=== PATIENT | female | born 1960 | race Caucasian/White ===

== ENCOUNTER 2018-10-05 20:29 | Emergency (ER) | payer MEDICAID, SELFPAY ==
[2018-10-05 20:29] VITALS: BP 151/99; PULSE 112; RESP 16; TEMP 36.2; O2SAT 96; BMI 17.2
--- NOTE | 2018-10-05 21:05 | CT_ITS ---
STUDY: CT ABDOMEN AND PELVIS WITH CONTRAST REASON FOR EXAM: Female, 58 years old. Rectal bleeding with bowel movements. History of alcoholic pancreatitis. RADIATION DOSAGE (If Supplied By Facility): CTDIvol = ( 12.46 ) mGy, DLP = ( 249.73 ) mGycm TECHNIQUE: Transaxial images were obtained from the dome of the diaphragm to the symphysis pubis without oral contrast. 80ML IV Isovue 300 was administered. Sagittal and coronal images were reconstructed. Individualized dose optimization techniques were used for this CT. COMPARISON: None. FINDINGS: The visualized lung bases are unremarkable. The visualized portions of the heart are within normal limits. Fatty liver. Large volume gallbladder with one moderate size gallstone. Negative for wall thickening or pericholecystic fluid. Nondistended common bile duct. Normal spleen. Normal pancreas. Normal bilateral adrenal glands. Normal right kidney. Normal left kidney. Normal visualized stomach. Normal small intestine. There are some prominent vascular structures in the low wall of the distal sigmoid or rectosigmoid colon which appear to drain into the inferior mesenteric vein consistent with hemorrhoids. This appears to be approximately 10 cm above the anus. Otherwise normal colon. The appendix is visualized and appears normal. Minimal calcified plaque of the aorta. Normal inferior vena cava. Normal retroperitoneum. Normal urinary bladder. Negative for pelvic mass or free fluid of the pelvis. Normal abdominal wall. Normal osseous structures. CT/Abdomen/Pelvis W IV Cont ONLY IMPRESSION: Prominent venous structures/varices/hemorrhoids of the distal sigmoid/rectosigmoid junction approximately 10 cm above the anus. Otherwise normal colon. Negative for inflammatory bowel changes. Negative for mass density. Negative for diverticulosis. Fatty liver. Cholelithiasis. 1 moderate gallstone and a large volume gallbladder without wall thickening or pericholecystic fluid. Normal kidneys bilaterally. Negative for pelvic mass. Electronically Signed: Kristie Bonds MD at 22:37 EDT , Service support ,
[2018-10-05 21:27] LABS: Absolute Lymphocyte Count 1.32 X10^3/ul (0.83-4.51); Absolute Neutrophil Count 1.9 X10^3/uL (2.0-7.7); Basophil# 0.09 X10^3/uL; Basophil% 2.4 % (0-1); Eosinophil# 0.03 X10^3/uL; Eosinophils% 0.8 % (0-5); Hematocrit 37.2 % (37-47); Hemoglobin 12.7 g/dl (12.0-15.0); Lymphocyte # 1.32 X10^3/ul (4.0); Lymphocyte % 35.8 % (19-41); Mean Corp Hgb Conc 34.1 g/gl (32-36); Mean Corpuscular Hgb 36.4 pg (27.0-32.0); Mean Corpuscular Volume 106.6 fL (81-99); Mean Platelet Vol. 9.8 fl (6.2-12.0); Monocyte# 0.37 X10^3/uL; Neutrophil # 1.87 X10^3/uL (2.7-7.7); Neutrophil % 50.7 % (47-70); POSITIVE COUNT NO; POSITIVE DIFFERENTIAL NO; POSITIVE MORPHOLOGY NO; Platelet Count 84 K/mm3 (150-450); RBC Distribution Width CV 14.6 % (11.6-14.6); RBC Distribution Width SD 55.9 fl (35.1-43.9); Red Blood Count 3.49 M/mm3 (4.2-5.4); White Blood Count 3.7 K/mm3 (4.4-11.0)
[2018-10-05 21:33] LABS: International Normalized Ratio 1.1; Prothrombin Time (Protime)PT. 14.3 SECONDS (11.7-14.9)
[2018-10-05 21:34] LABS: Partial Thromboplast Time 21.7 Seconds (24.1-36.2)
[2018-10-05] MEDS: 0.9% Normal Saline 1,000 ML 1000 ML IV (21:43)
[2018-10-05] MEDS: LORazepam 2 MG/ML Syringe 1 MG IV (21:43)
--- NOTE | 2018-10-05 21:55 | CM.ED ---
SOCIAL WORK NOTE REFERRAL BY NURSING TO DISCUSS OPTIONS FOR DETOX PER PATIENT AND FAMILY REQUEST. MET WITH PATIENT AT BEDSIDE. INTRODUCED ROLE AND REASON FOR REFERRAL. FAMILY NOT PRESENT. PATIENT DENIES CONCERNS WITH ALCOHOL ABUSE AND CURRENT NEED FOR DETOX. PATIENT STATES DRINKS 2-3 ALCOHOLIC BEVERAGES/DAY AND THEN AFTER A FEW MINUTES REPORTED I ONLY DRINK OCCASIONALLY. PATIENT STATED IS HAVING FAMILY ISSUES- MY BROTHER IS UPSET WITH ME BECAUSE HE THINKS I AM DRINKING. DISCUSSED FAMILY'S CONCERNS FOR PATIENT. PATIENT OPEN TO RECEIVING INFORMATION ON OPTIONS FOR TREATMENT. PATIENT PROVIDED LIST OF RESOURCES. 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 PATIENT STATES INCOME IS LIMITED AND MAY QUALIFY FOR MEDICAID. PATIENT GIVEN INFORMATION ON MEDICAID. PATIENT STATES WILL FOLLOW UP WITH MEDICAID TOMORROW. PATIENT DENIES ANY OTHER NEEDS FROM THIS WORKER. WORKER TO REMAIN AVAILABLE. UPDATED NURSING ON THE ABOVE. VAUGHN ALBARRAN, TRIMMING CUTTER, MEDICAL INSURANCE BILLER.
[2018-10-05 22:03] LABS: ALB/GLOB Ratio 0.8 RATIO (0.9-2.4); AST(SGOT) 123 U/L (15-37); Alanine Aminotransfer ALT/SGPT 48 U/L (13-56); Albumin, Serum 3.7 g/dL (3.2-5.0); Alkaline Phosphatase 121 U/L (45-117); Anion Gap 12 (5-15); BUN 5 mg/dL (7-18); Calcium,Total 8.2 mg/dL (8.5-10.1); Chloride 101 mmol/L (98-107); Creatinine, Serum 0.56 mg/dL (0.55-1.02); EST Glomerular Filtration Rate 120 mL/min (>60); Est Glom Filt Rate - Afr Amer 145 mL/min (>60); Estimated Creatinine Clearance 80.32 ml/min; Globulin 4.5 g/dL (2.2-4.2); Glucose 80 mg/dL (74-106); Lipase 135 U/L (73-393); Potassium 5.1 mmol/L (3.5-5.1); Protein, Total 8.2 g/dL (6.4-8.2); Sodium Level 137 mmol/L (136-145)
--- NOTE | 2018-10-05 23:05 | ED.DCSUM_ITS ---
- ER Visit Summary Date of Service: 10/05/18 Chief Complaint: GI bleeding History of Present Illness: The patient is a 58 F with a history of GI bleeding. The patient has a history of constipation as well as alcoholism. She has had intermittent rectal bleeding over the past month including today. She passed bright red blood with her bowel movements. No black or tarry stools. Patient denies any history of GI bleeding in the past. She does have a history of hemorrhoids. She does not take blood thinners. Patient reports drinking up to 1 bottle of wine per day. Last use was about 3 PM today. Physical Examination: Afebrile and vital signs unremarkable except for heart rate of 112. The patient is nontoxic and in no acute distress. Heart regular. Lungs clear. Abdomen soft and nontender. Rectal exam was chaperoned by Ashley MARTINEZ. Patient has external hemorrhoids which were not bleeding. They are tender to palpation. Otherwise no blood in the rectal vault. Skin appears normal in color without diaphoresis or jaundice. Test Results: White count stable at 3.7. Platelets stable at 84. CMP shows an AST of 123 consistent with alcohol abuse. Lipase normal. INR 1.1 and PTT 21.7. Fecal occult test was positive. CT abdomen and pelvis showed rectosigmoid varices/hemorrhoids. She also has fatty liver and cholelithiasis with a moderate gallstone. No signs of cholecystitis. Emergency Department Course and Treatment: Patient was treated with fluids and Protonix while awaiting results. She requested something for alcohol withdrawal and was treated with a dose of Ativan. CBC stable. No indication for platelet or other transfusion. Coags unremarkable. Patient likely has alcoholic liver disease and possibly some degree of cirrhosis. She has hemorrhoids and I suspect this is the source of her bright red bleeding. I spoke with her again. She has bleeding with hard stools. Her hemorrhoids are painful and they bleed more easily when they are swollen. Patient has an incidental gallstone, but I do not believe this is contributing to any of her symptoms or issues today. Patient is requesting Librium or other medication to help with alcohol withdrawal at home. Her family was interested in detox, but she was not. I will give her an outpatient referral. I will also refer her to surgery for follow-up for her GI bleeding. Patient was placed on stool softeners and PPI. Patient was advised to return right away for inpatient care if she is having worsening bleeding, lightheadedness, or any other associated symptoms. All questions answered and patient will be discharged. Treatment Plan: As above Disposition: Discharge Impression: 1. Rectal bleeding 2. History of alcoholism This note was generated with [employer] software. It may contain incorrect words, spelling, and punctuation that were not noted in review of the chart prior to signing ED Disposition - Plan for ED Patient: Referrals: Care Physician,No Primary [Primary Care Provider] -
--- NOTE | 2018-10-05 23:05 | ED.DEP ---
ED Disposition - Plan for ED Patient: Instructions: ED Hemorrhoids Prescriptions: Docusate Sodium [Colace] 100 mg PO DAILY #20 cap Omeprazole [Prilosec] 20 mg PO DAILY #30 cap Referrals: Solo Elizondo MD [STAFF PHYSICIAN] - As soon as possible Additional Instructions: Follow up with [facility] for detox call [phone]
[2018-10-05 23:24] VITALS: PULSE 81; RESP 16; O2SAT 97
== END 2018-10-05 23:24 | disposition home or self-care (01) ==
LOC: ED 21:16
PROVIDERS: Emergency Provider Emergency Medicine
DX: K62.5 Hemorrhage of anus and rectum (principal); F10.21 Alcohol dependence, in remission; K76.0 Fatty (change of) liver, not elsewhere classified; K80.10 Calculus of gallbladder with chronic cholecystitis without obstruction
CPT/HCPCS: 74177; 80053; 82274; 83690; 85025; 85610; 85730; 86850; 86900; 96361; 96365; 96375; 99284; J7030; Q9967; A4216; J3490

== ENCOUNTER 2019-01-09 07:40 | Day surgery (SDC) | payer MEDICAID, SELFPAY ==
--- NOTE | 2018-12-22 03:08 | HP_ITS ---
Intake Vital Signs 12/22/18 Body Mass Index (BMI) 17.2 12/22/18 Height 5 ft 4 in 12/22/18 Weight: 100 lb 12/22/18 Body Mass Index (BMI) 17.2 12/22/18 Blood Pressure 122/77 H 12/22/18 Blood Pressure Location Rt brachial 12/22/18 Respiratory Rate 18 12/22/18 Pulse Rate 77 12/22/18 Pulse Source Monitor 12/22/18 Temperature 98.1 F 12/22/18 Temperature Source Oral 12/22/18 Pulse Ox 99 12/22/18 Oxygen Delivery Method room air Intake Visit Reasons: BRBPR Chief Complaint: ABDOMINAL PAIN/N/V Banquet Steward Required: No Is patient in pain?: No Allergies Penicillins Allergy (Verified 12/22/18 14:27) Rash Medications ibuprofen 100 mg tablet 200 mg PO Q6H 12/19/18 [History Confirmed 12/22/18] PFSH Medical History (Updated 12/22/18 @ 14:24 by Tierra Sanchez) Rectal bleeding (Acute) Anemia (Acute) Diarrhea (Acute) Fatigue (Acute) Hemorrhoids (Acute) sudden weight loss (Acute) Surgical History (Updated 12/22/18 @ 14:24 by Tierra Sanchez) No history of previous surgery (Acute) Family History (Updated 12/22/18 @ 14:25 by Tierra Sanchez) Brother Diabetes Father Diabetes Hypertension High cholesterol Thyroid disorder Social History (Updated 12/22/18 @ 15:08 by Solo Elizondo MD) Smoking Status: Never smoker alcohol intake: never substance use type: does not use HPI HPI HPI: CHARLIE DEVLIN, is a 58 F who presents to the office today for HPI HPI Surgical H&P: Yes HPI: CHARLIE DEVLIN, is a 58 F who presents to the office today for bright red blood per rectum as well as anemia and epigastric pain. Patient notes that she has a history of alcoholism and has been recovering since October. She says that occasionally she has epigastric pain. She also reports that on a few occasions she has had bright red blood filling the toilet bowl. She is not having any pain during defecation. She has no lower abdominal pain. She has never had a colonoscopy. She also frequently took ibuprofen. ROS General General: Yes fatigue; no weight change, appetite, colon cancer, breast cancer or weakness HEENT HEENT: No difficulty swallowing, eye injury, eye surgery, swollen glands or hoarseness Endo Endocrine: No thyroid disease, diabetes mellitus, thyroid cancer, Hair loss, heat intolerance or cold intolerance Skin Skin: Yes rash; no changing moles Breast Breast: No left breast lump, right breast lump, nipple discharge, breast pain, abnormal mammogram, abnormal US or breast enlargement Musc Musculoskeletal: No back problems, arthritis, rheumatoid arthritis, gout or joint pain Cardio Cardiovascular: No murmur, pacemaker, heart disease, atrial fibrillation, high blood pressure, heart attack, heart stent, palpitations, shortness of breat with exertion or chest pain Psych Psychiatric: No depression, anxiety or hearing voices Resp Respiratory: No shortness of breath, No sleep apnea, No cough, No COPD, No asthma, No emphysema, No wheezing Gastro Gastrointestinal: Yes abdominal pain, No nausea or vomiting, No diarrhea, No constipation, Yes blood in stool, No acid reflux, Yes hemorrhoids, No ulcers, No gallbladder problem, No black,tarry stools Chele Hematologic: No blood thinners, No blood disorders, Yes bleeding, Yes anemia, No blood clots Neuro Neurologic: No system reviewed and no additional complaints, except as docu, No as per HPI, No abnormal walking, No abnormal hearing, No abnormal movements, No abnormal speech, No behavioral changes, No burning sensations, No confusion, No seizure-like activity, No unsteadiness, No dizziness, No localized weakness, No frequent falls, No headache(s), No lack of coordination, No loss of vision, No memory loss, No numbness, No other visual disturbances, No radiating pain, No restless legs, No sensory deficit, No fainting, No tingling, No tremor(s), No weakness, No other Exam Const General: cooperative Orientation: alert, oriented x3 Chest Breast Palpation: No nipple discharge Resp Effort & Inspection: normal respiratory effort Auscultation: clear to auscultation bilaterally Cardio Rate: regular rate Rhythm: regular rhythm Heart Sounds: no murmurs GI Inspection: non-distended Palpation: soft, nontender Assessment & Plan Problems 1. History of anemia Z86.2 2. Bright red blood per rectum K62.5 3. Epigastric pain R10.13 Plan Patient is a recovering alcoholic with bright red blood per rectum and occasional epigastric pain. Patient was slightly anemic recently with a hemoglobin of 12. She was also having fatigue and dizziness. Patient was sent here for colonoscopy as she has never had one but I would also recommend doing an EGD since she is having bleeding and epigastric pain. She also has a history of ibuprofen use. I explained endoscopy in detail to the patient. I explained the risks including but not limited to stroke or heart attack with anesthesia, perforation of the GI tract, bleeding, infection. I explained that any of these could necessitate further emergency surgery. The patient understands and all questions were answered sufficiently. The patient wishes to proceed with procedure. Solo Elizondo MD Pager: [facility] [address] [place] [address], [address] [place] [address] Office: Orders Orders: Colonoscopy Today K62.5 EGD Today R10.13, Z86.2 Coding Level of Care Code Off vis,new,level 3 Diagnoses History of anemia Z86.2 Bright red blood per rectum K62.5 Epigastric pain R10.13 12/22/18 1508 <Electronically signed by Solo patterson MD> Date _ Solo Elizondo MD I have re-examined the patient. There are no clinical changes since date of exam.
[2018-12-22 14:29] VITALS: BMI 17.2
[2019-01-09 08:19] VITALS: BP 123/71; PULSE 79; RESP 14; TEMP 36.8; O2SAT 98; BMI 16.9
--- NOTE | 2019-01-09 09:00 | IMM_PTH ---
PATIENT: CHARLIE DEVLIN LOC: EN U#:[id number] AGE/SX: 58/F ROOM: RE01/09/[address]: Dr. Solo Elizondo MD : 1960 BED: DIS: 01/09/2019 SPEC #: [id number] RECD: 01/09/19 16:35 STATUS: WALE [place] #: [id number] LEO: 01/09/19 09:[address]: Solo Elizondo DEPT: IMMUNOHISTOCHEMISTRY RECD BY: Pia Rizvi ENTERED: 01/09/19 16:35 SP TYPE: IMMUNO OTHR DR: No Primary Care Phys Tissues: Stomach, NOS Procedures: H Pylori (initial) PHYSICIAN & INSTITUTION [place] [id number] SPECIMEN INFORMATION: Tissue Source: Antral biopsy Clinical Info: Bright red blood per rectum, abdominal pain, nausea, vomiting Specimen Number: [id number] CPT code: 90060 METHODOLOGY: Deparaffinized sections of prefer/formalin-fixed tissue or PAP/DQ stained slides are incubated with monoclonal/polyclonal antibodies/oligonucleotide probes. Localization is made via biotin free immunoperoxidase method. Appropriate controls are performed and reacted as expected. Results on target cell population are indicated in the following table: RESULTS: ANTIBODY / CLONE RESULT H Pylori (polyclonal) negative These tests were developed and their performance characteristics determined by [facility]. They may not have been cleared or approved by the U.S. Food and Drug Administration. The FDA has determined that such clearance or approval is not necessary. INTERPRETATION: Antral biopsy: Negative for Helicobacter pylori organisms. MARIIA:isaiah 01/10/19
--- NOTE | 2019-01-09 09:00 | EGD_PTH ---
PATIENT: CHARLIE DEVLIN LOC: EN U#:[id number] AGE/SX: 58/F ROOM: RE01/09/[address]: Dr. Solo Elizondo MD : 1960 BED: DIS: 01/09/2019 SPEC #: [id number] RECD: 01/09/19 11:14 STATUS: WALE YUNIOR #: [id number] LEO: 01/09/19 09:[address]: Solo Elizondo DEPT: SURGICAL PATHOLOGY RECD BY: Alejandro Dubon ENTERED: 01/09/19 14:23 SP TYPE: EGD BIOPSY OTHR DR: No Primary Care Phys Tissues: Gastric mucous membrane Procedures: Surgery Specimen Level IV HEADER OPERATION: Colonoscopy, EGD ([facility]) PRE-OP DIAGNOSIS: Bright red blood per rectum, abdominal pain, nausea, vomiting TISSUE SUBMITTED: Antral biopsy for H. pylori and pathology MICROSCOPIC DIAGNOSIS Gastric antrum, biopsy: Mild chronic gastritis. See comment. AM:isaiah 01/10/19 COMMENT The results of immunohistochemistry for Helicobacter pylori will be reported separately ([id number]). MICROSCOPIC DESCRIPTION Slides are reviewed. GROSS DESCRIPTION Received in fixative is one container labeled with the patient's name and designated antral biopsy. The specimen consists of one irregular fragment of light mchugh soft tissue that measures 0.4 x 0.3 x 0.1 cm. The specimen is totally submitted in one cassette. / MARIIA:isaiah 01/09/19 TC:5 CPT: 73518
[2019-01-09 09:45] VITALS: BP 106/80; BP 123/71; PULSE 77; RESP 16; TEMP 36.1; O2SAT 100
--- NOTE | 2019-01-09 09:45 | OP.ENDO_ITS ---
01/09/2019 No Primary Care Physician Re : Upper GI endoscopy procedure for Adele Cheng Dear Care Physician This procedure was performed on Wednesday, January 09, 2019. My impressions and recommendations are as follows: Impressions : - Grade I esophageal varices. - Gastritis. Biopsied. - Medium-sized hiatal hernia. Recommendations : - Discharge patient to home. - Resume previous diet. - Continue present medications. - Await pathology results. My findings are described in the full procedure note, which is enclosed. If I can be of further assistance, please feel free to contact me at Doctor phone number(s): , Work: . Sincerely, Solo Elizondo MD 01/09/2019 9:45:27 AM This report has been signed electronically.
--- NOTE | 2019-01-09 09:47 | OP.ENDO_ITS ---
01/09/2019 No Primary Care Physician Re : Colonoscopy procedure for Adele Cheng Dear Care Physician This procedure was performed on Wednesday, January 09, 2019. My impressions and recommendations are as follows: Impressions : - Non-bleeding external and internal hemorrhoids. - The examination was otherwise normal on direct and retroflexion views. - No specimens collected. Recommendations : - Discharge patient to home. - Resume previous diet. - Continue present medications. - Return to my office in 1 week. - Repeat colonoscopy in 10 years for screening purposes. My findings are described in the full procedure note, which is enclosed. If I can be of further assistance, please feel free to contact me at Doctor phone number(s): , Work: . Sincerely, Solo Elizondo MD 01/09/2019 9:47:27 AM This report has been signed electronically.
[2019-01-09 09:50] VITALS: BP 108/77; BP 123/71; PULSE 72; RESP 16; O2SAT 96
[2019-01-09 09:55] VITALS: BP 109/79; BP 123/71; PULSE 83; RESP 16; O2SAT 100
[2019-01-09 10:00] VITALS: BP 108/80; BP 123/71; PULSE 67; RESP 16; TEMP 36.6; O2SAT 100
[2019-01-09 10:10] VITALS: BP 123/71
== END 2019-01-09 10:31 | disposition home or self-care (01) ==
LOC: EN 07:41 → AC 07:42
PROVIDERS: Referring Provider Surgery; Visit Provider Surgery
PROC: 0DJD8ZZ Inspection of Lower Intestinal Tract, Via Natural or Artificial Opening Endoscopic (ICD-10-PCS; CPT 45378; principal; 2019-01-09 08:55)
DX: K29.50 Unspecified chronic gastritis without bleeding (principal); K44.9 Diaphragmatic hernia without obstruction or gangrene; I85.00 Esophageal varices without bleeding; F10.21 Alcohol dependence, in remission; K64.2 Third degree hemorrhoids; K64.4 Residual hemorrhoidal skin tags; Z86.2 Personal history of diseases of the blood and blood-forming organs and certain disorders involving the immune mechanism
CPT/HCPCS: 43239; 45378; 88305; 88342; J7120

== ENCOUNTER → 2019-04-01 14:23 | Outpatient (CLI) | payer MEDICAID, SELFPAY ==
[2019-04-01 09:43] VITALS: BMI 16.9
[2019-04-01 14:26] LABS: Red Blood Cells-Urine 0 SEEN /hpf (0-5)
[2019-04-01 14:52] LABS: Color, Urine Yellow (Yellow); Glucose, Dipstick Normal (Normal); Ketone-Dipstick 5 mg/dl (Negative); Leukocyte Esterase-Dipstick 500 /ul (Negative); Nitrite-Dipstick Negative (Negative); Occult Blood-Urine 10 /ul (Negative); Protein-Dipstick 15 mg/dl (Negative); Specific Gravity, Urine 1.025 (1.002-1.030); Urine Clarity Sl. Cloudy (Clear); Urine Urobilinogen 1 mg/dl (Normal)
[2019-04-01 14:55] LABS: Urine Bilirubin Dipstick 1 mg/dL (Negative)
[2019-04-01 15:01] LABS: White Blood Cells 5-10 SEEN /hpf (0-5)
[2019-04-01 15:02] LABS: Bacteria 2+ /hpf (None Seen); Mucous, Urine 1+ /hpf (<or=2+); Squamous Epithelial Cells - UA 0-5 SEEN /hpf (5-10)
== END ==
PROVIDERS: PCP Family Medicine; Visit Provider Physician Assistant Surgical
DX: R35.0 Frequency of micturition (principal)
CPT/HCPCS: 81001; 87086; 87088; 87186

== ENCOUNTER → 2020-08-12 | Outpatient (CLI) | payer MEDICAID, SELFPAY ==
[2020-08-12 11:21] VITALS: BMI 18.1
[2020-08-15 21:12] LABS: HPV APTIMA, High Risk Negative (Negative)
== END | disposition home or self-care (01) ==
LOC: LABSPEC 16:32
PROVIDERS: PCP Family Medicine; Referring Provider Obstetrics & Gynecology; Visit Provider Obstetrics & Gynecology
DX: Z12.4 Encounter for screening for malignant neoplasm of cervix (principal)
CPT/HCPCS: 87624; 88175; G0145

== ENCOUNTER 2022-10-03 14:05 | Emergency (ER) | payer MEDICAID, SELFPAY ==
[2022-10-03 14:06] VITALS: BP 154/95; PULSE 115; RESP 18; TEMP 36.4; O2SAT 98; BMI 17.7
--- NOTE | 2022-10-03 14:54 | EX.ED.DYSGE1 ---
HPI <CHANDRIKA Patterson - Last Filed: 10/03/22 19:38> History of Present Illness Chief Complaint: Abd Pain Narrative Narrative: Patient presenting today due to nausea and vomiting that she has had since Tuesday. She states that she has vomited several times each day and feels dehydrated. She is denying any abdominal pain. She states that she has noticed a few episodes of vomiting that had black specks in it as well as a few episodes of vomiting that were black in color. She denies a history of any gastric ulcers or history of GI bleeds. She denies alcohol use. She denies any fever, chills, diarrhea, urinary symptoms, shortness of breath, chest pain. PFSH <CHANDRIKA Patterson - Last Filed: 10/03/22 19:38> [facility] Medical History Anemia Conjunctivitis, left eye Diarrhea Fatigue Hemorrhoids Rectal bleeding sudden weight loss Home Medications ibuprofen 100 mg tablet 200 mg PO Q6H 12/19/18 [History Last Taken 01/06/19] dibucaine 1 % rectal ointment 1 applic [place] TID #56.7 grams 02/13/19 [Rx Last Taken Unknown] tobramycin 0.3 % eye drops (Tobrex) 1 drp ophthalmic (eye) Q2H #5 mL 05/05/20 [Rx Last Taken Unknown] doxycycline monohydrate 100 mg capsule 100 mg PO BID #28 caps 08/14/20 [Rx Last Taken Unknown] tobramycin 0.3 % eye drops 1 drp ophthalmic (eye) Q2H #5 mL 06/03/21 [Rx Last Taken Unknown] omeprazole 20 mg capsule,delayed release 20 mg PO DAILY #30 CAPSULES 10/03/22 [Rx Last Taken Unknown] ondansetron 4 mg disintegrating tablet 4 mg PO Q8H PRN PRN Nausea #10 tabs 10/03/22 [Rx Last Taken Unknown] Allergy/AdvReac Type Severity Reaction Status Date / Time Penicillins Allergy Rash Verified 10/03/22 14:09 Family History Brother Diabetes Father Diabetes Hypertension High cholesterol Thyroid disorder Surgical History No history of previous surgery Social History Smoking Status: Never smoker alcohol intake: never substance use type: does not use caffeine: Yes what type of physical activity do you participate in: walking seatbelt use: always do you feel safe at home: Yes 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 <CHANDRIKA Patterson - Last Filed: 10/03/22 19:38> ROS ED Constitutional Constitutional ED: Denies chills or fever(s) Cardiovascular Cardiovascular: Denies chest pain or palpitations Respiratory/Chest Respiratory/Chest: Denies cough or dyspnea Gastrointestinal Gastrointestinal: Reports nausea and vomiting; Denies abdominal pain, constipation or diarrhea Genitourinary Genitourinary ED: Denies dysuria, hematuria or urinary urgency Musculoskeletal Musculoskeletal: Denies back pain, myalgias or neck pain Integumentary Denies abscess, Abrasions or rash Neurologic Neurologic: Denies dizziness or weakness Psychiatric Psychiatric: Denies anxiety, depression, suicidal ideation or suicidal thoughts EXAM <CHANDRIKA Patterson - Last Filed: 10/03/22 19:38> Physical Exam Const Vital Signs: 10/03/22 14:06 10/03/22 16:19 Temperature 97.5 F L Temperature Source Temporal Pulse Rate 115 H 86 Respiratory Rate 18 18 Blood Pressure 154/95 H 145/85 H Blood Pressure Mean 114 105 Pulse Ox 98 99 Oxygen Delivery Method Room Air Room Air Positive well nourished, well developed and no apparent distress General Appearance ED: well developed HEENT Reports normocephalic and head/scalp atraumatic Mouth ED: Yes moist mucous membranes normal Eyes PERRL and EOMs intact bilaterally Neck full ROM and supple Chest Wall inspection of chest normal Resp normal respiratory effort and clear to auscultation bilaterally Cardio regular rate and regular rhythm GI soft to palpation, non-tender, non-distended and no masses Back/Spine normal ROM and normal to inspection Extremity normal to inspection and full ROM Neuro oriented x3, CN's II-XII intact bilaterally, moves all extremities, no focal motor deficits and no sensory deficits noted Sensorium / Orientation: awake and alert Psych mental status grossly normal and thought process normal Skin no rashes or lesions noted and no wounds <Dr. Ulices Ronquillo DO - Last Filed: 10/03/22 20:56> Physical Exam Const Vital Signs: 10/03/22 14:06 10/03/22 16:19 Temperature 97.5 F L Temperature Source Temporal Pulse Rate 115 H 86 Respiratory Rate 18 18 Blood Pressure 154/95 H 145/85 H Blood Pressure Mean 114 105 Pulse Ox 98 99 Oxygen Delivery Method Room Air Room Air [facility] <CHANDRIKA Patterson - Last Filed: 10/03/22 19:38> [facility] Narrative Medical decision making narrative: Patient presenting today with nausea and vomiting that she has had since Tuesday. She does state that she has noticed black specks in her vomit a few times and also vomited black liquid a few times. She really is not complaining of any abdominal pain. She notes some mild epigastric discomfort but states that it is not really painful. It does appear she has a history of a GI bleed according to her chart, it looks like that was just hemorrhoids and I am not seeing any history of an upper GI bleed. Patient denies any history of GI bleed. Her chart also states that she has a history of alcohol abuse, but she states denies any history of this. On further examination however, she did admit to having a problem with alcohol several years ago but states she no longer drinks. She states she has never had an endoscopy before. Labs obtained to rule out pancreatitis, leukocytosis, assess kidney function, assess liver enzymes. She has been given Protonix, IV fluids and Zofran. Given her elevated WBC, CT scan of the abdomen and pelvis obtained and is suggestive of esophagitis and shows a solitary gallstone. It also shows fatty liver. I have encouraged patient to follow-up with her PCP regarding her elevated liver enzymes so that these can be monitored and have also given her a follow-up with Dr. Polk. She is out of her omeprazole prescription, I have refilled this. I have given her a prescription for Zofran. She is tolerating p.o. fluids. I think she can be discharged home in stable condition to follow-up with her PCP Dr. Polk and is comfortable with plan. I do not think that her symptoms are related to her gallstone as she is really not having much abdominal pain. However, I have given her return precautions if her gallbladder does start to cause her issues. Lab Data Attestation: I reviewed the patient's lab results. Lab results narrative: WBC 14.4, neutrophils 88.4, sodium 130, chloride 94, anion gap 24, total bilirubin 2.2, AST 661, ALT 269, alkaline phosphatase 146, lipase 290 Labs: Laboratory Results - last 24 hr 10/03/22 10/03/22 10/03/22 14:40 14:40 14:40 WBC 14.4 H RBC 4.12 L Hgb 14.5 Hct 44.4 MCV 107.8 H MCH 35.2 H MCHC 32.7 RDW Std Deviation 55.7 H RDW Coeff of Alyx 13.8 Plt Count 229 MPV 10.6 Immature Gran % (Auto) 0.800 Neut % (Auto) 88.4 H Lymph % (Auto) 4.3 L [place] % (Auto) 5.7 Eos % (Auto) 0.0 Baso % (Auto) 0.8 Absolute Neuts (auto) 12.7 H Absolute Lymphs (auto) 0.62 L Nucleated RBC % 0 Sodium 130 L Potassium 3.8 Chloride 94 L Carbon Dioxide 12.0 L Anion Gap 24 H BUN 16 Creatinine 0.95 Estim Creat Clear Calc 46.63 Est GFR (MDRD) Af Amer 77 Est GFR (MDRD) Non-Af 63 BUN/Creatinine Ratio 16.8 Glucose 159 H Calcium 10.3 H Total Bilirubin 2.20 H AST 661 H ALT 269 H Alkaline Phosphatase 146 H Total Protein 10.1 H Albumin 4.6 Globulin 5.5 H Albumin/Globulin Ratio 0.8 L Lipase 290 Ethyl Alcohol Blood Type O POSITIVE Antibody Screen NEGATIVE 10/03/22 15:30 WBC RBC Hgb Hct MCV MCH MCHC RDW Std Deviation RDW Coeff of Alyx Plt Count MPV Immature Gran % (Auto) Neut % (Auto) Lymph % (Auto) [place] % (Auto) Eos % (Auto) Baso % (Auto) Absolute Neuts (auto) Absolute Lymphs (auto) Nucleated RBC % Sodium Potassium Chloride Carbon Dioxide Anion Gap BUN Creatinine Estim Creat Clear Calc Est GFR (MDRD) Af Amer Est GFR (MDRD) Non-Af BUN/Creatinine Ratio Glucose Calcium Total Bilirubin AST ALT Alkaline Phosphatase Total Protein Albumin Globulin Albumin/Globulin Ratio Lipase Ethyl Alcohol < 3.0 Blood Type Antibody Screen Radiography Diagnostic Testing: Clinical Impression(s) from Imaging Studies Abdomen/Pelvis CT 10/03/22 15:31 IMPRESSION: (NOT LISTED IN ORDER OF SIGNIFICANCE) Fatty liver. Esophageal wall thickening may suggest an esophagitis. There is a solitary gallstone. Other findings as above. Electronically Signed: Miguelito Johnson MD at 16:30 EDT , <Dr. Ulices Ronquillo, DO - Last Filed: 10/03/22 20:56> MDM MDM Narrative Medical decision making narrative: Patient presenting today with nausea and vomiting that she has had since Tuesday. She does state that she has noticed black specks in her vomit a few times and also vomited black liquid a few times. She really is not complaining of any abdominal pain. She notes some mild epigastric discomfort but states that it is not really painful. It does appear she has a history of a GI bleed according to her chart, it looks like that was just hemorrhoids and I am not seeing any history of an upper GI bleed. Patient denies any history of GI bleed. Her chart also states that she has a history of alcohol abuse, but she states denies any history of this. On further examination however, she did admit to having a problem with alcohol several years ago but states she no longer drinks. She states she has never had an endoscopy before. Labs obtained to rule out pancreatitis, leukocytosis, assess kidney function, assess liver enzymes. She has been given Protonix, IV fluids and Zofran. Given her elevated WBC, CT scan of the abdomen and pelvis obtained and is suggestive of esophagitis and shows a solitary gallstone. It also shows fatty liver. I have encouraged patient to follow-up with her PCP regarding her elevated liver enzymes so that these can be monitored and have also given her a follow-up with Dr. Polk. She is out of her omeprazole prescription, I have refilled this. I have given her a prescription for Zofran. She is tolerating p.o. fluids. I think she can be discharged home in stable condition to follow-up with her PCP Dr. Polk and is comfortable with plan. I do not think that her symptoms are related to her gallstone as she is really not having much abdominal pain. However, I have given her return precautions if her gallbladder does start to cause her issues. This patient was seen with a PA/BARREL BANDER Individually assessed they patient including history and physical. I have reviewed everything on the chart that is available and agree with the documentation provided by the PA/BARREL BANDER including discussion about the assessment, treatment plan, discussion, and return precautions. Patient presenting with nausea and vomiting. She initially reported some mild pain and pointed to the middle of her abdomen. She states is not significant. Her blood work today shows a slight leukocytosis which is likely reactive. She does have slight hyponatremia. LFTs are elevated today. She reports that she is no longer drinker and her EtOH level is normal. Initially there was some concern for possible upper GI bleed however the patient's hemoglobin is normal. Her BUN is not elevated and her renal function is within normal limits. CT of the abdomen pelvis shows what looks like esophagitis and an isolated gallstone, but she is not experiencing any pain here. Is unclear the etiology of her elevated LFTs. We will have the patient follow-up with GI. Return precautions were discussed. Lab Data Labs: Laboratory Results - last 24 hr 10/03/22 10/03/22 10/03/22 14:40 14:40 14:40 WBC 14.4 H RBC 4.12 L Hgb 14.5 Hct 44.4 MCV 107.8 H MCH 35.2 H MCHC 32.7 RDW Std Deviation 55.7 H RDW Coeff of Alyx 13.8 Plt Count 229 MPV 10.6 Immature Gran % (Auto) 0.800 Neut % (Auto) 88.4 H Lymph % (Auto) 4.3 L [place] % (Auto) 5.7 Eos % (Auto) 0.0 Baso % (Auto) 0.8 Absolute Neuts (auto) 12.7 H Absolute Lymphs (auto) 0.62 L Nucleated RBC % 0 Sodium 130 L Potassium 3.8 Chloride 94 L Carbon Dioxide 12.0 L Anion Gap 24 H BUN 16 Creatinine 0.95 Estim Creat Clear Calc 46.63 Est GFR (MDRD) Af Amer 77 Est GFR (MDRD) Non-Af 63 BUN/Creatinine Ratio 16.8 Glucose 159 H Calcium 10.3 H Total Bilirubin 2.20 H AST 661 H ALT 269 H Alkaline Phosphatase 146 H Total Protein 10.1 H Albumin 4.6 Globulin 5.5 H Albumin/Globulin Ratio 0.8 L Lipase 290 Ethyl Alcohol Blood Type O POSITIVE Antibody Screen NEGATIVE 10/03/22 15:30 WBC RBC Hgb Hct MCV MCH MCHC RDW Std Deviation RDW Coeff of Alyx Plt Count MPV Immature Gran % (Auto) Neut % (Auto) Lymph % (Auto) [place] % (Auto) Eos % (Auto) Baso % (Auto) Absolute Neuts (auto) Absolute Lymphs (auto) Nucleated RBC % Sodium Potassium Chloride Carbon Dioxide Anion Gap BUN Creatinine Estim Creat Clear Calc Est GFR (MDRD) Af Amer Est GFR (MDRD) Non-Af BUN/Creatinine Ratio Glucose Calcium Total Bilirubin AST ALT Alkaline Phosphatase Total Protein Albumin Globulin Albumin/Globulin Ratio Lipase Ethyl Alcohol < 3.0 Blood Type Antibody Screen Radiography Diagnostic Testing: Clinical Impression(s) from Imaging Studies Abdomen/Pelvis CT 10/03/22 15:31 IMPRESSION: (NOT LISTED IN ORDER OF SIGNIFICANCE) Fatty liver. Esophageal wall thickening may suggest an esophagitis. There is a solitary gallstone. Other findings as above. Electronically Signed: Miguelito Johnson MD at 16:30 EDT Reading Location ID and State: [facility] / [place] , Service support , Discharge Plan Triage Chief Complaint: Abd Pain ED Midlevel Provider: China Oliva ED Provider: Ulices Ronquillo Dx/Rx/DC Orders Clinical Impression: Nausea & vomiting Instructions: ED Vomiting (Adult) Prescriptions: New ondansetron 4 mg tablet,disintegrating 4 mg PO Q8H PRN PRN (Reason: Nausea) Qty: 10 0RF omeprazole 20 mg capsule,delayed release(DR/EC) 20 mg PO DAILY Qty: 30 0RF No Action ibuprofen 100 mg tablet 200 mg PO Q6H dibucaine 1 % ointment 1 applic RC TID Qty: 56.7 2RF tobramycin [Tobrex] 0.3 % drops 1 drp OPHTHALMIC Q2H Qty: 5 0RF tobramycin 0.3 % drops 1 drp ophthalmic (eye) Q2H Qty: 5 0RF Rx Instructions: to left eye while awake for 3 days doxycycline monohydrate 100 mg capsule 100 mg PO BID Qty: 28 0RF Primary Care Provider: Jayson Saleh Referrals: Jayson Saleh MD [Primary Care Provider] - Nikolay Polk DO [Med Staff - Active Staff] - 3-5 Days Activity Restrictions/Additional Instructions: Follow-up with Dr. Polk in GI and return for any worsening symptoms. Disposition Disposition: Home, Self Care Discharge Date/Time: 10/03/22 18:05
[2022-10-03] MEDS: 0.9% Normal Saline 1,000 ML 999 ML IV (15:00)
[2022-10-03 15:01] LABS: Absolute Lymphocyte Count 0.62 X10^3/uL (0.83-4.51); Absolute Neutrophil Count 12.7 X10^3/uL (2.0-7.7); Basophil# 0.12 X10^3/uL; Basophil% 0.8 % (0-1); Hematocrit 44.4 % (37-47); Hemoglobin 14.5 g/dL (12.0-15.0); Lymphocyte # 0.62 X10^3/ul (0.83-4.51); Lymphocyte % 4.3 % (19-41); Mean Corp Hgb Conc 32.7 g/dL (32-36); Mean Corpuscular Hgb 35.2 pg (27.0-32.0); Mean Corpuscular Volume 107.8 fL (81-99); Mean Platelet Vol. 10.6 fl (6.2-12.0); Monocyte# 0.82 X10^3/uL; Monocyte% 5.7 % (0-10); NRBC Flagged by Analyzer 0 % (0-5); Neutrophil # 12.73 X10^3/uL (2.7-7.7); Neutrophil % 88.4 % (47-70); Platelet Count 229 K/mm3 (150-450); RBC Distribution Width CV 13.8 % (11.6-14.6); RBC Distribution Width SD 55.7 fl (35.1-43.9); Red Blood Count 4.12 M/mm3 (4.2-5.4); White Blood Count 14.4 K/mm3 (4.4-11.0)
[2022-10-03 15:12] LABS: ALB/GLOB Ratio 0.8 RATIO (0.9-2.4); AST(SGOT) 661 U/L (15-37); Alanine Aminotransfer ALT/SGPT 269 U/L (13-56); Albumin, Serum 4.6 g/dL (3.2-5.0); Alkaline Phosphatase 146 U/L (45-117); Anion Gap 24 (5-15); BUN 16 mg/dL (7-18); BUN/Creat Ratio 16.8 RATIO (10-20); Calcium,Total 10.3 mg/dL (8.5-10.1); Chloride 94 mmol/L (98-107); Creatinine, Serum 0.95 mg/dL (0.55-1.02); EST Glomerular Filtration Rate 63 mL/min (>60); Est Glom Filt Rate - Afr Amer 77 mL/min (>60); Estimated Creatinine Clearance 46.63 ml/min; Globulin 5.5 g/dL (2.2-4.2); Glucose 159 mg/dL (74-106); Lipase 290 U/L (73-393); Potassium 3.8 mmol/L (3.5-5.1); Protein, Total 10.1 g/dL (6.4-8.2); Sodium Level 130 mmol/L (136-145)
--- NOTE | 2022-10-03 15:31 | CT_ITS ---
STUDY: CT Abdomen And Pelvis W/ Contrast Injection 10/03/2022 4:27 PM REASON FOR EXAM: Female, 62 years old. Abdominal pain abdominal pain Individualized dose optimization techniques were used for this CT. COMPARISON: 10.05.18. TECHNIQUE: CT Abdomen And Pelvis W/ Contrast Injection IV 100mL [id number] FINDINGS: There are atherosclerotic calcifications of visualized coronary arteries. The visualized portions of the heart are within normal limits. There is decreased attenuation of the liver consistent with steatosis. There is a solitary gallstone. Normal spleen. Normal pancreas. Normal bilateral adrenal glands. No acute findings of the right kidney. No acute findings of the left kidney. Normal visualized stomach. Normal small intestine. Stool throughout the colon. The appendix is visualized and appears normal. Esophageal wall thickening may suggest an esophagitis. There are calcifications of the abdominal aorta. This is consistent for atherosclerotic disease. There is NO abdominal aortic aneurysm. Vascular workup can be obtained based on clinical correlation. Normal inferior vena cava. Subcentimeter mesenteric lymph nodes. Normal urinary bladder. Normal abdominal wall. There are diffuse degenerative changes of the visualized lumbar spine. CT/Abdomen/Pelvis W IV Cont ONLY IMPRESSION: (NOT LISTED IN ORDER OF SIGNIFICANCE) Fatty liver. Esophageal wall thickening may suggest an esophagitis. There is a solitary gallstone. Other findings as above. Electronically Signed: Miguelito Johnson MD at 16:30 EDT ,
[2022-10-03 16:19] VITALS: BP 145/85; PULSE 86; RESP 18; O2SAT 99
[2022-10-03 17:27] LABS: Alcohol, Blood (Medical)-Serum < 3.0 mg/dL
[2022-10-03] MEDS: Ondansetron 4 MG/2 ML Vial IV (17:57)
== END 2022-10-03 18:05 | disposition home or self-care (01) ==
PROVIDERS: Physician Assistant; Emergency Provider Student in an Organized Health Care Education/Training Program; PCP Family Medicine; Visit Provider Student in an Organized Health Care Education/Training Program
DX: R10.9 Unspecified abdominal pain (principal); Z79.899 Other long term (current) drug therapy; Z79.1 Long term (current) use of non-steroidal anti-inflammatories (NSAID); H10.9 Unspecified conjunctivitis; R11.2 Nausea with vomiting, unspecified
CPT/HCPCS: 74177; 80053; 82077; 83690; 85025; 86850; 86900; 86901; 96361; 96374; 96375; 99283; J7030; Q9967; A4216; J2405; J3490

== ENCOUNTER 2023-09-19 08:12 | Inpatient (IN) | payer SELFPAY ==
[2023-09-19] VITALS (19 sets, daily range): BP systolic 92–140; BP diastolic 50–115; PULSE 92–110; RESP 15–23; TEMP 35.8–37.9; O2SAT 92–101; BMI 17.9; BMI 18.8
--- NOTE | 2023-09-19 08:23 | EKG12_ITS ---
Test Reason : RECTAL BLEEDING Blood Pressure : / mmHG Vent. Rate : 107 BPM Atrial Rate : 107 BPM P-R Int : 156 ms QRS Dur : 072 ms QT Int : 354 ms P-R-T Axes : 068 062 068 degrees QTc Int : 472 ms Sinus tachycardia Otherwise normal ECG Confirmed by COTY WELDON, CRISTINA ([id number]), assistant production editor FIDENCIO ORTA ([id number]) on 09/20/2023 7:59:07 AM Referred By: Confirmed By:CRISTINA ANSARI MD
--- NOTE | 2023-09-19 08:24 | EDS_ITS ---
HPI History of Present Illness Chief Complaint: General Illness Informant: patient Narrative Narrative: Patient presents with vomiting and weakness over the past 2 to 3 days. She states she has noted some blood in her vomit which is dark black in color. She also has a chronic lower GI bleed with bright red blood that she passes. Her last colonoscopy was in [address] Elizondo. At that time she had evidence of hemorrhoids. Patient does feel her abdomen is more distended. She does admit to taking naproxen recently. Although she had been on omeprazole in the past she states she ran out of it and did not notice that it was helping her much so she stopped taking it. [facility] Medical History Alcohol abuse Anemia Diarrhea Elevated LFTs Epigastric pain Fatigue Gall stones Hemorrhoids Pancytopenia Rectal bleeding sudden weight loss Home Medications naproxen 500 mg tablet 1,000 mg PO Q12H 09/19/23 [History Last Taken Unknown] Allergy/AdvReac Type Severity Reaction Status Date / Time Penicillins Allergy Rash Verified 09/19/23 08:15 Family History Brother Diabetes Father Diabetes Hypertension High cholesterol Thyroid disorder Surgical History No history of previous surgery Social History Smoking Status: Never smoker alcohol intake: never substance use type: does not use caffeine: Yes what type of physical activity do you participate in: walking seatbelt use: always do you feel safe at home: Yes 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[facility] ED Constitutional Constitutional ED: Denies chills or fever(s) Eyes Eyes: Denies change in vision or discharge from eye(s) ENT ENT ED: Denies discharge from eye(s), rhinorrhea or sore throat Cardiovascular Cardiovascular: Denies chest pain or palpitations Respiratory/Chest Respiratory/Chest: Denies cough or dyspnea Gastrointestinal Gastrointestinal: Reports abdominal pain, nausea, vomiting and other Details: Bright red blood per rectum ; Denies diarrhea Genitourinary Genitourinary ED: Denies dysuria Musculoskeletal Musculoskeletal: Denies back pain or extremity pain Integumentary Denies Abrasions or rash Neurologic Neurologic: Reports weakness; Denies headache(s) Psychiatric Psychiatric: Denies anxiety or depression Allergic/Immunologic Allergic/Immunologic ED: Denies lip swelling or urticaria EXAM Physical Exam Const Vital Signs: 09/19/23 08:13 09/19/23 08:20 09/19/23 10:00 Temperature 96.5 F L 98.6 F Temperature Source Temporal Oral Pulse Rate 110 H 105 H Respiratory Rate 16 19 H Respiratory Pattern Normal Blood Pressure 120/56 L 121/69 H Blood Pressure Mean 77 86 Blood Pressure Position Blood Pressure Location Pulse Ox 100 97 Oxygen Delivery Method Room Air Room Air 09/19/23 12:00 09/19/23 12:36 Temperature 98.6 F Temperature Source Temporal Pulse Rate 99 100 Respiratory Rate 23 H 20 H Respiratory Pattern Blood Pressure 92/57 L 95/50 L Blood Pressure Mean 68 65 Blood Pressure Position Supine Blood Pressure Location Left Arm Pulse Ox 92 95 Oxygen Delivery Method Room Air Positive well developed General Appearance ED: well developed HEENT Reports moist mucous membranes Eyes EOMs intact bilaterally General Eye ED: Yes scleral icterus Chest Wall inspection of chest normal and palpation of chest normal Resp normal respiratory effort and clear to auscultation bilaterally Cardio regular rhythm Rate: tachycardic GI GI Narrative: Abdomen soft and slightly distended. No focal tenderness. Hypoactive but present bowel sounds are noted. Extremity normal to inspection Neuro oriented x3 Motor Exam: strength 5/5 throughout Psych mental status grossly normal Skin General Skin Exam: jaundice MDM MDM MDM Narrative Medical decision making narrative: Patient placed on site monitor. IV line initiated. EKG obtained to evaluate for cardiac arrhythmia/ischemia. Labwork obtained to evaluate for leukocytosis, anemia, and electrolyte derangement. History & Record Review Discussion w/independent historian: Patient Additional record(s) reviewed:: Prior ED visit and Prior labs Lab Data Attestation: I reviewed the patient's lab results. Labs: Laboratory Results - last 24 hr 09/19/23 09/19/23 09/19/23 08:44 09:21 12:14 WBC 14.0 H RBC 1.20 L Hgb 4.5 L* Hct 14.4 L MCV 120.0 H MCH 37.5 H MCHC 31.3 L RDW Std Deviation 81.8 H RDW Coeff of Alyx 19.0 H Plt Count 177 MPV 11.2 Immature Gran % (Auto) 1.900 H Neut % (Auto) 84.3 H Lymph % (Auto) 6.3 L [place] % (Auto) 6.4 Eos % (Auto) 0.7 Baso % (Auto) 0.4 Absolute Neuts (auto) 11.8 H Absolute Lymphs (auto) 0.89 Nucleated RBC % 1.3 Differential Comment SCANNED Hypochromasia 1+ Anisocytosis 2+ Macrocytosis 2+ PT 22.8 H INR 2.0 APTT 31.1 Sodium 137 Potassium 3.2 L Chloride 100 Carbon Dioxide 23.0 Anion Gap 14 BUN 30 H Creatinine 0.69 Estim Creat Clear Calc 63.93 Est GFR (MDRD) Af Amer 111 Est GFR (MDRD) Non-Af 92 BUN/Creatinine Ratio 43.5 H Glucose 111 H Calcium 8.3 L Total Bilirubin 7.10 H Direct Bilirubin 4.96 H AST 127 H ALT 27 Alkaline Phosphatase 145 H Total Protein 6.2 L Albumin 2.1 L Globulin 4.1 Lipase 55 Hepatitis A IgM Ab Cancelled Hep Bs Antigen Cancelled Hep B Core IgM Ab Cancelled Hepatitis C Ab (EIA) Cancelled Hep C Ab Comment Cancelled Blood Type O POSITIVE Antibody Screen NEGATIVE Crossmatch See Detail Radiography Diagnostic Testing: Clinical Impression(s) from Imaging Studies Abdomen/Pelvis CT 09/19/23 10:18 IMPRESSION: Hepatomegaly with diffuse fatty infiltration and multiple new hypodense lesions throughout the left and right lobes of the liver suggestive of metastatic disease versus hepatocellular carcinoma. Solitary gallstone. Ascites. Increased markings in the mesenteric fat. Questionable 3.1 cm x 3.3 cm mass in the head of the pancreas. Electronically Signed: Wally Meier MD at 10:53 EDT , EKG Initial EKG: Attestation: I personally reviewed and interpreted this EKG as follows: Interpretation: Sinus Tachycardia (Sinus tachycardia at 107. No acute ischemia.) Treatment and Re-Evaluation :: CBC reveals a hemoglobin of 4.5 with hematocrit of 14.4. In October of last year her hemoglobin is 14.5. Her white count is slightly elevated at 14.0. She has had thrombocytopenia in the past, but today her platelet count is 177. INR is 2.0. Chemistry studies significant for potassium of 3.2 with a BUN of 30 and creatinine is 0.69. Total bilirubin is 7.10, direct bilirubin is 4.96, AST is 127, ALT 27. Alk phos is 145. Lipase is normal at 55. Patient given IV potassium replacement. She is typed and crossed for 3 units and transfusion is ordered. Patient sent for CT scan of the abdomen and pelvis. This reveals evidence of hepatomegaly with diffuse fatty infiltration and multiple new hypodense lesions throughout the left and right lobes of the liver suggestive of metastatic disease versus hepatocellular carcinoma. A solitary gallstone is noted. She has ascites with a questionable 3.1 x 3.3 cm mass in the head of the pancreas. Patient was discussed with Dr. Polk. He agrees with the Protonix that has been given to the patient but she does not need a drip at this time. She will need blood transfusion and admission for further testing and workup. Due to poor IV access, midline was placed by radiology nurse. Patient tolerated this well. Blood transfusion is now being initiated and I will speak with the hospitalist regarding admission. Discharge Plan Triage Chief Complaint: General Illness ED Provider: Kinsey Osullivan Dx/Rx/DC Orders Clinical Impression: Ascites, Lesion of liver, Pancreatic mass, GI bleed, Anemia, Hypokalemia Prescriptions: No Action naproxen 500 mg tablet 1,000 mg PO Q12H Primary Care Provider: Kaleigh Gonzalez Referrals: Jayson Saelh MD [Non-Staff] - Disposition Disposition: Acute Care Hospital [facility]
[2023-09-19] MEDS: 0.9% Normal Saline (1000mL) 1,000 ML 150 ML IV (08:50)
[2023-09-19 08:59] LABS: Absolute Lymphocyte Count 0.89 X10^3/uL (0.83-4.51); Absolute Neutrophil Count 11.8 X10^3/uL (2.0-7.7); Basophil# 0.05 X10^3/uL; Basophil% 0.4 % (0-1); Eosinophils% 0.7 % (0-5); Hematocrit 14.4 % (37-47); Lymphocyte # 0.89 X10^3/ul (0.83-4.51); Lymphocyte % 6.3 % (19-41); Mean Corp Hgb Conc 31.3 g/dL (32-36); Mean Corpuscular Hgb 37.5 pg (27.0-32.0); Mean Platelet Vol. 11.2 fl (6.2-12.0); Monocyte% 6.4 % (0-10); NRBC Flagged by Analyzer 1.3 % (0-5); Neutrophil # 11.82 X10^3/uL (2.7-7.7); Neutrophil % 84.3 % (47-70); POSITIVE COUNT YES; POSITIVE MORPHOLOGY YES; Platelet Count 177 K/mm3 (150-450); RBC Distribution Width SD 81.8 fl (35.1-43.9)
[2023-09-19 09:04] LABS: Differential Indicated SCAN CRITERIA MET; Hemoglobin 4.5 g/dL (12.0-15.0)
[2023-09-19 09:09] LABS: Partial Thromboplast Time 31.1 Seconds (24.1-36.2); Prothrombin Time (Protime)PT. 22.8 SECONDS (11.7-14.9)
[2023-09-19 09:14] LABS: AST(SGOT) 127 U/L (15-37); Alanine Aminotransfer ALT/SGPT 27 U/L (13-56); Albumin, Serum 2.1 g/dL (3.2-5.0); Alkaline Phosphatase 145 U/L (45-117); Anion Gap 14 (5-15); BUN 30 mg/dL (7-18); BUN/Creat Ratio 43.5 RATIO (10-20); Bilirubin, Direct 4.96 mg/dL (0.00-0.30); Calcium,Total 8.3 mg/dL (8.5-10.1); Chloride 100 mmol/L (98-107); Creatinine, Serum 0.69 mg/dL (0.55-1.02); EST Glomerular Filtration Rate 92 mL/min (>60); Est Glom Filt Rate - Afr Amer 111 mL/min (>60); Estimated Creatinine Clearance 63.93 ml/min; Globulin 4.1 g/dL (2.2-4.2); Glucose 111 mg/dL (74-106); Lipase 55 U/L (13-75); Potassium 3.2 mmol/L (3.5-5.1); Protein, Total 6.2 g/dL (6.4-8.2); Sodium Level 137 mmol/L (136-145)
[2023-09-19 09:37] LABS: Anisocytosis 2+; Differential Comment SCANNED; Hypochromasia 1+; Macrocytosis 2+
[2023-09-19] MEDS: Pantoprazole Sodium 40 MG in 0.9% Normal Saline (100mL MB+) 100 ML 330 MG IV ×2 (10:02→21:56)
--- NOTE | 2023-09-19 10:18 | CT_ITS ---
STUDY: CT ABDOMEN AND PELVIS WITHOUT CONTRAST REASON FOR EXAM: Female, 63 years old. GI bleed, transaminitis. Rectal bleeding. RADIATION DOSAGE (If Supplied By Facility): CTDIvol = ( 6.04 ) mGy, DLP = ( 271.8 ) mGycm TECHNIQUE: Transaxial images were obtained from the dome of the diaphragm to the symphysis pubis without oral contrast, and without intravenous contrast. Sagittal and coronal images were reconstructed. Individualized dose optimization techniques were used for this CT. COMPARISON: Comparison is made with prior study dated October 03, 2022. FINDINGS: Mild increased markings in the anterior medial aspect of the right middle lobe suggestive of scarring. Coronary artery calcification. There is decreased attenuation of the liver consistent with steatosis. There is a new 1.4 cm or 1.2 cm hypodense nodule in the dome of the right lobe of the liver. This was not seen on prior study. Marked heterogeneity of the right and left lobes of the liver with focal areas of hypodense nodules. Neoplastic process such as hepatocellular carcinoma should be ruled out. Hepatomegaly. Solitary gallstone. Normal spleen. Possible 3.1 cm x 3.3 cm mass in the head of the pancreas. Perisplenic and perihepatic fluid. Normal bilateral adrenal glands. Normal right kidney. Normal left kidney. Normal visualized stomach. Normal small intestine. There are multiple colonic diverticula consistent with diverticulosis. The appendix is visualized and appears normal. There is diffuse atherosclerotic calcification of the abdominal aorta, without a demonstrated aneurysm. Normal inferior vena cava. Multiple small retroperitoneal lymph nodes. Increased markings are seen within the mesenteric fat. The urinary bladder is not completely filled. Mild degree of bladder wall thickening. Ascitic fluid is seen in the pelvis as well as in the flanks bilaterally. Normal abdominal wall. There are mild degenerative changes of the visualized lumbar spine. Straightening of the normal lumbar lordosis. CT/Abdomen/Pelvis without Cont IMPRESSION: Hepatomegaly with diffuse fatty infiltration and multiple new hypodense lesions throughout the left and right lobes of the liver suggestive of metastatic disease versus hepatocellular carcinoma. Solitary gallstone. Ascites. Increased markings in the mesenteric fat. Questionable 3.1 cm x 3.3 cm mass in the head of the pancreas. Electronically Signed: Wally Meier MD at 10:53 EDT ,
--- NOTE | 2023-09-19 11:03 | ED.RN ---
Multiple attempts by nursing staff for second IV access d/t patient requiring Potassium and also need for blood products. IV therapy contacted for mid-line access.
--- NOTE | 2023-09-19 11:39 | ED.RN ---
Mignon, here in department to do midline IV access. Potassium delayed starting d/t patient's 22G being inaccessible during sterile field.
--- NOTE | 2023-09-19 12:07 | PCM.OP.PRO ---
Procedure Report Date of Procedure: 09/19/23 Assessment & Plan Assessment/Plan (1) Poor venous access: PLAN: Midline insertion in right basilic vein: Patient identity was verified with two patient identifiers. Hands were sanitized. The patient was positioned supine with right arm at 90 degrees. The patient's upper arm vasculature was assessed using ultrasound, and the right basilic vein was externally marked. An external measurement was obtained of 7 cm. Cap, mask, and prep gloves were donned. The underdrape was placed under the patient's arm. The site was prepped with chlorhexidine, and tourniquet was loosely applied. Prep gloves were discarded, and hands were sanitized. The sterile kit was opened with additional supplies dropped in. Sterile gown and gloves were donned, and the patient was draped. The sterile kit was assembled with all needle, introducer, connector, and catheter flushed with sterile normal saline. The marked site of insertion was anesthetized with 1% lidocaine. Patient tolerated well. The right basilic vein was then accessed using ultrasound guidance and guidewire was inserted to safety aleksander. The tourniquet was released. The access needle was removed while securing the guidewire in place. The site was again anesthetized with 1% lidocaine, prior to insertion of introducer sheath and dilator. Patient tolerated well. The catheter was trimmed to a length of 7 cm, and again flushed with sterile normal saline. The catheter was then inserted through the introducer sheath, slowly. There was no resistance on insertion. The introducer sheath was retracted and peeled away, incrementally, while keeping the catheter secured. The catheter was fully inserted leaving 0 cm external. Blood return was verified and flushed needless connector was attached. The midline was flushed with sterile normal saline in a pulsatile fashion and clamped. Total sterile flushes used for the insertion was to 10 ml syringes, one from the kit. Finally, the insertion site was cleaned with chlorhexidine, and the catheter was secured using a StatLock. The site was covered with a Tegaderm CHG Dressing. Baseline arm circumference was obtained at the insertion site and measured 24 cm. The primary nurse and Dr. Osullivan are aware that the midline is ready for use. REF: [id number] LOT: [id number] Procedures Radiology Radiology Access Procedures: MIDL
[2023-09-19] MEDS: Potassium Chloride 10mEq/100mL 10 MEQ/100 ML IV.SOLN. 100 MEQ IV BOLUS ×2 (12:11→13:12)
[2023-09-19 13:13] LABS: Ferritin 211 ng/mL (8-252); Iron 66 ug/dL (50-170); Iron Binding Capacity,Total 160 ug/dL (250-450); PERCENT IRON SATURATION 41.2 % (15.0-55.0)
--- NOTE | 2023-09-19 13:21 | PCM.HP.STD ---
HPI - General General Date of Admission: 09/19/23 Date of Service: 09/19/23 Chief Complaint: Nausea/vomiting and weakness HPI Narrative CHARLIE DEVLIN, is a 63 F who presented to [facility] ED on 09/19/2023 with nausea/vomiting and worsening weakness. Patient reports nausea/vomiting that is worsened over the past 2 to 3 days. She also reports feeling generally more fatigued and worn out over the past few weeks or so. She has noticed intermittent streaks of blood in her vomit, which has been new for her. She has a known history of acid reflux but reports her symptoms have been worse over the past few months. She notably was prescribed naproxen for suspected gout about 5 to 6 months ago, has been taking that twice daily since that time and has only been taking a PPI intermittently. Patient has a history of known hemorrhoids and reports intermittent bright red blood per rectum that has been relatively stable. Denies any dark or tarry stools recently. Patient was a previous heavy alcohol user, quit in 2019. States she has noticed some degree of weight loss over the past several months. Denies any night sweats. She has not noticed any yellowing of her eyes or yellowing of her skin. She denies any right upper quadrant pain. Does state that her abdomen has become more full over the past few weeks, has never noticed this before. Denies any family history of cancer that she is aware of. She lives alone in an apartment in the [place] area. She has been able to do everything around the house for self without any issues until the last few days when she has been severely fatigued. Patient seen at bedside in the ED. Laying comfortably in bed, conversing normally, in no acute distress. She did report feeling cold and had multiple blankets covering her. Reports feeling generally fatigued, similar to previous days. She has not had any episodes of nausea or vomiting since arrival to the ED. She felt a little bit better after receiving IV fluids. She denies any abdominal pain or discomfort currently. No other acute concerns at this time. Vitals in ED notable for sinus tachycardia with heart rate in 100s to 110s, mild hypotension that improved with fluids, otherwise breathing comfortably on room air and satting well, and afebrile. Labs notable for hemoglobin 4.5 (previous baseline of 14 in 10/2022), MCV 120, WBC count 14.0, platelets 177, sodium 137, potassium 3.2, bicarb 23, normal anion gap, BUN 30, creatinine 0.69, BUN to creatinine ratio of 43, T. bili 7.10, direct bili 4.9, AST 127, ALT 27, alk phos 145, total protein 6.2, albumin 2.1. CT abdomen pelvis without contrast showed hepatomegaly with diffuse fatty infiltration and multiple new hypodense lesions throughout the left and right lobes of the liver suggestive of metastatic disease versus HCC, as well as ascites, questionable pancreatic head mass and solitary gallstone. [facility] Medical History Alcohol abuse Anemia Diarrhea Elevated LFTs Epigastric pain Fatigue Gall stones Hemorrhoids Pancytopenia Rectal bleeding sudden weight loss Home Medications naproxen 500 mg tablet 1,000 mg PO Q12H 09/19/23 [History Last Taken 09/17/23] Allergy/AdvReac Type Severity Reaction Status Date / Time Penicillins Allergy Rash Verified 09/19/23 08:15 Family History Brother Diabetes Father Diabetes Hypertension High cholesterol Thyroid disorder Surgical History No history of previous surgery Social History Smoking Status: Never smoker alcohol intake: never substance use type: does not use caffeine: Yes what type of physical activity do you participate in: walking seatbelt use: always do you feel safe at home: Yes 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 Constitutional: Reports fatigue and weakness; Denies chills or fever(s) Eyes Eyes: Denies change in vision Cardiovascular Cardiovascular: Denies chest pain, dyspnea on exertion, edema, lightheadedness, palpitations or syncope Respiratory/Chest Respiratory/Chest: Denies cough, shortness of breath at rest or wheezing Gastrointestinal Gastrointestinal: Reports dyspepsia, hematemesis, nausea and vomiting; Denies abdominal pain, constipation or diarrhea Genitourinary Genitourinary: Denies dysuria Musculoskeletal Musculoskeletal: Denies arthralgias, back pain or myalgias Neurologic Neurologic: Denies dizziness, focal weakness or headache(s) Vital Signs Vital Signs Vital Signs: 09/19/23 08:13 09/19/23 08:20 09/19/23 10:00 Temperature 96.5 F L 98.6 F Temperature Source Temporal Oral Pulse Rate 110 H 105 H Respiratory Rate 16 19 H Respiratory Pattern Normal Blood Pressure 120/56 L 121/69 H Blood Pressure Mean 77 86 Blood Pressure Source Blood Pressure Position Blood Pressure Location Pulse Ox 100 97 Oxygen Delivery Method Room Air Room Air 09/19/23 12:00 09/19/23 12:36 09/19/23 12:51 Temperature 98.6 F 98.1 F Temperature Source Temporal Temporal Pulse Rate 99 100 109 H Respiratory Rate 23 H 20 H 21 H Respiratory Pattern Blood Pressure 92/57 L 95/50 L 103/58 L Blood Pressure Mean 68 65 73 Blood Pressure Source Monitor Blood Pressure Position Supine Supine Blood Pressure Location Left Arm Left Arm Pulse Ox 92 95 97 Oxygen Delivery Method Room Air Room Air Weight Weight: 47.3 kg Body Mass Index (BMI) 17.9 Physical Exam Const alert, oriented x3 and no apparent distress Constitutional Narrative: Middle-aged female, thin and somewhat cachectic appearing, otherwise laying comfortably in bed, conversing normally, in no acute distress. General Appearance: cooperative and comfortable HEENT normocephalic, head/scalp atraumatic, hearing grossly normal bilaterally and nasal mucous membranes and turbinates normal Eyes PERRL and EOMs intact bilaterally Eyes Narrative: Scleral icterus noted. Neck full ROM Chest inspection of chest normal Resp normal respiratory effort, normal air movement, no use of accessory muscles and clear to auscultation bilaterally Cardio no murmurs and peripheral pulses 2+ throughout Cardio Narrative: Tachycardic, regular rhythm. GI GI Narrative: Mildly distended with mild bulging flanks noted. Otherwise soft and nontender on palpation. Back/Spine normal ROM Extremity normal to inspection, full ROM and no pedal edema Skin Skin Narrative: Whole body jaundice noted. Neuro moves all extremities and no focal motor deficits Speech: speech normal Psych mental status grossly normal Results Lab / Micro Data 09/19/23 08:44 09/19/23 08:44 Labs: Laboratory Results - last 24 hr 09/19/23 08:44: WBC 14.0 H, RBC 1.20 L, Hgb 4.5 L*, Hct 14.4 L, MCV 120.0 H, MCH 37.5 H, MCHC 31.3 L, RDW Std Deviation 81.8 H, RDW Coeff of Alyx 19.0 H, Plt Count 177, MPV 11.2, Immature Gran % (Auto) 1.900 H, Neut % (Auto) 84.3 H, Lymph % (Auto) 6.3 L, [place] % (Auto) 6.4, Eos % (Auto) 0.7, Baso % (Auto) 0.4, Absolute Neuts (auto) 11.8 H, Absolute Lymphs (auto) 0.89, Nucleated RBC % 1.3, Differential Comment SCANNED, Hypochromasia 1+, Anisocytosis 2+, Macrocytosis 2+, PT 22.8 H, INR 2.0, APTT 31.1, Sodium 137, Potassium 3.2 L, Chloride 100, Carbon Dioxide 23.0, Anion Gap 14, BUN 30 H, Creatinine 0.69, Estim Creat Clear Calc 63.93, Est GFR (MDRD) Af Amer 111, Est GFR (MDRD) Non-Af 92, BUN/Creatinine Ratio 43.5 H, Glucose 111 H, Calcium 8.3 L, Iron 66, TIBC 160 L, Iron Saturation 41.2, Ferritin 211, Total Bilirubin 7.10 H, Direct Bilirubin 4.96 H, AST 127 H, ALT 27, Alkaline Phosphatase 145 H, Total Protein 6.2 L, Albumin 2.1 L, Globulin 4.1, Lipase 55 09/19/23 09:21: Blood Type O POSITIVE, Antibody Screen NEGATIVE, Crossmatch See Detail 09/19/23 12:14: Hepatitis A IgM Ab Cancelled, Hep Bs Antigen Cancelled, Hep B Core IgM Ab Cancelled, Hepatitis C Ab (EIA) Cancelled, Hep C Ab Comment Cancelled Imaging Radiology Impression Abdomen/Pelvis CT 09/19/23 10:18 IMPRESSION: Hepatomegaly with diffuse fatty infiltration and multiple new hypodense lesions throughout the left and right lobes of the liver suggestive of metastatic disease versus hepatocellular carcinoma. Solitary gallstone. Ascites. Increased markings in the mesenteric fat. Questionable 3.1 cm x 3.3 cm mass in the head of the pancreas. Electronically Signed: Wally Meier MD at 10:53 EDT , Assessment & Plan Assessment/Plan (1) GI bleed: (2) Anemia: (3) Ascites: (4) Pancreatic mass: (5) Lesion of liver: PLAN: Plan Patient is a 63-year-old female who presented [facility] ED on 09/19/2023 with nausea/vomiting and worsening weakness. 1. Acute blood loss anemia, suspected upper GI bleed ? Seems most likely secondary to slow upper GI bleed possibly secondary to gastric ulcers from a recent naproxen use. ? Hemoglobin 4.5 on admit, previous baseline hemoglobin of 14.0 in 10/2022. Mild hypotension and mild sinus tachycardia in the ED, otherwise hemodynamically stable on room air. ? Admit under inpatient status to the PCU. GI consulted. N.p.o. for now. IV PPI twice daily. 3 units of packed red blood cells ordered in ED, will recheck hemoglobin after this. Iron studies with ferritin, folate and B12 ordered. 2. Concern for acute liver failure likely due to newly diagnosed HCC versus hepatic metastases with unclear primary ? Labs on admit of INR 2.0, T. bili 7.10, direct bili 4.96, AST 127, ALT 27, alk phos 145. Meld?NA score of 23. ? CT abdomen pelvis showed numerous lesions in the liver concerning for HCC versus hepatic metastases, questionable pancreatic lesion, new ascites. ? GI consulted as above. Trend labs for daily MELD score. MRCP abdomen without contrast ordered, and extensive lab workup ordered per GI. Appreciate further GI recommendations. 3. Mild hypotension, improving ? Likely secondary to volume loss from recent nausea/vomiting and low blood volume. ? Stable, suspect this will improve with blood transfusion. Can consider IV fluids as needed. 4. Leukocytosis ? WBC count 14 on admit. Low concern for active infection, follow-up a.m. CBC. 5. Hypokalemia ? Potassium 3.2 on admit. Likely secondary to recent nausea/vomiting. Replete as needed. 6. Suspect malnutrition ? BMI 18.9, albumin 2.1 on admit. Patient reports some degree of weight loss over the past several months. Have concern for possible metastatic cancer. Nutrition consulted. DVT prophylaxis: SCDs CODE STATUS: DNR CCA, DNI Expected disposition: TBD Total clinical time spent by myself addressing the patient's medical issues, reviewing all the data, and collaborating with patient's care team: 75 minutes. Charges/Coding Visit Charges Inpatient E&M: 94121 Init Hosp L3
--- NOTE | 2023-09-19 13:34 | NURSING ---
PCU MOSTELLER ANEMIA, PANCREAS/LIVER MASSES
[2023-09-19 15:04] LABS: Mucous, Urine 0 SEEN /hpf (<or=2+); Red Blood Cells-Urine 0 SEEN /hpf (0-5); Squamous Epithelial Cells - UA 0 SEEN /hpf (5-10)
[2023-09-19 15:22] LABS: Alcohol, Blood (Medical)-Serum < 3.0 mg/dL
[2023-09-19 15:25] LABS: Amphetamine Urine VISTA NEGATIVE (<1000 ng/mL); Barbiturate Urine VISTA NEGATIVE (< 200 ng/mL); Benzodiazepine Urine VISTA NEGATIVE (< 200 ng/mL); Cocaine Urine VISTA NEGATIVE (< 300 ng/mL); Ecstacy Urine VISTA NEGATIVE (< 500 ng/mL); Methadone Urine VISTA NEGATIVE (< 300 ng/mL); PCP Urine VISTA NEGATIVE (< 25 ng/mL); THC Urine VISTA NEGATIVE (< 50 ng/mL); Vista UDS pH Range 7
[2023-09-19 15:29] LABS: Color, Urine Yellow (Yellow); Glucose, Dipstick Normal (Normal); Ketone-Dipstick 15 mg/dl (Negative); Leukocyte Esterase-Dipstick 500 /ul (Negative); Nitrite-Dipstick Positive (Negative); Occult Blood-Urine 25 /ul (Negative); Protein-Dipstick 30 mg/dl (Negative); Urine Clarity Clear (Clear); Urine Urobilinogen 12 mg/dl (Normal)
[2023-09-19 16:05] LABS: Urine Bilirubin Dipstick 6 mg/dL (Negative)
[2023-09-19 16:15] LABS: Bacteria RARE /hpf (None Seen); White Blood Cells 5-10 SEEN /hpf (0-5)
[2023-09-19 16:33] LABS: Vitamin B12 748 pg/mL (211-911)
--- NOTE | 2023-09-19 17:20 | EX.PCM.CON.G ---
HPI Consult Data Date of Consult: 09/19/23 HPI Narrative Reason for Consultation: GI bleed and jaundice HPI Narrative: CHARLIE DEVLIN, is a 63 F who presents today with progressive weakness and fatigue. Patient presents with vomiting and weakness over the past 2 to 3 days. She states she has noted some blood in her vomit which is dark black in color. She also has a chronic lower GI bleed with bright red blood that she passes. Her last colonoscopy was in [address] Elizondo. At that time she had evidence of hemorrhoids. Patient does feel her abdomen is more distended. She does admit to taking naproxen recently. Although she had been on omeprazole in the past she states she ran out of it and did not notice that it was helping her much so she stopped taking it. Her previous admissions were for alcoholism. She says she is not drink any alcohol in several years. Blood pressure in the ED was 120/70 with a heart rate of 80 and satting 100% on room air. 09/19/23 08:44: WBC 14.0 H, RBC 1.20 L, Hgb 4.5 L*, Hct 14.4 L, MCV 120.0 H, MCH 37.5 H, MCHC 31.3 L, RDW Std Deviation 81.8 H, RDW Coeff of Alyx 19.0 H, Plt Count 177, MPV 11.2, Immature Gran % (Auto) 1.900 H, Neut % (Auto) 84.3 H, Lymph % (Auto) 6.3 L, Clarke % (Auto) 6.4, Eos % (Auto) 0.7, Baso % (Auto) 0.4, Absolute Neuts (auto) 11.8 H, Absolute Lymphs (auto) 0.89, Nucleated RBC % 1.3, Differential Comment SCANNED, Hypochromasia 1+, Anisocytosis 2+, Macrocytosis 2+, PT 22.8 H, INR 2.0, APTT 31.1, Sodium 137, Potassium 3.2 L, Chloride 100, Carbon Dioxide 23.0, Anion Gap 14, BUN 30 H, Creatinine 0.69, Estim Creat Clear Calc 63.93, Est GFR (MDRD) Af Amer 111, Est GFR (MDRD) Non-Af 92, BUN/Creatinine Ratio 43.5 H, Glucose 111 H, Calcium 8.3 L, Iron 66, TIBC 160 L, Iron Saturation 41.2, Ferritin 211, Total Bilirubin 7.10 H, Direct Bilirubin 4.96 H, AST 127 H, ALT 27, Alkaline Phosphatase 145 H, Total Protein 6.2 L, Albumin 2.1 L, Globulin 4.1, Lipase 55, Folate 8.00 PFSH Medical History Alcohol abuse Anemia Diarrhea Elevated LFTs Epigastric pain Fatigue Gall stones Hemorrhoids Pancytopenia Rectal bleeding sudden weight loss Home Medications naproxen 500 mg tablet 1,000 mg PO Q12H 09/19/23 [History Last Taken 09/17/23] Allergy/AdvReac Type Severity Reaction Status Date / Time Penicillins Allergy Rash Verified 09/19/23 08:15 Family History Brother Diabetes Father Diabetes Hypertension High cholesterol Thyroid disorder Surgical History No history of previous surgery Social History Smoking Status: Never smoker alcohol intake: never substance use type: does not use caffeine: Yes what type of physical activity do you participate in: walking seatbelt use: always do you feel safe at home: Yes 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 Constitutional: Reports fatigue and weakness; Denies chills or fever(s) Eyes Eyes: Denies change in vision Cardiovascular Cardiovascular: Denies chest pain, dyspnea on exertion, edema, lightheadedness, palpitations or syncope Respiratory/Chest Respiratory/Chest: Denies cough, shortness of breath at rest or wheezing Gastrointestinal Gastrointestinal: Reports dyspepsia, hematemesis, nausea and vomiting; Denies abdominal pain, constipation or diarrhea Genitourinary Genitourinary: Denies dysuria Musculoskeletal Musculoskeletal: Denies arthralgias, back pain or myalgias Neurologic Neurologic: Denies dizziness, focal weakness or headache(s) Lab / Micro Data 09/19/23 08:44 09/19/23 08:44 Labs: Laboratory Results - last 24 hr 09/19/23 08:44: WBC 14.0 H, RBC 1.20 L, Hgb 4.5 L*, Hct 14.4 L, MCV 120.0 H, MCH 37.5 H, MCHC 31.3 L, RDW Std Deviation 81.8 H, RDW Coeff of Alyx 19.0 H, Plt Count 177, MPV 11.2, Immature Gran % (Auto) 1.900 H, Neut % (Auto) 84.3 H, Lymph % (Auto) 6.3 L, Clarke % (Auto) 6.4, Eos % (Auto) 0.7, Baso % (Auto) 0.4, Absolute Neuts (auto) 11.8 H, Absolute Lymphs (auto) 0.89, Nucleated RBC % 1.3, Differential Comment SCANNED, Hypochromasia 1+, Anisocytosis 2+, Macrocytosis 2+, PT 22.8 H, INR 2.0, APTT 31.1, Sodium 137, Potassium 3.2 L, Chloride 100, Carbon Dioxide 23.0, Anion Gap 14, BUN 30 H, Creatinine 0.69, Estim Creat Clear Calc 63.93, Est GFR (MDRD) Af Amer 111, Est GFR (MDRD) Non-Af 92, BUN/Creatinine Ratio 43.5 H, Glucose 111 H, Calcium 8.3 L, Iron 66, TIBC 160 L, Iron Saturation 41.2, Ferritin 211, Total Bilirubin 7.10 H, Direct Bilirubin 4.96 H, AST 127 H, ALT 27, Alkaline Phosphatase 145 H, Total Protein 6.2 L, Albumin 2.1 L, Globulin 4.1, Lipase 55, Folate 8.00 09/19/23 09:21: Blood Type O POSITIVE, Antibody Screen NEGATIVE, Crossmatch See Detail 09/19/23 12:14: Hepatitis A IgM Ab Cancelled, Hep Bs Antigen Cancelled, Hep B Core IgM Ab Cancelled, Hepatitis C Ab (EIA) Cancelled, Hep C Ab Comment Cancelled 09/19/23 14:50: Vitamin B12 748, Urine Color Yellow, Urine Clarity Clear, Urine pH 8.0, Ur Specific Mccaulley 1.010, Urine Protein 30 H, Urine Glucose (UA) Normal, Urine Ketones 15 H, Urine Occult Blood 25 H, Urine Nitrite Positive H, Urine Bilirubin 6 H, Urine Urobilinogen 12 H, Ur Leukocyte Esterase 500 H, Urine RBC 0 SEEN, Urine WBC 5-10 SEEN, Ur Squamous Epith Cells 0 SEEN, Urine Bacteria RARE, Urine Mucus 0 SEEN, Urine Opiates Screen NEGATIVE, Urine Methadone Screen NEGATIVE, Ur Barbiturates Screen NEGATIVE, Ur Phencyclidine Scrn NEGATIVE, Ur Amphetamines Screen NEGATIVE, MDMA (Ecstasy) Screen NEGATIVE, U Benzodiazepines Scrn NEGATIVE, Urine Cocaine Screen NEGATIVE, U Cannabinoids Screen NEGATIVE, Ur Drug Screen Comment , Ethyl Alcohol < 3.0 Imaging Radiology Impression Abdomen/Pelvis CT 09/19/23 10:18 IMPRESSION: Hepatomegaly with diffuse fatty infiltration and multiple new hypodense lesions throughout the left and right lobes of the liver suggestive of metastatic disease versus hepatocellular carcinoma. Solitary gallstone. Ascites. Increased markings in the mesenteric fat. Questionable 3.1 cm x 3.3 cm mass in the head of the pancreas. Electronically Signed: Wally Meier MD at 10:53 EDT , Assessment & Plan Assessment/Plan (1) GI bleed: (2) Anemia: (3) Pancreatic mass: (4) Lesion of liver: (5) Ascites: PLAN: Plan 63-year-old with no significant past medical history arrives with weight loss, abdominal pain, nausea and vomiting and discovered to have pancreatic lesion approximately 3 x 3 cm in the mid portion of her pancreatic head. She was also discovered to have obstructive jaundice at the level of the pancreatic head and some possible liver lesions. Differential diagnosis does include obstructive jaundice secondary to pancreatic cancer. 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 Recommend EGD and colonoscopy to evaluate patient's upper lower GI tract. She will also need an ERCP with biopsies pending MRCP. Charges/Coding Visit Charges Inpatient E&M: 40428 Subs Hosp L3
[2023-09-19 19:13] LABS: Internal QC Validated? YES +Cl - CLEAR BKGD; Pregnancy, Urine Negative Negative
[2023-09-19] MEDS: LORazepam 2 MG/ML Syringe 0.5 MG IV (19:41)
[2023-09-19] MEDS: 0.9 % NaCl (Sterile) Posiflush 10 mL IV ×3 (19:43→23:52)
[2023-09-19] MEDS: Bisacodyl 5 MG Tablet 20 MG PO (19:49)
[2023-09-19] MEDS: Polyethylene Glycol 3350 BOWEL PREP PO (21:44)
[2023-09-19] MEDS: Ondansetron 4 MG/2 ML Vial IV (23:52)
[2023-09-19] MEDS: Magnesium Citrate 300 ML PO (23:57)
[2023-09-20] VITALS (25 sets, daily range): BP systolic 97–158; BP diastolic 59–87; PULSE 77–100; RESP 15–18; TEMP 36.4–37.8; O2SAT 92–100; BMI 18.1
--- NOTE | 2023-09-20 | ASPIGT_PTH ---
PATIENT: CHARLIE DEVLIN LOC: [facility] U#:[id number] AGE/SX: 63/F ROOM: [facility] RE09/19/[address]: Dr. Mo Mendez DO : 1960 BED: 1 DIS: 09/22/2023 SPEC #: [id number] RECD: 09/20/23 13:32 STATUS: WALE REEmilia #: [id number] LEO: 09/20/23 00:[address]: Mo Mendez DEPT: SURGICAL PATHOLOGY RECD BY: Mendez Hastings ENTERED: 09/20/23 13:35 SP TYPE: ASP RAD OTHR DR: DO Dr. Shane Germain DO Rayanne Robinson, PA Tissues: Liver, NOS Procedures: PAS with Diastase (control) FNA Specimen Adequacy Trichrome (control) Special Stain Group II PAS Stain (control) Surgery Specimen Level V Retic (control) Iron Stain (control) Imprint (control) HEADER OPERATION: CT guided liver biopsy PRE-OP DIAGNOSIS: New liver masses, jaundice TISSUE SUBMITTED: 18-gauge corex4 Right lobe liver MICROSCOPIC DIAGNOSIS Liver, CT guided core biopsy; Consistent with cirrhosis and with extensive macrovesicular steatosis. Negative for malignancy. See microscopic description and comment. MARIIA/ 09/21/2023 COMMENT The specimen is evaluated at the time of biopsy by Dr. Vilchis. Immediate Evaluation = Hepatocytes noted. Correlation with clinical, radiologic findings and appropriate follow up are necessary. Case has been reviewed in consultation with Dr. Cassidy who concurs with the above diagnosis. IDC:AM MICROSCOPIC DESCRIPTION Slides are reviewed. The specimen shows liver parenchymal tissue with distortion of normal lobular architecture into multiple nodules divided by fibrous septa. Hepatocytes in the nodules show extensive macrovesicular steatosis. Hepatocytes also shows reactive changes and Anaid bodies. Significant inflammation is not seen in the hepatocyte nodules. Fibrous septa in between the hepatocyte nodules shows mild to moderate chronic inflammatory infiltrate and ductular proliferation. Interface inflammation is not seen. Iron stain shows absent iron. Reticulin and trichrome stain highlights the fibrous septa. PAS stain with and without diastase do not show any abnormal accumulation of protein. All stains are performed with appropriate matched controls. GROSS DESCRIPTION Received in fixative is one container labeled with the patient's name and designated Liver biopsy. The specimen consists of multiple irregular fragments of light mchugh soft tissue that in aggregate measure 1.5 x 0.5 x 0.1 cm. The specimen is totally submitted in one cassette. Two touch imprints are prepared at the time of core biopsy. Katie 09/20/23 TC:5 CPT: 27976, 59733, 59775m4
--- NOTE | 2023-09-20 05:55 | EKG12_ITS ---
Test Reason : AM EKG Blood Pressure : / mmHG Vent. Rate : 097 BPM Atrial Rate : 097 BPM P-R Int : 198 ms QRS Dur : 078 ms QT Int : 388 ms P-R-T Axes : 049 060 040 degrees QTc Int : 492 ms Normal sinus rhythm Abnormal ECG When compared with ECG of 19-SEP-2023 08:32, MANUAL COMPARISON REQUIRED, DATA IS UNCONFIRMED Confirmed by COTY WELDON, CRISTINA ([id number]), newspaper editor FIDENCIO ORTA ([id number]) on 09/20/2023 10:50:25 AM Referred By: Confirmed By:CRISTINA ANSARI MD
[2023-09-20 06:36] LABS: Absolute Neutrophil Count 9.7 X10^3/uL (2.0-7.7); Basophil# 0.08 X10^3/uL; Basophil% 0.6 % (0-1); Eosinophil# 0.13 X10^3/uL; Hematocrit 25.1 % (37-47); Hemoglobin 8.7 g/dL (12.0-15.0); Lymphocyte % 8.9 % (19-41); Mean Corp Hgb Conc 34.7 g/dL (32-36); Mean Corpuscular Hgb 32.7 pg (27.0-32.0); Mean Corpuscular Volume 94.4 fL (81-99); Mean Platelet Vol. 11.1 fl (6.2-12.0); Monocyte# 1.12 X10^3/uL; NRBC Flagged by Analyzer 3.7 % (0-5); Neutrophil # 9.73 X10^3/uL (2.7-7.7); Neutrophil % 78.5 % (47-70); POSITIVE MORPHOLOGY YES; Platelet Count 134 K/mm3 (150-450); RBC Distribution Width CV 24.2 % (11.6-14.6); RBC Distribution Width SD 76.3 fl (35.1-43.9); Red Blood Count 2.66 M/mm3 (4.2-5.4); White Blood Count 12.4 K/mm3 (4.4-11.0)
[2023-09-20 06:50] LABS: International Normalized Ratio 1.7; Prothrombin Time (Protime)PT. 19.8 SECONDS (11.7-14.9)
[2023-09-20 07:26] LABS: ALB/GLOB Ratio 0.6 RATIO (0.9-2.4); AST(SGOT) 115 U/L (15-37); Alanine Aminotransfer ALT/SGPT 25 U/L (13-56); Albumin, Serum 2.1 g/dL (3.2-5.0); Alkaline Phosphatase 139 U/L (45-117); Anion Gap 8 (5-15); BUN 19 mg/dL (7-18); BUN/Creat Ratio 32.3 RATIO (10-20); Calcium,Total 8.2 mg/dL (8.5-10.1); Chloride 107 mmol/L (98-107); Creatinine, Serum 0.59 mg/dL (0.55-1.02); EST Glomerular Filtration Rate 110 mL/min (>60); Est Glom Filt Rate - Afr Amer 133 mL/min (>60); Estimated Creatinine Clearance 75.88 ml/min; Globulin 3.6 g/dL (2.2-4.2); Glucose 104 mg/dL (74-106); Potassium 2.6 mmol/L (3.5-5.1); Protein, Total 5.7 g/dL (6.4-8.2); Sodium Level 139 mmol/L (136-145)
[2023-09-20] MEDS: Potassium Chloride 10mEq/100mL 10 MEQ/100 ML IV.SOLN. 100 MEQ IV BOLUS ×3 (08:27→19:52)
--- NOTE | 2023-09-20 09:00 | MRI_ITS ---
EXAM: MR ABDOMEN WITHOUT INTRAVENOUS CONTRAST, MRCP PROTOCOL CLINICAL INDICATION: obstructive jaundice TECHNIQUE: Multiplanar and multisequence MR images of the abdomen without intravenous contrast obtained with MRCP sequence. Three-dimensional post-processing reconstructions were performed. COMPARISON: CT scan of the abdomen and pelvis of 09/19/2023 FINDINGS: LIMITATIONS: Somewhat limited examination due to motion artifacts and without contrast. The exam was tailored for MRCP. LIVER: Hepatomegaly. 1.6 cm right lobe liver mass corresponding to the CT abnormality. Another subcapsular right lobe liver mass measuring 1.4 cm. GALLBLADDER AND BILE DUCTS: The previously noted gallstones are not definitely identified on this exam. Normal caliber common bile duct measuring up to 3 mm without evidence of retained stones. PANCREAS: Not clearly visualized. SPLEEN: Non-enlarged. ADRENALS: No nodules. KIDNEYS AND URETERS: No hydronephrosis. INTRAPERITONEAL SPACE: Mild ascites. VASCULATURE: Abdominal aorta is non-dilated. LYMPH NODES: No enlarged lymph nodes. MRI/MRCP Abdomen without Contrast IMPRESSION: 1. Tailored examination for MRCP. 2. Normal common bile duct without evidence of biliary dilatation or retained stones. 3. Liver lesions difficult to further characterize on this exam. 4. The pancreas not clearly seen. 5. Ascites. Electronically Signed: Vincenzo Chaudhary MD at 11:15 EDT ,
[2023-09-20] MEDS: LORazepam 1 MG Tablet PO (09:06)
--- NOTE | 2023-09-20 10:01 | NURSING ---
Pt is updated on k riders to be given and also new order for ativan prior her MRCP. She is anxious at this time and reassurance given with effect.
[2023-09-20] MEDS: Pantoprazole Sodium 40 MG in 0.9% Normal Saline (100mL MB+) 100 ML 330 MG IV ×2 (11:32→21:15)
--- NOTE | 2023-09-20 11:40 | CASEMGMT ---
RN CM Face to Face with patient for initial transition planning/care coordination assessment. RN CM introduced self and role at [facility]. Patient lying in bed, alert and oriented. Patient willing to participate in assessment and is able to answer all questions appropriately. Care providers, pharmacy, and demographics verified. PCP: Carlos COBOS Specialists: none Preferred Pharmacy: [facility] Insurance: none Prescription Benefit: none Living Will/HPOA: none LNOK: mother, brother Living Arrangements: Patient lives alone in a 2nd floor apartment. Patient states she was independent and able to ambulate stairs. Transportation: self DME/HHC: Patient denies DME in the home. No previous HHC or SNF Patient wishes to discharge home, denies need for home health at this time. Patient states he has no further needs or concerns at this time. CM to follow for discharge planning needs that may arise. Disposition Plan: Patient to discharge home with family support and follow-up plans in place. Mary MATHEWS, RN, CM
[2023-09-20] MEDS: Midazolam 2 MG/2 ML Syringe IV ×2 (12:32→12:45)
[2023-09-20] MEDS: fentaNYL 100 MCG/2 ML Ampul IV (12:33)
[2023-09-20] MEDS: Lidocaine 2% (20 ml mdv) 20 ML Vial INFILT (12:47)
--- NOTE | 2023-09-20 13:12 | PRO.PCM_ITS ---
Procedure Report Date of Procedure: 09/20/23 Assessment & Plan Assessment/Plan (1) Lesion of liver: PLAN: PROCEDURE: CT DIRECTED CORE LIVER BIOPSY ORDERING PROVIDER: Dr. Mendez INDICATION: Female, 63 years old. Liver lesions. PROVIDER: VASHTI Kelly CONSENT: Written informed consent was obtained having explained the risks, benefits and alternatives in detail with the patient who accepted the risks and agreed to proceed. Laboratory review and clinical assessment was performed. PRE-PROCEDURE SEDATION ASSESSMENT: Current history and physical dictated by referring provider and reviewed. No clinical changes since date of exam. Patient has an ASA Class of 2. PROCEDURAL SEDATION PROTOCOL: The Drugs used were: 2 mg Versed, IV, and 50 mcg Fentanyl, IV. The sedation time was: 25 minutes, starting at 1232 and terminated at 1257. The procedural sedation protocol was independently monitored by the department nurse. RADIATION DOSAGE (If Supplied By Facility): CTDIvol = 15.20 mGy, DLP = 519.14 mGycm Individualized dose optimization techniques were used for this CT. TECHNIQUE: The patient was placed in an oblique position. Using CT image guidance with image documentation, a lesion in the right lobe of the liver was identified. The skin surface was prepped with betadine and draped in a sterile fashion. 2% lidocaine was used for local anesthesia. Using a lateral approach, puncture of the liver was uneventful with an 18-gauge core needle system. Four, 18-gauge core samples were obtained, and submitted in formalin to the pathologist for further assessment. Pathology was present in the CT suite for sample conf irmation, as well. The needle was removed. An occlusive sterile dressing was applied. Patient tolerated the procedure well, and returned to the holding bay for nursing monitoring. IMPRESSION: 1. CT directed core needle biopsy of the liver, using CT image guidance with image documentation as described. 2. Procedural Sedation protocol utilized with independent monitoring. Procedures Radiology Radiology CT Procedures: 33169 Biopsy Liver
[2023-09-20 14:10] LABS: Anti-Centromere B Ab <0.2 AI (0.0-0.9); Anti-Chromatin <0.2 AI (0.0-0.9); Anti-Jo <0.2 AI (0.0-0.9); Anti-Mitochondrial AB <20.0 Units (0.0-20.0); Anti-Scleroderma-70 AB <0.2 AI (0.0-0.9); Anti-dsDNA Ab <1 IU/mL (0-9); RNP Ab <0.2 AI (0.0-0.9); SJOGREN'S Anti-SS-A test < 0.2 AI (0.0-0.9); SJOGREN'S Anti-SS-B test < 0.2 AI (0.0-0.9); Smith Ab <0.2 AI (0.0-0.9)
[2023-09-20 14:31] LABS: Pathologist Review Reviewed
--- NOTE | 2023-09-20 16:36 | PN.HOSP_ITS ---
Reason for Visit Reason for Visit: Diagnoses Anemia, unspecified (09/19/23) Other specified disorders of veins (09/19/23) Liver disease, unspecified (09/19/23) Other specified diseases of pancreas (09/19/23) Gastrointestinal hemorrhage, unspecified (09/19/23) Other ascites (09/19/23) Subjective Subjective Patient was seen and examined today, she underwent a liver biopsy due to 2 liver masses that were present on the MRCP, pancreas was not well-visualized, patient did have ascites. I talked to the patient's brother who was in the room at the time of my examination, she is scheduled to undergo an EGD and colonoscopy today. Objective Data Objective Data Vital Signs: Vital Signs Temp Pulse Resp BP Pulse Ox O2 Del Method O2 Flow Rate 98.5 F 80 18 104/66 98 Room Air 2 09/20/23 15:50 09/20/23 15:50 09/20/23 15:50 09/20/23 15:50 09/20/23 15:50 09/20/23 15:50 09/20/23 12:57 Oxygen Flow Rate (L/min) 2 Oxygen Delivery Method Room Air Weight: 48 kg Body Mass Index (BMI) 18.1 Intake & Output: Intake and Output for Last 24 Hours 09/18/23 09/19/23 09/20/23 23:59 23:59 23:59 Intake Total 2021 276.67 / 276.67 Balance 2021 276.67 / 276.67 Lab / Micro Data 09/20/23 06:00 09/20/23 06:00 Labs: Laboratory Results - last 24 hr 09/19/23 08:44: Diff Path Review Reviewed 09/19/23 09:21: Blood Type O POSITIVE, Antibody Screen NEGATIVE, Crossmatch See Detail 09/19/23 12:14: JENSEN-1 Antibody <0.2, SS-A/Ro IgG Antibody < 0.2, SS-B/La IgG Antibody < 0.2, Sm (Krause) Antibody <0.2, [employer] Antibody <0.2, Scl-70 Scleroderma Ab <0.2, Double Strand DNA Ab <1, Centromere B Antibody <0.2, Anti-Mitochondrial Ab <20.0 09/19/23 14:50: Urine Test Negative 09/20/23 06:00: WBC 12.4 H, RBC 2.66 L, Hgb 8.7 L, Hct 25.1 L, MCV 94.4 D, MCH 32.7 H, MCHC 34.7 D, RDW Std Deviation 76.3 H, RDW Coeff of Alyx 24.2 H, Plt Co unt 134 L, MPV 11.1, Immature Gran % (Auto) 2.000 H, Neut % (Auto) 78.5 H, Lymph % (Auto) 8.9 L, [place] % (Auto) 9.0, Eos % (Auto) 1.0, Baso % (Auto) 0.6, Absolute Neuts (auto) 9.7 H, Absolute Lymphs (auto) 1.10, Nucleated RBC % 3.7, PT 19.8 H, INR 1.7, Sodium 139, Potassium 2.6 L*, Chloride 107, Carbon Dioxide 24.0, Anion Gap 8, BUN 19 H, Creatinine 0.59, Estim Creat Clear Calc 75.88, Est GFR (MDRD) Af Amer 133, Est GFR (MDRD) Non-Af 110, BUN/Creatinine Ratio 32.3 H, Glucose 104, Calcium 8.2 L, Total Bilirubin 7.90 H, AST 115 H, ALT 25, Alkaline Phosphatase 139 H, Total Protein 5.7 L, Albumin 2.1 L, Globulin 3.6, Albumin/Globulin Ratio 0.6 L Radiography Diagnostic Testing: Radiology Impression MRCP 09/20/23 09:00 IMPRESSION: 1. Tailored examination for MRCP. 2. Normal common bile duct without evidence of biliary dilatation or retained stones. 3. Liver lesions difficult to further characterize on this exam. 4. The pancreas not clearly seen. 5. Ascites. Electronically Signed: Vincenzo Chaudhary MD at 11:15 EDT , Physical Exam Const alert, oriented x3 and no apparent distress Constitutional Narrative: Patient is cachectic appearing and appears much older than her stated age, she appears frail General Appearance: cooperative and well developed Orientation / Consciousness: awake, oriented to person, oriented to place and oriented to time HEENT normocephalic, head/scalp atraumatic and moist oral mucous membranes Eyes PERRL, EOMs intact bilaterally and conjunctivae normal Neck supple, no JVD, thyroid normal and no carotid bruits General: trachea midline Resp normal respiratory effort, no retractions, no use of accessory muscles and clear to auscultation bilaterally Auscultation: Negative for rales, rhonchi or wheezes Cardio regular rate, regular rhythm, S1 normal heart sound, S2 normal heart sound, no murmurs, no rub and no gallops GI normal to inspection, nondistended, normoactive bowel sounds, soft to palpation, non-tender and non-distended Extremity no clubbing, cyanosis or edema Skin no rashes or lesions noted General Skin Exam: no breakdown Neuro oriented x3, CN's II-XII intact bilaterally, moves all extremities, no focal motor deficits and no sensory deficits noted Sensorium / Orientation: awake, alert, oriented to person, oriented to place and oriented to time Speech: speech normal Psych Psych Narrative: Patient has flat affect, she appears unwell Assessment & Plan Assessment/Plan (1) GI bleed: PLAN: Plan 1. Acute anemia secondary to gastrointestinal bleeding-patient will undergo an EGD and colonoscopy today, she received 3 units of packed red blood cells, her last hemoglobin was 8.7, CBC will be monitored #2 liver masses-etiology unclear, concern for hepatocellular carcinoma, liver biopsies were performed today #3 possible underlying pancreatic cancer-MRCP did not visualize the pancreas while, patient will most probably need an ERCP #4 severe chronic caloric and protein malnutrition-nutritional services will see the patient Total clinical time spent by myself addressing the patient's medical issues, r eviewing all of her data, and collaborating with patient's care team: 35 minutes Charges/Coding Visit Charges Inpatient E&M: 64772 Subs Hosp L2
--- NOTE | 2023-09-20 17:05 | IMM_PTH ---
PATIENT: CHARLIE DEVLIN LOC: [facility] U#:[id number] AGE/SX: 63/F ROOM: [facility] RE09/19/[address]: Dr. Mo Mendez DO : 1960 BED: 1 DIS: 09/22/2023 SPEC #: [id number] RECD: 09/21/23 13:37 STATUS: SOUT REQ #: [id number] LEO: 09/20/23 17:[address]: Nikolay Polk DEPT: IMMUNOHISTOCHEMISTRY RECD BY: Matias Allen ENTERED: 09/21/23 13:37 SP TYPE: IMMUNO OTHR DR: Dr. Pablo Cannon, DO Dr. Shane Orona, DO Kaleigh Bruner Dr[address] [place] Tissues: A - Stomach, NOS Procedures: H Pylori (initial) PHYSICIAN & INSTITUTION [place] [id number] SPECIMEN INFORMATION: Tissue Source: A. Gastric ulcer, biopsy Clinical Info: GI bleed, Anemia, Ascites, Pancreatic mass, Lesion of liver Specimen Number: [id number] CPT code: 09484 METHODOLOGY: Deparaffinized sections of prefer/formalin-fixed tissue or PAP/DQ stained slides are incubated with monoclonal/polyclonal antibodies/oligonucleotide probes. Localization is made via biotin free immunoperoxidase method. Appropriate controls are performed and reacted as expected. Results on target cell population are indicated in the following table: RESULTS: ANTIBODY / CLONE RESULT Block A H Pylori (polyclonal) negative These tests were developed and their performance characteristics determined by [facility]. They may not have been cleared or approved by the U.S. Food and Drug Administration. The FDA has determined that such clearance or approval is not necessary. The above immunohistochemical/dualISH markers are ordered and reviewed by the Pathologist. INTERPRETATION: A. Gastric ulcer, biopsy: Negative for Helicobacter pylori organisms. SJ:isaiah 09/22/2023
--- NOTE | 2023-09-20 17:05 | EGD_PTH ---
PATIENT: CHARLIE DEVLIN LOC: [facility] U#:[id number] AGE/SX: 63/F ROOM: [facility] RE09/19/[address]: Dr. Mo Mendez DO : 1960 BED: 1 DIS: 09/22/2023 SPEC #: [id number] RECD: 09/21/23 08:39 STATUS: WALE REEmilia #: [id number] LEO: 09/20/23 17:[address]: Nikolay Polk DEPT: SURGICAL PATHOLOGY RECD BY: Nae Faustin ENTERED: 09/21/23 10:02 SP TYPE: EGD BIOPSY OTHR DR: Dr. Pablo Cannon, DO Dr. Shane Orona, DO Dr. Mo Mendez, CHANDRIKA Sparks Tissues: A - Gastric mucous membrane B - Sigmoid colon biopsy Procedures: Surgery Specimen Level IV Comments: @ Ordering doctor for SUIV edited from to @ by PABLO at 09/22/23 1108 @ Submitting doctor edited from to @ by PABLO at 09/22/23 1108 HEADER OPERATION: Colonoscopy with polypectomy, EGD with biopsy PRE-OP DIAGNOSIS: GI bleed, Anemia, Ascites, Pancreatic mass, Lesion of liver TISSUE SUBMITTED: A- Gastric ulcer, B- Sigmoid polyp MICROSCOPIC DIAGNOSIS A. Gastric ulcer, biopsy; A fragment of gastric mucosa with focal ulceration, acute and chronic inflammation and granulation tissue reaction. See comment. B. Sigmoid polyp, polypectomy; Tubular adenoma. SJ/mr 09/22/2023 COMMENT A. The results of immunohistochemistry for Helicobacter pylori will be reported separately ([id number]). MICROSCOPIC DESCRIPTION Slides are reviewed. GROSS DESCRIPTION A. Received in fixative is one container labeled with the patient's name and designated Gastric ulcer. The specimen consists of one irregular fragment of light mchugh soft tissue that measures 0.6 x 0.2 x 0.1 cm. The specimen is totally submitted in one cassette. B. Received in fixative is one container labeled with the patient's name and designated Sigmoid polyp. The specimen consists of one irregular fragment of light mchugh soft tissue that measures 0.3 x 0.3 x 0.1 cm. The specimen is totally submitted in one cassette. Katie 09/21/2023 TC:1 CPT: 29041v0
--- NOTE | 2023-09-20 19:04 | OP.COLON_ITS ---
Patient Name: Adele Cheng Procedure Date: 09/20/2023 6:38 PM Date of : 1960 Age: 63 Procedure: Colonoscopy Indications: Hematochezia Providers: Nikolay Polk DO Medicines: Propofol per Anesthesia Patient Profile: This is a 63 year old female. Refer to note in patient chart for documentation of history and physical. Last Colonoscopy: date unknown. Unable to locate last colonoscopy report. Complications: No immediate complications. Procedure: Pre-Anesthesia Assessment: - Prior to the procedure, a History and Physical was performed, and patient medications and allergies were reviewed. The patient is competent. The risks and benefits of the procedure and the sedation options and risks were discussed with the patient. All questions were answered and informed consent was obtained. Patient identification and proposed procedure were verified by the physician. Mental Status Examination: normal. Prophylactic Antibiotics: The patient does not require prophylactic antibiotics. Prior Anticoagulants: The patient has taken no anticoagulant or antiplatelet agents. After reviewing the risks and benefits, the patient was deemed in satisfactory condition to undergo the procedure. The anesthesia plan was to use monitored anesthesia care (MAC). Immediately prior to administration of medications, the patient was re-assessed for adequacy to receive sedatives. The heart rate, respiratory rate, oxygen saturations, blood pressure, adequacy of pulmonary ventilation, and response to care were monitored throughout the procedure. The physical status of the patient was re-assessed after the procedure. After I obtained informed consent, the scope was passed under direct vision. Throughout the procedure, the patient's blood pressure, pulse, and oxygen saturations were monitored continuously. The adult colonoscope was introduced through the anus and advanced to the terminal ileum. The colonoscopy was performed without difficulty. The patient tolerated the procedure well. The quality of the bowel preparation was adequate. Scope In: 6:41:24 PM Scope Withdrawal Time 0 hours 9 minutes 11 seconds Scope Out: 6:58:00 PM Total Procedure Duration Time 0 hours 16 minutes 36 seconds Findings: Hemorrhoids were found on perianal exam. Non-bleeding external and internal hemorrhoids were found during retroflexion. The hemorrhoids were Grade II (internal hemorrhoids that prolapse but reduce spontaneously) and Grade III (internal hemorrhoids that prolapse but require manual reduction). 8 mm, non-bleeding rectal varices were found. A 9 mm polyp was found in the sigmoid colon. The polyp was sessile. The polyp was removed with a hot snare. Resection and retrieval were complete. Verification of patient identification for the specimen was done. Estimated blood loss was minimal. Many small-mouthed diverticula were found in the recto-sigmoid colon and sigmoid colon. The terminal ileum appeared normal. Impression: - Hemorrhoids found on perianal exam. - Non-bleeding external and internal hemorrhoids. - Rectal varices. - One 9 mm polyp in the sigmoid colon, removed with a hot snare. Resected and retrieved. - Diverticulosis in the recto-sigmoid colon and in the sigmoid colon. - The examined portion of the ileum was normal. Recommendation: - [facility]. - Resume regular diet today. - Continue present medications. - Await pathology results. - Repeat colonoscopy. Procedure Code(s): --- Professional --- 78646, Colonoscopy, flexible; with removal of tumor(s), polyp(s), or other lesion(s) by snare technique CPT copyright 2021 [employer]. All rights reserved. The codes documented in this report are preliminary and upon head of physics review may be revised to meet current compliance requirements. Nikolay Polk DO 09/20/2023 7:03:53 PM This report has been signed electronically. Number of Addenda: 0 Note Initiated On: 09/20/2023 6:38 PM
--- NOTE | 2023-09-20 19:04 | OP.CCLET_ITS ---
09/20/2023 Kaleigh Gonzalez Re : Colonoscopy procedure for Adele Cheng Dear Carlos This procedure was performed on Wednesday, September 20, 2023. My impressions and recommendations are as follows: Impressions : - Hemorrhoids found on perianal exam. - Non-bleeding external and internal hemorrhoids. - Rectal varices. - One 9 mm polyp in the sigmoid colon, removed with a hot snare. Resected and retrieved. - Diverticulosis in the recto-sigmoid colon and in the sigmoid colon. - The examined portion of the ileum was normal. Recommendations : - [facility]. - Resume regular diet today. - Continue present medications. - Await pathology results. - Repeat colonoscopy. My findings are described in the full procedure note, which is enclosed. If I can be of further assistance, please feel free to contact me at . Sincerely, Nikolay Polk, 09/20/2023 7:03:53 PM This report has been signed electronically.
--- NOTE | 2023-09-20 19:07 | OP.EGD_ITS ---
Patient Name: Adele Cheng Procedure Date: 09/20/2023 6:00 PM Date of : 1960 Age: 63 Procedure: Upper GI endoscopy Indications: Hematochezia, Melena Providers: Nikolay Polk DO Medicines: Monitored Anesthesia Care Patient Profile: This is a 63 year old female. Refer to note in patient chart for documentation of history and physical. Patient has symptoms of acute epigastric abdominal pain. Complications: No immediate complications. Procedure: Pre-Anesthesia Assessment: - Prior to the procedure, a History and Physical was performed, and patient medications and allergies were reviewed. The patient is competent. The risks and benefits of the procedure and the sedation options and risks were discussed with the patient. All questions were answered and informed consent was obtained. Patient identification and proposed procedure were verified by the physician in the pre-procedure area. Mental Status Examination: alert and oriented. Airway Examination: normal oropharyngeal airway and neck mobility. Respiratory Examination: clear to auscultation. CV Examination: normal. Prophylactic Antibiotics: The patient does not require prophylactic antibiotics. Prior Anticoagulants: The patient has taken no anticoagulant or antiplatelet agents. ASA Grade Assessment: IV - A patient with severe systemic disease that is a constant threat to life. After reviewing the risks and benefits, the patient was deemed in satisfactory condition to undergo the procedure. The anesthesia plan was to use monitored anesthesia care (MAC). Immediately prior to administration of medications, the patient was re-assessed for adequacy to receive sedatives. The heart rate, respiratory rate, oxygen saturations, blood pressure, adequacy of pulmonary ventilation, and response to care were monitored throughout the procedure. The physical status of the patient was re-assessed after the procedure. After obtaining informed consent, the endoscope was passed under direct vision. Throughout the procedure, the patient's blood pressure, pulse, and oxygen saturations were monitored continuously. The Colonoscope was introduced through the mouth, and advanced to the second part of duodenum. The upper GI endoscopy was accomplished without difficulty. The patient tolerated the procedure well. Scope In: 6:35:29 PM Scope Out: 6:38:38 PM Total Procedure Duration Time 0 hours 3 minutes 9 seconds Findings: Grade I varices were found in the middle third of the esophagus and in the lower third of the esophagus. They were 6 mm in largest diameter. Severe portal hypertensive gastropathy was found in the entire examined stomach. Biopsies were taken with a cold forceps for histology. Verification of patient identification for the specimen was done. Estimated blood loss was minimal. Many oozing linear gastric ulcers with pigmented material were found in the gastric antrum. The largest lesion was 6 mm in largest dimension. Area was successfully injected with 5 mL of a 0.1 mg/mL solution of epinephrine for hemostasis. Coagulation for hemostasis using heater probe was successful. Estimated blood loss was minimal. No gross lesions were noted in the first portion of the duodenum. Impression: - Grade I esophageal varices. - Portal hypertensive gastropathy. Biopsied. - Oozing gastric ulcers with pigmented material. Injected. Treated with a heater probe. - No gross lesions in the first portion of the duodenum. Recommendation: - [facility]. - Advance diet as tolerated. - Continue present medications. Procedure Code(s): --- Professional --- 88663, 59, Esophagogastroduodenoscopy, flexible, transoral; with control of bleeding, any method 17165, 51, Esophagogastroduodenoscopy, flexible, transoral; with biopsy, single or multiple CPT copyright 2021 [employer]. All rights reserved. The codes documented in this report are preliminary and upon electrician third review may be revised to meet current compliance requirements. Nikolay Polk DO 09/20/2023 7:07:32 PM This report has been signed electronically. Number of Addenda: 0 Note Initiated On: 09/20/2023 6:00 PM
--- NOTE | 2023-09-20 19:08 | OP.CCLET_ITS ---
09/20/2023 Kaleigh Gonzalez Re : Upper GI endoscopy procedure for Adele Cheng Anar Carlos This procedure was performed on Wednesday, September 20, 2023. My impressions and recommendations are as follows: Impressions : - Grade I esophageal varices. - Portal hypertensive gastropathy. Biopsied. - Oozing gastric ulcers with pigmented material. Injected. Treated with a heater probe. - No gross lesions in the first portion of the duodenum. Recommendations : - [facility]. - Advance diet as tolerated. - Continue present medications. My findings are described in the full procedure note, which is enclosed. If I can be of further assistance, please feel free to contact me at . Sincerely, Nikolay Polk, 09/20/2023 7:07:32 PM This report has been signed electronically.
[2023-09-20] MEDS: 0.9 % NaCl (Sterile) Posiflush 10 mL IV ×2 (19:52→21:15)
[2023-09-21] VITALS (12 sets, daily range): BP systolic 113–144; BP diastolic 68–93; PULSE 66–97; RESP 16; TEMP 36.6–37.5; O2SAT 91–99
[2023-09-21 07:39] LABS: Absolute Lymphocyte Count 0.81 X10^3/uL (0.83-4.51); Absolute Neutrophil Count 6.6 X10^3/uL (2.0-7.7); Basophil# 0.11 X10^3/uL; Basophil% 1.2 % (0-1); Eosinophil# 0.23 X10^3/uL; Eosinophils% 2.6 % (0-5); Hematocrit 26.7 % (37-47); Hemoglobin 8.9 g/dL (12.0-15.0); Lymphocyte # 0.81 X10^3/ul (0.83-4.51); Lymphocyte % 9.1 % (19-41); Mean Corp Hgb Conc 33.3 g/dL (32-36); Mean Corpuscular Hgb 32.2 pg (27.0-32.0); Mean Corpuscular Volume 96.7 fL (81-99); Mean Platelet Vol. 10.5 fl (6.2-12.0); Monocyte# 0.97 X10^3/uL; Monocyte% 10.9 % (0-10); NRBC Flagged by Analyzer 0.3 % (0-5); Neutrophil # 6.57 X10^3/uL (2.7-7.7); Neutrophil % 74.3 % (47-70); POSITIVE MORPHOLOGY YES; Platelet Count 129 K/mm3 (150-450); RBC Distribution Width CV 24.7 % (11.6-14.6); Red Blood Count 2.76 M/mm3 (4.2-5.4); White Blood Count 8.9 K/mm3 (4.4-11.0)
[2023-09-21 07:45] LABS: Differential Indicated SCAN CRITERIA MET
[2023-09-21 08:28] LABS: Anisocytosis 3+; Differential Comment SCANNED
--- NOTE | 2023-09-21 10:16 | CASEMGMT ---
SW attempted to meet with patient as she is self pay. However, per chart patient was confused overnight. Also, patient was sleeping when SW entered patient's room. SW will attempt again later. Laverne KHAN
[2023-09-21] MEDS: Pantoprazole Sodium 40 MG in 0.9% Normal Saline (100mL MB+) 100 ML 330 MG IV ×2 (11:41→21:39)
--- NOTE | 2023-09-21 14:51 | CASEMGMT ---
EUN met with patient. Introduced self and role at [facility]. Patient said Lidia from [employer] helped her complete a Medicaid application. Patient was on Medicaid and then her income went up a little bit so she no longer qualified. Patient has a primary care doctor. Patient was doing okay paying for medications. Patient is concerned about her hospital bill and d/c medications. SW told patient that depending on the medications [facility] has a program where [facility] can assist with d/c medications. EUN then asked patient about emergency contacts. Patient would like her brother Sj listed. Patient would like to do Healthcare Power of College Tutor papers naming her brother as her HCPOA. SW let patient know SW will need her brothers address to put on the form. Patient said he is coming in this evening and she will get it then. Patient also said she would like her son Narendra listed so he can get information. EUN wrote down patient's brother and son's names and phone numbers. EUN put this information in the computer and notified admission discharge rn and dental secretary. Patient told EUN she wants to name her brother Sj as her Healthcare Power of College Tutor. EUN could not complete the documents with patient as she was leaving for a procedure. SW will complete documents tomorrow. Laverne Khalil SERVICE WRITER BILL
[2023-09-21] MEDS: Lactated Ringers 1,000 ML 15 ML IV (15:27)
--- NOTE | 2023-09-21 17:15 | RAD_ITS ---
STUDY: ERCP. REASON FOR EXAM: Female, 63 years old. Right upper quadrant pain. FLUOROSCOPY TIME (if supplied): ( 57.9 seconds ) minutes/seconds. 11.36 mGy. 4 images were obtained. TECHNIQUE: Fluoroscopic services provided for ERCP. COMPARISON: None. FINDINGS: Pancreatic duct stent is seen. RAD/ERCP Biliary/Pancreas IMPRESSION: Fluoroscopic services provided for ERCP. Pancreatic duct stent is visualized. Electronically Signed: Wally Meier MD at 10:37 EDT ,
--- NOTE | 2023-09-21 18:05 | OP.CCLET_ITS ---
09/21/2023 Kaleigh Gonzalez Re : ERCP procedure for Adele Gonzalez This procedure was performed on Thursday, September 21, 2023. My impressions and recommendations are as follows: Impressions : - A single segmental biliary stricture was found in the lower third of the main bile duct. The stricture was inflammatory. - A single localized biliary stricture was found in the lower third of the main bile duct. The stricture was indeterminate. - A biliary sphincterotomy was performed. - The biliary tree was swept and sludge was found. - One temporary stent was placed into the ventral pancreatic duct. Recommendations : Diagnostic and therapeutic paracentesis My findings are described in the full procedure note, which is enclosed. If I can be of further assistance, please feel free to contact me at . Sincerely, Nikolay Polk, 09/21/2023 6:04:31 PM This report has been signed electronically.
--- NOTE | 2023-09-21 18:05 | OP.ERCP_ITS ---
Patient Name: Adele Cheng Procedure Date: 09/21/2023 1:43 PM Date of : 1960 Age: 63 Procedure: ERCP Indications: Jaundice, Elevated liver enzymes Providers: Nikolay Polk DO Medicines: Monitored Anesthesia Care Patient Profile: This is a 63 year old female. Refer to note in patient chart for documentation of history and physical. Patient has symptoms of acute jaundice. This patient has no history of previous ERCP. Complications: No immediate complications. Procedure: Pre-Anesthesia Assessment: - Prior to the procedure, a History and Physical was performed, and patient medications and allergies were reviewed. The patient is competent. The risks and benefits of the procedure and the sedation options and risks were discussed with the patient. All questions were answered and informed consent was obtained. Patient identification and proposed procedure were verified by the physician in the pre-procedure area. Mental Status Examination: alert and oriented. Airway Examination: normal oropharyngeal airway and neck mobility. Respiratory Examination: clear to auscultation. CV Examination: normal. Prophylactic Antibiotics: The patient does not require prophylactic antibiotics. Prior Anticoagulants: The patient has taken no anticoagulant or antiplatelet agents. ASA Grade Assessment: IV - A patient with severe systemic disease that is a constant threat to life. After reviewing the risks and benefits, the patient was deemed in satisfactory condition to undergo the procedure. The anesthesia plan was to use monitored anesthesia care (MAC). Immediately prior to administration of medications, the patient was re-assessed for adequacy to receive sedatives. The heart rate, respiratory rate, oxygen saturations, blood pressure, adequacy of pulmonary ventilation, and response to care were monitored throughout the procedure. The physical status of the patient was re-assessed after the procedure. After obtaining informed consent, the scope was passed under direct vision. Throughout the procedure, the patient's blood pressure, pulse, and oxygen saturations were monitored continuously. The Duodenoscope was introduced through the mouth, and advanced to the duodenum and used to inject contrast into the bile duct and ventral pancreatic duct. The ERCP was accomplished with ease. The patient tolerated the procedure well. Scope In: 5:16:10 PM Scope Out: 5:53:06 PM Total Procedure Duration Time 0 hours 36 minutes 56 seconds Findings: The professor of food biochemistry film was normal. The esophagus was successfully intubated under direct vision. The scope was advanced to a normal major papilla in the descending duodenum without detailed examination of the pharynx, larynx and associated structures, and upper GI tract. The upper GI tract was grossly normal. The bile duct was deeply cannulated with the short-nosed traction sphincterotome. Contrast was injected. I personally interpreted the bile duct and pancreatic duct images. There was brisk flow of contrast through the ducts. Image quality was excellent. Contrast extended to the entire biliary tree. Opacification of the entire biliary tree was successful. The maximum diameter of the ducts was 5 mm. The lower third of the main bile duct contained a single segmental stenosis 2 mm in length. A straight Roadrunner wire was passed into the biliary tree. A 5 mm biliary sphincterotomy was made with a traction (standard) sphincterotome using ERBE electrocautery. There was no post-sphincterotomy bleeding. The biliary tree was swept with a 12 mm balloon starting at the bifurcation. Sludge was swept from the duct. The bile duct was explored endoscopically using the SpWandoujia direct visualization system. The SpyScope was advanced to the lower third of the main duct. Visibility with the scope was excellent. The lower third of the main bile duct contained a single localized stenosis 3 mm in length. One 5 Fr by 7 cm temporary stent with two internal flaps was placed 5 cm into the ventral pancreatic duct. Clear fluid flowed through the stent. The stent was in good position. Impression: - A single segmental biliary stricture was found in the lower third of the main bile duct. The stricture was inflammatory. - A single localized biliary stricture was found in the lower third of the main bile duct. The stricture was indeterminate. - A biliary sphincterotomy was performed. - The biliary tree was swept and sludge was found. - One temporary stent was placed into the ventral pancreatic duct. Recommendation: Diagnostic and therapeutic paracentesis Procedure Code(s): --- Professional --- 33296, Endoscopic retrograde cholangiopancreatography (ERCP); with placement of endoscopic stent into biliary or pancreatic duct, including pre- and post-dilation and guide wire passage, when performed, including sphincterotomy, when performed, each stent 37937, 51, Endoscopic retrograde cholangiopancreatography (ERCP); with removal of calculi/debris from biliary/pancreatic duct(s) 82273, 59, Endoscopic retrograde cholangiopancreatography (ERCP); with sphincterotomy/papillotomy 54494, Endoscopic cannulation of papilla with direct visualization of pancreatic/common bile duct(s) (List separately in addition to code(s) for primary procedure) 65630, 26, Combined endoscopic catheterization of the biliary and pancreatic ductal systems, radiological supervision and interpretation CPT copyright 2021 [employer]. All rights reserved. The codes documented in this report are preliminary and upon computer systems engineer review may be revised to meet current compliance requirements. Nikolay Polk DO 09/21/2023 6:04:31 PM This report has been signed electronically. Number of Addenda: 0 Note Initiated On: 09/21/2023 1:43 PM
--- NOTE | 2023-09-21 18:48 | PCM.PN.HOSP ---
Reason for Visit Reason for Visit: Diagnoses Anemia, unspecified (09/19/23) Other specified disorders of veins (09/19/23) Liver disease, unspecified (09/19/23) Other specified diseases of pancreas (09/19/23) Gastrointestinal hemorrhage, unspecified (09/19/23) Other ascites (09/19/23) Subjective Subjective Patient was seen and examined today's, she underwent an ERCP today that showed no evidence of biliary cancer, strictures were dilated, yesterday EGD showed signs of esophageal varices and they were oozing gastric ulcers noted which were treated with a heater probe. Portal hypertensive gastropathy was noted, on the patient's colonoscopy, hemorrhoids were found on the perianal exam, there were nonbleeding external and internal hemorrhoids and rectal varices. 1 small polyp in the sigmoid colon was noted which was removed with the snare diverticulosis in the rectosigmoid colon was noted and in the sigmoid colon. Patient's hemoglobin today was 8.9, she does not appear to be actively bleeding at this time. Objective Data Objective Data Vital Signs: Vital Signs Temp Pulse Resp BP Pulse Ox O2 Del Method O2 Flow Rate 98.8 F 86 16 143/89 H 98 Room Air 2 09/21/23 18:32 09/21/23 18:32 09/21/23 18:32 09/21/23 18:32 09/21/23 18:32 09/21/23 18:32 09/20/23 12:57 Oxygen Flow Rate (L/min) 2 Oxygen Delivery Method Room Air Weight: 48 kg Body Mass Index (BMI) 18.1 Intake & Output: Intake and Output for Last 24 Hours 09/19/23 09/20/23 09/21/23 23:59 23:59 23:59 Intake Total 2021 906.67 / 906.67 110 / 110 Balance 2021 906.67 / 906.67 110 / 110 Lab / Micro Data 09/21/23 07:20 09/20/23 17:39 Labs: Laboratory Results - last 24 hr 09/21/23 07:20: WBC 8.9, RBC 2.76 L, Hgb 8.9 L, Hct 26.7 L, MCV 96.7, MCH 32.2 H, MCHC 33.3, RDW Std Deviation 77.0 H, RDW Coeff of Alyx 24.7 H, Plt Count 129 L, MPV 10.5, Immature Gran % (Auto) 1.900 H, Neut % (Auto) 74.3 H, Lymph % (Auto) 9.1 L, Plumas % (Auto) 10.9 H, Eos % (Auto) 2.6, Baso % (Auto) 1.2 H, Absolute Neuts (auto) 6.6, Absolute Lymphs (auto) 0.81 L, Nucleated RBC % 0.3, Differential Comment SCANNED, Anisocytosis 3+ Physical Exam Narrative alert, oriented x3 and no apparent distress Constitutional Narrative: Patient is cachectic appearing and appears much older than her stated age, she appears frail General Appearance: cooperative and well developed Orientation / Consciousness: awake, oriented to person, oriented to place and oriented to time HEENT normocephalic, head/scalp atraumatic and moist oral mucous membranes Eyes PERRL, EOMs intact bilaterally and conjunctivae normal Neck supple, no JVD, thyroid normal and no carotid bruits General: trachea midline Resp normal respiratory effort, no retractions, no use of accessory muscles and clear to auscultation bilaterally Auscultation: Negative for rales, rhonchi or wheezes Cardio regular rate, regular rhythm, S1 normal heart sound, S2 normal heart sound, no murmurs, no rub and no gallops GI normal to inspection, nondistended, normoactive bowel sounds, soft to palpation, non-tender and non-distended Extremity no clubbing, cyanosis or edema Skin no rashes or lesions noted General Skin Exam: no breakdown Neuro oriented x3, CN's II-XII intact bilaterally, moves all extremities, no focal motor deficits and no sensory deficits noted Sensorium / Orientation: awake, alert, oriented to person, oriented to place and oriented to time Speech: speech normal Psych Psych Narrative: Patient has flat affect, she appears unwell Assessment & Plan Assessment/Plan (1) GI bleed: PLAN: Plan #1 GI bleeding secondary to rectal varices-this is resolved at this time, I talked briefly with gastroenterology today and they recommended placing the patient on medications for ascites and they will schedule her when she sees them as an outpatient for a TIPS procedure. #2 cirrhosis of the liver-secondary to history of alcohol abuse-again patient will follow-up with gastroenterology as an outpatient and will probably need a TIPS #3 gastric ulcer-patient will remain on PPI #4 esophageal varices-complicates care, medical course, recovery, and prognosis #5 hepatic lesions-gastroenterology states that these lesions are cirrhotic in nature and there is no sign of cancer. Total clinical time spent by myself addressing the patient's medical issues, reviewing all of her data, and collaborating with the patient's care team: 35 minutes Charges/Coding Visit Charges Inpatient E&M: 30673 Subs Hosp L2
[2023-09-21] MEDS: Acetaminophen 325 MG Tablet 650 MG PO (19:51)
[2023-09-21] MEDS: Spironolactone 25 MG Tablet PO (21:43)
[2023-09-21] MEDS: 0.9% Saline Lock 10 ML Syringe IV (21:43)
[2023-09-21] MEDS: Metoprolol Tartrate 25 MG Tablet 12.5 MG PO (21:43)
[2023-09-21] MEDS: MELATONIN 3 MG TABLET PO (21:43)
[2023-09-22] VITALS (7 sets, daily range): BP systolic 100–119; BP diastolic 61–68; PULSE 69–88; RESP 16; TEMP 36.2–37; O2SAT 93–96
[2023-09-22] MEDS: Acetaminophen 325 MG Tablet 650 MG PO (05:35)
[2023-09-22 08:12] LABS: AFP, Tumor Marker 2.6 ng/mL (0.0-9.2); Albumin 2.3 g/dL (2.9-4.4); Alpha-1-Globulins 0.3 g/dL (0.0-0.4); Alpha-2-Globulins 0.4 g/dL (0.4-1.0); Anti-Smooth Muscle ABS 6 Units (0-19); Carbohydrate AG 19-9 124 U/mL (0-35); Carcinoembryonic Antigen 11.4 ng/mL (0.0-4.7); Copper, Serum or Plasma 69 ug/dL (80-158); Cytoplasmic Ab (C-ANCA) <1:20 titer (Neg:<1:20); EBV Acute VCA IgM < 36.0 U/mL (0.0-35.9); Gamma Globulin 1.6 g/dL (0.4-1.8); HEPATITIS B SURFACE AG Negative (Negative); Hep C Antibodies Non Reactive (Non Reactive); Hepatitis A IgM Antibody Negative (Negative); Hepatitis B Core AB IgM Negative (Negative); Immunoglobulin A 566 mg/dL (87-352); Immunoglobulin G 1202 mg/dL (586-1602); Immunoglobulin M 518 mg/dL (26-217); PROEL- TOTAL PROTEIN 5.3 g/dL (6.0-8.5); Perinuclear Ab (P-ANCA) <1:20 titer (Neg:<1:20)
[2023-09-22 08:22] LABS: Hematocrit 30.3 % (37-47); Hemoglobin 10.1 g/dL (12.0-15.0)
[2023-09-22] MEDS: Folic Acid 1 MG Tablet PO (09:22)
[2023-09-22] MEDS: Metoprolol Tartrate 25 MG Tablet 12.5 MG PO (09:22)
[2023-09-22] MEDS: Thiamine Hydrochloride 100 MG Tablet PO (09:24)
[2023-09-22] MEDS: Pantoprazole Sodium 40 MG in 0.9% Normal Saline (100mL MB+) 100 ML 330 MG IV (09:25)
[2023-09-22] MEDS: Spironolactone 25 MG Tablet PO (09:25)
--- NOTE | 2023-09-22 10:34 | CASEMGMT ---
SW met with patient, her brother, and mom also came in while SW in the room. Patient was in agreement with completing Healthcare Power of Suppression Crew Leader papers. SW completed documents with patient. Copies were made and given to patient along with original. SW also placed a copy in patient's chart. Laverne KHAN
[2023-09-22 11:52] LABS: Lipase 390 U/L (13-75)
--- NOTE | 2023-09-22 12:02 | DCINST_ITS ---
Discharge Instructions Diet Discharge Diet: No restrictions and - (Avoid excessive salt intake) Activity Discharge Activity: Return to Normal Activity Weight Bearing Status: Full weight bearing Follow Up Care Test Results: Test results from this visit will be discussed in further detail at your follow- up appointment, if applicable. Discharge Plan Admission Admit Date/Time: 09/19/23 13:43 Primary Reason for Your Visit: Cirrhotic liver disease, GI blood loss from rectal varices Attending Provider: Mo Mendez Primary Care Provider: Kaleigh Gonzalez Consulting Providers: Pablo Cannon; Shane Orona Instructions Patient Instructions: RAD RN Biopsy Liver Dc, RAD RN Procedural Sedation Additional Instructions / Restrictions: Use only Tylenol for pain, do not take any ibuprofen or Aleve Follow-up with gastroenterology regarding further testing or procedures Discharge Orders/Prescriptions Prescriptions: New acetaminophen 325 mg Tablet 650 mg PO Q4H PRN PRN (Reason: Fever, pain 1-04/12) Qty: 1 0RF Rx Instructions: Limit Tylenol use each to 2500 mg or less per day spironolactone 25 mg Tablet 25 mg PO BID Qty: 60 0RF metoprolol tartrate 25 mg Tablet 12.5 mg PO BID Qty: 30 0RF pantoprazole [Protonix] 40 mg tablet,delayed release (DR/EC) 40 mg PO DAILY Qty: 30 0RF Discontinued naproxen 500 mg tablet 1,000 mg PO Q12H Referrals / Follow Up: Jayson Saleh MD [Non-Staff] - Within 1 Month Nikolay Polk DO [Med Staff - Active Staff] - See Referral Note (In 3 weeks, call for an appointment) Kaleigh Gonzalez PA [Primary Care Provider] - Disposition Disposition (needs filled in before D/C Order can be placed): Home, Self Care
--- NOTE | 2023-09-22 12:07 | PCM.DC.SUM ---
Providers Date of Admission: 09/19/23 Date of Discharge: 09/22/23 Primary Care Physician: CHANDRIKA Campuzano Consultations 09/19/23 23:29 Consult: Gastroenterology Routine Consulting Provider: Terry Gastroenter[facility] Reason for Consult: anemia EMERGENT Consult: No Notified: Yes Date Notified: 09/19/23 Time Notified: 23:29 Method of Notification: phone 09/20/23 09:00 Consult: Interventional Radiology Routine Consulting Provider: Wally Meier Reason for Consult: possible metatstatic pancreatic cancer EMERGENT Consult: Yes Notified: No Date Notified: 09/20/23 Time Notified: 09:00 Reason For Visit: PANCREAS/ LIVER MASSES Diagnosis Discharge Diagnosis (1) GI bleed: Status: Acute Code(s): K92.2 - Gastrointestinal hemorrhage, unspecified Plan #1 Acute on chronic GI bleeding secondary to rectal varices-this is resolved at this time, I talked briefly with gastroenterology today and they recommended placing the patient on medications for ascites and they will schedule her when she sees them as an outpatient for a TIPS procedure. #2 cirrhosis of the liver-secondary to history of alcohol abuse-again patient will follow-up with gastroenterology as an outpatient and will probably need a TIPS #3 gastric ulcer-patient will remain on PPI #4 esophageal varices-complicates care, medical course, recovery, and prognosis #5 hepatic lesions-gastroenterology states that these lesions are cirrhotic in nature and there is no sign of cancer. #6 possible pancreatic mass Total clinical time spent by myself addressing the patient's medical issues, reviewing all of her data, and collaborating with the patient's care team: 35 minutes Medications at Discharge Home Medications acetaminophen 325 mg tablet 650 mg (2 x 325 mg) PO Q4H PRN PRN Fever, pain 1-04/12 #1 TAB 09/22/23 metoprolol tartrate 25 mg tablet 12.5 mg (1/2 x 25 mg) PO BID #30 tabs 09/22/23 pantoprazole 40 mg tablet,delayed release (Protonix) 40 mg PO DAILY #30 tabs 09/22/23 spironolactone 25 mg tablet 25 mg PO BID #60 tabs 09/22/23 Hospital Course Operations ERCP Procedures Colonoscopy, EGD and - (Liver biopsy, MRCP) Summary of Care Provided Minutes Spent on Discharge: 32 Hospital Course: This 63-year-old white female presented to the emergency room at [facility] with complaints of vomiting and weakness x 2 to 3 days, she also stated that there was some blood in her vomitus and dark material. Patient also complained of chronic intermittent rectal bleeding. CT of the abdomen and pelvis was obtained, there is noted to be hepatomegaly with diffuse fatty infiltration and multiple new hypodense lesions throughout the right and left lobes of the liver suggestive of metastatic disease versus hepatocellular carcinoma, there was a questionable 3 x 3 cm mass in the head of the pancreas. CBC revealed a hemoglobin of 4.5, white count was slightly elevated at 14, INR was 2, bilirubin was 4.96, AST was 127 and ALT was 27. Potassium was noted to be low at 3.2. Patient was typed and crossed for 3 units of packed red blood cells, she was given potassium replacement, the case was discussed with gastroenterology and she was placed on Protonix and admitted to PCU. She was seen in consultation by gastroenterology, underwent an MRCP which had poor visualization of the pancreas, liver biopsy was obtained ultimately that showed evidence of cirrhosis but no overt cancer. Patient underwent an EGD which showed some esophageal varices and gastric ulcer, colonoscopy showed evidence of internal hemorrhoids. Extensive conversation was carried out between the patient, her mother, and her brother to explain medical findings to them, gastroenterology stated that the patient needed to undergo further testing to identify whether she had pancreatic lesions. Patient was placed on medication for alcoholic cirrhosis, patient's blood counts stabilized. On 09/22/2023, patient was seen and examined: On examination she appeared in good health and spirits, she does not appear to be in any distress. Vital signs as documented. Skin warm and dry and without overt rashes. Neck without JVD, thyroid appears normal, trachea is midline, neck is supple. Lungs clear, normal air movement was noted. Heart exam notable for regular rhythm, normal sounds and absence of murmurs, rubs or gallops. Abdomen unremarkable and without evidence of organomegaly, masses, or abdominal aortic enlargement, bowel sounds are present in all 4 quadrants, no abdominal tenderness was noted. Extremities nonedematous, no cyanosis was noted, no clubbing was noted. Neuro: Cranial nerves II through XII are grossly intact, no focal motor deficits were noted, sensation to light touch and pinprick is intact, motor exam 5/5 throughout. Psych: Patient is alert and oriented x3, she does not appear anxious or depressed, she does not appear agitated. Patient was felt to be stable for discharge on 09/22/2023. Weight / BMI Weight Weight: 48 kg Body Mass Index (BMI) 18.1 ABG / Lab / Microbiology Data 09/22/23 08:10 09/20/23 17:39 Laboratory: Laboratory Results - last 24 hr 09/19/23 12:39: Total Protein (PEP) 5.3 L, Globulin 3.0, Ceruloplasmin 17.0 L, Tumor Marker AFP 2.6, Carcinoembryonic Ag 11.4 H, CA 19-9 Antigen 124 H, Serum Copper 69 L, IgG 1202, IgA 566 H, IgM 518 H, Immunofixation Screen Comment H, Albumin (TOM) 2.3 L, Albumin/Globulin (TOM) 0.8, [id number]-[id number] TOM 0.3, Tjbsc-9-Ejcdtmwsu TOM 0.4, Beta-Globulins (TOM) 0.7, Gamma Globulins (TOM) 1.6, TOM M-Mamadou Comment:, TOM Comments Comment, c-ANCA Antibody <1:20, Atypical p-ANCA <1:20, p-ANCA Antibody <1:20, Anti-Smooth Muscle Ab 6, EBV Capsid Ag IgG Ab 540.0 H, EBV Capsid Ag IgM Ab < 36.0, EBV Nuclear Ag IgG Ab 247.0 H, EBV Antibody Interp Comment, Hepatitis A IgM Ab Negative, Hep Bs Antigen Negative, Hep B Core IgM Ab Negative, Hepatitis C Ab (EIA) Non Reactive, Hep C Ab Comment Comment 09/22/23 08:10: Hgb 10.1 L, Hct 30.3 L, Lipase 390 H D/C Instructions Discharge Diet: No restrictions and - (Avoid excessive salt intake) Weight Bearing Status: Full weight bearing Meaningful Use Info Meaningful Use Diagnoses (Choose all that apply): None applicable Discharge Plan Admission Admit Date/Time: 09/19/23 13:43 Primary Reason for Your Visit: Cirrhotic liver disease, GI blood loss from rectal varices Attending Provider: Mo Mendez Primary Care Provider: Kaleigh Gonzalez Consulting Providers: Pablo Cannon; Jopperi,Shane Instructions Patient Instructions: RAD RN Biopsy Liver Dc, BEATRICE RN Procedural Sedation Additional Instructions / Restrictions: Use only Tylenol for pain, do not take any ibuprofen or Aleve Follow-up with gastroenterology regarding further testing or procedures Discharge Orders/Prescriptions Prescriptions: New acetaminophen 325 mg Tablet 650 mg PO Q4H PRN PRN (Reason: Fever, pain 1-04/12) Qty: 1 0RF Rx Instructions: Limit Tylenol use each to 2500 mg or less per day spironolactone 25 mg Tablet 25 mg PO BID Qty: 60 0RF metoprolol tartrate 25 mg Tablet 12.5 mg PO BID Qty: 30 0RF pantoprazole [Protonix] 40 mg tablet,delayed release (DR/EC) 40 mg PO DAILY Qty: 30 0RF Discontinued naproxen 500 mg tablet 1,000 mg PO Q12H Referrals / Follow Up: Jayson Saleh MD [Non-Staff] - Within 1 Month Nikolay Polk DO [Med Staff - Active Staff] - See Referral Note (In 3 weeks, call for an appointment) Kaleigh Gonzalez PA [Primary Care Provider] - Disposition Disposition (needs filled in before D/C Order can be placed): Home, Self Care Charges/Coding Visit Charges Inpatient E&M: 51299 Disch Hosp >30min
--- NOTE | 2023-09-22 12:28 | CASEMGMT ---
Patient has order for discharge. RN CM in to discuss needs at discharge. Patient denies needs or help at discharge. Patient aware to follow up with PCP. Patient had no further questions or concerns.
[2023-09-22] MEDS: Ensure Plus High Protein 120 ML LIQUID PO (14:10)
== END 2023-09-22 14:46 | disposition home or self-care (01) | DRG 299 ==
LOC: ED 12:47 → PCU 14:03
PROVIDERS: Anesthesiology; Internal Medicine Gastroenterology; Admitting Provider Hospitalist; Emergency Provider Emergency Medicine; PCP Physician Assistant; Visit Provider Internal Medicine
PROC: 0DJD8ZZ Inspection of Lower Intestinal Tract, Via Natural or Artificial Opening Endoscopic (ICD-10-PCS; CPT 45378; principal; 2023-09-20 17:00)
PROC: 0W3P8ZZ Control Bleeding in Gastrointestinal Tract, Via Natural or Artificial Opening Endoscopic (ICD-10-PCS; CPT 43260; principal; 2023-09-21 15:40)
DX: I86.8 Varicose veins of other specified sites (principal); K25.4 Chronic or unspecified gastric ulcer with hemorrhage; K83.1 Obstruction of bile duct; I85.00 Esophageal varices without bleeding; K76.6 Portal hypertension; D62 Acute posthemorrhagic anemia; C25.9 Malignant neoplasm of pancreas, unspecified; K70.31 Alcoholic cirrhosis of liver with ascites; F10.11 Alcohol abuse, in remission; K57.30 Diverticulosis of large intestine without perforation or abscess without bleeding; K76.0 Fatty (change of) liver, not elsewhere classified; E87.6 Hypokalemia; K63.5 Polyp of colon; K64.8 Other hemorrhoids; K64.4 Residual hemorrhoidal skin tags; Z66 Do not resuscitate
CPT/HCPCS: 36415; 74176; 74181; 74330; 76000; 77012; 80048; 80053; 80074; 80076; 80307; 80320; 81001; 81025; 82105; 82378; 82390; 82525; 82607; 82728; 82746; 82784; 83516; 83540; 83550; 83690; 84132; 84165; 85014; 85018; 85025; 85610; 85730; 86225; 86235; 86256; 86301; 86334; 86664; 86665; 86850; 86900; 86901; 86920; 86922; 88172; 88305; 88307; 88313; 88342; 93005; 97162; 97165; 97802; 97803; 99156; 99284; J7030; J7040; J7120; P9016; P9040; A4216; G0480; J2405

== ENCOUNTER 2023-09-23 14:48 | Emergency (ER) | payer SELFPAY ==
[2023-09-23] VITALS (9 sets, daily range): BP systolic 95–109; BP diastolic 60–69; PULSE 70–80; RESP 14–20; TEMP 36.3–36.4; O2SAT 98–100; BMI 19.0
--- NOTE | 2023-09-23 15:26 | ED.VIS.GI ---
HPI HPI - GI History of Present Illness Chief Complaint: GI Bleed Informant: patient Nausea/Vomiting/Emesis GI Symptom: Positive for Nausea and Vomiting Onset: Today and Yesterday Quality: Positive for Coffee ground Severity: Mild Diarrhea/Melena/Hematochezia GI Symptom: Positive for Hematochezia Onset: Yesterday Severity: Mild Associated Symptoms Associated Symptoms: Negative for Dysuria, Frequency, Hematuria or Urgency Narrative Narrative: 63-year-old female history of anemia and prior GI bleed recent hospitalization with a hemoglobin of 4.5 that received multiple units of blood. States she was discharged yesterday. Today she is complaining of she had intermittent bleeding yesterday. She is not on any blood thinners. Says she is also having some abdominal bloating. She does not believe they found any source of the bleeding. When asked she states she does not have cancer but her recent CAT scan look like metastases. Prior similar symptoms: Yes Recent Illness/Hospitalization: Yes PFSH PFSH Medical History Alcohol abuse Anemia Diarrhea Elevated LFTs Epigastric pain Fatigue Gall stones Hemorrhoids Pancytopenia Rectal bleeding sudden weight loss Home Medications acetaminophen 325 mg tablet 650 mg (2 x 325 mg) PO Q4H PRN PRN Fever, pain 1-04/12 #1 TAB 09/22/23 [Rx Last Taken Unknown] metoprolol tartrate 25 mg tablet 12.5 mg (1/2 x 25 mg) PO BID #30 tabs 09/22/23 [Rx Last Taken Unknown] pantoprazole 40 mg tablet,delayed release (Protonix) 40 mg PO DAILY #30 tabs 09/22/23 [Rx Last Taken Unknown] spironolactone 25 mg tablet 25 mg PO BID #60 tabs 09/22/23 [Rx Last Taken Unknown] potassium chloride 20 mEq tablet,extended release(part/cryst) 20 meq PO BID 15 days #30 tabs 09/23/23 [Rx Last Taken Unknown] Allergy/AdvReac Type Severity Reaction Status Date / Time Penicillins Allergy Rash Verified 09/23/23 14:49 Family History Brother Diabetes Father Diabetes Hypertension High cholesterol Thyroid disorder Surgical History No history of previous surgery Social History Smoking Status: Never smoker alcohol intake: never substance use type: does not use caffeine: Yes what type of physical activity do you participate in: walking seatbelt use: always do you feel safe at home: Yes 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 Black stool. Abdominal ascites. Review of Systems ROS Unobtainable: Denies due to encephalopathy Constitutional Constitutional ED: Denies chills or fever(s) ENT ENT ED: Denies ear pain Cardiovascular Cardiovascular: Denies chest pain Respiratory/Chest Respiratory/Chest: Denies cough or dyspnea Gastrointestinal Gastrointestinal: Reports melena, nausea and vomiting; Denies abdominal pain or constipation Genitourinary Genitourinary ED: Denies dysuria or hematuria Musculoskeletal Musculoskeletal: Denies arthralgias Integumentary Denies abscess or Abrasions Neurologic Neurologic: Denies headache(s) Psychiatric Psychiatric: Denies anxiety or depression Endocrine Endocrinology: Denies polydipsia Hematologic/Lymphatic Hematologic/Lymphatic: Denies easy bleeding Allergic/Immunologic Allergic/Immunologic ED: Denies mouth swelling, tongue swelling or urticaria EXAM Physical Exam Narrative Exam Narrative: 63-year-old female vital signs stable initial blood pressure 95/64 she states she often runs around 100 220. She does not look septic or toxic. HEENT exam unremarkable. Mytrex members. Neck nontender no JVD. Lungs clear to auscultation bilateral. Heart regular rhythm rate about 80 no murmur. Chest wall nontender. Abdomen soft nontender. There is mild abdominal ascites with minimal distention. No signs of obstruction. Moving all 4 extremities. Nontender no edema. Neurologically she is awake and alert. She is answering questions and following commands. Back nontender. Const Vital Signs: 09/23/23 14:49 09/23/23 15:34 09/23/23 15:45 Temperature 97.3 F L Temperature Source Temporal Pulse Rate 78 73 70 Respiratory Rate 18 14 17 Blood Pressure 95/64 105/65 100/61 Blood Pressure Mean 74 78 74 Pulse Ox 99 99 100 Oxygen Delivery Method Room Air 09/23/23 16:00 09/23/23 16:15 09/23/23 16:30 Temperature Temperature Source Pulse Rate 73 70 75 Respiratory Rate 15 14 20 H Blood Pressure 99/60 99/62 99/65 Blood Pressure Mean 72 75 75 Pulse Ox 99 99 99 Oxygen Delivery Method 09/23/23 16:45 09/23/23 17:00 Temperature Temperature Source Pulse Rate 74 80 Respiratory Rate 16 16 Blood Pressure 102/68 Blood Pressure Mean 77 Pulse Ox 99 98 Oxygen Delivery Method Positive well nourished and well developed; Negative for obese, cachectic, contractures or unkempt General Appearance ED: well developed and NAD; Negative for unkempt, cachectic, contractures or pallor Nutritional Appearance: Negative for cachectic or obese HEENT Reports moist mucous membranes; Denies dry mucous membranes normocephalic and atraumatic; Negative for trauma or tenderness Mouth ED: No dry mucous membranes Mouth: No dry mucous membranes Eyes PERRL and EOMs intact bilaterally General Eye ED: Negative for pale conjunctiva, scleral icterus or other Neck no lymphadenopathy, supple and no JVD General: Negative for tenderness Carotids: Negative for other Lymph Lymphatic: Negative for other Resp normal respiratory effort and clear to auscultation bilaterally Effort and Inspection: Negative for respiratory distress or retractions Auscultation: Negative for rales, rhonchi or wheezes Cardio regular rate, regular rhythm, S1 normal heart sound, S2 normal heart sound and no murmurs Rate: Negative for bradycardia or tachycardic Rhythm: Negative for abnormal rhythm GI non-tender and no masses; Negative for non-distended GI Narrative: Abdominal ascites. Inspection: Negative for abdominal distention Auscultation: normoactive bowel sounds Palpation: soft; Negative for tender, guarding, pulsatile mass or rebound tenderness present Back/Spine no CVA tenderness General Back: Negative for CVA tenderness Cervical Spine: Negative for cervical spine tenderness Thoracic Spine / Upper Back: Negative for thoracic spinal tenderness Lumbar Spine / Lower Back: Negative for lumbar spinal tenderness Coccyx: Negative for other Extremity full ROM General Extremety ED: Negative for edema, tenderness or other findings General Extremity: Negative for edema or other findings Neuro CN's II-XII intact bilaterally and moves all extremities Sensorium / Orientation: alert, oriented to person, oriented to place and oriented to time; Negative for orientation impaired, confused, lethargic or stuporous Motor Exam: strength 5/5 throughout; Negative for general weakness Psych mental status grossly normal and thought process normal Appearance: Negative for unkempt Attitude: No agitated Mood & Affect: Negative for depressed, anxious or tearful Skin no wounds General Skin Exam: Negative for jaundice or pallor Lesions: no lesions Rashes: no rashes Trauma: Negative for abrasion Nails: Negative for discolored MDM MDM MDM Narrative Medical decision making narrative: 63-year-old female recent admission for severe anemia for which she received multiple transfusions. Complaining of intermittent coffee-ground emesis and black stools. Labs are being obtained. Repeat exam patient is doing well at 6:20 PM. Blood pressures were 102/68 at 5:00. To be rechecked. She will be given oral potassium due to her hypokalemia 2.8. She will be sent home with a prescription of potassium. Otherwise she can do outpatient follow-up. I had a lengthy discussion with the patient and her mother at bedside. We discussed the abdominal ascites and she could have a procedure done such as a ultrasound-guided paracentesis to have that fluid drawn off close other testing can be done for that. I explained to them that there was no one here on the weekends and did that. He can follow-up with her GI doctor, Dr. Polk who can write an order and he can have that done next week through the radiology department. Patient is comfortable being discharged home. With outpatient follow-up. History & Record Review Discussion w/independent historian: Patient Additional record(s) reviewed:: Prior inpatient record, Prior outpatient record, Prior ED visit and Prior labs Lab Data Attestation: I reviewed the patient's lab results. Lab results narrative: CBC shows a white count of 14.5. H&H of 10.5 and 32.2 which actually better than the hemoglobin she was discharged with. Platelets 180. Electrolytes show sodium 135. Potassium is low at 2.8. Gap is 7. Normal BUN and creatinine are 19 and 0.7. Glucose 102. Liver enzymes are elevated consistent with prior values. Blood type a positive. Labs: Laboratory Results - last 24 hr 09/23/23 15:20 WBC 14.5 H RBC 3.23 L Hgb 10.5 L Hct 32.2 L MCV 99.7 H MCH 32.5 H MCHC 32.6 RDW Std Deviation 83.8 H RDW Coeff of Layx 25.2 H Plt Count 180 MPV 11.4 Immature Gran % (Auto) 1.000 H Neut % (Auto) 85.8 H Lymph % (Auto) 4.4 L Bandera % (Auto) 7.4 Eos % (Auto) 1.2 Baso % (Auto) 0.2 Absolute Neuts (auto) 12.4 H Absolute Lymphs (auto) 0.64 L Nucleated RBC % 0 Differential Comment Sodium 135 L Potassium 2.8 L Chloride 104 Carbon Dioxide 24.0 Anion Gap 7 BUN 19 H Creatinine 0.70 Estim Creat Clear Calc 66.96 Est GFR (MDRD) Af Amer 110 Est GFR (MDRD) Non-Af 91 BUN/Creatinine Ratio 27.3 H Glucose 102 Calcium 7.8 L Total Bilirubin 6.60 H AST 57 H ALT 23 Alkaline Phosphatase 129 H Total Protein 6.4 Albumin 1.9 L Globulin 4.5 H Albumin/Globulin Ratio 0.4 L Blood Type O POSITIVE Antibody Screen NEGATIVE Discharge Plan Triage Chief Complaint: GI Bleed ED Provider: Harsh Bolton Dx/Rx/DC Orders Clinical Impression: Rectal bleeding, History of GI bleed, Acute hypokalemia, Abdominal ascites, Pancreatic mass Instructions: ED Ascites, ED Hypokalemia, ED Lower GI Bleeding (Stable) Prescriptions: New potassium chloride 20 mEq tablet,ER particles/crystals 20 meq PO BID 15 Days Qty: 30 0RF No Action acetaminophen 325 mg Tablet 650 mg PO Q4H PRN PRN (Reason: Fever, pain 1-04/12) Qty: 1 0RF Rx Instructions: Limit Tylenol use each to 2500 mg or less per day spironolactone 25 mg Tablet 25 mg PO BID Qty: 60 0RF metoprolol tartrate 25 mg Tablet 12.5 mg PO BID Qty: 30 0RF pantoprazole [Protonix] 40 mg tablet,delayed release (DR/EC) 40 mg PO DAILY Qty: 30 0RF Primary Care Provider: Kaleigh Gonzalez Referrals: Kaleigh Gonzalez PA [Primary Care Provider] - 3-5 Days Activity Restrictions/Additional Instructions: Follow-up with your primary care provider to have your blood level rechecked next week. Today it was 10.5. Also replaced on potassium your potassium is low at 2.8 that will need to be rechecked in several weeks to make sure that it is improving. You have ascites or fluid inside your abdominal cavity. This can be drained by a procedure called ultrasound-guided paracentesis. Follow-up with Dr. Polk. He can write an order for that. You can have that done here in the radiology department. Typically they do it during the week Tuesday through Tuesday usually between 9 AM and 2 PM. They can send that fluid to be tested for other things also. Disposition Disposition: Home, Self Care
[2023-09-23 15:43] LABS: Absolute Lymphocyte Count 0.64 X10^3/uL (0.83-4.51); Absolute Neutrophil Count 12.4 X10^3/uL (2.0-7.7); Basophil# 0.03 X10^3/uL; Basophil% 0.2 % (0-1); Eosinophil# 0.17 X10^3/uL; Eosinophils% 1.2 % (0-5); Hematocrit 32.2 % (37-47); Hemoglobin 10.5 g/dL (12.0-15.0); Lymphocyte # 0.64 X10^3/ul (0.83-4.51); Lymphocyte % 4.4 % (19-41); Mean Corp Hgb Conc 32.6 g/dL (32-36); Mean Corpuscular Hgb 32.5 pg (27.0-32.0); Mean Corpuscular Volume 99.7 fL (81-99); Mean Platelet Vol. 11.4 fl (6.2-12.0); Monocyte# 1.07 X10^3/uL; Monocyte% 7.4 % (0-10); NRBC Flagged by Analyzer 0 % (0-5); Neutrophil % 85.8 % (47-70); POSITIVE MORPHOLOGY YES; Platelet Count 180 K/mm3 (150-450); RBC Distribution Width CV 25.2 % (11.6-14.6); RBC Distribution Width SD 83.8 fl (35.1-43.9); Red Blood Count 3.23 M/mm3 (4.2-5.4); White Blood Count 14.5 K/mm3 (4.4-11.0)
[2023-09-23 15:46] LABS: Differential Indicated SCAN CRITERIA MET
[2023-09-23 15:58] LABS: ALB/GLOB Ratio 0.4 RATIO (0.9-2.4); AST(SGOT) 57 U/L (15-37); Alanine Aminotransfer ALT/SGPT 23 U/L (13-56); Albumin, Serum 1.9 g/dL (3.2-5.0); Alkaline Phosphatase 129 U/L (45-117); Anion Gap 7 (5-15); BUN 19 mg/dL (7-18); BUN/Creat Ratio 27.3 RATIO (10-20); Calcium,Total 7.8 mg/dL (8.5-10.1); Chloride 104 mmol/L (98-107); EST Glomerular Filtration Rate 91 mL/min (>60); Est Glom Filt Rate - Afr Amer 110 mL/min (>60); Estimated Creatinine Clearance 66.96 ml/min; Globulin 4.5 g/dL (2.2-4.2); Glucose 102 mg/dL (74-106); Potassium 2.8 mmol/L (3.5-5.1); Protein, Total 6.4 g/dL (6.4-8.2); Sodium Level 135 mmol/L (136-145)
[2023-09-23] MEDS: Potassium Chloride Oral Tablet 20 MEQ 40 MEQ PO (18:34)
== END 2023-09-23 18:50 | disposition home or self-care (01) ==
PROVIDERS: Emergency Provider Emergency Medicine; PCP Physician Assistant; Visit Provider Emergency Medicine
DX: K62.5 Hemorrhage of anus and rectum (principal); E87.6 Hypokalemia; R18.8 Other ascites; Z87.19 Personal history of other diseases of the digestive system; K86.89 Other specified diseases of pancreas
CPT/HCPCS: 80053; 85025; 86850; 86900; 86901; 99282; A4216

== ENCOUNTER → 2023-09-26 | Outpatient (CLI) | payer SELFPAY ==
[2023-09-26 13:33] VITALS: BP 110/63; PULSE 84; RESP 16; O2SAT 98
[2023-09-26] MEDS: Lidocaine 2% (20 ml mdv) 20 ML Vial INFILT (13:40)
--- NOTE | 2023-09-26 13:43 | FLU_PTH ---
PATIENT: CHARLIE DEVLIN LOC: U#:[id number] AGE/SX: 63/F ROOM: RE09/26/[address]: Dr. Nikolay Polk DO : 1960 BED: DIS: 09/26/2023 SPEC #: [id number] RECD: 09/26/23 13:52 STATUS: WALE YUNIOR #: [id number] LEO: 09/26/23 13:[address]: Nikolay Polk DEPT: CYTOLOGY RECD BY: Nae Faustin ENTERED: 09/27/23 08:50 SP TYPE: Fluid OTHR DR: CHANDRIKA Campuzano Tissues: PARACENTESIS FLUID Procedures: Special Stain Group II Surgery Specimen Level IV Cytospin Fluid HEADER OPERATION: Ultrasound guided right paracentesis PRE-OP DIAGNOSIS: Ascites TISSUE SUBMITTED: Right paracentesis fluid for cytology DIAGNOSIS CYTOLOGY Paracentesis fluid for cytology (cytospin and cellblock); Negative for malignant cells. See comment. SJ/mr 09/28/2023 COMMENT Clinical correlation and appropriate follow up are necessary. Case has been reviewed in consultation with Dr. Cassidy who concurs with the above diagnosis. IDC:AM CYTOLOGY STUDY Slides are reviewed. CYTOLOGY GROSS Received is 90 ml of yellow-cloudy fluid labeled with the patient's name and and designated per the requisition as Right paracentesis. Submitted for cytology preparation including cell block. mr 09/27/23 TC:5 CPT: 15291,95824
[2023-09-26 13:48] VITALS: BP 118/67; PULSE 84; RESP 16; O2SAT 99
[2023-09-26 13:50] LABS: Cytology, Body Fluid / CSF SEE PATHOLOGY REPORT
[2023-09-26 13:58] VITALS: BP 103/56; PULSE 84; RESP 16; O2SAT 99
--- NOTE | 2023-09-26 15:12 | PRO.PCM_ITS ---
Procedure Report Date of Procedure: 09/26/23 Assessment & Plan Assessment/Plan (1) Abdominal ascites: QUALIFIERS: Ascites type: other type Qualified Code(s): R18.8 - Other ascites PLAN: PROCEDURE: Ultrasound guided paracentesis ORDERING PROVIDER: Dr. Polk INDICATION: Female, 63 years old. Ascites. PROVIDER: VASHTI Kelly TECHNIQUE: The risks, benefits, and alternatives to the procedure were explained to the patient. The specific risks of bleeding, infection, and damage to bowel were detailed and accepted. Witnessed informed consent was obtained. The abdomen was ultrasonographically surveyed. An appropriate pocket of fluid was identified in the right lower quadrant. The skin was prepped with chlorhexidine and sterile field established. 2% lidocaine was used for local anesthetic. Using ultrasound guidance, the peritoneal cavity was accessed with a 5-Lithuanian paracentesis needle/catheter system. The trocar was removed. A total of 3150 ml of clear yellow colored fluid was removed from the peritoneal cavity. 100 mL of this fluid was collected and sent to the laboratory for analysis. The catheter was removed and a sterile dressing was applied. The procedure was well tolerated. IMPRESSION: Successful ultrasound-guided paracentesis with right lower quadrant access site. Procedures Radiology Radiology US Procedures: 22790 Paracentesis
== END | disposition home or self-care (01) ==
PROVIDERS: PCP Physician Assistant; Referring Provider Internal Medicine Gastroenterology; Visit Provider Internal Medicine Gastroenterology
DX: R18.8 Other ascites (principal)
CPT/HCPCS: 49083; 88108; 88305; 88313

== ENCOUNTER → 2023-09-30 | Outpatient (CLI) | payer SELFPAY ==
[2023-09-30 12:12] VITALS: BP 111/63; PULSE 68; RESP 14; TEMP 36.8; O2SAT 99
[2023-09-30 12:15] VITALS: BP 103/58; PULSE 68; RESP 14; O2SAT 100
[2023-09-30] MEDS: Lidocaine 2% (20 ml mdv) 20 ML Vial INFILT (12:15)
[2023-09-30 12:30] VITALS: BP 105/59; PULSE 62; RESP 14; O2SAT 100
[2023-09-30 12:34] VITALS: BP 109/57; PULSE 65; RESP 14; O2SAT 100
--- NOTE | 2023-09-30 12:54 | PRO.PCM_ITS ---
Procedure Report Date of Procedure: 09/30/23 Assessment & Plan Assessment/Plan (1) Abdominal ascites: QUALIFIERS: Ascites type: other type Qualified Code(s): R18.8 - Other ascites PLAN: PROCEDURE: Ultrasound guided paracentesis ORDERING PROVIDER: Dr. Polk INDICATION: Female, 63 years old. Ascites. PROVIDER: VASHTI Kelly TECHNIQUE: The risks, benefits, and alternatives to the procedure were explained to the patient. The specific risks of bleeding, infection, and damage to bowel were detailed and accepted. Witnessed informed consent was obtained. The abdomen was ultrasonographically surveyed. An appropriate pocket of fluid was identified in the left lower quadrant. The skin was prepped with chlorhexidine and sterile field established. 2% lidocaine was used for local anesthetic. Using ultrasound guidance, the peritoneal cavity was accessed with a 5-Prydeinig paracentesis needle/catheter system. The trocar was removed. A total of 2100 ml of clear yellow colored fluid was removed from the peritoneal cavity. The catheter was removed and a sterile dressing was applied. The procedure was well tolerated. IMPRESSION: Successful ultrasound-guided paracentesis with left lower quadrant access site. Procedures Radiology Radiology US Procedures: 62200 Paracentesis
[2023-09-30 14:00] LABS: Erythrocyte Sedimentation Rate 40 mm/hr (0-30)
[2023-09-30 14:02] LABS: Absolute Lymphocyte Count 1.12 X10^3/uL (0.83-4.51); Absolute Neutrophil Count 13.8 X10^3/uL (2.0-7.7); Basophil# 0.17 X10^3/uL; Eosinophil# 0.19 X10^3/uL; Eosinophils% 1.1 % (0-5); Hematocrit 27.1 % (37-47); Lymphocyte # 1.12 X10^3/ul (0.83-4.51); Lymphocyte % 6.7 % (19-41); Mean Corp Hgb Conc 33.2 g/dL (32-36); Mean Corpuscular Hgb 33.8 pg (27.0-32.0); Mean Corpuscular Volume 101.9 fL (81-99); Mean Platelet Vol. 10.1 fl (6.2-12.0); Monocyte# 1.15 X10^3/uL; Monocyte% 6.8 % (0-10); NRBC Flagged by Analyzer 0 % (0-5); Neutrophil # 13.81 X10^3/uL (2.7-7.7); Neutrophil % 82.2 % (47-70); POSITIVE MORPHOLOGY YES; Platelet Count 409 K/mm3 (150-450); RBC Distribution Width CV 24.8 % (11.6-14.6); RBC Distribution Width SD 87.5 fl (35.1-43.9); Red Blood Count 2.66 M/mm3 (4.2-5.4); White Blood Count 16.8 K/mm3 (4.4-11.0)
[2023-09-30 14:08] LABS: International Normalized Ratio 1.6; Prothrombin Time (Protime)PT. 18.8 SECONDS (11.7-14.9)
[2023-09-30 14:09] LABS: Alcohol, Blood (Medical)-Serum < 3.0 mg/dL
[2023-09-30 14:16] LABS: Differential Indicated SCAN CRITERIA MET
[2023-09-30 14:17] LABS: ALB/GLOB Ratio 0.4 RATIO (0.9-2.4); AST(SGOT) 53 U/L (15-37); Alanine Aminotransfer ALT/SGPT 24 U/L (13-56); Albumin, Serum 1.8 g/dL (3.2-5.0); Alkaline Phosphatase 128 U/L (45-117); Amylase 67 U/L (25-115); Anion Gap 7 (5-15); BUN 12 mg/dL (7-18); BUN/Creat Ratio 20.2 RATIO (10-20); Calcium,Total 8.4 mg/dL (8.5-10.1); Chloride 105 mmol/L (98-107); Creatinine, Serum 0.59 mg/dL (0.55-1.02); EST Glomerular Filtration Rate 109 mL/min (>60); Est Glom Filt Rate - Afr Amer 132 mL/min (>60); Globulin 4.5 g/dL (2.2-4.2); Glucose 107 mg/dL (74-106); LDH 197 U/L (84-246); Lipase 97 U/L (13-75); Magnesium 1.5 mg/dL (1.6-2.6); Potassium 4.2 mmol/L (3.5-5.1); Protein, Total 6.3 g/dL (6.4-8.2); Sodium Level 136 mmol/L (136-145)
[2023-09-30 14:40] LABS: Ammonia < 10.0 umol/L (11-32)
[2023-09-30 15:03] LABS: Anisocytosis 1+
[2023-10-02 08:08] LABS: Carbohydrate AG 19-9 121 U/mL (0-35)
== END | disposition home or self-care (01) ==
PROVIDERS: PCP Physician Assistant; Referring Provider Internal Medicine Gastroenterology; Visit Provider Internal Medicine Gastroenterology
DX: R18.8 Other ascites (principal); E87.6 Hypokalemia; Z87.19 Personal history of other diseases of the digestive system
CPT/HCPCS: 36415; 49083; 80053; 80320; 82140; 82150; 83615; 83690; 83735; 84100; 85025; 85610; 85652; 86140; 86301; G0480

== ENCOUNTER → 2023-12-12 | Outpatient (CLI) | payer MEDICAID, SELFPAY ==
[2023-12-12 15:57] LABS: Absolute Lymphocyte Count 1.59 X10^3/uL (0.83-4.51); Absolute Neutrophil Count 2.6 X10^3/uL (2.0-7.7); Basophil# 0.04 X10^3/uL; Basophil% 0.8 % (0-1); Eosinophil# 0.19 X10^3/uL; Eosinophils% 3.8 % (0-5); Hemoglobin 9.3 g/dL (12.0-15.0); Lymphocyte # 1.59 X10^3/ul (0.83-4.51); Lymphocyte % 31.6 % (19-41); Mean Corp Hgb Conc 32.1 g/dL (32-36); Mean Corpuscular Hgb 31.4 pg (27.0-32.0); Mean Platelet Vol. 9.7 fl (6.2-12.0); Monocyte# 0.62 X10^3/uL; Monocyte% 12.3 % (0-10); NRBC Flagged by Analyzer 0 % (0-5); Neutrophil # 2.57 X10^3/uL (2.7-7.7); Neutrophil % 51.1 % (47-70); Platelet Count 212 K/mm3 (150-450); RBC Distribution Width CV 17.9 % (11.6-14.6); Red Blood Count 2.96 M/mm3 (4.2-5.4)
[2023-12-12 16:16] LABS: Erythrocyte Sedimentation Rate 36 mm/hr (0-30)
[2023-12-12 16:26] LABS: International Normalized Ratio 1.5; Prothrombin Time (Protime)PT. 17.7 SECONDS (11.7-14.9)
[2023-12-12 16:29] LABS: CRP < 2.90 mg/L (0.0-3.0)
[2023-12-14 15:09] LABS: Anti-Mitochondrial AB <20.0 Units (0.0-20.0)
[2023-12-14 16:11] LABS: Carbohydrate AG 19-9 63 U/mL (0-35); Endomysial Antibody IgA Negative (Negative); Immunoglobulin A 540 mg/dL (87-352); t-Transglutaminase IgA <2 U/mL (0-3)
== END | disposition home or self-care (01) ==
LOC: LAB 14:26
PROVIDERS: PCP Physician Assistant; Referring Provider Internal Medicine Gastroenterology; Visit Provider Internal Medicine Gastroenterology
DX: K85.20 Alcohol induced acute pancreatitis without necrosis or infection (principal); D69.6 Thrombocytopenia, unspecified
CPT/HCPCS: 36415; 82784; 83516; 85025; 85610; 85652; 86140; 86255; 86301

== ENCOUNTER 2024-02-22 08:33 | Emergency (ER) | payer MEDICAID, SELFPAY ==
[2024-02-22] VITALS (9 sets, daily range): BP systolic 102–131; BP diastolic 55–79; PULSE 69–92; RESP 16–18; TEMP 36.3–36.8; O2SAT 98–100; BMI 18.2
--- NOTE | 2024-02-22 08:56 | EKG12_ITS ---
Test Reason : GENERAL Blood Pressure : / mmHG Vent. Rate : 079 BPM Atrial Rate : 079 BPM P-R Int : 198 ms QRS Dur : 076 ms QT Int : 440 ms P-R-T Axes : 066 047 046 degrees QTc Int : 504 ms Normal sinus rhythm Nonspecific ST abnormality Prolonged QT Abnormal ECG Confirmed by TREVA WELDON, YANDEL ([id number]), assignment desk editor FIDENCIO ORTA ([id number]) on 02/24/2024 6:42:56 AM Referred By: Confirmed By:CHELO TILLEY MD
--- NOTE | 2024-02-22 08:56 | RAD_ITS ---
STUDY: X-RAY CHEST REASON FOR EXAM: Female, 64 years old. Dyspnea TECHNIQUE: Generalized illness. COMPARISON: Comparison is made with prior study October 31, 2013. FINDINGS: Pectus excavatum deformity. Hyperinflation. The lungs are clear. There is no demonstrated pleural abnormality. Normal size heart. Normal mediastinum and demond. Normal visualized pulmonary arteries. Normal visualized aortic arch and descending thoracic aorta. There are degenerative changes of the visualized thoracic spine. Normal visualized ribs, clavicles, and shoulders. There is no demonstrated abnormality of the visualized soft tissue structures of the upper abdomen. RAD/Chest PA and Lateral IMPRESSION: Hyperinflation. The lungs are clear. Pectus excavatum deformity. Electronically Signed: Wally Meier MD at 10:11 EDT ,
--- NOTE | 2024-02-22 09:01 | EX.ED.DYSGE1 ---
HPI History of Present Illness Chief Complaint: General Illness Informant: patient and family Narrative Narrative: Patient here with brother for evaluation pain and aches in joints and muscles last 2 weeks but yesterday noticed some dyspnea worse with stairs. No chest pain or tightness. Had a today. No cough. Feels hot and cold. No urinary symptoms. Diagnosed with liver cirrhosis this past September when she was hospitalized for alcoholic pancreatitis. She had ascites that time with paracentesis x 2. She has quit drinking since then. No recurrent ascites. She is followed by Dr. Polk. She is on lactulose. Reports been using spironolactone and furosemide. She states she was told to not have to take her potassium by her GI doctor. Also on future gene since then. Denies nausea or vomiting. Denies abdominal pain. She been having increasing intermittent anxious symptoms since her diagnosis cirrhosis. She did have some insomnia and been using melatonin with only mild assistance with sleep. She has appoint with her PCP tomorrow. Prior similar symptoms: No PFSH PFS Medical History Pancreatic mass Lesion of liver Ascites Poor venous access Pancytopenia Alcohol abuse Epigastric pain Gall stones Elevated LFTs Rectal bleeding Diarrhea Fatigue Anemia Hemorrhoids sudden weight loss Home Medications ?Medication ?Instructions ?Recorded ?Last Taken ?Type acetaminophen 325 mg tablet 650 mg (2 x 325 mg) PO Q4H PRN PRN 09/22/23 Unknown Rx Fever, pain 1-04/12 #1 TAB metoprolol tartrate 25 mg tablet 12.5 mg (1/2 x 25 mg) PO BID #30 09/22/23 Unknown Rx tabs pantoprazole 40 mg tablet,delayed 40 mg PO DAILY #30 tabs 09/22/23 Unknown Rx release (Protonix) spironolactone 25 mg tablet 25 mg PO BID #60 tabs 09/22/23 Unknown Rx potassium chloride 20 mEq 20 meq PO BID 15 days #30 tabs 09/23/23 Unknown Rx tablet,extended release(part/cryst) lactulose 10 gram/15 mL (15 mL) 20 g (30 mL) PO BID #1,440 mL 09/27/23 Unknown Rx oral solution furosemide 40 mg tablet 40 mg PO BID #60 tabs 09/29/23 Unknown Rx midodrine 10 mg tablet 10 mg PO TID #90 tabs 09/29/23 Unknown Rx mirtazapine 30 mg tablet 30 mg PO QHS #30 tabs 09/29/23 Unknown Rx Allergy/AdvReac Type Severity Reaction Status Date / Time Penicillins Allergy Rash Verified 02/22/24 08:37 Family History Brother Diabetes Father Diabetes Hypertension High cholesterol Thyroid disorder Surgical History No history of previous surgery Social History Smoking Status: Never smoker alcohol intake: never substance use type: does not use caffeine: Yes what type of physical activity do you participate in: walking seatbelt use: always do you feel safe at home: Yes 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 ROS ROS ED Constitutional Constitutional ED: Reports chills; Denies fever(s) or sweats Eyes Eyes: Denies change in vision ENT ENT ED: Denies dysphagia or sore throat Cardiovascular Cardiovascular: Denies chest pain, leg edema, palpitations or racing heartbeat Respiratory/Chest Respiratory/Chest: Reports dyspnea; Denies cough Gastrointestinal Gastrointestinal: Denies abdominal pain, diarrhea, nausea or vomiting Genitourinary Genitourinary ED: Denies dysuria, hematuria or urinary frequency Musculoskeletal Musculoskeletal: Reports arthralgias and myalgias; Denies back pain, extremity pain or neck pain Integumentary Denies rash or wounds Neurologic Neurologic: Denies headache(s), paresthesias or weakness EXAM Physical Exam Const Vital Signs: 02/22/24 08:35 02/22/24 08:43 02/22/24 10:34 Temperature 97.4 F L Temperature Source Temporal Pulse Rate 92 88 Respiratory Rate 16 17 Respiratory Pattern Normal Blood Pressure 131/63 H 120/79 Blood Pressure Mean 85 92 Blood Pressure Source Blood Pressure Position Blood Pressure Location Pulse Ox 100 98 Oxygen Delivery Method Room Air Room Air 02/22/24 11:55 02/22/24 12:00 02/22/24 12:15 Temperature 98.2 F 98 F 98.1 F Temperature Source Oral Oral Oral Pulse Rate 73 72 75 Respiratory Rate 17 17 18 Respiratory Pattern Blood Pressure 124/62 H 104/56 L 102/56 L Blood Pressure Mean 82 72 71 Blood Pressure Source Monitor Monitor Blood Pressure Position Semi-Fowlers Semi-Fowlers Blood Pressure Location Right Arm Right Arm Pulse Ox 100 100 99 Oxygen Delivery Method Room Air Room Air Room Air 02/22/24 13:15 02/22/24 13:31 02/22/24 13:32 Temperature 98.1 F 98 F 98 F Temperature Source Oral Oral Pulse Rate 69 72 72 Respiratory Rate 18 17 17 Respiratory Pattern Blood Pressure 110/63 107/55 L 107/55 L Blood Pressure Mean 78 72 72 Blood Pressure Source Monitor Monitor Blood Pressure Position Semi-Fowlers Semi-Fowlers Blood Pressure Location Right Arm Right Arm Pulse Ox 98 100 99 Oxygen Delivery Method Room Air Room Air Positive well nourished and well developed General Appearance ED: well developed and NAD HEENT Reports moist mucous membranes normocephalic and atraumatic Eyes EOMs intact bilaterally and conjunctivae normal General Eye ED: Yes normal appearance of both eyes Neck no lymphadenopathy and supple General: Negative for tenderness Chest Wall Chest: Negative for tenderness Resp normal respiratory effort and normal air movement Effort and Inspection: symmetric chest movement; Negative for respiratory distress Cardio regular rate, regular rhythm and no murmurs Peripheral Pulses: pulses 2+ throughout GI normal to inspection, nondistended, normoactive bowel sounds and non-tender Palpation: Negative for guarding or rebound tenderness present Back/Spine no CVA tenderness and no thoracic nor lumbar tenderness Extremity normal to inspection General Extremety ED: Negative for edema or tenderness General Extremity: Negative for edema Neuro oriented x3 and no sensory deficits noted Sensorium / Orientation: awake and alert Skin no rashes or lesions noted and no wounds MDM MDM MDM Narrative Medical decision making narrative: Interventions / MDM: Differential diagnosis: Electrolyte abnormalities, blood abnormalities, Diagnosis considered but do not suspect: Rectal bleed however Hemoccult negative. Pneumothorax however normal lung sounds with a negative x-ray. ACS however EKG with no ischemic findings. My EKG interpretation: EKG: Sinus rate of 79, no ST or T wave changes. Imaging independently reviewed and interpreted by myself: 2 view chest x-ray: No acute process also read by radiology. External documents reviewed: Previous recent lab work with hemoglobin and creatinine. Test considered but not ordered:N/A ED course: Vital stable nontoxic. History for myalgias arthralgias with dyspnea. She has no cough. With her cirrhosis history will check labs, EKG and chest x-ray. 1000: Labs note hemoglobin 7.2 down from 9.3 couple months ago. She denies any black or bloody stools. I did send for Hemoccult. Rectal exam no stools on the glove. White count 3.6. Creatinine 1.2 up from 0.59, 5 months ago. She has had no vomiting. She has been drinking fluids. However she has been on spironolactone and furosemide I am concerned she has been over diuresed. She has no current leg swelling. I will give her a liter of fluids. Will ambulate the patient with a pulse ox monitor for symptoms as she could have symptomatic anemia. Will discuss with her GI, Dr. Polk plan of care. 1010: Discussed with Dr. Polk, agrees with likely causes of diuresis with her creatinine. Agrees with the fluids. Will plan on holding furosemide and use as needed. With her anemia, will send iron studies agrees with 1 unit packed red blood cells. Patient will follow-up with him as an outpatient. She also has appoint with her PCP tomorrow. 1126: Folic acid B12 normal. Slightly decreased iron of 42 slightly elevated TIBC of 464. Iron saturation slightly low at 9.1. Currently awaiting, blood to be ready to be transfused. Blood pressures been stable. Plan for discharge after transfusion. 1405: Transfusion finished. Discharged with outpatient follow-up Re-evaluation: stable Disposition discussed with patient/family/significant other: Patient and brother Case discussed with consulting clinician: Gastroenterology This note was generated with [employer] dictation software. It may contain incorrect words, spelling, and punctuation that were not noted in checking the note before signing. Lab Data Attestation: I reviewed the patient's lab results. Labs: Laboratory Results - last 24 hr 02/22/24 02/22/24 02/22/24 09:10 10:16 10:25 WBC 3.6 L RBC 2.35 L Hgb 7.2 L Hct 22.9 L MCV 97.4 MCH 30.6 MCHC 31.4 L RDW Std Deviation 53.9 H RDW Coeff of Alyx 15.3 H Plt Count 218 MPV 8.8 Immature Gran % (Auto) 0.300 Neut % (Auto) 58.1 Lymph % (Auto) 26.4 [place] % (Auto) 7.7 Eos % (Auto) 6.1 H Baso % (Auto) 1.4 H Absolute Neuts (auto) 2.1 Absolute Lymphs (auto) 0.96 Nucleated RBC % 0 Sodium 136 Potassium 3.4 L Chloride 104 Carbon Dioxide 25.0 Anion Gap 7 BUN 17 Creatinine 1.20 H Est GFR (MDRD) Af Amer 59 L Est GFR (MDRD) Non-Af 48 L BUN/Creatinine Ratio 14.2 Glucose 134 H Calcium 9.5 Iron 42 L TIBC 464 H Iron Saturation 9.1 L Ferritin 13 Total Bilirubin 0.70 Direct Bilirubin 0.31 H AST 41 H ALT 19 Alkaline Phosphatase 152 H Total Protein 7.4 Albumin 3.4 Globulin 4.0 Vitamin B12 530 Folate 43.90 Blood Type O POSITIVE Antibody Screen NEGATIVE Crossmatch See Detail Radiography Diagnostic Testing: Clinical Impression(s) from Imaging Studies Chest X-Ray 02/22/24 08:56 IMPRESSION: Hyperinflation. The lungs are clear. Pectus excavatum deformity. Electronically Signed: Wally Meier MD at 10:11 EDT , Discharge Plan Triage Chief Complaint: General Illness ED Provider: Chalo Garner Dx/Rx/DC Orders Clinical Impression: Anemia, Acute renal insufficiency, History of cirrhosis Instructions: Anemia, ED Renal Insufficiency Prescriptions: No Action furosemide 40 mg tablet 40 mg PO BID Qty: 60 3RF midodrine 10 mg tablet 10 mg PO TID Qty: 90 3RF Rx Instructions: do not give last dose of day after 6PM or within 4 hrs of bedtime mirtazapine 30 mg tablet 30 mg PO QHS Qty: 30 3RF potassium chloride 20 mEq tablet,ER particles/crystals 20 meq PO BID 15 Days Qty: 30 0RF acetaminophen 325 mg Tablet 650 mg PO Q4H PRN PRN (Reason: Fever, pain 1-04/12) Qty: 1 0RF Rx Instructions: Limit Tylenol use each to 2500 mg or less per day spironolactone 25 mg Tablet 25 mg PO BID Qty: 60 0RF metoprolol tartrate 25 mg Tablet 12.5 mg PO BID Qty: 30 0RF pantoprazole [Protonix] 40 mg tablet,delayed release (DR/EC) 40 mg PO DAILY Qty: 30 0RF lactulose 10 gram/15 mL (15 mL) solution 20 g PO BID Qty: 1440 11RF Primary Care Provider: Mary Martinez Referrals: Nikolay Polk DO [Med Staff - Active Staff] - 1-2 Weeks Kaleigh Gonzalez, PA [Non-Staff] - Keep Perez appointment Activity Restrictions/Additional Instructions: Your hemoglobin 7.2 today. Iron studies slightly low on iron at 42, slightly elevated TIBC of 464. Iron saturation 9.1%. Normal folate and B12 levels. You are given 1 unit of blood today. Your creatinine today is 1.2 up from 0.59, 5 months ago. Likely from your furosemide use. You no current swelling. Hold your furosemide. Discussed with your PCP and your GI doctor to restart when or if you start having leg swelling. Continue to refrain from alcohol as she been doing. Discussed with your gastroenterology doctor friend today for your plan of care. Keep your follow-up with your PCP tomorrow. Print Language: Nepali Disposition Disposition: Home, Self Care Discharge Date/Time: 02/22/24 14:13
[2024-02-22 09:16] LABS: Absolute Lymphocyte Count 0.96 X10^3/uL (0.83-4.51); Absolute Neutrophil Count 2.1 X10^3/uL (2.0-7.7); Basophil# 0.05 X10^3/uL; Basophil% 1.4 % (0-1); Eosinophil# 0.22 X10^3/uL; Eosinophils% 6.1 % (0-5); Hematocrit 22.9 % (37-47); Hemoglobin 7.2 g/dL (12.0-15.0); Lymphocyte # 0.96 X10^3/ul (0.83-4.51); Lymphocyte % 26.4 % (19-41); Mean Corp Hgb Conc 31.4 g/dL (32-36); Mean Corpuscular Hgb 30.6 pg (27.0-32.0); Mean Corpuscular Volume 97.4 fL (81-99); Mean Platelet Vol. 8.8 fl (6.2-12.0); Monocyte# 0.28 X10^3/uL; Monocyte% 7.7 % (0-10); NRBC Flagged by Analyzer 0 % (0-5); Neutrophil # 2.11 X10^3/uL (2.7-7.7); Neutrophil % 58.1 % (47-70); Platelet Count 218 K/mm3 (150-450); RBC Distribution Width CV 15.3 % (11.6-14.6); RBC Distribution Width SD 53.9 fl (35.1-43.9); Red Blood Count 2.35 M/mm3 (4.2-5.4); White Blood Count 3.6 K/mm3 (4.4-11.0)
[2024-02-22 09:35] LABS: AST(SGOT) 41 U/L (15-37); Alanine Aminotransfer ALT/SGPT 19 U/L (13-56); Albumin, Serum 3.4 g/dL (3.2-5.0); Alkaline Phosphatase 152 U/L (45-117); Anion Gap 7 (5-15); BUN 17 mg/dL (7-18); BUN/Creat Ratio 14.2 RATIO (10-20); Bilirubin, Direct 0.31 mg/dL (0.00-0.30); Calcium,Total 9.5 mg/dL (8.5-10.1); Chloride 104 mmol/L (98-107); EST Glomerular Filtration Rate 48 mL/min (>60); Est Glom Filt Rate - Afr Amer 59 mL/min (>60); Glucose 134 mg/dL (74-106); Potassium 3.4 mmol/L (3.5-5.1); Protein, Total 7.4 g/dL (6.4-8.2); Sodium Level 136 mmol/L (136-145)
[2024-02-22] MEDS: 0.9% Normal Saline (1000mL) 1,000 ML 999 ML IV (10:10)
[2024-02-22 10:58] LABS: Vitamin B12 530 pg/mL (211-911)
[2024-02-22 11:13] LABS: Ferritin 13 ng/mL (8-252); Iron 42 ug/dL (50-170); Iron Binding Capacity,Total 464 ug/dL (250-450); PERCENT IRON SATURATION 9.1 % (15.0-55.0)
== END 2024-02-22 14:13 | disposition home or self-care (01) ==
PROVIDERS: Emergency Provider Emergency Medicine; PCP Nurse Practitioner Family; Visit Provider Emergency Medicine
DX: D64.9 Anemia, unspecified (principal); K74.60 Unspecified cirrhosis of liver; N28.9 Disorder of kidney and ureter, unspecified
CPT/HCPCS: 36430; 71046; 80048; 80076; 82274; 82607; 82728; 82746; 83540; 83550; 85025; 86850; 86900; 86901; 86920; 86922; 93005; 96360; 96361; 99283; J7030; J7040; J7050; P9016

== ENCOUNTER → 2024-02-29 | Outpatient (CLI) | payer MEDICAID, SELFPAY ==
[2024-02-29 14:27] LABS: Absolute Neutrophil Count 2.8 X10^3/uL (2.0-7.7); Basophil# 0.07 X10^3/uL; Basophil% 1.3 % (0-1); Eosinophil# 0.18 X10^3/uL; Eosinophils% 3.2 % (0-5); Hematocrit 28.6 % (37-47); Hemoglobin 9.1 g/dL (12.0-15.0); Lymphocyte % 28.7 % (19-41); Mean Corp Hgb Conc 31.8 g/dL (32-36); Mean Corpuscular Hgb 30.4 pg (27.0-32.0); Mean Corpuscular Volume 95.7 fL (81-99); Mean Platelet Vol. 8.9 fl (6.2-12.0); Monocyte# 0.91 X10^3/uL; Monocyte% 16.3 % (0-10); NRBC Flagged by Analyzer 0 % (0-5); Neutrophil # 2.79 X10^3/uL (2.7-7.7); Neutrophil % 50.1 % (47-70); Platelet Count 218 K/mm3 (150-450); RBC Distribution Width CV 15.5 % (11.6-14.6); RBC Distribution Width SD 53.1 fl (35.1-43.9); Red Blood Count 2.99 M/mm3 (4.2-5.4); White Blood Count 5.6 K/mm3 (4.4-11.0)
[2024-02-29 14:44] LABS: International Normalized Ratio 1.3; Prothrombin Time (Protime)PT. 16.5 SECONDS (11.7-14.9)
[2024-02-29 14:57] LABS: ALB/GLOB Ratio 0.8 RATIO (0.9-2.4); AST(SGOT) 34 U/L (15-37); Alanine Aminotransfer ALT/SGPT 21 U/L (13-56); Albumin, Serum 3.6 g/dL (3.2-5.0); Alkaline Phosphatase 139 U/L (45-117); Anion Gap 10 (5-15); BUN 18 mg/dL (7-18); BUN/Creat Ratio 12.2 RATIO (10-20); Calcium,Total 10.7 mg/dL (8.5-10.1); Chloride 98 mmol/L (98-107); Creatinine, Serum 1.47 mg/dL (0.55-1.02); EST Glomerular Filtration Rate 38 mL/min (>60); Est Glom Filt Rate - Afr Amer 46 mL/min (>60); Globulin 4.5 g/dL (2.2-4.2); Glucose 125 mg/dL (74-106); Potassium 3.6 mmol/L (3.5-5.1); Protein, Total 8.1 g/dL (6.4-8.2); Sodium Level 135 mmol/L (136-145)
[2024-02-29 15:02] LABS: CPK Total, Creatine Kinase 101 U/L (26-192)
== END | disposition home or self-care (01) ==
PROVIDERS: Internal Medicine Gastroenterology; PCP Nurse Practitioner Family; Referring Provider Student in an Organized Health Care Education/Training Program; Visit Provider Student in an Organized Health Care Education/Training Program
DX: K85.20 Alcohol induced acute pancreatitis without necrosis or infection (principal); Z87.19 Personal history of other diseases of the digestive system
CPT/HCPCS: 36415; 80053; 82550; 85025; 85610

== ENCOUNTER 2024-04-30 11:46 | Inpatient (IN) | payer MEDICAID, SELFPAY ==
[2024-04-30] VITALS (14 sets, daily range): BP systolic 92–116; BP diastolic 58–70; PULSE 83–105; RESP 11–18; TEMP 36.1–36.8; O2SAT 97–100; BMI 17.4
--- NOTE | 2024-04-30 12:21 | EKG12_ITS ---
Test Reason : SYNCOPE Blood Pressure : */* mmHG Vent. Rate : 85 BPM Atrial Rate : 85 BPM P-R Int : 162 ms QRS Dur : 72 ms QT Int : 404 ms P-R-T Axes : 67 29 55 degrees QTcB Int : 480 ms Normal sinus rhythm Normal ECG Confirmed by COTY WELDON, CRISTINA ([id number]), acquisition editor LIZ SCHMIDT ([id number]) on 05/02/2024 5:59:20 AM Referred By: Confirmed By: CRISTINA ANSARI MD
--- NOTE | 2024-04-30 12:30 | EKG12_ITS ---
Test Reason : PALPATATIONS Blood Pressure : / mmHG Vent. Rate : 107 BPM Atrial Rate : 107 BPM P-R Int : 160 ms QRS Dur : 068 ms QT Int : 366 ms P-R-T Axes : 083 066 055 degrees QTc Int : 488 ms Sinus tachycardia Nonspecific ST abnormality Abnormal ECG Confirmed by COTY WELDON, CRISTINA ([id number]), online editor FIDENCIO ORTA ([id number]) on 05/01/2024 7:56:05 AM Referred By: Confirmed By:CRISTINA ANSARI MD
--- NOTE | 2024-04-30 12:31 | EX.ED.DYSGE1 ---
HPI History of Present Illness Chief Complaint: Weakness Detail of Chief Complaint: Weakness Informant: patient Narrative Narrative: Patient presents with generalized weakness x 2 days. She states her blood pressure has been running low up to the 101 systolic. She used to be on midodrine but no longer takes it. She has history of stage IV liver cirrhosis and takes lactulose regularly. She has had black stool but states that she takes iron so she attributes it to that. Patient states that she does have history of anemia. She complains of exertional dyspnea. She denies chest pain. She denies recent travel or surgery. She denies fever or cough. She denies urinary symptoms. While in triage she told her brother she did not feel well and had a syncopal episode lasting few seconds and she was brought to the room. [facility] Medical History Pancreatic mass Lesion of liver Ascites Poor venous access Pancytopenia Alcohol abuse Epigastric pain Gall stones Elevated LFTs Rectal bleeding Diarrhea Fatigue Anemia Hemorrhoids sudden weight loss Home Medications ?Medication ?Instructions ?Recorded ?Last Taken ?Type acetaminophen 325 mg tablet 650 mg (2 x 325 mg) PO Q4H PRN PRN 09/22/23 Unknown Rx Fever, pain 1-04/12 #1 TAB lactulose 10 gram/15 mL (15 mL) 20 g (30 mL) PO BID #1,440 mL 09/27/23 Unknown Rx oral solution furosemide 40 mg tablet 40 mg PO BID #60 tabs 09/29/23 Unknown Rx ascorbate calcium (vitamin C) 500 500 mg PO DAILY 03/01/24 Unknown History mg tablet ferrous sulfate 325 mg (65 mg 325 mg PO DAILY 03/01/24 Unknown History iron) tablet spironolactone 25 mg tablet 25 mg PO BID PRN edema 04/30/24 Unknown History Allergy/AdvReac Type Severity Reaction Status Date / Time Penicillins Allergy Rash Verified 04/30/24 11:51 Family History Brother Diabetes Father Diabetes Hypertension High cholesterol Thyroid disorder Surgical History No history of previous surgery Social History Smoking Status: Never smoker alcohol intake: never substance use type: does not use caffeine: Yes what type of physical activity do you participate in: walking seatbelt use: always do you feel safe at home: Yes 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 ROS ED Review of Systems ROS Unobtainable: other Constitutional Constitutional ED: Reports lethargy; Denies chills, fever(s), sweats or weight loss Eyes Eyes: Denies blurry vision, change in vision or diplopia ENT ENT ED: Denies rhinorrhea or sore throat Cardiovascular Cardiovascular: Denies chest pain, orthopnea or racing heartbeat Respiratory/Chest Respiratory/Chest: Reports dyspnea and dyspnea on exertion; Denies cough, orthopnea or sputum Gastrointestinal Gastrointestinal: Denies abdominal pain, diarrhea, nausea or vomiting Genitourinary Genitourinary ED: Denies dysuria, hematuria or urinary frequency Musculoskeletal Musculoskeletal: Denies arthralgias, back pain, myalgias or neck pain Integumentary Denies abscess, Abrasions or rash Neurologic Neurologic: Reports other Details: Syncope ; Denies headache(s) or weakness Psychiatric Psychiatric: Denies anxiety, depression or suicidal thoughts Endocrine Endocrinology: Denies polydipsia, polyphagia or polyuria Hematologic/Lymphatic Hematologic/Lymphatic: Denies easy bleeding, easy bruising or lymphadenopathy Allergic/Immunologic Allergic/Immunologic ED: Denies mouth swelling, tongue swelling or urticaria EXAM Physical Exam Const Vital Signs: 04/30/24 11:46 04/30/24 12:18 04/30/24 13:56 Temperature 97.8 F Temperature Source Oral Pulse Rate 105 H 96 Respiratory Rate 18 18 Respiratory Effort Normal Non-Labored Respiratory Pattern Normal Blood Pressure 92/63 104/58 L Blood Pressure Mean 72 73 Pulse Ox 100 99 Oxygen Delivery Method Room Air Positive well nourished and well developed General Appearance ED: well developed and NAD HEENT Reports TM's clear and moist mucous membranes normocephalic and atraumatic; Negative for trauma or tenderness Tympanic Membrane ED: Yes TM's clear Eyes PERRL and EOMs intact bilaterally General Eye ED: Negative for pale conjunctiva or scleral icterus Neck no lymphadenopathy, supple and no JVD General: Negative for tenderness Chest Wall inspection of chest normal and palpation of chest normal Chest: Negative for tenderness Resp normal respiratory effort and clear to auscultation bilaterally Effort and Inspection: Negative for respiratory distress or pain with movement Auscultation: Negative for rhonchi, wheezes or diminished lung sounds Cardio regular rate, regular rhythm, S1 normal heart sound, S2 normal heart sound and no murmurs Peripheral Pulses: pulses 2+ throughout GI normal to inspection, nondistended, normoactive bowel sounds, soft to palpation, non-tender, non-distended and no masses Back/Spine no CVA tenderness and no thoracic nor lumbar tenderness Extremity normal to inspection General Extremety ED: Negative for edema General Extremity: Negative for edema Neuro oriented x3, CN's II-XII intact bilaterally, no sensory deficits noted and gait normal Sensorium / Orientation: awake, alert, oriented to person, oriented to place and oriented to time Motor Exam: strength 5/5 throughout and strength abnormal Psych mental status grossly normal Skin no rashes or lesions noted and no wounds MDM MDM MDM Narrative Medical decision making narrative: Patient presents with generalized weakness and shortness of breath with exertion. She had a mild syncopal episode in triage. In the differential would be anemia as she has a history of it. She has had black tarry stool which she attributed to iron and therefore GI bleed in the differential. She denies chest pain. She does describe some dyspnea which may be related to anemia or possibly lung infection versus pneumothorax or other acute process. IV line established. EKG obtained on arrival showed a sinus rhythm with rate of 85 bpm with no acute ST segment changes. CBC with differential awake and of 8.8 with hemoglobin 5.4 and platelet count of 182. Chemistries unremarkable. BUN was 61 and creatinine 1.03. LFTs unremarkable. Lipase was normal at 48. 1 view chest x-ray unremarkable. Patient was typed and crossed for 2 units packed red cells. I did a rectal exam she had black stool that was Hemoccult positive. Case discussed with hospitalist to evaluate patient for admission. Will also attempt to contact Dr. Polk rampman whom patient has been seen by in the past Lab Data Attestation: I reviewed the patient's lab results. Labs: Laboratory Results - last 24 hr 04/30/24 04/30/24 12:19 13:27 WBC 8.8 RBC 1.67 L Hgb 5.4 L* Hct 16.4 L MCV 98.2 MCH 32.3 H MCHC 32.9 RDW Std Deviation 67.0 H RDW Coeff of Alyx 18.6 H Plt Count 182 MPV 9.9 Immature Gran % (Auto) 0.800 Neut % (Auto) 64.1 Lymph % (Auto) 26.4 [place] % (Auto) 7.9 Eos % (Auto) 0.5 Baso % (Auto) 0.3 Absolute Neuts (auto) 5.6 Absolute Lymphs (auto) 2.31 Nucleated RBC % 0 D-Dimer Quant (PE/DVT) 0.33 Sodium 137 Potassium 4.0 Chloride 104 Carbon Dioxide 25.0 Anion Gap 8 BUN 61 H Creatinine 1.03 H Estim Creat Clear Calc 41.04 Est GFR (MDRD) Af Amer 70 Est GFR (MDRD) Non-Af 58 L BUN/Creatinine Ratio 59.2 H Glucose 117 H Calcium 8.9 Total Bilirubin 0.70 AST 21 ALT 20 Alkaline Phosphatase 99 Troponin I High Sens 9 Total Protein 5.7 L Albumin 2.7 L Globulin 3.0 Albumin/Globulin Ratio 0.9 Lipase 48 Crossmatch See Detail Radiography Diagnostic Testing: Clinical Impression(s) from Imaging Studies Chest X-Ray 04/30/24 13:00 IMPRESSION: No acute cardiopulmonary process identified. Electronically Signed: Jackie Jacobsen MD at 13:24 EDT Reading Location ID and State: [facility] / [place] Tel , Service support , 1 view chest x-ray obtained interpreted by myself no evidence of infiltrate or pneumothorax or acute disease process. Radiology in agreement EKG Initial EKG: Attestation: I personally reviewed and interpreted this EKG as follows: Comments: Initial EKG showed sinus tachycardia with rate of 107 bpm with no acute ST segment changes. Second EKG after syncopal episode obtained showed a sinus rhythm with rate of 85 bpm with no acute ST segment changes. Discharge Plan Triage Chief Complaint: Weakness ED Provider: Haresh Arriaga Dx/Rx/DC Orders Clinical Impression: Anemia, Acute upper GI bleed, Syncope, Hypotension Prescriptions: No Action furosemide 40 mg tablet 40 mg PO BID Qty: 60 3RF ascorbate calcium (vitamin C) 500 mg tablet 500 mg PO DAILY ferrous sulfate 325 mg (65 mg iron) tablet 325 mg PO DAILY acetaminophen 325 mg Tablet 650 mg PO Q4H PRN PRN (Reason: Fever, pain 1-04/12) Qty: 1 0RF Rx Instructions: Limit Tylenol use each to 2500 mg or less per day spironolactone 25 mg Tablet 25 mg PO BID PRN (Reason: edema) lactulose 10 gram/15 mL (15 mL) solution 20 g PO BID Qty: 1440 11RF Primary Care Provider: Mary Martinez Referrals: Mary Martinez, [facility] [Primary Care Provider] - Print Language: Gibraltarian Disposition Disposition: Acute Care Hospital [facility]
[2024-04-30] MEDS: 0.9% Normal Saline (1000mL) 1,000 ML 1000 ML IV (12:37)
[2024-04-30 12:42] LABS: Absolute Lymphocyte Count 2.31 X10^3/uL (0.83-4.51); Absolute Neutrophil Count 5.6 X10^3/uL (2.0-7.7); Basophil# 0.03 X10^3/uL; Basophil% 0.3 % (0-1); Eosinophil# 0.04 X10^3/uL; Eosinophils% 0.5 % (0-5); Hematocrit 16.4 % (37-47); Lymphocyte # 2.31 X10^3/ul (0.83-4.51); Lymphocyte % 26.4 % (19-41); Mean Corp Hgb Conc 32.9 g/dL (32-36); Mean Corpuscular Hgb 32.3 pg (27.0-32.0); Mean Corpuscular Volume 98.2 fL (81-99); Mean Platelet Vol. 9.9 fl (6.2-12.0); Monocyte# 0.69 X10^3/uL; Monocyte% 7.9 % (0-10); NRBC Flagged by Analyzer 0 % (0-5); Neutrophil # 5.62 X10^3/uL (2.7-7.7); Neutrophil % 64.1 % (47-70); POSITIVE COUNT YES; POSITIVE MORPHOLOGY YES; Platelet Count 182 K/mm3 (150-450); RBC Distribution Width CV 18.6 % (11.6-14.6); Red Blood Count 1.67 M/mm3 (4.2-5.4); White Blood Count 8.8 K/mm3 (4.4-11.0)
[2024-04-30 12:44] LABS: Differential Indicated SCAN CRITERIA MET
[2024-04-30 12:45] LABS: Hemoglobin 5.4 g/dL (12.0-15.0)
[2024-04-30 12:58] LABS: D-Dimer Quantitative (DVT/PE) 0.33 FEU/ug/m (0.27-0.49)
--- NOTE | 2024-04-30 13:00 | RAD_ITS ---
HISTORY: dyspnea. TECHNIQUE: XR Chest 1 View. COMPARISON: 02/22/2024. FINDINGS: CARDIOMEDIASTINAL BORDERS: Cardiac silhouette within normal limits in size. Mediastinal contour unremarkable. LUNGS: Radiographically clear. PLEURA: No pleural effusion or pneumothorax seen. OSSEOUS STRUCTURES: Unremarkable. RAD/Chest 1 View (Portable) IMPRESSION: No acute cardiopulmonary process identified. Electronically Signed: Jackie Jacobsen MD at 13:24 EDT ,
[2024-04-30 13:07] LABS: ALB/GLOB Ratio 0.9 RATIO (0.9-2.4); AST(SGOT) 21 U/L (15-37); Alanine Aminotransfer ALT/SGPT 20 U/L (13-56); Albumin, Serum 2.7 g/dL (3.2-5.0); Alkaline Phosphatase 99 U/L (45-117); Anion Gap 8 (5-15); BUN 61 mg/dL (7-18); BUN/Creat Ratio 59.2 RATIO (10-20); Calcium,Total 8.9 mg/dL (8.5-10.1); Chloride 104 mmol/L (98-107); Creatinine, Serum 1.03 mg/dL (0.55-1.02); EST Glomerular Filtration Rate 58 mL/min (>60); Est Glom Filt Rate - Afr Amer 70 mL/min (>60); Estimated Creatinine Clearance 41.04 ml/min; Glucose 117 mg/dL (74-106); Lipase 48 U/L (13-75); Protein, Total 5.7 g/dL (6.4-8.2); Sodium Level 137 mmol/L (136-145); Troponin-I HS 9 pg/mL (3.0-54.0)
[2024-04-30] MEDS: Pantoprazole Sodium 40 MG in 0.9% Normal Saline (100mL MB+) 100 ML 330 MG IV ×2 (13:30→20:39)
--- NOTE | 2024-04-30 15:21 | PCM.HP.STD ---
[facility] - General General Date of Service: 04/30/24 Chief Complaint: melena HPI Narrative CHARLIE DEVLIN, is a 64 F who presents with a 2-week history of melena. This is a 62-year-old female with a history of gastric varices peptic ulcer disease who has presented GI bleeds but presented with black vomit. Patient was seen in September of that year where she was noted to have a grade 1 esophageal varices, oozing gastric ulcers that required injection and heater probe. But over the past few weeks, she she has been having melena which she was not initially surprised about because she takes iron but she has been getting more fatigued. So she presented to the emergency room where she had a hemoglobin of 5.9. She was typed and crossed for 2 units of packed red blood cells. While she was here she did have a near syncopal episode. Patient did receive a dose of pantoprazole in the emergency room. [facility] Medical History Pancreatic mass Lesion of liver Ascites Poor venous access Pancytopenia Alcohol abuse Epigastric pain Gall stones Elevated LFTs Rectal bleeding Diarrhea Fatigue Anemia Hemorrhoids sudden weight loss Home Medications ?Medication ?Instructions ?Recorded ?Last Taken ?Type acetaminophen 325 mg tablet 650 mg (2 x 325 mg) PO Q4H PRN PRN 09/22/23 Unknown Rx Fever, pain 1-04/12 #1 TAB lactulose 10 gram/15 mL (15 mL) 20 g (30 mL) PO BID #1,440 mL 09/27/23 Unknown Rx oral solution furosemide 40 mg tablet 40 mg PO BID #60 tabs 09/29/23 Unknown Rx ascorbate calcium (vitamin C) 500 500 mg PO DAILY 03/01/24 Unknown History mg tablet ferrous sulfate 325 mg (65 mg 325 mg PO DAILY 03/01/24 Unknown History iron) tablet spironolactone 25 mg tablet 25 mg PO BID PRN edema 04/30/24 Unknown History Allergy/AdvReac Type Severity Reaction Status Date / Time Penicillins Allergy Rash Verified 04/30/24 11:51 Family History Brother Diabetes Father Diabetes Hypertension High cholesterol Thyroid disorder Surgical History No history of previous surgery Social History Smoking Status: Never smoker alcohol intake: never substance use type: does not use caffeine: Yes what type of physical activity do you participate in: walking seatbelt use: always do you feel safe at home: Yes 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 All review of systems were negative except as mentioned above in the history of present illness and the other review of systems. Vital Signs Vital Signs Vital Signs: 04/30/24 11:46 04/30/24 12:18 04/30/24 13:56 Temperature 36.6 C Temperature Source Oral Pulse Rate 105 H 96 Respiratory Rate 18 18 Respiratory Effort Normal Non-Labored Respiratory Pattern Normal Blood Pressure 92/63 104/58 L Blood Pressure Mean 72 73 Blood Pressure Source Blood Pressure Position Blood Pressure Location Pulse Ox 100 99 Oxygen Delivery Method Room Air 04/30/24 15:02 04/30/24 15:18 Temperature 36.2 C L 36.2 C L Temperature Source Oral Temporal Pulse Rate 96 101 H Respiratory Rate 13 11 L Respiratory Effort Respiratory Pattern Blood Pressure 100/60 100/61 Blood Pressure Mean 73 74 Blood Pressure Source Monitor Blood Pressure Position Sitting Blood Pressure Location Right Arm Pulse Ox 99 99 Oxygen Delivery Method Room Air Room Air Weight Weight: 45.9 kg Body Mass Index (BMI) 17.4 Physical Exam Const alert and no apparent distress HEENT normocephalic and head/scalp atraumatic Eyes Eyes Narrative: no icterus Resp normal respiratory effort, no retractions, no use of accessory muscles and clear to auscultation bilaterally Cardio regular rate, regular rhythm, S1 normal heart sound and S2 normal heart sound GI normal to inspection, nondistended, normoactive bowel sounds, soft to palpation and non-distended GI Narrative: Tenderness around her xiphoid process. No masses were appreciated. Extremity normal to inspection Neuro Sensorium / Orientation: awake and alert Psych affect normal Results Lab / Micro Data 04/30/24 12:19 04/30/24 12:19 Labs: Laboratory Results - last 24 hr 04/30/24 12:19: WBC 8.8, RBC 1.67 L, Hgb 5.4 L*, Hct 16.4 L, MCV 98.2, MCH 32.3 H, MCHC 32.9, RDW Std Deviation 67.0 H, RDW Coeff of Alyx 18.6 H, Plt Count 182, MPV 9.9, Immature Gran % (Auto) 0.800, Neut % (Auto) 64.1, Lymph % (Auto) 26.4, [place] % (Auto) 7.9, Eos % (Auto) 0.5, Baso % (Auto) 0.3, Absolute Neuts (auto) 5.6, Absolute Lymphs (auto) 2.31, Nucleated RBC % 0, D-Dimer Quant (PE/DVT) 0.33, Sodium 137, Potassium 4.0, Chloride 104, Carbon Dioxide 25.0, Anion Gap 8, BUN 61 H, Creatinine 1.03 H, Estim Creat Clear Calc 41.04, Est GFR (MDRD) Af Amer 70, Est GFR (MDRD) Non-Af 58 L, BUN/Creatinine Ratio 59.2 H, Glucose 117 H, Calcium 8.9, Total Bilirubin 0.70, AST 21, ALT 20, Alkaline Phosphatase 99, Troponin I High Sens 9, Total Protein 5.7 L, Albumin 2.7 L, Globulin 3.0, Albumin/Globulin Ratio 0.9, Lipase 48 04/30/24 13:27: Blood Type O POSITIVE, Antibody Screen NEGATIVE, Crossmatch See Detail Micro: Microbiology 04/30/24 13:11 Stool Stool Occult Blood (JOSIE) - Final Occult Blood Positive Imaging Radiology Impression Chest X-Ray 04/30/24 13:00 IMPRESSION: No acute cardiopulmonary process identified. Electronically Signed: Jackie Jacobsen MD at 13:24 EDT , Assessment & Plan Assessment/Plan (1) Acute upper GI bleed: PLAN: Suspect related with peptic ulcer disease rather than varices given that more delayed presentation has been going on for few weeks. Suspect upper in etiology. Patient received IV pantoprazole in the emergency room and will continue on the floor. Consult gastroenterology for further input and patient will need endoscopy. Upper at this time to further evaluate. Clear liquid diet. N.p.o. after midnight. (2) Anemia: QUALIFIERS: Anemia type: other cause Other causes of anemia: acute posthemorrhagic Qualified Code(s): D62 - Acute posthemorrhagic anemia PLAN: Acute blood loss Secondary to GI bleed Patient ordered 2 units of packed red blood cells Monitor hemoglobin PLAN: Plan Chronic conditions Cirrhosis: Continue with lactulose, furosemide and spironolactone. Thrombocytopenia: Secondary to cirrhosis. Complicates care and management. Monitor. VTE prophylaxis: Chemical prophylaxis contraindicated in light of acute hemorrhage. SCDs. Case discussed with the patient's significant other at bedside Charges/Coding Visit Charges Inpatient E&M: 15918 Init Hosp L3
[2024-04-30 15:43] LABS: Anisocytosis 3+; Differential Comment SCANNED; Hypochromasia 1+; Macrocytosis 1+; Microcytosis 1+; Platelet Estimate ADEQUATE (ADEQ); Polychromasia 1+; Tear Drop Cell 1+
[2024-04-30] MEDS: Furosemide 40 MG Tablet PO (18:06)
--- NOTE | 2024-04-30 19:48 | EX.PCM.CON.G ---
HPI Consult Data Date of Consult: 04/30/24 HPI Narrative Reason for Consultation: Anemia HPI Narrative: CHARLIE DEVLIN, is a 64 F presents with generalized weakness x 2 days. She states her blood pressure has been running low up to the 101 systolic. She used to be on midodrine but no longer takes it. She has history of stage IV alcoholic pancreatitis and alcohol induced liver cirrhosis and takes lactulose regularly. She has had black stool but states that she takes iron so she attributes it to that. Patient states that she does have history of anemia. She complains of exertional dyspnea. She denies chest pain. She denies recent travel or surgery. She denies fever or cough. She denies urinary symptoms. While in triage she told her brother she did not feel well and had a syncopal episode lasting few seconds and she was brought to the room. [facility] Medical History Pancreatic mass Lesion of liver Ascites Poor venous access Pancytopenia Alcohol abuse Epigastric pain Gall stones Elevated LFTs Rectal bleeding Diarrhea Fatigue Anemia Hemorrhoids sudden weight loss Home Medications ?Medication ?Instructions ?Recorded ?Last Taken ?Type acetaminophen 325 mg tablet 650 mg (2 x 325 mg) PO Q4H PRN PRN 09/22/23 Unknown Rx Fever, pain 1-04/12 #1 TAB lactulose 10 gram/15 mL (15 mL) 20 g (30 mL) PO BID #1,440 mL 09/27/23 Unknown Rx oral solution furosemide 40 mg tablet 40 mg PO BID #60 tabs 09/29/23 Unknown Rx ascorbate calcium (vitamin C) 500 500 mg PO DAILY 03/01/24 Unknown History mg tablet ferrous sulfate 325 mg (65 mg 325 mg PO DAILY 03/01/24 Unknown History iron) tablet spironolactone 25 mg tablet 25 mg PO BID PRN edema 04/30/24 Unknown History Allergy/AdvReac Type Severity Reaction Status Date / Time Penicillins Allergy Rash Verified 04/30/24 11:51 Family History Brother Diabetes Father Diabetes Hypertension High cholesterol Thyroid disorder Surgical History No history of previous surgery Social History Smoking Status: Never smoker alcohol intake: never substance use type: does not use caffeine: Yes what type of physical activity do you participate in: walking seatbelt use: always do you feel safe at home: Yes 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 Constitutional Constitutional: Reports fatigue and weakness; Denies chills or fever(s) Eyes Eyes: Denies change in vision Cardiovascular Cardiovascular: Denies chest pain, dyspnea on exertion, edema, lightheadedness, palpitations or syncope Respiratory/Chest Respiratory/Chest: Denies cough, shortness of breath at rest or wheezing Gastrointestinal Gastrointestinal: Reports dyspepsia, hematemesis, nausea and vomiting; Denies abdominal pain, constipation or diarrhea Genitourinary Genitourinary: Denies dysuria Musculoskeletal Musculoskeletal: Denies arthralgias, back pain or myalgias Neurologic Neurologic: Denies dizziness, focal weakness or headache(s) Physical Exam Const alert and no apparent distress HEENT normocephalic and head/scalp atraumatic Eyes Eyes Narrative: no icterus Resp normal respiratory effort, no retractions, no use of accessory muscles and clear to auscultation bilaterally Cardio regular rate, regular rhythm, S1 normal heart sound and S2 normal heart sound GI normal to inspection, nondistended, normoactive bowel sounds, soft to palpation and non-distended GI Narrative: Tenderness around her xiphoid process. No masses were appreciated. Extremity normal to inspection Neuro Sensorium / Orientation: awake and alert Psych affect normal Lab / Micro Data 04/30/24 12:19 04/30/24 12:19 Labs: Laboratory Results - last 24 hr 04/30/24 12:19: WBC 8.8, RBC 1.67 L, Hgb 5.4 L*, Hct 16.4 L, MCV 98.2, MCH 32.3 H, MCHC 32.9, RDW Std Deviation 67.0 H, RDW Coeff of Alyx 18.6 H, Plt Count 182, MPV 9.9, Immature Gran % (Auto) 0.800, Neut % (Auto) 64.1, Lymph % (Auto) 26.4, [place] % (Auto) 7.9, Eos % (Auto) 0.5, Baso % (Auto) 0.3, Absolute Neuts (auto) 5.6, Absolute Lymphs (auto) 2.31, Nucleated RBC % 0, Differential Comment SCANNED, Diff Path Review May foll, Platelet Estimate ADEQUATE, Polychromasia 1+, Hypochromasia 1+, Anisocytosis 3+, Microcytosis 1+, Macrocytosis 1+, Tear Drop Cells 1+, D-Dimer Quant (PE/DVT) 0.33, Sodium 137, Potassium 4.0, Chloride 104, Carbon Dioxide 25.0, Anion Gap 8, BUN 61 H, Creatinine 1.03 H, Estim Creat Clear Calc 41.04, Est GFR (MDRD) Af Amer 70, Est GFR (MDRD) Non-Af 58 L, BUN/Creatinine Ratio 59.2 H, Glucose 117 H, Calcium 8.9, Total Bilirubin 0.70, AST 21, ALT 20, Alkaline Phosphatase 99, Troponin I High Sens 9, Total Protein 5.7 L, Albumin 2.7 L, Globulin 3.0, Albumin/Globulin Ratio 0.9, Lipase 48 04/30/24 13:27: Blood Type O POSITIVE, Antibody Screen NEGATIVE, Crossmatch See Detail Micro: Microbiology 04/30/24 13:11 Stool Stool Occult Blood (JOSIE) - Final Occult Blood Positive Imaging Radiology Impression Chest X-Ray 04/30/24 13:00 IMPRESSION: No acute cardiopulmonary process identified. Electronically Signed: Jackie Jacobsen MD at 13:24 EDT , Assessment & Plan Assessment/Plan (1) GI bleed: PLAN: Plan 64-year-old with known alcoholic cirrhosis GI bleeding possibly secondary to esophageal varices, gastric ulcer, gastric varices, portal gastropathy. She will need to undergo an upper an endoscopy. Alcoholic cirrhosis of the liver-secondary to history of alcohol abuse H/O gastric ulcer-patient will remain on PPI Esophageal varices-complicates care, medical course, recovery, and prognosis Charges/Coding Visit Charges Inpatient E&M: 47571 Init Hosp L3
[2024-04-30] MEDS: Lactulose 20 GM/30 ML UDC PO (20:40)
[2024-04-30 21:05] LABS: Hematocrit 24.1 % (37-47); Hemoglobin 8.5 g/dL (12.0-15.0)
[2024-05-01] VITALS (14 sets, daily range): BP systolic 83–116; BP diastolic 56–68; PULSE 74–91; RESP 16–18; TEMP 35.9–37; O2SAT 99–100; BMI 17.4
--- NOTE | 2024-05-01 | GASB_PTH ---
PATIENT: CHARLIE DEVLIN LOC: [facility] U#:[id number] AGE/SX: 64/F ROOM: [facility] RE04/30/[address]: Dr. Nimo rFy MD : 1960 BED: 1 DIS: 05/03/2024 SPEC #: [id number] RECD: 05/02/24 09:26 STATUS: WALE REEmilia #: [id number] LEO: 05/01/24 00:[address]: Nikolay Polk DEPT: SURGICAL PATHOLOGY RECD BY: Mendez Hastings ENTERED: 05/02/24 09:26 SP TYPE: Gastric Bx OTHR DR: DO Dr. Nimo Bailey MD Danielle Knoble, MEDIA CENTER ASSISTANT-C Tissues: Gastric mucous membrane Procedures: Surgery Specimen Level IV Comments: @ Ordering doctor for SUIV edited from to @ nanda SHAH at 05/02/24 1014 @ Submitting doctor edited from to @ nanda SHAH at 05/02/24 1014 HEADER OPERATION: EGD with biopsy PRE-OP DIAGNOSIS: Anemia TISSUE SUBMITTED: Gastric ulcer biopsy MICROSCOPIC DIAGNOSIS Gastric ulcer, biopsy: Mild gastritis. See microscopic description and comment. MARIIAAlfonso 05/03/2024 COMMENT The results of immunohistochemistry for Helicobacter pylori will be reported separately ([id number]). MICROSCOPIC DESCRIPTION Slides are reviewed. The specimen shows fragments of gastric mucosa with chronic inflammatory cell infiltrates in the lamina propria consisting of lymphocytes and plasma cells, consistent with mild chronic gastritis. Vascular ectasia and congestion are also noted. GROSS DESCRIPTION Received in fixative is one container labeled with the patient's name and designated Gastric ulcer biopsy. The specimen consists of two irregular fragments of light mchugh soft tissue that measures 0.4 x 0.4 x 0.1 cm. The specimen is totally submitted in one cassette. 05/02/2024 TC:3 CPT:08643
[2024-05-01] MEDS: 0.9% Saline Lock 10 ML Syringe IV ×3 (02:28→20:49)
[2024-05-01 03:20] LABS: Absolute Lymphocyte Count 2.23 X10^3/uL (0.83-4.51); Absolute Neutrophil Count 4.5 X10^3/uL (2.0-7.7); Basophil# 0.07 X10^3/uL; Basophil% 0.9 % (0-1); Eosinophil# 0.22 X10^3/uL; Eosinophils% 2.8 % (0-5); Hematocrit 23.1 % (37-47); Hemoglobin 8.1 g/dL (12.0-15.0); Lymphocyte # 2.23 X10^3/ul (0.83-4.51); Lymphocyte % 28.8 % (19-41); Mean Corp Hgb Conc 35.1 g/dL (32-36); Mean Corpuscular Volume 91.3 fL (81-99); Mean Platelet Vol. 9.5 fl (6.2-12.0); Monocyte# 0.71 X10^3/uL; Monocyte% 9.2 % (0-10); NRBC Flagged by Analyzer 0.4 % (0-5); Neutrophil # 4.46 X10^3/uL (2.7-7.7); Neutrophil % 57.5 % (47-70); Platelet Count 138 K/mm3 (150-450); RBC Distribution Width CV 17.5 % (11.6-14.6); RBC Distribution Width SD 57.4 fl (35.1-43.9); Red Blood Count 2.53 M/mm3 (4.2-5.4); White Blood Count 7.8 K/mm3 (4.4-11.0)
[2024-05-01 03:40] LABS: Phosphorus 3.4 mg/dL (2.5-4.9)
[2024-05-01 03:43] LABS: AST(SGOT) 26 U/L (15-37); Alanine Aminotransfer ALT/SGPT 14 U/L (13-56); Albumin, Serum 2.9 g/dL (3.2-5.0); Alkaline Phosphatase 86 U/L (45-117); Anion Gap 6 (5-15); BUN 40 mg/dL (7-18); Calcium,Total 8.6 mg/dL (8.5-10.1); Chloride 107 mmol/L (98-107); EST Glomerular Filtration Rate 60 mL/min (>60); Est Glom Filt Rate - Afr Amer 72 mL/min (>60); Estimated Creatinine Clearance 42.27 ml/min; Glucose 92 mg/dL (74-106); Magnesium 2.1 mg/dL (1.6-2.6); Potassium 3.4 mmol/L (3.5-5.1); Protein, Total 5.9 g/dL (6.4-8.2); Sodium Level 138 mmol/L (136-145)
[2024-05-01 03:45] LABS: International Normalized Ratio 1.2; Prothrombin Time (Protime)PT. 15.6 SECONDS (11.7-14.9)
[2024-05-01 04:01] LABS: Partial Thromboplast Time 28.2 Seconds (24.1-36.2)
[2024-05-01] MEDS: Lactulose 20 GM/30 ML UDC PO ×2 (08:21→20:49)
[2024-05-01 08:55] LABS: Hematocrit 23.4 % (37-47); Hemoglobin 8.1 g/dL (12.0-15.0)
[2024-05-01] MEDS: Pantoprazole Sodium 40 MG in 0.9% Normal Saline (100mL MB+) 100 ML 330 MG IV ×2 (09:57→20:49)
--- NOTE | 2024-05-01 11:40 | CASEMGMT ---
RN CM Face to Face with patient for initial transition planning/care coordination assessment. RN CM introduced self and role at [facility]. Patient lying in bed, alert and oriented. Patient willing to participate in assessment and is able to answer all questions appropriately. Care providers, pharmacy, and demographics verified. Strata: 3 PCP: Michelle Specialists: Friend, LY Preferred Pharmacy: [facility] Insurance:[employer] Prescription Benefit: yes Living Will/HPOA: none LNOK: son, brother Living Arrangements: Patient lives alone in a second floor apartment. Patient is independent and able to ambulate stairs. Transportation: self, brother DME/HHC: Patient ruba DME in the home. No previous HHC or SNF. Patient wishes to discharge home, denies need for home health at this time. Patient states he has no further needs or concerns at this time. CM to follow for discharge planning needs that may arise. Disposition Plan: Patient to discharge home with family support and follow-up plans in place. Mary MATHEWS, RN, CM
--- NOTE | 2024-05-01 12:44 | PCM.PROGNOTE ---
Subjective Subjective Patient seen and examined. She says she feels better. She was admitted with a complaint of melena stools. Globin was 5.9 on admission and she is s/p transfusion of 2 units of blood red blood cells. She says she feels much better today and denies any dizziness, lightheadedness, palpitations, nausea or vomiting or any other symptoms. Objective Data Objective Data Vital Signs: Vital Signs Temp Pulse Resp BP Pulse Ox O2 Del Method 98.3 F 84 18 105/68 100 Room Air 05/01/24 07:57 05/01/24 08:07 05/01/24 07:57 05/01/24 07:57 05/01/24 07:57 05/01/24 07:57 Oxygen Delivery Method Room Air Weight: 101 lb 3.075 oz Body Mass Index (BMI) 17.4 Intake & Output: Intake and Output for Last 24 Hours 04/29/24 04/30/24 05/01/24 23:59 23:59 23:59 Intake Total 1820 / 1820 110 / 110 Balance 1820 / 1820 110 / 110 Lab / Micro Data 05/01/24 15:03 05/01/24 03:05 Labs: Laboratory Results - last 24 hr 04/30/24 12:19: WBC 8.8, RBC 1.67 L, Hgb 5.4 L*, Hct 16.4 L, MCV 98.2, MCH 32.3 H, MCHC 32.9, RDW Std Deviation 67.0 H, RDW Coeff of Alyx 18.6 H, Plt Count 182, MPV 9.9, Immature Gran % (Auto) 0.800, Neut % (Auto) 64.1, Lymph % (Auto) 26.4, [place] % (Auto) 7.9, Eos % (Auto) 0.5, Baso % (Auto) 0.3, Absolute Neuts (auto) 5.6, Absolute Lymphs (auto) 2.31, Nucleated RBC % 0, Differential Comment SCANNED, Diff Path Review May , Platelet Estimate ADEQUATE, Polychromasia 1+, Hypochromasia 1+, Anisocytosis 3+, Microcytosis 1+, Macrocytosis 1+, Tear Drop Cells 1+, D-Dimer Quant (PE/DVT) 0.33, Sodium 137, Potassium 4.0, Chloride 104, Carbon Dioxide 25.0, Anion Gap 8, BUN 61 H, Creatinine 1.03 H, Estim Creat Clear Calc 41.04, Est GFR (MDRD) Af Amer 70, Est GFR (MDRD) Non-Af 58 L, BUN/Creatinine Ratio 59.2 H, Glucose 117 H, Calcium 8.9, Total Bilirubin 0.70, AST 21, ALT 20, Alkaline Phosphatase 99, Troponin I High Sens 9, Total Protein 5.7 L, Albumin 2.7 L, Globulin 3.0, Albumin/Globulin Ratio 0.9, Lipase 48 04/30/24 13:27: Blood Type O POSITIVE, Antibody Screen NEGATIVE, Crossmatch See Detail 04/30/24 20:55: Hgb 8.5 L, Hct 24.1 L 05/01/24 03:05: WBC 7.8, RBC 2.53 L, Hgb 8.1 L, Hct 23.1 L, MCV 91.3 D, MCH 32.0, MCHC 35.1 D, RDW Std Deviation 57.4 H, RDW Coeff of Alyx 17.5 H, Plt Count 138 L, MPV 9.5, Immature Gran % (Auto) 0.800, Neut % (Auto) 57.5, Lymph % (Auto) 28.8, [place] % (Auto) 9.2, Eos % (Auto) 2.8, Baso % (Auto) 0.9, Absolute Neuts (auto) 4.5, Absolute Lymphs (auto) 2.23, Nucleated RBC % 0.4, PT 15.6 H, INR 1.2, APTT 28.2, Sodium 138, Potassium 3.4 L, Chloride 107, Carbon Dioxide 25.0, Anion Gap 6, BUN 40 H, Creatinine 1.00, Estim Creat Clear Calc 42.27, Est GFR (MDRD) Af Amer 72, Est GFR (MDRD) Non-Af 60, BUN/Creatinine Ratio 40.0 H, Glucose 92, Calcium 8.6, Phosphorus 3.4, Magnesium 2.1, Total Bilirubin 2.20 H, AST 26, ALT 14, Alkaline Phosphatase 86, Total Protein 5.9 L, Albumin 2.9 L, Globulin 3.0, Albumin/Globulin Ratio 1.0 05/01/24 08:48: Hgb 8.1 L, Hct 23.4 L Micro: Microbiology 04/30/24 13:11 Stool Stool Occult Blood (JOSIE) - Final Occult Blood Positive Radiography Diagnostic Testing: Radiology Impression Chest X-Ray 04/30/24 13:00 IMPRESSION: No acute cardiopulmonary process identified. Electronically Signed: Jackie Jacobsen MD at 13:24 EDT Reading Location ID and State: [facility] / [place] Tel , Service support , Physical Exam Const alert, oriented x3, no apparent distress and well nourished General Appearance: cooperative HEENT normocephalic, head/scalp atraumatic and moist oral mucous membranes Eyes PERRL and EOMs intact bilaterally Neck no lymphadenopathy and supple Lymph Lymphatic: no lymphadenopathy noted and no lymphedema noted Resp normal respiratory effort, normal air movement and clear to auscultation bilaterally Cardio regular rate, regular rhythm, S1 normal heart sound, S2 normal heart sound and no murmurs GI normal to inspection, nondistended, normoactive bowel sounds, soft to palpation, non-tender and non-distended Extremity normal capillary refill, no clubbing, cyanosis or edema and no calf tenderness General Extremity: no tenderness to palpation of joints or extremities Skin General Skin Exam: no breakdown Neuro CN's II-XII intact bilaterally, no focal motor deficits, no sensory deficits noted and deep tendon reflexes 2+ bilaterally Motor Exam: strength 5/5 throughout and general weakness Psych thought process normal, cooperative and affect normal Appearance: appropriate Assessment & Plan Assessment/Plan (1) Acute upper GI bleed: (2) Syncope: (3) Hypotension: PLAN: Plan #Acute on chronic anemia due to Upper GI bleed has a history of PUD and varices. on IV pantoprazole. Was transfused with 2 units of PRBCs on admission. Hb is now GI on board. For EGd today continue keeping NPO #History of liver cirrhosis On lactulose and furosemide as well as spironolactone Total bilirubin is 2.2. #THrombocytopenia: platelets are 138 today. Was 182 yesterday. Has episodic thrombocytopenia, likely due to cirrhosis. Will monitor # Hypokalemia: Potassium is 3.4. Will replace and trend.\ DVT prophylaxis: SCDs. Charges/Coding Visit Charges Inpatient E&M: 25724 Subs Hosp L2
[2024-05-01 14:16] LABS: Pathologist Review Reviewed
[2024-05-01] MEDS: Glycerin 1 Suppository 1 SUPP RC (14:24)
[2024-05-01 15:13] LABS: Hematocrit 25.9 % (37-47); Hemoglobin 8.9 g/dL (12.0-15.0)
--- NOTE | 2024-05-01 15:40 | PRE.ANES_ITS ---
ASA Classification* ASA Classification ASA Classification: 2 and E Assessment & Plan Anesthesia* Anesthesia Assessment Anesthesia Assessment: Discussed sedation and/or anesthesia options, risks, benefits, and alternatives with patient/parents/legal guardian/POA. Questions invited. The patient/parents/legal guardian/POA seems to understand and agrees to proceed with anesthesia plan. Reviewed the physical assessment, medical history, allergy history and patient home medications list prior to surgery/procedure/anesthetic and documented any changes. Performed airway and anesthesia risk assessments. Anesthesia Type Anesthesia Type: MAC (SEE WRITTEN PRE ANESTHESIA RECORD FOR FULL ASSESSMENT) Anesthesia Focused Assessment* Temperature: 96.6 F Pulse Rate: 79 Blood Pressure: 107/64 Respiratory Rate: 18 Pulse Ox: 100 Airway Assessment Mouth opens: >3 cm Mallampati Score: II Focused Labs Anesthesia Preop lab: CBC WBC 7.8 K/mm3 (4.4-11.0) 05/01/24 03:05 RBC 2.53 M/mm3 (4.2-5.4) L 05/01/24 03:05 Hgb 8.9 g/dL (12.0-15.0) L 05/01/24 15:03 Hct 25.9 % (37-47) L 05/01/24 15:03 Plt Count 138 K/mm3 (150-450) L 05/01/24 03:05 CHEMISTRY Potassium 3.4 mmol/L (3.5-5.1) L 05/01/24 03:05 Sodium 138 mmol/L (136-145) 05/01/24 03:05 Magnesium 2.1 mg/dL (1.6-2.6) 05/01/24 03:05 Phosphorus 3.4 mg/dL (2.5-4.9) 05/01/24 03:05 BUN 40 mg/dL (7-18) H 05/01/24 03:05 Creatinine 1.00 mg/dL (0.55-1.02) 05/01/24 03:05 Glucose 92 mg/dL (74-106) 05/01/24 03:05 TSH 4.14 uIU/mL (0.358-3.74) H 10/31/13 20:05 COAG PT 15.6 SECONDS (11.7-14.9) H 05/01/24 03:05 Urine Test Negative Negative 09/19/23 14:50 Pre-Assessment Diagnosis/Proposed Procedure Planned Operative Procedure(s): EGD Anesthesia History 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 When Was Last Pacemaker Check QUESTION #4 FULL TEXT: You/Your Family Experience fever (hyperthermia) with Anesthesia Last Oral Intake Last Oral intake: Last Oral Intake NPO since 00:00 05/01/24 13:45 Meds taken in AM with sips of No 05/01/24 13:45 water? Meds patient instructed to take am of surgery PONV PONV - family day care worker: PONV - family day care worker Female HX of Motion Sickness HX of N/V After Surgery Non-Smoker Duration of Surgery greater than 60 minutes Number of Risk Factors PONV Score Height & Weight Height & Weight: Anesthesia: Height & Weight Height 5 ft 4 in 05/01/24 13:45 Weight: 45.9 kg 05/01/24 13:45 Body Mass Index (BMI) 17.4 05/01/24 13:45 Respiratory Assessment Respiratory Assessment - family day care worker: Respiratory Tract Infection Hx - family day care worker Hx Respiratory Tract Infection No 05/01/24 00:04 STOP Sleep Apnea STOP Sleep Apnea - family day care worker: STOP Sleep Apnea - family day care worker Hx Hypertension Yes 04/30/24 16:33 Hx Sleep Apnea No 04/30/24 16:33 CPAP No 09/21/23 18:17 BIPAP No 09/19/23 15:09 Do you snore loudly (louder No 04/30/24 16:33 than talking or can be heard Do you often feel tired/ No 04/30/24 16:33 fatigued/ sleepy during daytime? Has anyone observed you stop No 04/30/24 16:33 breathing during sleep? STOP Results Negative 04/30/24 16:33 QUESTION #5 FULL TEXT : Do you snore loudly (louder than talking or can be heard through closed doors)? 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 Specify any problems Hx of Preganancy in last 3 N/A 04/30/24 16:33 Months Nurse Filling Out Transfusion KMESSENGE 04/30/24 16:33 & Questions: Date: 04/30/24 04/30/24 16:33 Time: 16:40 04/30/24 16:33 Patient unable to answer at this time (ie. confused, unrespo /Reproduction History /Reproductive History - family day care worker: /Reproductive Hx- family day care worker Hx Now No 05/01/24 00:04 Gestational Age (in weeks): EDC: Hx Hx Para Hx Section SAB No 05/01/24 00:04 Active Medications Active Medications: Current Medications Generic Name Dose Route Start Last Admin Trade Name Freq PRN Reason Stop Dose Admin Acetaminophen 650 mg 04/30/24 16:52 Acetaminophen 325 Mg Tablet PO Q4H PRN PRN Fever, pain 1-04/12 Ferrous Sulfate 325 mg 05/01/24 08:00 05/01/24 08:20 Ferrous Sulfate 325 Mg Tablet PO Not Given DAILYCM ABIOLA Furosemide 40 mg 04/30/24 18:00 05/01/24 08:20 Furosemide 40 Mg Tablet PO Not Given BIDLX ABIOLA Protocol Glycerin 1 supp 05/01/24 12:42 05/01/24 14:24 Glycerin 1 Suppository RC 1 supp DAILY PRN PRN Administration CONSTIPATION Sodium Chloride 500 mls @ 15 mls/hr 04/30/24 16:34 IV .[id number] PRN Saline Flush Sodium Chloride 500 mls @ 15 mls/hr 04/30/24 16:34 IV .[id number] PRN Additional IVPB Infusion Pantoprazole Sodium 40 mg/ 110 mls @ 330 mls/hr 04/30/24 22:00 05/01/24 10:48 Sodium Chloride IV Infused Q12 ABIOLA Infusion Lactulose 20 gm 04/30/24 22:00 05/01/24 08:21 Lactulose 20 Gm/30 Ml Udc PO 20 gm BID ABIOLA Administration Ondansetron HCl 4 mg 04/30/24 16:52 Ondansetron 4 Mg/2 Ml Vial IV Q8H PRN PRN NAUSEA/VOMITING Prochlorperazine Edisylate 5 mg 04/30/24 16:52 Prochlorperazine 10 Mg/2 Ml Vial IV Q4H PRN PRN Breakthrough Nausea/Vomiting Sodium Chloride 10 - 40 ml 04/30/24 16:34 05/01/24 09:56 0.9% Saline Lock 10 Ml Syringe IV 10 ml UD PRN Administration SALINE FLUSH Spironolactone 25 mg 04/30/24 16:52 Spironolactone 25 Mg Tablet PO BID PRN PRN edema Protocol [facility] Medical History Pancreatic mass Lesion of liver Ascites Poor venous access Pancytopenia Alcohol abuse Epigastric pain Gall stones Elevated LFTs Rectal bleeding Diarrhea Fatigue Anemia Hemorrhoids sudden weight loss Home Medications ?Medication ?Instructions ?Recorded ?Last Taken ?Type acetaminophen 325 mg tablet 650 mg (2 x 325 mg) PO Q4H PRN PRN 09/22/23 Unknown Rx Fever, pain 1-04/12 #1 TAB lactulose 10 gram/15 mL (15 mL) 20 g (30 mL) PO BID #1,440 mL 09/27/23 Unknown Rx oral solution furosemide 40 mg tablet 40 mg PO BID #60 tabs 09/29/23 Unknown Rx ascorbate calcium (vitamin C) 500 500 mg PO DAILY 03/01/24 Unknown History mg tablet ferrous sulfate 325 mg (65 mg 325 mg PO DAILY 03/01/24 Unknown History iron) tablet spironolactone 25 mg tablet 25 mg PO BID PRN edema 04/30/24 Unknown History Allergy/AdvReac Type Severity Reaction Status Date / Time Penicillins Allergy Rash Verified 05/01/24 15:32 Family History Brother Diabetes Father Diabetes Hypertension High cholesterol Thyroid disorder Surgical History No history of previous surgery Social History Smoking Status: Never smoker alcohol intake: never substance use type: does not use caffeine: Yes what type of physical activity do you participate in: walking seatbelt use: always do you feel safe at home: Yes 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
--- NOTE | 2024-05-01 15:49 | CHAPLAIN ---
Type of Pastoral Visit _x__ Initial Visit ___ Follow-up Visit ___ On-call Visit ___ General Patient Visit ___ Spiritual Assessment ___ Family Conference ___ Bereavement ___ Rapid Response ___ Code Blue ___ Other (describe below) Pastoral Care Referral From _x__ Patient ___ Family ___ Nurse ___ Physician ___ Pulverizer Tender ___ Dog Warden ___ Other (describe below) Sacrament/Intervention ___ Active listening ___ Anointing ___ Episcopalian ___ Bereavement ___ Communion ___ Lynnette exploration ___ ___ Life review ___ Prayer ___ Reconciliation ___ Sacrament of Sick ___ Supportive presence ___ Wedding ___ Other (describe below) Pastoral Comments patient and bed were out of the room at time of attempted visit; left a calling card
--- NOTE | 2024-05-01 16:15 | IMM_PTH ---
PATIENT: CHARLIE DEVLIN LOC: [facility] U#:[id number] AGE/SX: 64/F ROOM: [facility] RE04/30/[address]: Dr. Nimo Fry MD : 1960 BED: 1 DIS: 05/03/2024 SPEC #: [id number] RECD: 05/02/24 09:05 STATUS: WALE REQ #: [id number] LEO: 05/01/24 16:[address]: Nikolay Polk DEPT: IMMUNOHISTOCHEMISTRY RECD BY: Matias Allen ENTERED: 05/02/24 09:05 SP TYPE: IMMUNO OTHR DR: DO Dr. Nimo Bailey MD Danielle Knoble, SENIOR NET DEVELOPER-C Tissues: Gastric mucous membrane Procedures: H Pylori (initial) PHYSICIAN & INSTITUTION [place] [id number] SPECIMEN INFORMATION: Tissue Source: Gastric ulcer biopsy Clinical Info: Anemia Specimen Number: [id number] CPT code: 23608 METHODOLOGY: Deparaffinized sections of prefer/formalin-fixed tissue or PAP/DQ stained slides are incubated with monoclonal/polyclonal antibodies/oligonucleotide probes. Localization is made via biotin free immunoperoxidase method. Appropriate controls are performed and reacted as expected. Results on target cell population are indicated in the following table: RESULTS: ANTIBODY / CLONE RESULT H Pylori (polyclonal) negative These tests were developed and their performance characteristics determined by [facility]. They may not have been cleared or approved by the [place]. Food and Drug Administration. The FDA has determined that such clearance or approval is not necessary. The above immunohistochemical/dualISH markers are ordered and reviewed by the Pathologist. INTERPRETATION: Gastric ulcer, biopsy: Negative for Helicobacter pylori organisms. 05/03/2024
--- NOTE | 2024-05-01 16:23 | OP.EGD_ITS ---
Patient Name: Adele Cheng Procedure Date: 05/01/2024 4:02 PM Date of : 1960 Age: 64 Procedure: Upper GI endoscopy Indications: Acute post hemorrhagic anemia, Melena Providers: Nikolay Polk DO Medicines: Monitored Anesthesia Care Patient Profile: This is a 64 year old female. Refer to note in patient chart for documentation of history and physical. Patient has symptoms of acute epigastric abdominal pain. Complications: No immediate complications. Procedure: Pre-Anesthesia Assessment: - Prior to the procedure, a History and Physical was performed, and patient medications and allergies were reviewed. The patient is competent. The risks and benefits of the procedure and the sedation options and risks were discussed with the patient. All questions were answered and informed consent was obtained. Patient identification and proposed procedure were verified by the physician in the pre-procedure area. Mental Status Examination: alert and oriented. Airway Examination: normal oropharyngeal airway and neck mobility. Respiratory Examination: clear to auscultation. CV Examination: normal. Prophylactic Antibiotics: The patient does not require prophylactic antibiotics. Prior Anticoagulants: The patient has taken no anticoagulant or antiplatelet agents except for NSAID medication. ASA Grade Assessment: II - A patient with mild systemic disease. After reviewing the risks and benefits, the patient was deemed in satisfactory condition to undergo the procedure. The anesthesia plan was to use monitored anesthesia care (MAC). Immediately prior to administration of medications, the patient was re-assessed for adequacy to receive sedatives. The heart rate, respiratory rate, oxygen saturations, blood pressure, adequacy of pulmonary ventilation, and response to care were monitored throughout the procedure. The physical status of the patient was re-assessed after the procedure. After obtaining informed consent, the endoscope was passed under direct vision. Throughout the procedure, the patient's blood pressure, pulse, and oxygen saturations were monitored continuously. The Endoscope was introduced through the mouth, and advanced to the second part of duodenum. The upper GI endoscopy was accomplished without difficulty. The patient tolerated the procedure well. Scope In: 4:13:07 PM Scope Out: 4:16:20 PM Total Procedure Duration Time 0 hours 3 minutes 13 seconds Findings: Small (< 5 mm) varices were found in the lower third of the esophagus. They were 5 mm in largest diameter. One non-bleeding cratered gastric ulcer with no stigmata of bleeding was found in the gastric antrum. The lesion was 20 mm in largest dimension. Biopsies were taken with a cold forceps for histology. Verification of patient identification for the specimen was done. Estimated blood loss was minimal. Large (> 5 mm) varices were found in the duodenal bulb. They were 8 mm in largest diameter. Impression: - Small (< 5 mm) esophageal varices. - Non-bleeding gastric ulcer with no stigmata of bleeding. Biopsied. 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 Recommendation: - [facility]. - Resume regular diet. - Continue present medications. Procedure Code(s): --- Professional --- 18386, Esophagogastroduodenoscopy, flexible, transoral; with biopsy, single or multiple CPT copyright 2021 [employer]. All rights reserved. The codes documented in this report are preliminary and upon raw stock machine feeder review may be revised to meet current compliance requirements. Nikolay Polk DO 05/01/2024 4:22:46 PM This report has been signed electronically. Number of Addenda: 0 Note Initiated On: 05/01/2024 4:02 PM
--- NOTE | 2024-05-01 16:23 | OP.CCLET_ITS ---
05/01/2024 Mj Bernstein Re : Upper GI endoscopy procedure for Adele Cheng Dear Michelle This procedure was performed on Wednesday, May 01, 2024. My impressions and recommendations are as follows: Impressions : - Small (< 5 mm) esophageal varices. - Non-bleeding gastric ulcer with no stigmata of bleeding. Biopsied. 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 Recommendations : - [facility] to [facility]. - Resume regular diet. - Continue present medications. My findings are described in the full procedure note, which is enclosed. If I can be of further assistance, please feel free to contact me at . Sincerely, Nikolay Polk, 05/01/2024 4:22:46 PM This report has been signed electronically.
--- NOTE | 2024-05-01 16:24 | PCM.POST.ANE ---
Anesthesia: Postop Eval I Current Vital Signs Temperature: 98.4 F Pulse Rate: 91 Blood Pressure: 94/58 Respiratory Rate: 16 Pulse Ox: 99 Oxygen Delivery Method: Room Air Assessment Airway patent: Yes Spontaneous unlabored respirations: Yes Mental status: Awake and Calm nausea: No Vomiting: No Anesthesia Complication: No Fluid Hydration Crystalloid volume administer (ml): 30 Total IV fluid infused: 30 Progress Note Anesthesia document: Postop Eval 1 completed: Yes
--- NOTE | 2024-05-01 17:37 | PCM.POSTANE2 ---
Anesthesia Postop Eval I Sum Postop Eval Completion status Anesthesia document: Postop Eval 1 completed: Yes Anesthesia Postop Eval I Summary Anesthesia Postop Eval I Summary: Anesthesia Postop Eval I: Assessment Summary Airway patent Yes 05/01/24 16:24 [email or web address] Spontaneous unlabored Yes 05/01/24 16:24 [email or web address] respirations Mental status Awake,Calm 05/01/24 16:24 [email or web address] nausea No 05/01/24 16:24 [email or web address] Vomiting No 05/01/24 16:24 [email or web address] Anesthesia Postop Eval I: Fluid Summary Crystalloid volume administer 30 05/01/24 16:24 [email or web address] (ml) Colloids volume administered ( ml) Blood Product volume administered (ml) Total IV fluid infused 30 05/01/24 16:24 [email or web address] Anesthesia Postop Eval I: Summary Notes Anesthesia Complication No 05/01/24 16:24 [email or web address] Anesthesia Complication Comment: Post-operative progress note Anesthesia: Postop Eval II Evaluation Mental status: Awake Pain Level: 0 nausea: No Vomiting: No
[2024-05-01] MEDS: Ensure Plus High Protein 120 ML LIQUID PO (20:50)
[2024-05-02 02:25] VITALS: BP 109/73; PULSE 76; RESP 18; TEMP 36.7; O2SAT 97
[2024-05-02] MEDS: Acetaminophen 325 MG Tablet 650 MG PO (05:49)
[2024-05-02 05:50] VITALS: BP 103/59; PULSE 75; RESP 18; TEMP 36.7; O2SAT 99
[2024-05-02 06:44] LABS: Absolute Lymphocyte Count 1.63 X10^3/uL (0.83-4.51); Basophil# 0.05 X10^3/uL; Basophil% 0.9 % (0-1); Eosinophil# 0.27 X10^3/uL; Eosinophils% 4.9 % (0-5); Hematocrit 26.2 % (37-47); Hemoglobin 8.6 g/dL (12.0-15.0); Lymphocyte # 1.63 X10^3/ul (0.83-4.51); Lymphocyte % 29.6 % (19-41); Mean Corp Hgb Conc 32.8 g/dL (32-36); Mean Corpuscular Hgb 31.7 pg (27.0-32.0); Mean Corpuscular Volume 96.7 fL (81-99); Mean Platelet Vol. 9.2 fl (6.2-12.0); Monocyte# 0.56 X10^3/uL; Monocyte% 10.2 % (0-10); NRBC Flagged by Analyzer 0 % (0-5); Neutrophil # 2.98 X10^3/uL (2.7-7.7); Platelet Count 153 K/mm3 (150-450); Red Blood Count 2.71 M/mm3 (4.2-5.4); White Blood Count 5.5 K/mm3 (4.4-11.0)
[2024-05-02 07:04] LABS: Anion Gap 7 (5-15); BUN 18 mg/dL (7-18); BUN/Creat Ratio 20.4 RATIO (10-20); Calcium,Total 9.1 mg/dL (8.5-10.1); Chloride 109 mmol/L (98-107); Creatinine, Serum 0.88 mg/dL (0.55-1.02); EST Glomerular Filtration Rate 69 mL/min (>60); Est Glom Filt Rate - Afr Amer 83 mL/min (>60); Estimated Creatinine Clearance 48.03 ml/min; Glucose 100 mg/dL (74-106); Potassium 3.6 mmol/L (3.5-5.1); Sodium Level 140 mmol/L (136-145)
[2024-05-02 08:35] VITALS: BP 105/67; PULSE 75; RESP 15; TEMP 36.1; O2SAT 100
[2024-05-02] MEDS: Furosemide 40 MG Tablet PO ×2 (09:37→16:57)
[2024-05-02] MEDS: Lactulose 20 GM/30 ML UDC PO ×2 (09:37→20:57)
[2024-05-02] MEDS: Ferrous Sulfate 325 MG Tablet PO (09:37)
[2024-05-02] MEDS: Ensure Plus High Protein 120 ML LIQUID PO (09:38)
[2024-05-02] MEDS: Glycerin 1 Suppository 1 SUPP RC (10:28)
--- NOTE | 2024-05-02 11:20 | PN_ITS ---
Subjective Subjective Patient seen and examined. She had no active complaints. She did not have any rectal bleeding again overnight. She does admit to constipation. Review of systems otherwise negative. She did had EGD yesterday which showed small esophageal varices and a known bleeding gastric ulcer with no stigmata of bleeding. Patient states she wants to know what the blood is coming from and is wondering if she will have a colonoscopy. Objective Data Objective Data Vital Signs: Vital Signs Temp Pulse Resp BP Pulse Ox O2 Del Method 96.9 F L 75 15 105/67 100 Room Air 05/02/24 08:35 05/02/24 08:35 05/02/24 08:35 05/02/24 08:35 05/02/24 08:35 05/02/24 08:50 Oxygen Delivery Method Room Air Weight: 101 lb 3.075 oz Body Mass Index (BMI) 17.4 Intake & Output: Intake and Output for Last 24 Hours 04/30/24 05/01/24 05/02/24 23:59 23:59 23:59 Intake Total 1820 / 1820 220 / 220 Balance 1820 / 1820 220 / 220 Lab / Micro Data 05/02/24 06:11 05/02/24 06:11 Labs: Laboratory Results - last 24 hr 04/30/24 12:19: Diff Path Review Reviewed 05/01/24 15:03: Hgb 8.9 L, Hct 25.9 L 05/02/24 06:11: WBC 5.5, RBC 2.71 L, Hgb 8.6 L, Hct 26.2 L, MCV 96.7 D, MCH 31.7, MCHC 32.8 D, RDW Std Deviation 62.0 H, RDW Coeff of Alyx 18.0 H, Plt Count 153, MPV 9.2, Immature Gran % (Auto) 0.400, Neut % (Auto) 54.0, Lymph % (Auto) 29.6, [place] % (Auto) 10.2 H, Eos % (Auto) 4.9, Baso % (Auto) 0.9, Absolute Neuts (auto) 3.0, Absolute Lymphs (auto) 1.63, Nucleated RBC % 0, Sodium 140, Potassium 3.6, Chloride 109 H, Carbon Dioxide 25.0, Anion Gap 7, BUN 18, Creatinine 0.88, Estim Creat Clear Calc 48.03, Est GFR (MDRD) Af Amer 83, Est GFR (MDRD) Non-Af 69, BUN/Creatinine Ratio 20.4 H, Glucose 100, Calcium 9.1 Micro: Microbiology 04/30/24 13:11 Stool Stool Occult Blood (JOSIE) - Final Occult Blood Positive Physical Exam Const alert, oriented x3 and no apparent distress General Appearance: cooperative HEENT normocephalic, head/scalp atraumatic and moist oral mucous membranes Eyes PERRL and EOMs intact bilaterally Eyes Narrative: no icterus Neck no lymphadenopathy and supple Lymph Lymphatic: no lymphadenopathy noted and no lymphedema noted Resp normal respiratory effort, normal air movement, no retractions, no use of accessory muscles and clear to auscultation bilaterally Cardio regular rate, regular rhythm, S1 normal heart sound, S2 normal heart sound and no murmurs GI normal to inspection, nondistended, normoactive bowel sounds, soft to palpation, non-tender and non-distended Extremity normal to inspection, normal capillary refill, no clubbing, cyanosis or edema and no calf tenderness General Extremity: no tenderness to palpation of joints or extremities Skin General Skin Exam: no breakdown Neuro CN's II-XII intact bilaterally, no focal motor deficits, no sensory deficits noted and deep tendon reflexes 2+ bilaterally Sensorium / Orientation: awake and alert Motor Exam: strength 5/5 throughout and general weakness Psych thought process normal, cooperative and affect normal Appearance: appropriate Assessment & Plan Assessment/Plan (1) Acute upper GI bleed: (2) Syncope: (3) Hypotension: PLAN: Plan #Acute on chronic anemia due to Upper GI bleed * has a history of PUD and varices. * on IV pantoprazole. * Was transfused with 2 units of PRBCs on admission. Hb is now * GI on board. EGD showed small esophageal varices and a nonbleeding gastric ulcer. No stigmata of bleeding was seen. * continue keeping NPO * Hemoglobin today is 8.6. Patient wanted to know that she will have colonoscopy. Will reach out to GI to confirm whether she will have a colonoscopy or otherwise. * #History of liver cirrhosis * On lactulose and furosemide as well as spironolactone * Total bilirubin is 2.2. * #THrombocytopenia: * platelets are up to 153 today. Was 182 yesterday. * Has episodic thrombocytopenia, likely due to cirrhosis. Will monitor # Hypokalemia: potassium is 3.6. DVT prophylaxis: SCDs. Charges/Coding Visit Charges Inpatient E&M: 89986 Subs Hosp L2
[2024-05-02] MEDS: Pantoprazole Sodium 40 MG in 0.9% Normal Saline (100mL MB+) 100 ML 330 MG IV ×2 (11:21→20:57)
--- NOTE | 2024-05-02 13:16 | CHAPLAIN ---
Type of Pastoral Visit _x__ Initial Visit ___ Follow-up Visit ___ On-call Visit ___ General Patient Visit ___ Spiritual Assessment ___ Family Conference ___ Bereavement ___ Rapid Response ___ Code Blue ___ Other (describe below) Pastoral Care Referral From _x__ Patient ___ Family ___ Nurse ___ Physician ___ Registered Phlebotomist Part Time ___ Landscape Painter ___ Other (describe below) Sacrament/Intervention _x__ Active listening ___ Anointing ___ Druze ___ Bereavement ___ Communion ___ Lynnette exploration ___ _x__ Life review _x__ Prayer ___ Reconciliation ___ Sacrament of Sick _x__ Supportive presence ___ Wedding ___ Other (describe below) Pastoral Comments patient reports at ease and yet hopeful that her doctor can give more information and proper treatment for better results this time; pt acknowledges that she has been in the hospital enough to be recognized by staff and others which is both an embarrassment and a comfort; pt welcomes presence and prayer but does not share any other concerns or needs
[2024-05-02] MEDS: Bisacodyl 5 MG Tablet 20 MG PO (13:50)
[2024-05-02] MEDS: Polyethylene Glycol 3350 BOWEL PREP PO (16:57)
[2024-05-02 16:58] VITALS: BP 102/64; PULSE 82; RESP 18; TEMP 36.2; O2SAT 99
--- NOTE | 2024-05-02 19:38 | EX.PCM.PN.GI ---
Subjective Subjective Patient underwent an upper endoscopy yesterday. She had very small non bandable varices in her esophagus. There was no signs of acute or chronic blood loss anemia in the stomach. She did have portal gastropathy. She did have what appeared to be a duodenal varix in the duodenal bulb without any bleeding stigmata. Objective Data Objective Data Vital Signs: Vital Signs Temp Pulse Resp BP Pulse Ox O2 Del Method 97.2 F L 82 18 102/64 99 Room Air 05/02/24 16:58 05/02/24 16:58 05/02/24 16:58 05/02/24 16:58 05/02/24 16:58 05/02/24 16:58 Oxygen Delivery Method Room Air Weight: 101 lb 3.075 oz Body Mass Index (BMI) 17.4 Intake & Output: Intake and Output for Last 24 Hours 04/30/24 05/01/24 05/02/24 23:59 23:59 23:59 Intake Total 1820 / 1820 220 / 220 510 / 510 Balance 1820 / 1820 220 / 220 510 / 510 Lab / Micro Data 05/02/24 06:11 05/02/24 06:11 Labs: Laboratory Results - last 24 hr 05/02/24 06:11: WBC 5.5, RBC 2.71 L, Hgb 8.6 L, Hct 26.2 L, MCV 96.7 D, MCH 31.7, MCHC 32.8 D, RDW Std Deviation 62.0 H, RDW Coeff of Alyx 18.0 H, Plt Count 153, MPV 9.2, Immature Gran % (Auto) 0.400, Neut % (Auto) 54.0, Lymph % (Auto) 29.6, Hartley % (Auto) 10.2 H, Eos % (Auto) 4.9, Baso % (Auto) 0.9, Absolute Neuts (auto) 3.0, Absolute Lymphs (auto) 1.63, Nucleated RBC % 0, Sodium 140, Potassium 3.6, Chloride 109 H, Carbon Dioxide 25.0, Anion Gap 7, BUN 18, Creatinine 0.88, Estim Creat Clear Calc 48.03, Est GFR (MDRD) Af Amer 83, Est GFR (MDRD) Non-Af 69, BUN/Creatinine Ratio 20.4 H, Glucose 100, Calcium 9.1 Micro: Microbiology 04/30/24 13:11 Stool Stool Occult Blood (JOSIE) - Final Occult Blood Positive Physical Exam Const alert, oriented x3 and no apparent distress General Appearance: cooperative HEENT normocephalic, head/scalp atraumatic and moist oral mucous membranes Eyes PERRL and EOMs intact bilaterally Eyes Narrative: no icterus Neck no lymphadenopathy and supple Lymph Lymphatic: no lymphadenopathy noted and no lymphedema noted Resp normal respiratory effort, normal air movement, no retractions, no use of accessory muscles and clear to auscultation bilaterally Cardio regular rate, regular rhythm, S1 normal heart sound, S2 normal heart sound and no murmurs GI normal to inspection, nondistended, normoactive bowel sounds, soft to palpation, non-tender and non-distended Extremity normal to inspection, normal capillary refill, no clubbing, cyanosis or edema and no calf tenderness General Extremity: no tenderness to palpation of joints or extremities Skin General Skin Exam: no breakdown Neuro CN's II-XII intact bilaterally, no focal motor deficits, no sensory deficits noted and deep tendon reflexes 2+ bilaterally Sensorium / Orientation: awake and alert Motor Exam: strength 5/5 throughout and general weakness Psych thought process normal, cooperative and affect normal Appearance: appropriate Assessment & Plan Assessment/Plan (1) GI bleed: PLAN: Plan 64-year-old with known alcoholic cirrhosis GI bleeding possibly secondary to esophageal varices, gastric ulcer, gastric varices, portal gastropathy. She will need to undergo an upper an endoscopy. Alcoholic cirrhosis of the liver-secondary to history of alcohol abuse H/O gastric ulcer-patient will remain on PPI Esophageal varices-complicates care, medical course, recovery, and prognosis 05/02/2024-recommendation is colonoscopy tomorrow to evaluate the lower GI tract for any signs and symptoms of acute on chronic GI blood loss. Patient may need a capsule endoscopy as an outpatient for further evaluation of her small bowel for any variceal disease in the small bowel. Charges/Coding Visit Charges Inpatient E&M: 35470 Subs Hosp L3
[2024-05-02 20:50] VITALS: BP 111/72; PULSE 81; RESP 18; TEMP 37.1; O2SAT 100
[2024-05-02] MEDS: 0.9% Saline Lock 10 ML Syringe IV (20:57)
[2024-05-03] VITALS (11 sets, daily range): BP systolic 89–110; BP diastolic 58–72; PULSE 70–96; RESP 14–18; TEMP 36.2–37; O2SAT 99–100; BMI 17.4
[2024-05-03 06:48] LABS: Absolute Neutrophil Count 2.9 X10^3/uL (2.0-7.7); Basophil# 0.05 X10^3/uL; Basophil% 0.9 % (0-1); Eosinophil# 0.34 X10^3/uL; Eosinophils% 6.3 % (0-5); Hematocrit 25.8 % (37-47); Hemoglobin 8.7 g/dL (12.0-15.0); Lymphocyte % 29.5 % (19-41); Mean Corp Hgb Conc 33.7 g/dL (32-36); Mean Corpuscular Volume 94.9 fL (81-99); Mean Platelet Vol. 9.5 fl (6.2-12.0); Monocyte# 0.53 X10^3/uL; Monocyte% 9.8 % (0-10); NRBC Flagged by Analyzer 0 % (0-5); Neutrophil # 2.85 X10^3/uL (2.7-7.7); Neutrophil % 52.6 % (47-70); Platelet Count 172 K/mm3 (150-450); RBC Distribution Width CV 17.2 % (11.6-14.6); RBC Distribution Width SD 56.6 fl (35.1-43.9); Red Blood Count 2.72 M/mm3 (4.2-5.4); White Blood Count 5.4 K/mm3 (4.4-11.0)
[2024-05-03 07:12] LABS: Partial Thromboplast Time 28.3 Seconds (24.1-36.2)
[2024-05-03 08:07] LABS: AST(SGOT) 32 U/L (15-37); Alanine Aminotransfer ALT/SGPT 22 U/L (13-56); Albumin, Serum 3.2 g/dL (3.2-5.0); Alkaline Phosphatase 114 U/L (45-117); Anion Gap 10 (5-15); BUN 12 mg/dL (7-18); BUN/Creat Ratio 13.8 RATIO (10-20); Calcium,Total 8.9 mg/dL (8.5-10.1); Chloride 104 mmol/L (98-107); Creatinine, Serum 0.87 mg/dL (0.55-1.02); EST Glomerular Filtration Rate 70 mL/min (>60); Est Glom Filt Rate - Afr Amer 85 mL/min (>60); Estimated Creatinine Clearance 48.58 ml/min; Globulin 3.2 g/dL (2.2-4.2); Glucose 95 mg/dL (74-106); Magnesium 1.9 mg/dL (1.6-2.6); Protein, Total 6.4 g/dL (6.4-8.2); Sodium Level 139 mmol/L (136-145)
[2024-05-03] MEDS: Pantoprazole Sodium 40 MG in 0.9% Normal Saline (100mL MB+) 100 ML 330 MG IV (08:10)
--- NOTE | 2024-05-03 10:17 | ANES.CONFIRM ---
Anesthesia: Confirm Documents Multiple Procedures on Account (2) Confirmed Documents: Yes
--- NOTE | 2024-05-03 10:18 | ANES.CONFIRM ---
Anesthesia: Confirm Documents Multiple Procedures on Account (2) Confirmed Documents: Yes
--- NOTE | 2024-05-03 10:18 | PCM.PRE.AN2 ---
ASA Classification* ASA Classification ASA Classification: 2, 3 (SEE WRITTEN PRE ANESTHESIA RECORD FOR FULL ASSESSMENT) and E Assessment & Plan Anesthesia* Anesthesia Assessment Anesthesia Assessment: Discussed sedation and/or anesthesia options, risks, benefits, and alternatives with patient/parents/legal guardian/POA. Questions invited. The patient/parents/legal guardian/POA seems to understand and agrees to proceed with anesthesia plan. Reviewed the physical assessment, medical history, allergy history and patient home medications list prior to surgery/procedure/anesthetic and documented any changes. Performed airway and anesthesia risk assessments. Anesthesia Type Anesthesia Type: MAC (SEE WRITTEN PRE ANESTHESIA RECORD FOR FULL ASSESSMENT) Anesthesia Focused Assessment* Temperature: 98.6 F Pulse Rate: 73 Blood Pressure: 101/70 Respiratory Rate: 16 Pulse Ox: 99 Airway Assessment Mouth opens: >3 cm Mallampati Score: II Focused Labs Anesthesia Preop lab: CBC WBC 5.4 K/mm3 (4.4-11.0) 05/03/24 06:19 RBC 2.72 M/mm3 (4.2-5.4) L 05/03/24 06:19 Hgb 8.7 g/dL (12.0-15.0) L 05/03/24 06:19 Hct 25.8 % (37-47) L 05/03/24 06:19 Plt Count 172 K/mm3 (150-450) 05/03/24 06:19 CHEMISTRY Potassium 3.0 mmol/L (3.5-5.1) L 05/03/24 06:19 Sodium 139 mmol/L (136-145) 05/03/24 06:19 Magnesium 1.9 mg/dL (1.6-2.6) 05/03/24 06:19 Phosphorus 4.0 mg/dL (2.5-4.9) 05/03/24 06:19 BUN 12 mg/dL (7-18) 05/03/24 06:19 Creatinine 0.87 mg/dL (0.55-1.02) 05/03/24 06:19 Glucose 95 mg/dL (74-106) 05/03/24 06:19 TSH 4.14 uIU/mL (0.358-3.74) H 10/31/13 20:05 COAG PT 15.6 SECONDS (11.7-14.9) H 05/01/24 03:05 Urine Test Negative Negative 09/19/23 14:50 Pre-Assessment Diagnosis/Proposed Procedure Planned Operative Procedure(s): EGD Anesthesia History 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 When Was Last Pacemaker Check QUESTION #4 FULL TEXT: You/Your Family Experience fever (hyperthermia) with Anesthesia Last Oral Intake Last Oral intake: Last Oral Intake NPO since 00:00 05/03/24 09:00 Meds taken in AM with sips of No 05/03/24 09:00 water? 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 Female HX of Motion Sickness HX of N/V After Surgery Non-Smoker Duration of Surgery greater than 60 minutes Number of Risk Factors PONV Score Height & Weight Height & Weight: Anesthesia: Height & Weight Height 5 ft 4 in 05/03/24 09:00 Weight: 45.9 kg 05/03/24 09:00 Body Mass Index (BMI) 17.4 05/03/24 09:00 Respiratory Assessment Respiratory Assessment - acoustical material worker: Respiratory Tract Infection Hx - acoustical material worker Hx Respiratory Tract Infection No 05/03/24 05:30 STOP Sleep Apnea STOP Sleep Apnea - acoustical material worker: STOP Sleep Apnea - acoustical material worker Hx Hypertension Yes 04/30/24 16:33 Hx Sleep Apnea No 04/30/24 16:33 CPAP No 05/01/24 16:21 BIPAP No 09/19/23 15:09 Do you snore loudly (louder No 04/30/24 16:33 than talking or can be heard Do you often feel tired/ No 04/30/24 16:33 fatigued/ sleepy during daytime? Has anyone observed you stop No 04/30/24 16:33 breathing during sleep? STOP Results Negative 05/01/24 16:21 QUESTION #5 FULL TEXT : Do you snore loudly (louder than talking or can be heard through closed doors)? 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 Specify any problems Hx of Preganancy in last 3 N/A 04/30/24 16:33 Months Nurse Filling Out Transfusion KMESSENGE 04/30/24 16:33 & Questions: Date: 04/30/24 04/30/24 16:33 Time: 16:40 04/30/24 16:33 Patient unable to answer at this time (ie. confused, unrespo /Reproduction History /Reproductive History - acoustical material worker: /Reproductive Hx- acoustical material worker Hx Now No 05/03/24 05:30 Gestational Age (in weeks): EDC: Hx Hx Para Hx Section SAB No 05/03/24 05:30 Active Medications Active Medications: Current Medications Generic Name Dose Route Start Last Admin Trade Name Freq PRN Reason Stop Dose Admin Acetaminophen 650 mg 04/30/24 16:52 05/02/24 05:49 Acetaminophen 325 Mg Tablet PO 650 mg Q4H PRN PRN Administration Fever, pain 1-04/12 Ferrous Sulfate 325 mg 05/01/24 08:00 05/03/24 08:10 Ferrous Sulfate 325 Mg Tablet PO Not Given DAILYCM ABIOLA Furosemide 40 mg 04/30/24 18:00 05/03/24 08:10 Furosemide 40 Mg Tablet PO Not Given BIDLX ABIOLA Protocol Glycerin 1 supp 05/01/24 12:42 05/02/24 10:28 Glycerin 1 Suppository RC 1 supp DAILY PRN PRN Administration CONSTIPATION Sodium Chloride 500 mls @ 15 mls/hr 04/30/24 16:34 IV .[id number] PRN Saline Flush Sodium Chloride 500 mls @ 15 mls/hr 04/30/24 16:34 IV .[id number] PRN Additional IVPB Infusion Pantoprazole Sodium 40 mg/ 110 mls @ 330 mls/hr 04/30/24 22:00 05/03/24 10:07 Sodium Chloride IV Infused Q12 ABIOLA Infusion Potassium Chloride 10 meq in 100 mls @ 100 mls/hr 05/03/24 09:30 IV BOLUS 05/03/24 13:29 Q1H ABIOLA Lactulose 20 gm 04/30/24 22:00 05/03/24 08:10 Lactulose 20 Gm/30 Ml Udc PO Not Given BID ABIOLA Nutritional Formula (Lactose Free) 120 ml 05/01/24 18:00 05/03/24 08:10 Ensure Plus High Protein 120 Ml Liquid PO Not Given 4X/DAY ABIOLA Ondansetron HCl 4 mg 04/30/24 16:52 Ondansetron 4 Mg/2 Ml Vial IV Q8H PRN PRN NAUSEA/VOMITING Prochlorperazine Edisylate 5 mg 04/30/24 16:52 Prochlorperazine 10 Mg/2 Ml Vial IV Q4H PRN PRN Breakthrough Nausea/Vomiting Sodium Chloride 10 - 40 ml 04/30/24 16:34 05/02/24 20:57 0.9% Saline Lock 10 Ml Syringe IV 10 ml UD PRN Administration SALINE FLUSH Spironolactone 25 mg 04/30/24 16:52 Spironolactone 25 Mg Tablet PO BID PRN PRN edema Protocol [facility] Medical History Pancreatic mass Lesion of liver Ascites Poor venous access Pancytopenia Alcohol abuse Epigastric pain Gall stones Elevated LFTs Rectal bleeding Diarrhea Fatigue Anemia Hemorrhoids sudden weight loss Home Medications ?Medication ?Instructions ?Recorded ?Last Taken ?Type acetaminophen 325 mg tablet 650 mg (2 x 325 mg) PO Q4H PRN PRN 09/22/23 Unknown Rx Fever, pain 1-04/12 #1 TAB lactulose 10 gram/15 mL (15 mL) 20 g (30 mL) PO BID #1,440 mL 03/26/24 Unknown Rx oral solution furosemide 40 mg tablet 40 mg PO BID #60 tabs 09/29/23 Unknown Rx ascorbate calcium (vitamin C) 500 500 mg PO DAILY 03/01/24 Unknown History mg tablet ferrous sulfate 325 mg (65 mg 325 mg PO DAILY 03/01/24 Unknown History iron) tablet spironolactone 25 mg tablet 25 mg PO BID PRN edema 04/30/24 Unknown History Allergy/AdvReac Type Severity Reaction Status Date / Time Penicillins Allergy Rash Verified 05/01/24 15:32 Family History Brother Diabetes Father Diabetes Hypertension High cholesterol Thyroid disorder Surgical History No history of previous surgery Social History Smoking Status: Never smoker alcohol intake: never substance use type: does not use caffeine: Yes what type of physical activity do you participate in: walking seatbelt use: always do you feel safe at home: Yes 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
--- NOTE | 2024-05-03 10:19 | ANES.CONFIRM ---
Anesthesia: Confirm Documents Multiple Procedures on Account (2) Confirmed Documents: Yes
--- NOTE | 2024-05-03 10:21 | ANES.CONF2 ---
Anesthesia: Confirm Documents Multiple Procedures on Account (3) Confirmed Documents: Yes
--- NOTE | 2024-05-03 10:57 | OP.COLON_ITS ---
Patient Name: Adele Cheng Procedure Date: 05/03/2024 10:20 AM Date of : 1960 Age: 64 Procedure: Colonoscopy Indications: Hematochezia Providers: Nikolay Polk DO Medicines: Monitored Anesthesia Care Patient Profile: This is a 64 year old female. Refer to note in patient chart for documentation of history and physical. Last Colonoscopy: date unknown. Unable to locate last colonoscopy report. Complications: No immediate complications. Procedure: Pre-Anesthesia Assessment: - Prior to the procedure, a History and Physical was performed, and patient medications and allergies were reviewed. The patient is competent. The risks and benefits of the procedure and the sedation options and risks were discussed with the patient. All questions were answered and informed consent was obtained. Patient identification and proposed procedure were verified by the physician in the pre-procedure area. Mental Status Examination: alert and oriented. Airway Examination: normal oropharyngeal airway and neck mobility. Respiratory Examination: clear to auscultation. CV Examination: normal. Prophylactic Antibiotics: The patient does not require prophylactic antibiotics. Prior Anticoagulants: The patient has taken no anticoagulant or antiplatelet agents. ASA Grade Assessment: IV - A patient with severe systemic disease that is a constant threat to life. After reviewing the risks and benefits, the patient was deemed in satisfactory condition to undergo the procedure. The anesthesia plan was to use monitored anesthesia care (MAC). Immediately prior to administration of medications, the patient was re-assessed for adequacy to receive sedatives. The heart rate, respiratory rate, oxygen saturations, blood pressure, adequacy of pulmonary ventilation, and response to care were monitored throughout the procedure. The physical status of the patient was re-assessed after the procedure. After I obtained informed consent, the scope was passed under direct vision. Throughout the procedure, the patient's blood pressure, pulse, and oxygen saturations were monitored continuously. The was introduced through the anus and advanced to the cecum, identified by appendiceal orifice and ileocecal valve. The colonoscopy was performed without difficulty. The patient tolerated the procedure well. The quality of the bowel preparation was poor. The ileocecal valve, appendiceal orifice, and rectum were photographed. Scope In: 10:33:40 AM Scope Withdrawal Time 0 hours 7 minutes 27 seconds Scope Out: 10:49:51 AM Total Procedure Duration Time 0 hours 16 minutes 11 seconds Findings: The perianal and digital rectal examinations were normal. 6 mm rectal varices were found. Multiple small and large-mouthed diverticula were found in the recto-sigmoid colon, sigmoid colon, descending colon and splenic flexure. A large amount of stool was found in the entire colon. Lavage of the area was performed, resulting in clearance with fair visualization. Impression: - Preparation of the colon was poor. - Rectal varices. - Diverticulosis in the recto-sigmoid colon, in the sigmoid colon, in the descending colon and at the splenic flexure. - Stool in the entire examined colon. - No specimens collected. Recommendation: - Discharge patient to home. - Low fiber diet PRN. - Continue present medications. - Make the patient NPO starting tomorrow. - Repeat colonoscopy in 4 months to check healing. Procedure Code(s): --- Professional --- 35811, Colonoscopy, flexible; diagnostic, including collection of specimen(s) by brushing or washing, when performed (separate procedure) CPT copyright 2021 [employer]. All rights reserved. The codes documented in this report are preliminary and upon auditing coder review may be revised to meet current compliance requirements. Nikolay Polk DO 05/03/2024 10:56:15 AM This report has been signed electronically. Number of Addenda: 0 Note Initiated On: 05/03/2024 10:20 AM
--- NOTE | 2024-05-03 10:57 | OP.CCLET_ITS ---
05/03/2024 Mj Bernstein Re : Colonoscopy procedure for Adele Cheng Dear Michelle This procedure was performed on April. My impressions and recommendations are as follows: Impressions : - Preparation of the colon was poor. - Rectal varices. - Diverticulosis in the recto-sigmoid colon, in the sigmoid colon, in the descending colon and at the splenic flexure. - Stool in the entire examined colon. - No specimens collected. Recommendations : - Discharge patient to home. - Low fiber diet PRN. - Continue present medications. - Make the patient NPO starting tomorrow. - Repeat colonoscopy in 4 months to check healing. My findings are described in the full procedure note, which is enclosed. If I can be of further assistance, please feel free to contact me at . Sincerely, Nikolay Polk, 05/03/2024 10:56:15 AM This report has been signed electronically.
--- NOTE | 2024-05-03 10:59 | PCM.POST.ANE ---
Anesthesia: Postop Eval I Current Vital Signs Temperature: 97.5 F Pulse Rate: 72 Blood Pressure: 90/60 Respiratory Rate: 16 Pulse Ox: 99 Oxygen Delivery Method: Room Air Assessment Airway patent: Yes Spontaneous unlabored respirations: Yes Mental status: Asleep nausea: No Vomiting: No Anesthesia Complication: No Fluid Hydration Crystalloid volume administer (ml): 40 Total IV fluid infused: 40 Progress Note Anesthesia document: Postop Eval 1 completed: Yes
[2024-05-03] MEDS: Potassium Chloride 10mEq/100mL 10 MEQ/100 ML IV.SOLN. 100 MEQ IV BOLUS ×4 (11:22→14:44)
--- NOTE | 2024-05-03 16:21 | DS.PCM_ITS ---
Providers Date of Admission: 04/30/24 Date of Discharge: 05/03/24 Primary Care Physician: Mary Martinez, [facility] MORTICIAN[facility] Consultations 04/30/24 16:52 Consult: Gastroenterology Routine Consulting Provider: [facility] Reason for Consult: GI bleed EMERGENT Consult: No MD Notified: Yes Date Notified: 04/30/24 Time Notified: 15:19 Method of Notification: ED Physician Initiated Reason For Visit: GI BLEED Diagnosis Discharge Diagnosis (1) GI bleed: Status: Resolved Code(s): K92.2 - Gastrointestinal hemorrhage, unspecified Plan #Acute on chronic anemia due to Upper GI bleed * has a history of PUD and varices. * on IV pantoprazole. * Was transfused with 2 units of PRBCs on admission. Hb is now * GI on board. EGD showed small esophageal varices and a nonbleeding gastric ulcer. No stigmata of bleeding was seen. * continue keeping NPO * Hemoglobin today is 8.6. Patient wanted to know that she will have colonoscopy. Will reach out to GI to confirm whether she will have a colonoscopy or otherwise. * #History of liver cirrhosis * On lactulose and furosemide as well as spironolactone * Total bilirubin is 2.2. * #THrombocytopenia: * platelets are up to 153 today. Was 182 yesterday. * Has episodic thrombocytopenia, likely due to cirrhosis. Will monitor # Hypokalemia: potassium is 3.6. DVT prophylaxis: SCDs. Medications at Discharge Home Medications acetaminophen 325 mg tablet 650 mg (2 x 325 mg) PO Q4H PRN PRN Fever, pain 1- 04/12 #1 TAB 09/22/23 lactulose 10 gram/15 mL (15 mL) oral solution 20 g (30 mL) PO BID #1,440 mL 09/27/23 furosemide 40 mg tablet 40 mg PO BID #60 tabs 09/29/23 ascorbate calcium (vitamin C) 500 mg tablet 500 mg PO DAILY 03/01/24 ferrous sulfate 325 mg (65 mg iron) tablet 325 mg PO DAILY 03/01/24 spironolactone 25 mg tablet 25 mg PO BID PRN edema 04/30/24 pantoprazole 40 mg tablet,delayed release 40 mg PO DAILY #30 tabs 05/03/24 Hospital Course Operations None Procedures Colonoscopy Summary of Care Provided Minutes Spent on Discharge: 55 Hospital Course: Patient is a 64-year-old female with past medical history as outlined was admitted through the ED on 04/30/2024 with a complaint of melena. She had a history of peptic ulcer disease and gastric varices. She came in complaining of melena stools. She was taking iron so she thought it was due to that but subsequently got more fatigued and weak so she came into the ED. In the ED she was found to have hemoglobin of 5.9. She was transfused with 2 units of packed red blood cells. She did have a near syncopal episode in the ED. She was started on IV pantoprazole. Gastroenterology was consulted. She had EGD which showed small esophageal varices which were nonbleeding and large duodenal varices which were also nonbleeding. She did have colonoscopy also which showed rectal varices and diverticulosis in the rectosigmoid colon, sigmoid colon and descending colon and at the splenic flexure. Patient felt much better and her hemoglobin improved and was 8.7 on day of discharge. She was discharged home with p.o. pantoprazole 40 mg twice daily and is to follow-up with her PCP and with gastroenterology within 1 to 2 weeks. Patient seen and examined prior to discharge. She had no complaints and had an uneventful night. Review of symptoms otherwise negative. Labs and vitals reviewed. Home medication reviewed and reconciled. Physical Exam Const alert, oriented x3, no apparent distress and well nourished General Appearance: cooperative and comfortable Orientation / Consciousness: awake Exam Limitations: no limitations HEENT normocephalic, head/scalp atraumatic, hearing grossly normal bilaterally and moist oral mucous membranes Mouth: oral and palatal mucosa normal Eyes PERRL, EOMs intact bilaterally and conjunctivae normal Neck no lymphadenopathy and supple Lymph Lymphatic: no lymphadenopathy noted and no lymphedema noted Resp normal respiratory effort, normal air movement, no retractions, no use of accessory muscles and clear to auscultation bilaterally Cardio regular rate, regular rhythm, S1 normal heart sound, S2 normal heart sound and no murmurs GI normal to inspection, nondistended, normoactive bowel sounds, soft to palpation, non-tender and non-distended Extremity normal to inspection, normal capillary refill, no clubbing, cyanosis or edema and no calf tenderness General Extremity: no tenderness to palpation of joints or extremities Skin General Skin Exam: no breakdown Neuro CN's II-XII intact bilaterally, no focal motor deficits, no sensory deficits noted and deep tendon reflexes 2+ bilaterally Sensorium / Orientation: awake and alert Motor Exam: strength 5/5 throughout and general weakness Psych thought process normal, cooperative and affect normal Appearance: appropriate Weight / BMI Weight Weight: 101 lb 3.075 oz Body Mass Index (BMI) 17.4 ABG / Lab / Microbiology Data 05/03/24 06:19 05/03/24 06:19 Laboratory: Laboratory Results - last 24 hr 05/03/24 06:19: WBC 5.4, RBC 2.72 L, Hgb 8.7 L, Hct 25.8 L, MCV 94.9, MCH 32.0, MCHC 33.7, RDW Std Deviation 56.6 H, RDW Coeff of Alyx 17.2 H, Plt Count 172, MPV 9.5, Immature Gran % (Auto) 0.900, Neut % (Auto) 52.6, Lymph % (Auto) 29.5, Franklin % (Auto) 9.8, Eos % (Auto) 6.3 H, Baso % (Auto) 0.9, Absolute Neuts (auto) 2.9, Absolute Lymphs (auto) 1.60, Nucleated RBC % 0, APTT 28.3, Sodium 139, Potassium 3.0 L, Chloride 104, Carbon Dioxide 25.0, Anion Gap 10, BUN 12, Creatinine 0.87, Estim Creat Clear Calc 48.58, Est GFR (MDRD) Af Amer 85, Est GFR (MDRD) Non-Af 70, BUN/Creatinine Ratio 13.8, Glucose 95, Calcium 8.9, Phosphorus 4.0, Magnesium 1.9, Total Bilirubin 1.10 H, AST 32, ALT 22, Alkaline Phosphatase 114, Total Protein 6.4, Albumin 3.2, Globulin 3.2, Albumin/Globulin Ratio 1.0 Microbiology: Microbiology 04/30/24 13:11 Stool Stool Occult Blood (JOSIE) - Final Occult Blood Positive D/C Instructions Discharge Diet: Low fat / Low cholesterol Discharge Activity: Return to Normal Activity Weight Bearing Status: Weight bearing as tolerated Call your doctor if you observe: Fever of 101 or Higher, Inability to urinate, Shortness of breath, Chest pain and - (GI bleed) Meaningful Use Info Meaningful Use Meaningful Use Diagnoses (Choose all that apply): None applicable Ischemic Stroke Statin Dosing Therapy Reference: STATIN DOSE THERAPY REFERENCE: * Patients > 75 years receive moderate or high dose statin therapy. * Patients 75 years or YOUNGER should receive HIGH intensity statin dose unless contraindicated. You will be required to document reason for non-treatment if statin daily dose does not meet guidelines. HIGH DOSE STATIN THERAPY DAILY Atorvastatin > than or = to 40 mg Rosuvastatin > than or = to 20 mg Amlodipine + Atorvastatin > than or = to 2.5/40 mg Ezetimibe + Simvastatin 10/80 mg Simvastatin 80mg Discharge Plan Admission Admit Date/Time: 04/30/24 15:17 Primary Reason for Your Visit: GI bleed Attending Provider: Nimo Fry Primary Care Provider: Mary Martinez Consulting Providers: Shane Orona Instructions Patient Instructions: GI Bleeding Ch Discharge Orders/Prescriptions Prescriptions: New pantoprazole 40 mg tablet,delayed release (DR/EC) 40 mg PO DAILY Qty: 30 2RF Continued furosemide 40 mg tablet 40 mg PO BID Qty: 60 3RF ascorbate calcium (vitamin C) 500 mg tablet 500 mg PO DAILY ferrous sulfate 325 mg (65 mg iron) tablet 325 mg PO DAILY acetaminophen 325 mg Tablet 650 mg PO Q4H PRN PRN (Reason: Fever, pain 1-04/12) Qty: 1 0RF Rx Instructions: Limit Tylenol use each to 2500 mg or less per day spironolactone 25 mg Tablet 25 mg PO BID PRN (Reason: edema) lactulose 10 gram/15 mL (15 mL) solution 20 g PO BID Qty: 1440 11RF Referrals / Follow Up: Mary Martinez, [facility]OSP[facility] MORTICIAN-C [Primary Care Provider] - Within 2 Weeks Disposition Disposition (needs filled in before D/C Order can be placed): Home, Self Care Charges/Coding Visit Charges Inpatient E&M: 43524 Disch Hosp >30min
--- NOTE | 2024-05-03 16:29 | DCINST_ITS ---
Discharge Instructions Diet Discharge Diet: Low fat / Low cholesterol Activity Discharge Activity: Return to Normal Activity Weight Bearing Status: Weight bearing as tolerated Dressing / Incision Call your doctor if you observe: Fever of 101 or Higher, Inability to urinate, Shortness of breath, Chest pain and - (GI bleed) Follow Up Care Test Results: Test results from this visit will be discussed in further detail at your follow- up appointment, if applicable. Discharge Plan Admission Admit Date/Time: 04/30/24 15:17 Primary Reason for Your Visit: GI bleed Attending Provider: Nimo Fry Primary Care Provider: Mary Martinez Consulting Providers: Shane Orona Instructions Patient Instructions: GI Bleeding Ch Discharge Orders/Prescriptions Prescriptions: New pantoprazole 40 mg tablet,delayed release (DR/EC) 40 mg PO DAILY Qty: 30 2RF Continued furosemide 40 mg tablet 40 mg PO BID Qty: 60 3RF ascorbate calcium (vitamin C) 500 mg tablet 500 mg PO DAILY ferrous sulfate 325 mg (65 mg iron) tablet 325 mg PO DAILY acetaminophen 325 mg Tablet 650 mg PO Q4H PRN PRN (Reason: Fever, pain 1-10) Qty: 1 0RF Rx Instructions: Limit Tylenol use each to 2500 mg or less per day spironolactone 25 mg Tablet 25 mg PO BID PRN (Reason: edema) lactulose 10 gram/15 mL (15 mL) solution 20 g PO BID Qty: 1440 11RF Referrals / Follow Up: Mary Martinez, [facility] DEVELOPMENT CHEMIST-C [Primary Care Provider] - Within 2 Weeks Disposition Disposition (needs filled in before D/C Order can be placed): Home, Self Care
== END 2024-05-03 17:55 | disposition home or self-care (01) | DRG 253 ==
LOC: ED 14:03 → PCU 15:37
PROVIDERS: Anesthesiology; Internal Medicine Gastroenterology; Emergency Provider Emergency Medicine; PCP Nurse Practitioner Family; Visit Provider Student in an Organized Health Care Education/Training Program
PROC: 0DJ08ZZ Inspection of Upper Intestinal Tract, Via Natural or Artificial Opening Endoscopic (ICD-10-PCS; CPT 43235; principal; 2024-05-01 16:10)
PROC: 0DJD8ZZ Inspection of Lower Intestinal Tract, Via Natural or Artificial Opening Endoscopic (ICD-10-PCS; CPT 45378; principal; 2024-05-03 13:55)
DX: K92.2 Gastrointestinal hemorrhage, unspecified (principal); D69.6 Thrombocytopenia, unspecified; K76.6 Portal hypertension; D50.0 Iron deficiency anemia secondary to blood loss (chronic); K25.9 Gastric ulcer, unspecified as acute or chronic, without hemorrhage or perforation; I85.00 Esophageal varices without bleeding; K70.30 Alcoholic cirrhosis of liver without ascites; I95.9 Hypotension, unspecified; E87.6 Hypokalemia; K31.89 Other diseases of stomach and duodenum; K57.30 Diverticulosis of large intestine without perforation or abscess without bleeding; K62.89 Other specified diseases of anus and rectum; Z79.899 Other long term (current) drug therapy
CPT/HCPCS: 36415; 71045; 80048; 80053; 82274; 83690; 83735; 84100; 84484; 85014; 85018; 85025; 85379; 85610; 85730; 86850; 86900; 86901; 86920; 86922; 88305; 88342; 93005; 99285; J7030; P9016; A4216; J2405

== ENCOUNTER 2025-04-01 06:04 | Day surgery (SDC) | payer MEDICAID, SELFPAY ==
--- OUTSIDE RECORDS SUMMARY | 2025-02-27 08:11 | XMS RPT_ITS ---
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 Name Role Phone JAYSON KAN Primary Care Unavailable JAYSON KAN Attending Unavailable KNAZUL, VAUGHN Referring Unavailable LORETA, JAYSON A Primary Care Unavailable ROSEANN LAZARO Attending Unavailable LORETA, JAYSON A Primary Care Unavailable KNOBLE, VAUGHN Referring Unavailable LORETA, JAYSON A Primary Care Unavailable KNAZUL, VAUGHN Attending Unavailable LORETA, JAYSON A Primary Care Unavailable JOSE MAE Attending Unavailable LORETA, JAYSON A Primary Care Unavailable LORETA, JAYSON A Primary Care Unavailable JOSE MAE Referring Unavailable KNOBLEVAUGHN Attending Unavailable LORETA, JAYSON A Primary Care Unavailable KNOBLE, VAUGHN Referring Unavailable LORETA, JAYSON A Primary Care Unavailable LORETA, JAYSON A Primary Care Unavailable ROSEANN LAZARO Attending Unavailable LORETA, JAYSON A Primary Care Unavailable LORETA, JAYSON A Primary Care Unavailable SYLVIA PIZANO Attending Unavailable LORETA, JAYSON A Primary Care Unavailable KALEIGH GONZALEZ Attending Unavailable LORETA, JAYSON Pierce Primary Care Unavailable KALEIGH GONZALEZ Referring Unavailable KOBY JONES Attending Unavailable KNOBLE, VAUGHN Referring Unavailable LORETA, JAYSON A Primary Care Unavailable KNOBLE, VAUGHN Referring Unavailable LORETA, JAYSON A Primary Care Unavailable LORETA, JAYSON A Primary Care Unavailable PROBLEMS DATE TYPE CONDITION / CODE ATTENDING STATUS [facility] 02/27/2025 Active Primary insomnia / F51.01(ICD-10) JAYSON KAN Active [facility] 02/27/2025 Active History of inser tion of pancreatic stent / Z98.890(ICD-10) JAYSON KAN Active [facility] 02/27/2025 Active Multiple gastric ulcers / K25.9(ICD-10) JAYSON KAN Active [facility] 02/27/2025 Active Alcoholic cirrho sis of liver without ascites (HCC) / K70.30(ICD-10) LORETAJAYSON MACDONALD Kari Active [facility] 05/22/2024 Active Iron deficiency anemia due to chronic blood loss / D50.0(ICD-10) LORETANITHYA MACDONALDCLAYTON Pierce Active [facility] 09/19/2023 Active Pancreatic mass (HCC) / K86.89(ICD-10) LORETANITHYA MACDONALDCLAYTON Pierce Active [facility] 09/19/2023 Active Steatosis (HCC) / E88.89(ICD-10) LORETANITHYA MACDONALDCLAYTON Pierce Active [facility] 10/01/2020 Active Gall stones / K80.20(ICD-10) LORETANITHYA MACDONALDCLAYTON Pierce Active [facility] 02/27/2025 Active Insomnia, unspec ified type / G47.00(ICD-10) LORETA JAYSON A Active [facility] 02/11/2025 Active Consult / UNK(Unknown) KOBY JONES Active [facility] 01/29/2025 Active Epigastric pain / R10.13(ICD-10) KALEIGH GONZALEZ Active [facility] 01/29/2025 Active Diastasis recti / M62.08(ICD-10) KALEIGH GONZALEZ Active [facility] 01/29/2025 Active Chronic constipa tion / K59.09(ICD-10) KALEIGH GONZALEZ Active [facility] 01/29/2025 Active Ascites due to a lcoholic cirrhosis (HCC) / K70.31(ICD-10) KALEIGH GONZALEZ Active [facility] 01/08/2025 Active Abdominal bloati ng / R14.0(ICD-10) NA Active [facility] 01/08/2025 Active Generalized abdo merlin pain / R10.84(ICD-10) SYLVIA PIZANO Active [facility] 01/08/2025 Active Alcoholic cirrho sis, unspecified whether ascites present (HCC) / K70.30(ICD-10) SYLVIA PIZANO Active [facility] 08/15/2024 Active Alcoholic cirrho sis of liver without ascites / K70.30(ICD-10) NA Active [facility] 08/15/2024 Active 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(ICD-10) NA Active [facility] 08/15/2024 Active Alcoholic fibros is and sclerosis of liver / K70.2(ICD-10) NA Active [facility] 11/30/2018 Active Screening for co estela cancer / Z12.11(ICD-10) VAUGHN PÉREZ Active [facility] 11/30/2018 Active Encounter for sc reening for diabetes mellitus / Z13.1(ICD-10) VAUGHN PÉREZ Active [facility] 08/10/2024 Active Screening for de pression / Z13.31(ICD-10) VAUGHN PÉREZ Active [facility] 08/10/2024 Active Encounter for sc reening examination for other mental health and behavioral disorders / Z13.39(ICD-10) VAUGHN PÉREZ Active [facility] 08/10/2024 Active Medication manag ement / Z79.899(ICD-10) VAUGHN PÉREZ Active [facility] 08/10/2024 Active Encounter for li pid screening for cardiovascular disease / Z13.220(ICD-10) VAUGHN PÉREZ Active [facility] 08/10/2024 Active Encounter for li pid screening for cardiovascular disease / Z13.6(ICD-10) VAUGHN PÉREZ Active [facility] 05/07/2024 Active Bleeding esophag eal varices in alcoholic cirrhosis (HCC) / K70.30(ICD-10) VAUGHN PÉREZ Active [facility] 05/07/2024 Active Bleeding esophag eal varices in alcoholic cirrhosis (HCC) / I85.11(ICD-10) VAUGHN PÉREZ Active [facility] 05/07/2024 Active Rectal varices / K64.9(ICD-10) VAUGHN PÉREZ Active [facility] 05/07/2024 Active 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 Author Type: Bulk Intake Worker Type: Progress Notes Filed: 02/28/2025 14:35 Note Text: Call to pt and notified her of message below from Provider. Pt will keep appt with Dr. Gomez at this time. Asked to be contacted for GI appt in [place] from Scheduling. Zina Barrow MA PROGRESS Observed: 02/28/2025 8:43 AM Status: COMPLETED Source: [facility] HNO ID: [id number] Author: JAYSON KAN MD Service: ? Author Type: Physician Type: Progress Notes Filed: 02/28/2025 08:45 Note Text: Please let patient know this. Also let her know we received a copy of her last office note from Dr. Gomez when she had her appt on 02/01/2025 and the FARM MANAGEMENT SUPERVISOR she saw said she advised you to keep your appt with Dr. Gomez so he could discuss repeating her ERCP and potential stent removal. The other option is I can refer her to [facility] Gastro in [place]. PROGRESS Observed: 02/28/2025 8:39 AM Status: COMPLETED Source: [facility] HNO ID: [id number] Author: ZINA BARROW MA Service: ? Author Type: Bulk Intake Worker Type: Progress Notes Filed: 02/28/2025 08:40 Note Text: Received fax from [facility]. Unable to accept pt at this time. Zina Barrow MA Scan on 02/27/2025 1:23 PM by Provider, VILLA Knox: [facility] CNOV Observed: 02/27/2025 8:20 AM Status: COMPLETED Source: [facility] Office Visit (FAMPWS) CHARLIE DEVLIN ([id number]) 1960 F Date Time Provider Department 02/27/25 8:20 AM JAYSON KAN During your visit today, we recorded the following information about you: Pulse Respiration Blood pressure Weight 78/minute 16/minute 116/72 46.4 kg Jayson Kan MD 02/27/2025 11:09 AM Signed Chief Complaint Patient presents with: Follow Up: Abdominal pain; epigastric HPI Charlie Devlin is a 65 year old female who presents here today for a follow up. Patient recently seen by Dr. Jones for epigastric abdominal pain, bloating, and constipation for 2-3 months. Patient with hx of stage 4 cirrhosis, chronic pancreatitis, ulcers and cholelithiasis. Patient here today requesting a referral to GI in [facility] from the [facility], possible [facility]. Pt reports she was never made aware by Dr. Gomez that the stent was to come out. She's had follow ups with him and CT's done since this was placed. Patient reports ongoing issues even with eating small amounts of food or drinks. She reports having increased fatigue and physical exhaustion, with taking naps during the day. Initially thought this was related to issues with her hiatal hernia. She's aware she has a large gallstone blocking ducts. Hx of pancreatic stent placed in 09/[address] Gomez, but was informed this should of been removed by now. Has upcoming appt with Dr. Gomez in March. Per Dr. Jones it was recommended to await upcoming visit with Dr. Gomez to remove pancreatic stent and to assess symptoms. A follow up appt was scheduled with Dr. Jones post-procedure to reassess symptoms and determine further management. Patient not a good historian. Charlie Devlin is a 65-year-old female with a history of pancreatitis, presenting for evaluation of a pancreatic stent placed in September 2023. Charlie reports a pancreatic stent was placed on 09/25/[address] Gomez due to recurrent episodes of pancreatitis and a pancreatic mass. She was informed that the stent would typically be removed within hours to 2-6 months post-placement. However, she has not had any follow-up regarding the stent removal and has only seen Dr. Gomez once since the procedure. She has undergone multiple CT scans, but the stent was not mentioned until a few weeks ago by Abdulkadir, a healthcare provider she consulted. Charlie has been attempting to contact Dr. Gomez's office for follow-up without success. She had an appointment scheduled with Dr. Gomez on 03/21/2024, but Dr. Jones advised her that the stent needs to be removed urgently. Dr. Jones also mentioned the possibility of referring her to another specialist for the stent removal. Charlie has a complex medical history, including multiple episodes of pancreatitis, liver issues, and gallstones. She was diagnosed with two stomach ulcers in 2023, which later increased to three, as confirmed by a CT scan in [place]. She has undergone two endoscopies and colonoscopies since September 2023 but has not had a follow-up scope to confirm the healing of the ulcers. In January of this year, an ER doctor in [place] suspected a third ulcer and recommended follow-up with a powder truck driver. Charlie attempted to schedule an appointment with Dr. Gomez but was unable to do so and instead consulted Abdulkadir. During her consultation with Abdulkadir, Charlie was informed about a possible hernia located between her upper rib cage, which could be contributing to her symptoms of bloating and constipation. Dr. Jones also mentioned the possibility of gallbladder removal but advised waiting until more information about the stomach ulcers is available. Charlie has a history of bleeding issues and was advised that any surgical procedures should be performed at the main campus. Past medical history, appointments, medications, allergies reviewed. Previous Medical History PAST MEDICAL HISTORY Diagnosis Date Alcohol abuse 11/30/2018 Was in [facility] in [place] for detox 10/13/2018 and now doing 180. Alcoholic cirrhosis (HCC) 02/27/2025 Stage 4 Cirrhosis (HCC) Diverticulosis Gall stones 10/01/2020 Hiatal hernia History of chicken pox History of insertion of pancreatic stent 02/27/202509/2023 History of skin cancer 11/30/[address] Arceo Iron deficiency anemia due to chronic blood loss 05/22/2024 Iron malabsorption (HCC) 05/22/2024 Multiple gastric ulcers 02/27/2025 Pancytopenia (HCC) Primary insomnia 02/27/2025 Previous Surgical History PAST SURGICAL HISTORY Procedure Laterality Date NONE PANCREATIC STENT,PLASTIC 09/19/2023 Family History FAMILY HISTORY Problem Relation Age of Onset Diabetes Father Type 1 Thyroid Father Hyperlipidemia Father Diabetes Brother Type 1 Hypertension Brother Diabetes Paternal Grandmother Colon Cancer No Family History Prostate Cancer No Family History Breast Cancer No Family History Ovarian cancer No Family History Uterine Cancer No Family History Coronary Artery Disease No Family History Kidney Disease No Family History Seizures No Family History Stroke No Family History Patient Allergies ALLERGIES Allergen Reactions Penicillins Rash Patient states has not had since childhood Current Medications Current Outpatient Medications on File Prior to Visit Medication Sig furosemide (LASIX) 40 mg tablet Take 1 tablet by mouth every 12 hours. omeprazole (PRILOSEC) 20 mg capsule Take 1 capsule by mouth once daily for 14 days. traZODone (DESYREL) 50 mg tablet Take 1 tablet by mouth daily at bedtime. ascorbic acid, vitamin C, (VITAMIN C) 500 mg tablet Take 1 tablet by mouth once daily. ferrous sulfate 325 mg (65 mg iron) tablet Take 1 tablet by mouth once daily. acetaminophen (TYLENOL EXTRA STRENGTH) 500 mg tablet Take 1,000 mg by mouth every 6 hours as needed. CONSTULOSE 10 gram/15 mL solution Take 10 g by mouth two times a day as needed. spironolactone (ALDACTONE) 25 mg tablet Take 1 tablet by mouth every 12 hours. (Patient not taking: Reported on 02/11/2025) No current facility-administered medications on file prior to visit. Social History SOCIAL HISTORY[1] Review of Symptoms REVIEW OF SYSTEMS SEE HPI EXAM: BP 116/72 (BP Site: Left Arm, BP Position: Sitting, BP Cuff Size: Regular Adult) Pulse 78 Resp 16 Wt 46.4 kg (102 lb 6.4 oz) LMP 12/30/2007 BMI 18.14 kg/m? General Appearance: Well appearing, alert, in no acute distress, well-hydrated, well nourished.. Abdomen: Normal abdominal exam, Abdomen soft, mild epigastric tenderness and what feels to be a defect in the area. No guarding or rebound tenderns. Bowel sounds normal. No masses, organomegaly. Health Maintenance List Hepatitis C Screening Never done HIV Screening Never done Hepatitis A Vaccine(1 of 2 - Risk 2-dose series) Never done Mammogram Screening Never done Hepatitis B Vaccine(3 of 3 - Risk 3-dose series) due on 07/20/2012 RSV Vaccine(1 - Risk 60-74 years 1-dose series) Never done Cervical Cancer Screening due on 08/12/2025 Pneumococcal Vaccine: 50+(1 of 2 - PCV) due on 08/10/2025 Influenza Vaccine(1) due on 03/04/2025 Depression Screening due on 08/10/2025 Anxiety Screening due on 08/10/2025 DTaP,Tdap,Td Vaccine(3 - Td or Tdap) due on 12/02/2026 Diabetes Screening due on 01/09/2028 Colorectal Cancer Screening due on 04/26/2029 Lipid Screening due on 08/10/2029 Shingrix Vaccine Completed Data reviewed Received last office note from Dr. Gomez's Gastro office regarding appt on 02/01/2025. She never mentioned to the provider the ER as concerned about another gastric ulcer. It also says in the notes she was to keep her follow up appt with Dr. Gomez to discuss repeat ERCP and possible removal of her pancreatic duct stent. Office note also mentions the presence of her ventral hernia. Results CT ABD/PEL W IVCON (Acc#[id number]) (Order [id number]) Patient Info Patient Name Sex Charlie Palmer ([id number]) Female 1960 01/08/2025 5:00 PM - Radiology, [place] In Impression IMPRESSION: Pneumobilia. Gallbladder stone. Stable pancreatic duct stent. Director Of Knowledge Management: YUN Transcribe Date/Time: Jan 08 2025 4:42P Dictated by : ANGELA SARKAR MD This examination was interpreted and the report reviewed and electronically signed by: ANGELA SARKAR MD on Jan 08 2025 4:57PM EST Results-Findings * * *Final Report* * * DATE OF EXAM: Jan 08 2025 4:31PM [facility] [place] 0530 - CT ABD/PEL W IVCON / PROCEDURE REASON: Abdominal pain, acute (Ped 0-18y) * * * * Physician Interpretation * * * * EXAMINATION: CT ABDOMEN AND PELVIS WITH IV CONTRAST CLINICAL HISTORY: Abdominal pain TECHNIQUE: CT of the abdomen and pelvis was performed using standard technique, scanning from just above the dome of the diaphragm to the symphysis pubis. MQ: CTAP_3 Contrast: IV: 100 ml of Omnipaque 350 CT Radiation dose: Integrated Dose-length product (DLP) for this visit = 131 mGy*cm. CT Dose Reduction Employed: Automated exposure control(AEC) and iterative recon COMPARISON: CT abdomen pelvis on 08/15/2024 RESULT: Liver: No mass. Biliary: No bile duct dilation. There appears be pneumobilia. A similar gallbladder stone visualized measuring 8 mm. Spleen: No mass. No splenomegaly. Pancreas: Stable pancreatic duct stent. No mass lesion seen. No peripancreatic fluid collection. Adrenals: No mass. Kidneys: No kidney mass, abnormal enhancement or hydroureteronephrosis. GI tract: Stable appearance of the duodenum and antrum of the stomach. The appendix is identified and normal in appearance. No diverticulitis or bowel obstruction. Lymph nodes: No abdominal or pelvic lymphadenopathy. Mesentery/Peritoneum: No ascites or mass or free abdominal air. Retroperitoneum: No mass. Vasculature: The celiac artery, SMA, TERESA, portal veins and hepatic veins are patent. Pelvis: No mass, ascites or fluid collection. Bones/Soft Tissues: Stable abdominal soft tissue. There are degenerative changes in the spine with multilevel disc space narrowing. Lower thorax: No pleural effusions. Lung bases are clear of consolidations. Localizer images: No additional findings. Assessment and Plan 1. Pancreatic mass (HCC) (K86.89) 2. Steatosis (HCC) (E88.89) 3. Alcoholic cirrhosis of liver without ascites (HCC) (K70.30) 4. History of insertion of pancreatic stent (Z98.890) Pancreatic stent placed in September 2023 for recurrent pancreatitis and pancreatic mass; stent remains in situ. - Discussed need for stent removal. - Refer to GI for stent removal and management of these other ongoing gastrointestinal issues. Consult to [facility] 5. Gall stones (K80.20) Multiple gallstones present, with at least one obstructing a duct. - Discussed potential need for cholecystectomy after stent removal. - derer management per General surgery 6. Multiple gastric ulcers (K25.9) Three gastric ulcers identified on CT scan in January 2024; no follow-up endoscopy performed to confirm healing. - Advised follow-up endoscopy to assess healing of gastric ulcers. Concult placed to gastro as above 7. Iron deficiency anemia due to chronic blood loss (D50.0) - consult t gastro 8. Primary insomnia (F51.01) - cont trazodone Requested Prescriptions Signed Prescriptions Disp Refills traZODone (DESYREL) 50 mg tablet 30 tablet 1 Sig: Take 1 tablet by mouth daily at bedtime. F/u next appt or sooner if needed. Jayson Kan MD I spent a total of 35 minutes on the date of the service which included preparing to see the patient, [id number] patient care, completing clinical documentation, performing a medically appropriate examination, counseling and educating the patient/family/caregiver and ordering medications, tests, or procedures. Recording using [employer] software for draft documentation of the visit was discussed with the patient/authorized artist's representative; all questions welcomed and answered. Patient/authorized artist's representative agreed to proceed [1] Social History Tobacco Use Smoking status: Never Passive exposure: Yes Smokeless tobacco: Never Vaping Use Vaping status: Never Used Substance Use Topics Alcohol use: Not Currently Comment: No alcohol since 09/10/23 Drug use: No Allergies As of Date: 02/27/2025 Noted Allergy Reaction PENICILLINS 12/30/2011 2 - Rash Comments: Patient states has not had since childhood Date Reviewed: 02/27/2025 Reviewed by: Jayson Kan MD - Fully Assessed Reason for Visit: Follow Up [171] Cmt: Abdominal pain; epigastric Primary Visit Diagnosis:Pancreatic mass (HCC) [K86.89] Other Visit Diagnoses:Steatosis (HCC) [E88.89] Iron deficiency anemia due to chronic blood loss [D50.0] Gall stones [K80.20] Alcoholic cirrhosis of liver without ascites (HCC) [K70.30] Multiple gastric ulcers [K25.9] History of insertion of pancreatic stent [Z98.890] Primary insomnia [F51.01] Order(s):CONSULT TO GASTROENTEROLOGY [4000] Order #: [id number]: 1 FUTURE traZODone (DESYREL) 50 mg tabletTake 1 tablet by mouth daily at bedtime.Disp: 30 tabletRfl: 1 Prescriptions as of 02/27/2025 - traZODone (DESYREL) 50 mg tablet Take 1 tablet by mouth daily at bedtime. - furosemide (LASIX) 40 mg tablet Take 1 tablet by mouth every 12 hours. - omeprazole (PRILOSEC) 20 mg capsule Take 1 capsule by mouth once daily for 14 days. - ascorbic acid, vitamin C, (VITAMIN C) 500 mg tablet Take 1 tablet by mouth once daily. - ferrous sulfate 325 mg (65 mg iron) tablet Take 1 tablet by mouth once daily. - acetaminophen (TYLENOL EXTRA STRENGTH) 500 mg tablet Take 1,000 mg by mouth every 6 hours as needed. - CONSTULOSE 10 gram/15 mL solution Take 10 g by mouth two times a day as needed. Problem List As Of Date 02/27/2025 Noted Resolved Alcohol abuse [F10.10] 11/30/2018 History of skin cancer [Z85.828] 11/30/2018 Well adult exam [Z00.00] 11/30/2018 Encounter for screening for diabetes mellitus [*11/30/2018 Screening for colon cancer [Z12.11] 11/30/2018 Gall stones [K80.20] 10/01/2020 Steatosis (HCC) [E88.89] 09/19/2023 Liver nodule [K76.89] 09/19/2023 Pancreatic mass [K86.89] 09/19/2023 Iron deficiency anemia due to chronic blood los*05/22/2024 Iron malabsorption [K90.9] 05/22/2024 Alcoholic cirrhosis (HCC) [K70.30] 02/27/2025 Multiple gastric ulcers [K25.9] 02/27/2025 History of insertion of pancreatic stent [Z98.8*02/27/2025 Primary insomnia [F51.01] 02/27/2025 Prescriptions ordered this encounter Disp Refills Start End TRAZODONE 50 MG TABLET 30 t* 1 02/27/2025 Route: PO Sig: Take 1 tablet by mouth daily at bedtime. Medications Discontinued During This Encounter Prescriptions - spironolactone (ALDACTONE) 25 mg tablet (Discontinued) Reported on 02/11/2025 - traZODone (DESYREL) 50 mg tablet (Discontinued) Take 1 tablet by mouth daily at bedtime. Disposition: Return if symptoms worsen or fail to improve. Follow-up and Disposition History for Encounter Date Provider Department Center 02/27/2025 [id number] KAN [facility] Letter Text Encounter Status:Closed by JAYSON KAN on 8/27/25 PROGRESS Observed: 02/27/2025 8:20 AM Status: COMPLETED Source: [facility] HNO ID: [id number] Author: JAYSON KAN MD Service: ? Author Type: Physician Type: Progress Notes Filed: 02/27/2025 11:09 Note Text: Chief Complaint Patient presents with: Follow Up: Abdominal pain; epigastric HPI Charlie Devlin is a 65 year old female who presents here today for a follow up. Patient recently seen by Dr. Jones for epigastric abdominal pain, bloating, and constipation for 2-3 months. Patient with hx of stage 4 cirrhosis, chronic pancreatitis, ulcers and cholelithiasis. Patient here today requesting a referral to GI in [place], across from the Hospital, possible [facility]. Pt reports she was never made aware by Dr. Gomez that the stent was to come out. She's had follow ups with him and CT's done since this was placed. Patient reports ongoing issues even with eating small amounts of food or drinks. She reports having increased fatigue and physical exhaustion, with taking naps during the day. Initially thought this was related to issues with her hiatal hernia. She's aware she has a large gallstone blocking ducts. Hx of pancreatic stent placed in 09/[address] Gomez, but was informed this should of been removed by now. Has upcoming appt with Dr. Gomez in March. Per Dr. Jones it was recommended to await upcoming visit with Dr. Gomez to remove pancreatic stent and to assess symptoms. A follow up appt was scheduled with Dr. Jones post-procedure to reassess symptoms and determine further management. Patient not a good historian. Charlie Devlin is a 65-year-old female with a history of pancreatitis, presenting for evaluation of a pancreatic stent placed in September 2023. Charlie reports a pancreatic stent was placed on 09/25/[address] Gomez due to recurrent episodes of pancreatitis and a pancreatic mass. She was informed that the stent would typically be removed within hours to 2-6 months post-placement. However, she has not had any follow-up regarding the stent removal and has only seen Dr. Gomez once since the procedure. She has undergone multiple CT scans, but the stent was not mentioned until a few weeks ago by Abdulkadir, a healthcare provider she consulted. Charlie has been attempting to contact Dr. Gomez's office for follow-up without success. She had an appointment scheduled with Dr. Gomez on 03/21/2024, but Dr. Jones advised her that the stent needs to be removed urgently. Dr. Jones also mentioned the possibility of referring her to another specialist for the stent removal. Charlie has a complex medical history, including multiple episodes of pancreatitis, liver issues, and gallstones. She was diagnosed with two stomach ulcers in 2023, which later increased to three, as confirmed by a CT scan in [place]. She has undergone two endoscopies and colonoscopies since September 2023 but has not had a follow-up scope to confirm the healing of the ulcers. In January of this year, an ER doctor in [place] suspected a third ulcer and recommended follow-up with a powder truck driver. Charlie attempted to schedule an appointment with Dr. Gomez but was unable to do so and instead consulted Abdulkadir. During her consultation with Abdulkadir, Charlie was informed about a possible hernia located between her upper rib cage, which could be contributing to her symptoms of bloating and constipation. Dr. Jones also mentioned the possibility of gallbladder removal but advised waiting until more information about the stomach ulcers is available. Charlie has a history of bleeding issues and was advised that any surgical procedures should be performed at the main campus. Past medical history, appointments, medications, allergies reviewed. Previous Medical History PAST MEDICAL HISTORY Diagnosis Date Alcohol abuse 11/30/2018 Was in [facility] in [place] for detox 10/13/2018 and now doing 180. Alcoholic cirrhosis (HCC) 02/27/2025 Stage 4 Cirrhosis (HCC) Diverticulosis Gall stones 10/01/2020 Hiatal hernia History of chicken pox History of insertion of pancreatic stent 02/27/202509/2023 History of skin cancer 11/30/[address] Arceo Iron deficiency anemia due to chronic blood loss 05/22/2024 Iron malabsorption (HCC) 05/22/2024 Multiple gastric ulcers 02/27/2025 Pancytopenia (HCC) Primary insomnia 02/27/2025 Previous Surgical History PAST SURGICAL HISTORY Procedure Laterality Date NONE PANCREATIC STENT,PLASTIC 09/19/2023 Family History FAMILY HISTORY Problem Relation Age of Onset Diabetes Father Type 1 Thyroid Father Hyperlipidemia Father Diabetes Brother Type 1 Hypertension Brother Diabetes Paternal Grandmother Colon Cancer No Family History Prostate Cancer No Family History Breast Cancer No Family History Ovarian cancer No Family History Uterine Cancer No Family History Coronary Artery Disease No Family History Kidney Disease No Family History Seizures No Family History Stroke No Family History Patient Allergies ALLERGIES Allergen Reactions Penicillins Rash Patient states has not had since childhood Current Medications Current Outpatient Medications on File Prior to Visit Medication Sig furosemide (LASIX) 40 mg tablet Take 1 tablet by mouth every 12 hours. omeprazole (PRILOSEC) 20 mg capsule Take 1 capsule by mouth once daily for 14 days. traZODone (DESYREL) 50 mg tablet Take 1 tablet by mouth daily at bedtime. ascorbic acid, vitamin C, (VITAMIN C) 500 mg tablet Take 1 tablet by mouth once daily. ferrous sulfate 325 mg (65 mg iron) tablet Take 1 tablet by mouth once daily. acetaminophen (TYLENOL EXTRA STRENGTH) 500 mg tablet Take 1,000 mg by mouth every 6 hours as needed. CONSTULOSE 10 gram/15 mL solution Take 10 g by mouth two times a day as needed. spironolactone (ALDACTONE) 25 mg tablet Take 1 tablet by mouth every 12 hours. (Patient not taking: Reported on 02/11/2025) No current facility-administered medications on file prior to visit. Social History SOCIAL HISTORY[1] Review of Symptoms REVIEW OF SYSTEMS SEE HPI EXAM: BP 116/72 (BP Site: Left Arm, BP Position: Sitting, BP Cuff Size: Regular Adult) Pulse 78 Resp 16 Wt 46.4 kg (102 lb 6.4 oz) LMP 12/30/2007 BMI 18.14 kg/m? General Appearance: Well appearing, alert, in no acute distress, well-hydrated, well nourished.. Abdomen: Normal abdominal exam, Abdomen soft, mild epigastric tenderness and what feels to be a defect in the area. No guarding or rebound tenderns. Bowel sounds normal. No masses, organomegaly. Health Maintenance List Hepatitis C Screening Never done HIV Screening Never done Hepatitis A Vaccine(1 of 2 - Risk 2-dose series) Never done Mammogram Screening Never done Hepatitis B Vaccine(3 of 3 - Risk 3-dose series) due on 07/20/2012 RSV Vaccine(1 - Risk 60-74 years 1-dose series) Never done Cervical Cancer Screening due on 08/12/2025 Pneumococcal Vaccine: 50+(1 of 2 - PCV) due on 08/10/2025 Influenza Vaccine(1) due on 03/04/2025 Depression Screening due on 08/10/2025 Anxiety Screening due on 08/10/2025 DTaP,Tdap,Td Vaccine(3 - Td or Tdap) due on 12/02/2026 Diabetes Screening due on 01/09/2028 Colorectal Cancer Screening due on 04/26/2029 Lipid Screening due on 08/10/2029 Shingrix Vaccine Completed Data reviewed Received last office note from Dr. Gomez's Gastro office regarding appt on 02/01/2025. She never mentioned to the provider the ER as concerned about another gastric ulcer. It also says in the notes she was to keep her follow up appt with Dr. Gomez to discuss repeat ERCP and possible removal of her pancreatic duct stent. Office note also mentions the presence of her ventral hernia. Results CT ABD/PEL W IVCON (Acc#[id number]) (Order [id number]) Patient Info Patient Name Sex Charlie Jacobo ([id number]) Female 1960 01/08/2025 5:00 PM - Radiology, [place] Impression IMPRESSION: Pneumobilia. Gallbladder stone. Stable pancreatic duct stent. Director Of Knowledge Management: YUN Transcribe Date/Time: Jan 08 2025 4:42P Dictated by : ANGELA SARKAR MD This examination was interpreted and the report reviewed and electronically signed by: ANGELA SARKAR MD on Jan 08 2025 4:57PM EST Results-Findings * * *Final Report* * * DATE OF EXAM: Jan 08 2025 4:31PM [facility] [place] 0530 - CT ABD/PEL W IVCON / PROCEDURE REASON: Abdominal pain, acute (Ped 0-18y) * * * * Physician Interpretation * * * * EXAMINATION: CT ABDOMEN AND PELVIS WITH IV CONTRAST CLINICAL HISTORY: Abdominal pain TECHNIQUE: CT of the abdomen and pelvis was performed using standard technique, scanning from just above the dome of the diaphragm to the symphysis pubis. MQ: CTAP_3 Contrast: IV: 100 ml of Omnipaque 350 CT Radiation dose: Integrated Dose-length product (DLP) for this visit = 131 mGy*cm. CT Dose Reduction Employed: Automated exposure control(AEC) and iterative recon COMPARISON: CT abdomen pelvis on 08/15/2024 RESULT: Liver: No mass. Biliary: No bile duct dilation. There appears be pneumobilia. A similar gallbladder stone visualized measuring 8 mm. Spleen: No mass. No splenomegaly. Pancreas: Stable pancreatic duct stent. No mass lesion seen. No peripancreatic fluid collection. Adrenals: No mass. Kidneys: No kidney mass, abnormal enhancement or hydroureteronephrosis. GI tract: Stable appearance of the duodenum and antrum of the stomach. The appendix is identified and normal in appearance. No diverticulitis or bowel obstruction. Lymph nodes: No abdominal or pelvic lymphadenopathy. Mesentery/Peritoneum: No ascites or mass or free abdominal air. Retroperitoneum: No mass. Vasculature: The celiac artery, SMA, TERESA, portal veins and hepatic veins are patent. Pelvis: No mass, ascites or fluid collection. Bones/Soft Tissues: Stable abdominal soft tissue. There are degenerative changes in the spine with multilevel disc space narrowing. Lower thorax: No pleural effusions. Lung bases are clear of consolidations. Localizer images: No additional findings. Assessment and Plan 1. Pancreatic mass (HCC) (K86.89) 2. Steatosis (HCC) (E88.89) 3. Alcoholic cirrhosis of liver without ascites (HCC) (K70.30) 4. History of insertion of pancreatic stent (Z98.890) Pancreatic stent placed in September 2023 for recurrent pancreatitis and pancreatic mass; stent remains in situ. - Discussed need for stent removal. - Refer to GI for stent removal and management of these other ongoing gastrointestinal issues. Consult to [facility] 5. Gall stones (K80.20) Multiple gallstones present, with at least one obstructing a duct. - Discussed potential need for cholecystectomy after stent removal. - derer management per General surgery 6. Multiple gastric ulcers (K25.9) Three gastric ulcers identified on CT scan in January 2024; no follow-up endoscopy performed to confirm healing. - Advised follow-up endoscopy to assess healing of gastric ulcers. Concult placed to gastro as above 7. Iron deficiency anemia due to chronic blood loss (D50.0) - consult t gastro 8. Primary insomnia (F51.01) - cont trazodone Requested Prescriptions Signed Prescriptions Disp Refills traZODone (DESYREL) 50 mg tablet 30 tablet 1 Sig: Take 1 tablet by mouth daily at bedtime. F/u next appt or sooner if needed. Jayson Kan MD I spent a total of 35 minutes on the date of the service which included preparing to see the patient, [id number] patient care, completing clinical documentation, performing a medically appropriate examination, counseling and educating the patient/family/caregiver and ordering medications, tests, or procedures. Recording using [employer] software for draft documentation of the visit was discussed with the patient/authorized artist's representative; all questions welcomed and answered. Patient/authorized artist's representative agreed to proceed [1] Social History Tobacco Use Smoking status: Never Passive exposure: Yes Smokeless tobacco: Never Vaping Use Vaping status: Never Used Substance Use Topics Alcohol use: Not Currently Comment: No alcohol since 09/10/23 Drug use: No PROGRESS Observed: 02/13/2025 10:41 AM Status: COMPLETED Source: [facility] ID: [id number] Author: KOBY JONES MD Service: ? Author Type: Physician Type: Progress Notes Filed: 02/13/2025 10:43 Note Text: HISTORY AND PHYSICAL Charlie Devlin 1960 REFERRING PHYSICIAN: Kaleigh Gonzalez PA-C CHIEF COMPLAINT: Consult (Gallstone, diastasis recti) HPI: Charlie Devlin is a 65-year-old female with a history of stage 4 cirrhosis, chronic pancreatitis, and cholelithiasis, presenting with epigastric pain, bloating, and constipation. Charlie reports a 2.5-3 month history of epigastric pain, bloating, and constipation. She notes that even small amounts of food or drink, such as a sip of water or dry toast, cause significant bloating and gas, which she is unable to expel. She initially thought these symptoms were related to her known hiatal hernia but was later informed by a healthcare provider that she has a huge hernia separate from the hiatal hernia. She also has a history of two ulcers and was told she might have a third. She is aware of a large gallstone blocking ducts. She has a pancreatic stent placed in September [address] Gomez and was recently informed that it should have been removed by now. She has an upcoming appointment with Dr. Gomez on March 21. She has a history of chronic pancreatitis, which she attributes to long-term alcohol use. She was diagnosed with stage 4 cirrhosis and had a paracentesis about 1.5 years ago. She reports increased fatigue and physical exhaustion, stating that she feels more tired now than when she was diagnosed with cirrhosis. She has been taking naps during the day due to this fatigue. The patient is being seen by me today at the request of Dr. Gonzalez for my opinion and advice regarding Abdominal pain, epigastric Calculus of gallbladder with acute on chronic cholecystitis with obstruction. PAST MEDICAL HISTORY Diagnosis Date Alcohol abuse 11/30/2018 Was in [facility] in [place] for detox 10/13/2018 and now doing 180. Cirrhosis (HCC) Diverticulosis Gall stones 10/01/2020 Hiatal hernia History of chicken pox History of skin cancer 11/30/[address] Arceo Iron deficiency anemia due to chronic blood loss 05/22/2024 Iron malabsorption (HCC) 05/22/2024 Pancytopenia (HCC) PAST SURGICAL HISTORY Procedure Laterality Date NONE PANCREATIC STENT,PLASTIC 09/19/2023 Current Outpatient Medications Medication Sig furosemide (LASIX) 40 mg tablet Take 1 tablet by mouth every 12 hours. omeprazole (PRILOSEC) 20 mg capsule Take 1 capsule by mouth once daily for 14 days. traZODone (DESYREL) 50 mg tablet Take 1 tablet by mouth daily at bedtime. ascorbic acid, vitamin C, (VITAMIN C) 500 mg tablet Take 1 tablet by mouth once daily. ferrous sulfate 325 mg (65 mg iron) tablet Take 1 tablet by mouth once daily. acetaminophen (TYLENOL EXTRA STRENGTH) 500 mg tablet Take 1,000 mg by mouth every 6 hours as needed. CONSTULOSE 10 gram/15 mL solution Take 10 g by mouth two times a day as needed. spironolactone (ALDACTONE) 25 mg tablet Take 1 tablet by mouth every 12 hours. (Patient not taking: Reported on 02/11/2025) No current facility-administered medications for this visit. ALLERGIES: Penicillins PERSONAL HISTORY: SOCIAL HISTORY[1] FAMILY HISTORY: FAMILY HISTORY Problem Relation Age of Onset Diabetes Father Type 1 Thyroid Father Hyperlipidemia Father Diabetes Brother Type 1 Hypertension Brother Diabetes Paternal Grandmother Colon Cancer No Family History Prostate Cancer No Family History Breast Cancer No Family History Ovarian cancer No Family History Uterine Cancer No Family History Coronary Artery Disease No Family History Kidney Disease No Family History Seizures No Family History Stroke No Family History REVIEW OF SYMPTOMS: The review of systems data was entered by the nurse and reviewed by me There are no exam notes on file for this visit. PHYSICAL EXAMINATION: General: The patient is 65 year old female, well nourished, well hydrated in no acute distress. The patient is oriented to time, place, and person. VITALS: Blood pressure 100/62, pulse 93, temperature 36.2 ?C (97.1 ?F), weight 45.5 kg (100 lb 3.2 oz), last menstrual period 12/30/2007, SpO2 97%. HEENT: Normal cephalic, ataumatic, pupils are equally round, sclera are anicteric, mucous membranes are moist, oropharynx is clear. Neck has no masses, asymmetry or lymphadenopathy. Thyroid is unremarkable. Respiratory: Clear to auscultation and percussion. Normal respiratory excursion and pattern. Cardiac: Examination is regular rate and rhythm. Abdominal exam: Soft, nontender, with no palpable masses. No hepatosplenomegaly. No palpable hernias. Rectal exam: exam deferred Extremities: no clubbing, cyanosis or edema. No adenopathy. Other: LABORATORY VALUES: As Noted RADIOLOGIC STUDIES: As Noted Assessment IMPRESSION: Abdominal pain, epigastric Calculus of gallbladder with acute on chronic cholecystitis with obstruction PLAN: 1. Abdominal pain, epigastric (R10.13) Persistent epigastric pain with associated bloating and inability to expel gas. Previous CT scan indicated presence of ulcers. Patient has a history of pancreatitis and stage 4 cirrhosis. - Await removal of pancreatic stents by Dr. Gomez on March 21 to assess symptom resolution. - Dr. Gomez to evaluate for additional ulcers in the stomach or duodenum during stent removal. - Follow-up appointment scheduled post-procedure to reassess symptoms and determine further management. 2. Calculus of gallbladder with acute on chronic cholecystitis with obstruction (K80.13) Presence of large gallstones causing obstruction. High risk for bleeding due to stage 4 cirrhosis. - Monitor symptoms post-stent removal. - If symptoms persist, referral to a hepatobiliary surgeon at the main campus for potential cholecystectomy. - Discussed high risk of bleeding during surgery due to cirrhosis; emphasized the need for immediate availability of blood products. Diagnoses: (R10.13) Abdominal pain, epigastric (K80.13) Calculus of gallbladder with acute on chronic cholecystitis with obstruction My findings have been communicated to Dr. Gonzalez via shared medical record. This note will be forwarded to Dr. Jayson Kan MD. Return to Clinic: The patient is instructed to follow-up with me after the testing has been completed. Koby Jones III, MD [1] Social History Tobacco Use Smoking status: Never Passive exposure: Yes Smokeless tobacco: Never Vaping Use Vaping status: Never Used Substance Use Topics Alcohol use: Not Currently Comment: No alcohol since 09/10/23 Drug use: No CNOV Observed: 02/11/2025 2:30 PM Status: COMPLETED Source: [facility] Office Visit ([facility]) CHARLIE DEVLIN ([id number]) 1960 F Date Time Provider Department 02/11/25 2:30 PM KOBY JONES During your visit today, we recorded the following information about you: Temperature Pulse Blood pressure Weight 97.1 degrees 93/minute 100/62 45.5 kg Koby Jones MD 02/13/2025 10:43 AM Signed HISTORY AND PHYSICAL Charlie Devlin 1960 REFERRING PHYSICIAN: Kaleigh Gonzalez PA-C CHIEF COMPLAINT: Consult (Gallstone, diastasis recti) HPI: Charlie Devlin is a 65-year-old female with a history of stage 4 cirrhosis, chronic pancreatitis, and cholelithiasis, presenting with epigastric pain, bloating, and constipation. Charlie reports a 2.5-3 month history of epigastric pain, bloating, and constipation. She notes that even small amounts of food or drink, such as a sip of water or dry toast, cause significant bloating and gas, which she is unable to expel. She initially thought these symptoms were related to her known hiatal hernia but was later informed by a healthcare provider that she has a huge hernia separate from the hiatal hernia. She also has a history of two ulcers and was told she might have a third. She is aware of a large gallstone blocking ducts. She has a pancreatic stent placed in September [address] Gomez and was recently informed that it should have been removed by now. She has an upcoming appointment with Dr. Gomez on March 21. She has a history of chronic pancreatitis, which she attributes to long-term alcohol use. She was diagnosed with stage 4 cirrhosis and had a paracentesis about 1.5 years ago. She reports increased fatigue and physical exhaustion, stating that she feels more tired now than when she was diagnosed with cirrhosis. She has been taking naps during the day due to this fatigue. The patient is being seen by me today at the request of Dr. Gonzalez for my opinion and advice regarding Abdominal pain, epigastric Calculus of gallbladder with acute on chronic cholecystitis with obstruction. PAST MEDICAL HISTORY Diagnosis Date Alcohol abuse 11/30/2018 Was in [facility] in [place] for detox 10/13/2018 and now doing 180. Cirrhosis (HCC) Diverticulosis Gall stones 10/01/2020 Hiatal hernia History of chicken pox History of skin cancer 11/30/[address] Arceo Iron deficiency anemia due to chronic blood loss 05/22/2024 Iron malabsorption (HCC) 05/22/2024 Pancytopenia (HCC) PAST SURGICAL HISTORY Procedure Laterality Date NONE PANCREATIC STENT,PLASTIC 09/19/2023 Current Outpatient Medications Medication Sig furosemide (LASIX) 40 mg tablet Take 1 tablet by mouth every 12 hours. omeprazole (PRILOSEC) 20 mg capsule Take 1 capsule by mouth once daily for 14 days. traZODone (DESYREL) 50 mg tablet Take 1 tablet by mouth daily at bedtime. ascorbic acid, vitamin C, (VITAMIN C) 500 mg tablet Take 1 tablet by mouth once daily. ferrous sulfate 325 mg (65 mg iron) tablet Take 1 tablet by mouth once daily. acetaminophen (TYLENOL EXTRA STRENGTH) 500 mg tablet Take 1,000 mg by mouth every 6 hours as needed. CONSTULOSE 10 gram/15 mL solution Take 10 g by mouth two times a day as needed. spironolactone (ALDACTONE) 25 mg tablet Take 1 tablet by mouth every 12 hours. (Patient not taking: Reported on 02/11/2025) No current facility-administered medications for this visit. ALLERGIES: Penicillins PERSONAL HISTORY: SOCIAL HISTORY[1] FAMILY HISTORY: FAMILY HISTORY Problem Relation Age of Onset Diabetes Father Type 1 Thyroid Father Hyperlipidemia Father Diabetes Brother Type 1 Hypertension Brother Diabetes Paternal Grandmother Colon Cancer No Family History Prostate Cancer No Family History Breast Cancer No Family History Ovarian cancer No Family History Uterine Cancer No Family History Coronary Artery Disease No Family History Kidney Disease No Family History Seizures No Family History Stroke No Family History REVIEW OF SYMPTOMS: The review of systems data was entered by the nurse and reviewed by me There are no exam notes on file for this visit. PHYSICAL EXAMINATION: General: The patient is 65 year old female, well nourished, well hydrated in no acute distress. The patient is oriented to time, place, and person. VITALS: Blood pressure 100/62, pulse 93, temperature 36.2 ?C (97.1 ?F), weight 45.5 kg (100 lb 3.2 oz), last menstrual period 12/30/2007, SpO2 97%. HEENT: Normal cephalic, ataumatic, pupils are equally round, sclera are anicteric, mucous membranes are moist, oropharynx is clear. Neck has no masses, asymmetry or lymphadenopathy. Thyroid is unremarkable. Respiratory: Clear to auscultation and percussion. Normal respiratory excursion and pattern. Cardiac: Examination is regular rate and rhythm. Abdominal exam: Soft, nontender, with no palpable masses. No hepatosplenomegaly. No palpable hernias. Rectal exam: exam deferred Extremities: no clubbing, cyanosis or edema. No adenopathy. Other: LABORATORY VALUES: As Noted RADIOLOGIC STUDIES: As Noted Assessment IMPRESSION: Abdominal pain, epigastric Calculus of gallbladder with acute on chronic cholecystitis with obstruction PLAN: 1. Abdominal pain, epigastric (R10.13) Persistent epigastric pain with associated bloating and inability to expel gas. Previous CT scan indicated presence of ulcers. Patient has a history of pancreatitis and stage 4 cirrhosis. - Await removal of pancreatic stents by Dr. Gomez on March 21 to assess symptom resolution. - Dr. Gomez to evaluate for additional ulcers in the stomach or duodenum during stent removal. - Follow-up appointment scheduled post-procedure to reassess symptoms and determine further management. 2. Calculus of gallbladder with acute on chronic cholecystitis with obstruction (K80.13) Presence of large gallstones causing obstruction. High risk for bleeding due to stage 4 cirrhosis. - Monitor symptoms post-stent removal. - If symptoms persist, referral to a hepatobiliary surgeon at the main campus for potential cholecystectomy. - Discussed high risk of bleeding during surgery due to cirrhosis; emphasized the need for immediate availability of blood products. Diagnoses: (R10.13) Abdominal pain, epigastric (K80.13) Calculus of gallbladder with acute on chronic cholecystitis with obstruction My findings have been communicated to Dr. Gonzalez via shared medical record. This note will be forwarded to Dr. Jayson Kan MD. Return to Clinic: The patient is instructed to follow-up with me after the testing has been completed. Koby Jones III, MD [1] Social History Tobacco Use Smoking status: Never Passive exposure: Yes Smokeless tobacco: Never Vaping Use Vaping status: Never Used Substance Use Topics Alcohol use: Not Currently Comment: No alcohol since 09/10/23 Drug use: No Referring Provider: KALEIGH GONZALEZ [[id number]] Allergies As of Date: 02/11/2025 Noted Allergy Reaction PENICILLINS 12/30/2011 2 - Rash Comments: Patient states has not had since childhood Date Reviewed: 02/11/2025 Reviewed by: Geovanni Mina RN - Fully Assessed Reason for Visit: Consult [173] Cmt: Gallstone, diastasis recti Visit Diagnoses:Abdominal pain, epigastric [R10.13] Calculus of gallbladder with acute on chronic cholecystitis with obstruction [K80.13] Order(s):CONSULT TO GENERAL SURGERY [9011] Order #: [id number]: 1 Prescriptions as of 02/13/2025 - furosemide (LASIX) 40 mg tablet Take 1 tablet by mouth every 12 hours. - omeprazole (PRILOSEC) 20 mg capsule Take 1 capsule by mouth once daily for 14 days. - traZODone (DESYREL) 50 mg tablet Take 1 tablet by mouth daily at bedtime. - ascorbic acid, vitamin C, (VITAMIN C) 500 mg tablet Take 1 tablet by mouth once daily. - ferrous sulfate 325 mg (65 mg iron) tablet Take 1 tablet by mouth once daily. - acetaminophen (TYLENOL EXTRA STRENGTH) 500 mg tablet Take 1,000 mg by mouth every 6 hours as needed. - CONSTULOSE 10 gram/15 mL solution Take 10 g by mouth two times a day as needed. - spironolactone (ALDACTONE) 25 mg tablet Take 1 tablet by mouth every 12 hours. Problem List As Of Date 02/11/2025 Noted Resolved Alcohol abuse [F10.10] 11/30/2018 History of skin cancer [Z85.828] 11/30/2018 Well adult exam [Z00.00] 11/30/2018 Encounter for screening for diabetes mellitus [*11/30/2018 Screening for colon cancer [Z12.11] 11/30/2018 Gall stones [K80.20] 10/01/2020 Steatosis (HCC) [E88.89] 09/19/2023 Liver nodule [K76.89] 09/19/2023 Pancreatic mass [K86.89] 09/19/2023 Iron deficiency anemia due to chronic blood los*05/22/2024 Iron malabsorption [K90.9] 05/22/2024 Encounter Status:Closed by KOBY JONES on 02/13/25 CNPN Observed: 02/05/2025 12:00 AM Status: COMPLETED Source: [facility] Telephone (Plat[employer]) CHARLIE DEVLIN ([id number]) 1960 F Date Time Provider Department 02/05/25 KOBY JONES [employer] During your visit today, we recorded the following information about you: Geovanni Mina RN 02/05/2025 4:35 PM Signed Images requested from [facility].Geovanni Mina RN Allergies As of Date: 02/05/2025 Noted Allergy Reaction PENICILLINS 12/30/2011 2 - Rash Comments: Patient states has not had since childhood Date Reviewed: 01/29/2025 Reviewed by: Corbin Wellington LPN - Fully Assessed Reason for Visit: Request Outside Medical Records [[id number]] Prescriptions as of 2025 - furosemide (LASIX) 40 mg tablet Take 1 tablet by mouth every 12 hours. - omeprazole (PRILOSEC) 20 mg capsule Take 1 capsule by mouth once daily for 14 days. - traZODone (DESYREL) 50 mg tablet Take 1 tablet by mouth daily at bedtime. - ascorbic acid, vitamin C, (VITAMIN C) 500 mg tablet Take 1 tablet by mouth once daily. - ferrous sulfate 325 mg (65 mg iron) tablet Take 1 tablet by mouth once daily. - acetaminophen (TYLENOL EXTRA STRENGTH) 500 mg tablet Take 1,000 mg by mouth every 6 hours as needed. - CONSTULOSE 10 gram/15 mL solution Take 10 g by mouth two times a day as needed. - spironolactone (ALDACTONE) 25 mg tablet Take 1 tablet by mouth every 12 hours. 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 Update 01.30.25- Gen. Surg. Web portal call left message as well as sent email with phone numbers for pt. To call for appt. Note:Ulcers and Hiatal Hernia Allergies As of Date: 01/30/2025 Noted Allergy Reaction PENICILLINS 12/30/2011 2 - Rash Comments: Patient states has not had since childhood Date Reviewed: 01/29/2025 Reviewed by: Corbin Wellington LPN - Fully Assessed Reason for Visit: Appointment [186] Cmt: General Surgery Prescriptions as of 01/30/2025 - furosemide (LASIX) 40 mg tablet Take 1 tablet by mouth every 12 hours. - omeprazole (PRILOSEC) 20 mg capsule Take 1 capsule by mouth once daily for 14 days. - traZODone (DESYREL) 50 mg tablet Take 1 tablet by mouth daily at bedtime. - ascorbic acid, vitamin C, (VITAMIN C) 500 mg tablet Take 1 tablet by mouth once daily. - ferrous sulfate 325 mg (65 mg iron) tablet Take 1 tablet by mouth once daily. - acetaminophen (TYLENOL EXTRA STRENGTH) 500 mg tablet Take 1,000 mg by mouth every 6 hours as needed. - CONSTULOSE 10 gram/15 mL solution Take 10 g by mouth two times a day as needed. - spironolactone (ALDACTONE) 25 mg tablet Take 1 tablet by mouth every 12 hours. 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 Author Type: Physician Database Development Project Manager Type: Progress Notes Filed: 01/29/2025 10:05 Note Text: Chief Complaint Patient presents with: Abdominal Pain: X 2 months HPI Charlie Devlin is a 64 year old female who presents here today for Above Complaints.. Abdominal Pain and Bloating: - Charlie reports a palpable lump in the abdomen, visible when not bloated; suspects it may be related to her hiatal hernia. - Describes the lump as bulging out at times and tucking back under at other times. - Pain localized to the left upper quadrant, described as similar to a broken rib. - Pain exacerbated by bending over; requires manual pressure to alleviate discomfort. - Denies known trauma. - Recent CT scan revealed a gallstone; Charlie was previously informed of a large gallstone blocking a duct. - History of hiatal hernia diagnosis. - Last seen by Dr. Gomez, a powder truck driver, in April 2024; has had difficulty scheduling follow-up appointments. Constipation: - Charlie has not had a semi-solid or normal bowel movement in approximately two months. - Taking [id number] gentle laxatives and lactulose with minimal relief. - Reports excessive use of laxatives, taking up to 15 hours to produce a bowel movement. - Describes feeling bloated and unable to release air or stool. - Has stopped doing sit-ups due to discomfort; reports discomfort with leg extensions as well. Past medical history, appointments, medications, allergies reviewed. Previous Medical History PAST MEDICAL HISTORY Diagnosis Date Alcohol abuse 11/30/2018 Was in [facility] in [place] for detox 10/13/2018 and now doing 180. Cirrhosis (HCC) Diverticulosis Gall stones 10/01/2020 Hiatal hernia History of chicken pox History of skin cancer 11/30/[address] Arceo Iron deficiency anemia due to chronic blood loss 05/22/2024 Iron malabsorption (HCC) 05/22/2024 Pancytopenia (HCC) Previous Surgical History PAST SURGICAL HISTORY Procedure Laterality Date NONE Family History FAMILY HISTORY Problem Relation Age of Onset Diabetes Father Type 1 Thyroid Father Hyperlipidemia Father Diabetes Brother Type 1 Hypertension Brother Diabetes Paternal Grandmother Colon Cancer No Family History Prostate Cancer No Family History Breast Cancer No Family History Ovarian cancer No Family History Uterine Cancer No Family History Coronary Artery Disease No Family History Kidney Disease No Family History Seizures No Family History Stroke No Family History Patient Allergies ALLERGIES Allergen Reactions Penicillins Rash Patient states has not had since childhood Current Medications Current Outpatient Medications on File Prior to Visit Medication Sig traZODone (DESYREL) 50 mg tablet Take 1 tablet by mouth daily at bedtime. ascorbic acid, vitamin C, (VITAMIN C) 500 mg tablet Take 1 tablet by mouth once daily. ferrous sulfate 325 mg (65 mg iron) tablet Take 1 tablet by mouth once daily. CONSTULOSE 10 gram/15 mL solution Take 10 g by mouth two times a day as needed. spironolactone (ALDACTONE) 25 mg tablet Take 1 tablet by mouth every 12 hours. omeprazole (PRILOSEC) 20 mg capsule Take 1 capsule by mouth once daily for 14 days. acetaminophen (TYLENOL EXTRA STRENGTH) 500 mg tablet Take 1,000 mg by mouth every 6 hours as needed. No current facility-administered medications on file prior to visit. Social History Social History Tobacco Use Smoking status: Never Passive exposure: Yes Smokeless tobacco: Never Vaping Use Vaping status: Never Used Substance Use Topics Alcohol use: No Comment: No alcohol since 09/10/23 Drug use: No Review of Symptoms REVIEW OF SYSTEMS SEE HPI EXAM: BP 90/64 (BP Site: Left Arm, BP Position: Sitting, BP Cuff Size: Regular Adult) Pulse 81 Temp 36.9 ?C (98.4 ?F) Resp 16 Wt 45.4 kg (100 lb) LMP 12/30/2007 SpO2 97% BMI 17.71 kg/m? General Appearance: Well appearing, alert, in no acute distress, well-hydrated, well nourished.. Lungs: Lungs clear to auscultation. No wheezing, rhonchi, rales.. Heart: RRR without murmur, gallop, or rubs. No ectopy. Abdomen: diastasis recti observed. Area of tenderness may be muscle vs hernia. No obvious hernia felt on exam today. Tenderness noted in the right upper quadrant also. No rebound tenderness or guarding. Bowel sounds present. Health Maintenance List Hepatitis C Screening Never done HIV Screening Never done Hepatitis A Vaccine(1 of 2 - Risk 2-dose series) Never done Mammogram Screening Never done Hepatitis B Vaccine(3 of 3 - Risk 3-dose series) due on 07/20/2012 RSV Vaccine(1 - Risk 60-74 years 1-dose series) Never done Pneumococcal Vaccine: 50+(1 of 2 - PCV) due on 08/10/2025 Influenza Vaccine(1) due on 03/04/2025 Depression Screening due on 08/10/2025 Anxiety Screening due on 08/10/2025 Cervical Cancer Screening due on 08/12/2025 DTaP,Tdap,Td Vaccine(3 - Td or Tdap) due on 12/02/2026 Diabetes Screening due on 01/09/2028 Colorectal Cancer Screening due on 04/26/2029 Lipid Screening due on 08/10/2029 Shingrix Vaccine Completed Data reviewed CT abd/pelv 01/2025 IMPRESSION: Pneumobilia. Gallbladder stone. Stable pancreatic duct stent. Assessment and Plan 1. Epigastric pain (R10.13) 2. Diastasis recti (M62.08) - Exam findings consistent with diastasis recti; differential includes possible abdominal wall hernia. - Refer to surgical team for further evaluation to determine if surgical intervention or physical therapy is indicated. - Educated patient on diastasis recti, including its relation to and potential for muscle separation; advised that sit-ups may exacerbate symptoms. 3. Chronic constipation (K59.09) - Chronic constipation not responsive to current regimen of OTC gentle laxative and lactulose. - Refer to gastroenterology for further evaluation and management. - Will attempt to facilitate follow-up with Dr. Gomez's office; patient open to seeing another powder truck driver if necessary. 4. 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 - Provided reassurance that current symptoms are not consistent with ascites recurrence. 5. Gall stones (K80.20) - History of gallstones with prior imaging showing a large stone blocking a duct. - Previous HIDA scan in 2022 was normal. Kaleigh Gonzalez PA-C Recording using [employer] software for draft documentation of the visit was discussed with the patient/authorized artist's representative; all questions welcomed and answered. Patient/authorized artist's representative agreed to proceed CNOV Observed: 01/29/2025 8:00 AM Status: COMPLETED Source: [facility] CHARLIE DEVLIN ([id number]) 1960 F Date Time Provider Department 01/29/25 8:00 AM KALEIGH GONZALEZ During your visit today, we recorded the following information about you: Temperature Pulse Respiration Blood pressure 98.4 degrees 81/minute 16/minute 90/64 Weight 45.4 kg Kaleigh Gonzalez PA-C 01/29/2025 10:05 AM Signed Chief Complaint Patient presents with: Abdominal Pain: X 2 months HPI Charlie Devlin is a 64 year old female who presents here today for Above Complaints.. Abdominal Pain and Bloating: - Charlie reports a palpable lump in the abdomen, visible when not bloated; suspects it may be related to her hiatal hernia. - Describes the lump as bulging out at times and tucking back under at other times. - Pain localized to the left upper quadrant, described as similar to a broken rib. - Pain exacerbated by bending over; requires manual pressure to alleviate discomfort. - Denies known trauma. - Recent CT scan revealed a gallstone; Charlie was previously informed of a large gallstone blocking a duct. - History of hiatal hernia diagnosis. - Last seen by Dr. Gomez, a powder truck driver, in April 2024; has had difficulty scheduling follow-up appointments. Constipation: - Charlie has not had a semi-solid or normal bowel movement in approximately two months. - Taking [id number] gentle laxatives and lactulose with minimal relief. - Reports excessive use of laxatives, taking up to 15 hours to produce a bowel movement. - Describes feeling bloated and unable to release air or stool. - Has stopped doing sit-ups due to discomfort; reports discomfort with leg extensions as well. Past medical history, appointments, medications, allergies reviewed. Previous Medical History PAST MEDICAL HISTORY Diagnosis Date Alcohol abuse 11/30/2018 Was in [facility] in [place] for detox 10/13/2018 and now doing 180. Cirrhosis (HCC) Diverticulosis Gall stones 10/01/2020 Hiatal hernia History of chicken pox History of skin cancer 11/30/[address] Arceo Iron deficiency anemia due to chronic blood loss 05/22/2024 Iron malabsorption (HCC) 05/22/2024 Pancytopenia (HCC) Previous Surgical History PAST SURGICAL HISTORY Procedure Laterality Date NONE Family History FAMILY HISTORY Problem Relation Age of Onset Diabetes Father Type 1 Thyroid Father Hyperlipidemia Father Diabetes Brother Type 1 Hypertension Brother Diabetes Paternal Grandmother Colon Cancer No Family History Prostate Cancer No Family History Breast Cancer No Family History Ovarian cancer No Family History Uterine Cancer No Family History Coronary Artery Disease No Family History Kidney Disease No Family History Seizures No Family History Stroke No Family History Patient Allergies ALLERGIES Allergen Reactions Penicillins Rash Patient states has not had since childhood Current Medications Current Outpatient Medications on File Prior to Visit Medication Sig traZODone (DESYREL) 50 mg tablet Take 1 tablet by mouth daily at bedtime. ascorbic acid, vitamin C, (VITAMIN C) 500 mg tablet Take 1 tablet by mouth once daily. ferrous sulfate 325 mg (65 mg iron) tablet Take 1 tablet by mouth once daily. CONSTULOSE 10 gram/15 mL solution Take 10 g by mouth two times a day as needed. spironolactone (ALDACTONE) 25 mg tablet Take 1 tablet by mouth every 12 hours. omeprazole (PRILOSEC) 20 mg capsule Take 1 capsule by mouth once daily for 14 days. acetaminophen (TYLENOL EXTRA STRENGTH) 500 mg tablet Take 1,000 mg by mouth every 6 hours as needed. No current facility-administered medications on file prior to visit. Social History Social History Tobacco Use Smoking status: Never Passive exposure: Yes Smokeless tobacco: Never Vaping Use Vaping status: Never Used Substance Use Topics Alcohol use: No Comment: No alcohol since 09/10/23 Drug use: No Review of Symptoms REVIEW OF SYSTEMS SEE HPI EXAM: BP 90/64 (BP Site: Left Arm, BP Position: Sitting, BP Cuff Size: Regular Adult) Pulse 81 Temp 36.9 ?C (98.4 ?F) Resp 16 Wt 45.4 kg (100 lb) LMP 12/30/2007 SpO2 97% BMI 17.71 kg/m? General Appearance: Well appearing, alert, in no acute distress, well-hydrated, well nourished.. Lungs: Lungs clear to auscultation. No wheezing, rhonchi, rales.. Heart: RRR without murmur, gallop, or rubs. No ectopy. Abdomen: diastasis recti observed. Area of tenderness may be muscle vs hernia. No obvious hernia felt on exam today. Tenderness noted in the right upper quadrant also. No rebound tenderness or guarding. Bowel sounds present. Health Maintenance List Hepatitis C Screening Never done HIV Screening Never done Hepatitis A Vaccine(1 of 2 - Risk 2-dose series) Never done Mammogram Screening Never done Hepatitis B Vaccine(3 of 3 - Risk 3-dose series) due on 07/20/2012 RSV Vaccine(1 - Risk 60-74 years 1-dose series) Never done Pneumococcal Vaccine: 50+(1 of 2 - PCV) due on 08/10/2025 Influenza Vaccine(1) due on 03/04/2025 Depression Screening due on 08/10/2025 Anxiety Screening due on 08/10/2025 Cervical Cancer Screening due on 08/12/2025 DTaP,Tdap,Td Vaccine(3 - Td or Tdap) due on 12/02/2026 Diabetes Screening due on 01/09/2028 Colorectal Cancer Screening due on 04/26/2029 Lipid Screening due on 08/10/2029 Shingrix Vaccine Completed Data reviewed CT abd/pelv 01/2025 IMPRESSION: Pneumobilia. Gallbladder stone. Stable pancreatic duct stent. Assessment and Plan 1. Epigastric pain (R10.13) 2. Diastasis recti (M62.08) - Exam findings consistent with diastasis recti; differential includes possible abdominal wall hernia. - Refer to surgical team for further evaluation to determine if surgical intervention or physical therapy is indicated. - Educated patient on diastasis recti, including its relation to and potential for muscle separation; advised that sit-ups may exacerbate symptoms. 3. Chronic constipation (K59.09) - Chronic constipation not responsive to current regimen of OTC gentle laxative and lactulose. - Refer to gastroenterology for further evaluation and management. - Will attempt to facilitate follow-up with Dr. Gomez's office; patient open to seeing another powder truck driver if necessary. 4. 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 - Provided reassurance that current symptoms are not consistent with ascites recurrence. 5. Gall stones (K80.20) - History of gallstones with prior imaging showing a large stone blocking a duct. - Previous HIDA scan in 2022 was normal. Kaleigh Gonzalez PA-C Recording using [employer] software for draft documentation of the visit was discussed with the patient/authorized artist's representative; all questions welcomed and answered. Patient/authorized artist's representative agreed to proceed Allergies As of Date: 01/29/2025 Noted Allergy Reaction PENICILLINS 12/30/2011 2 - Rash Comments: Patient states has not had since childhood Date Reviewed: 01/29/2025 Reviewed by: Corbin Wellington LPN - Fully Assessed Reason for Visit: Abdominal Pain [1] Cmt: X 2 months Primary Visit Diagnosis:Epigastric pain [R10.13] Other Visit Diagnoses:Diastasis recti [M62.08] Chronic constipation [K59.09] Ascites due to alcoholic cirrhosis (HCC) [K70.31] Gall stones [K80.20] Order(s):furosemide (LASIX) 40 mg tabletTake 1 tablet by mouth every 12 hours.Disp: 180 tabletRfl: 1 CONSULT TO GASTROENTEROLOGY [9010] Order #: [id number]: 1 FUTURE CONSULT TO GENERAL SURGERY [9011] Order #: [id number]: 1 FUTURE Prescriptions as of 01/29/2025 - furosemide (LASIX) 40 mg tablet Take 1 tablet by mouth every 12 hours. - omeprazole (PRILOSEC) 20 mg capsule Take 1 capsule by mouth once daily for 14 days. - traZODone (DESYREL) 50 mg tablet Take 1 tablet by mouth daily at bedtime. - ascorbic acid, vitamin C, (VITAMIN C) 500 mg tablet Take 1 tablet by mouth once daily. - ferrous sulfate 325 mg (65 mg iron) tablet Take 1 tablet by mouth once daily. - acetaminophen (TYLENOL EXTRA STRENGTH) 500 mg tablet Take 1,000 mg by mouth every 6 hours as needed. - CONSTULOSE 10 gram/15 mL solution Take 10 g by mouth two times a day as needed. - spironolactone (ALDACTONE) 25 mg tablet Take 1 tablet by mouth every 12 hours. Problem List As Of Date 01/29/2025 Noted Resolved Alcohol abuse [F10.10] 11/30/2018 History of skin cancer [Z85.828] 11/30/2018 Well adult exam [Z00.00] 11/30/2018 Encounter for screening for diabetes mellitus [*11/30/2018 Screening for colon cancer [Z12.11] 11/30/2018 Gall stones [K80.20] 10/01/2020 Steatosis (HCC) [E88.89] 09/19/2023 Liver nodule [K76.89] 09/19/2023 Pancreatic mass [K86.89] 09/19/2023 Iron deficiency anemia due to chronic blood los*05/22/2024 Iron malabsorption [K90.9] 05/22/2024 Prescriptions ordered this encounter Disp Refills Start End FUROSEMIDE 40 MG TABLET 180 * 1 01/29/2025 Route: PO Sig: Take 1 tablet by mouth every 12 hours. Medications Discontinued During This Encounter Prescriptions - furosemide (LASIX) 40 mg tablet (Discontinued) Take 1 tablet by mouth every 12 hours. Encounter Status:Closed by KALEIGH NASSAR on 01/29/25 ED NOTE Observed: 01/08/2025 8:13 PM Status: COMPLETED Source: [facility] HNO ID: [id number] Author: THOR MEMBRENO RN Service: Nursing Author Type: Registered Nurse Type: ED Notes Filed: 01/08/2025 20:14 Note Text: .Patient discharged, given verbal and written discharge instructions. Patient verbalized understanding. Nurse discussed medication (Prilosec) that were prescribed and follow up appointments (GI) and signs/symptoms of worsening conditions, and reasons why to come back to the emergency department. ED PROV NOTE Observed: 01/08/2025 7:54 PM Status: COMPLETED Source: [facility] HNO ID: [id number] Author: SALLY GIL PA-C Service: ? Author Type: Physician Database Development Project Manager Type: ED Provider Notes Filed: 01/08/2025 20:07 Note Text: ED Provider Note Patient Name: Charlie Devlin : 1960 SERVICE DATE: 01/08/25 History Patient presents with: Abdominal Pain: ABD bloating x 2 weeks, hx of cirrhosis, has been taking lactulose. Sent by Urgent Care for eval. 64-year-old female with a past medical history of alcohol cirrhosis, no longer drinks, presents to the ED for epigastric abdominal pain x 2 weeks, patient also complains of abdominal bloating, has not drank alcohol for about a year now, states that she is not passing gas and has had decreased bowel movements, she has no abdominal surgeries but did have a stent in the pancreatic ductin 2023 PAST MEDICAL HISTORY Diagnosis Date Alcohol abuse 11/30/2018 Was in [facility] in [place] for detox 10/13/2018 and now doing 180. Cirrhosis (HCC) Diverticulosis Gall stones 10/01/2020 Hiatal hernia History of chicken pox History of skin cancer 11/30/[address] Arceo Iron deficiency anemia due to chronic blood loss 05/22/2024 Iron malabsorption 05/22/2024 Pancytopenia (HCC) PAST SURGICAL HISTORY Procedure Laterality Date NONE FAMILY HISTORY Problem Relation Age of Onset Diabetes Father Type 1 Thyroid Father Hyperlipidemia Father Diabetes Brother Type 1 Hypertension Brother Diabetes Paternal Grandmother Colon Cancer No Family History Prostate Cancer No Family History Breast Cancer No Family History Ovarian cancer No Family History Uterine Cancer No Family History Coronary Artery Disease No Family History Kidney Disease No Family History Seizures No Family History Stroke No Family History Social History Tobacco Use Smoking status: Never Passive exposure: Yes Smokeless tobacco: Never Vaping Use Vaping status: Never Used Substance and Sexual Activity Alcohol use: No Comment: No alcohol since 09/10/23 Drug use: No Sexual activity: Never ALLERGIES Allergen Reactions Penicillins Rash Patient states has not had since childhood Review of Systems Constitutional: Negative for chills and fever. HENT: Negative for trouble swallowing. Eyes: Negative for photophobia. Respiratory: Negative for chest tightness, shortness of breath and wheezing. Cardiovascular: Negative for chest pain, palpitations and leg swelling. Gastrointestinal: Positive for abdominal distention, abdominal pain and nausea. Negative for diarrhea and vomiting. Genitourinary: Negative for dysuria, flank pain, hematuria, pelvic pain, vaginal bleeding and vaginal discharge. Musculoskeletal: Negative for back pain, neck pain and neck stiffness. Skin: Negative for color change. Neurological: Negative for dizziness, numbness and headaches. Psychiatric/Behavioral: Negative for confusion. Physical Exam Vitals [01/08/25 1543] BP Pulse Temp Temp src Resp SpO2 Weight Height 134/81 78 36.7 ?C (98.1 ?F) Oral 16 97 % 44.9 kg (99 lb) -- Physical Exam Constitutional: Appearance: She is well-developed. HENT: Head: Normocephalic and atraumatic. Nose: Nose normal. Eyes: Conjunctiva/sclera: Conjunctivae normal. Cardiovascular: Rate and Rhythm: Normal rate and regular rhythm. Pulmonary: Effort: Pulmonary effort is normal. No respiratory distress. Breath sounds: Normal breath sounds. No wheezing. Abdominal: General: Bowel sounds are normal. Palpations: Abdomen is soft. Tenderness: There is abdominal tenderness in the epigastric area. Musculoskeletal: General: Normal range of motion. Cervical back: Normal range of motion and neck supple. Skin: General: Skin is warm and dry. Neurological: Mental Status: She is alert and oriented to person, place, and time. Psychiatric: Behavior: Behavior normal. Diagnostic Testing ED Labs Ordered and Reviewed COMPLETE BLOOD COUNT AND DIFFERENTIAL - Abnormal; Notable for the following components: Result Value Ref Range RBC 3.88 (*) 3.90 - 5.20 m/uL All other components within normal limits COMPREHENSIVE METABOLIC PANEL - Normal LIPASE - Normal PROTHROMBIN TIME - Normal ACTIVATED PARTIAL THROMBOPLASTIN TIME - Normal Narrative: Unfractionated Heparin Therapeutic Ranges: Standard Heparin Nomogram: 53 to 78 seconds (anti-Xa level of 0.3 to 0.7 U/ml) Low Dose/ACS Nomogram: 49 to 67 seconds (anti-Xa level of 0.2 to 0.5 U/ml) Stroke Treatment Nomogram: 49 to 67 seconds (anti-Xa level of 0.2 to 0.5 U/ml) Note: The APTT therapeutic range has been determined for the current lot of laboratory APTT reagent in use throughout the [facility]. URINALYSIS (WITH MICROSCOPIC) WITH CULTURE IF INDICATED Procedures ED Course / Clinical Impression Clinical Impressions as of 01/08/251953 Generalized abdominal pain Abdominal bloating Prilosec See gi Rest Home meds See pcp Return to ed if sx worsen MDM / Disposition / Plan The medical record is reviewed.Triage note is reviewed and incorporated.The nursing note is reviewed and consistent with patient's history and physical exam findings. The vital signs were reviewed and the vital signs are : BP 122/70 Pulse 62 Temp 36.7 ?C (98.1 ?F) (Oral) Resp 16 Wt 44.9 kg (99 lb) LMP 12/30/2007 SpO2 99% BMI 17.54 kg/m? ASSESSMENT AND PLAN: This is a 64 year old female who presents to the ED with a chief complaint of abd pain . Plan is labs, ct , . . 64-year-old female presents for abdominal pain and bloating, dysmenorrhea for the last 2 weeks, she has a history of alcohol cirrhosis, CBC with no leukocytosis, no anemia, CMP unremarkable, lipase unremarkable, UA unremarkable as well, CT abdomen shows pneumobilia most likely from her pancreatic duct stent, she does have gallbladder stones, patient's pain is epigastric, I suspect she might have peptic ulcer disease, will start patient on PPI, will refer to with GI, patient will follow close with PCP, I did speak to general surgery on-call about patient pneumobilia who stated this most likely from her pancreatic duct stent placement and is not concerned about this. DISCHARGE INSTRUCTIONS The patient has remained hemodynamically stable throughout the entire ED visit and is without objective evidence or laboratory findings for acute process requiring urgent intervention or hospitalization. The patient and/or family had all the tests and diagnosis explained to them and were given both verbal and written discharge instructions. I answered the patient's question as well as family to the best of my ability about the patient's symptoms. The patient is stable for discharge, and patient is instructed to follow up with pcp and educated to return to the ED if symptoms worsen or starts to experience any new symptoms. I did educate the patient that at this time there is no indication for urgent intervention or hospitalization, however certain conditions or diagnosis sometimes take time to present, therefore if symptoms worsen, patient should presents back to the ED. Patient and family are agreeable with plan and are comfortable with the disposition. . Patient instructed to follow up with PCP in 1-2 days. Discharge care instructions, medications, follow up instructions, and reasons to return to the ED immediately, such as worsening of symptoms or any new symptoms, were provided verbally and in writing to patient (patient guardian / artist's representative), who verbalized understanding. At this time, based on the patient's history, physical exam findings, lab results and clinical picture , the most likely diagnosis is abd pain This note was partially generated using [employer] voice recognition system, and there may be some incorrect words, spellings, and punctuation that were not noted in checking the note before saving History and Record Review External record(s) reviewed: prior outpatient record. Findings from review of outpatient records: history of liver cirrhosis Differential Diagnoses - abd pain is more likely for the following reason(s): suggested by HANDP - acute abdomen is less likely for the following reason(s): HANDP not suggestive Management Management of the patient was discussed with:art sales consultant Discussion with art sales consultant included: gen surgery, Dr. Barbara Butts performed an independent interpretation of the following:see ED course and imaging Radiology Reports CT ABD/PEL W IVCON Final Result IMPRESSION: Pneumobilia. Gallbladder stone. Stable pancreatic duct stent. Director Of Knowledge Management: PSCB Transcribe Date/Time: Jan 08 2025 4:42P Dictated by : ANGELA SARKAR MD This examination was interpreted and the report reviewed and electronically signed by: ANGELA SARKAR MD on Jan 08 2025 4:57PM EST Meds Given During Visit ED Medication Administration from 01/08/2025 1457 to 01/08/20252005 None Re-evaluation see ED course Sally Gil PA-C Disposition The patient was discharged. Counseled patient regarding lab results, radiology results and suspected diagnosis. Prescriptions and Discharge Orders Discharge Orders omeprazole (PRILOSEC) 20 mg capsule DAILY Route: ORAL Dose: 20 mg The patient was discussed with the emergency medicine physician on site Dr. Mcdermott. Follow Up Orders Status Ordering Provider FOLLOW UP APPOINTMENT REQUEST (ED/IP) Question Answer Comment Follow up appointment: Gastroenterology Schedule follow up appointment within 1 week Follow Up Reason: abd pain, er follow up Acknowledged SALLY GIL SIGNATURE: Sally Gil PA-C - SALLY GIL 01/08/252006 URINALYSIS COMPLETE PNL UR Collected: 01/08/2025 7:23 PM Status: F Source: [facility] Order Comment: Specimen Type : URINE SPECIMEN Ordering Facility: [facility] Address: [address] [place] [address] TYPE CODE TESTS RESULT OUT OF RANGE REFERENCE UNITS LAB 5778-6(LOINC) Color Ur Yellow Yellow LAB 01962-9(LOINC) Clarity Spec Clear Clear LAB 5792-7(LOINC) Glucose Ur Strip-mCnc Negative Negative LAB 5770-3(LOINC) Bilirub Ur Ql Strip Negative Negative LAB 2514-8(LOINC) Ketones Ur Strip Negative Negative LAB 5811-5(LOINC) Sp Gr Ur Strip <=1.005 Low 1.005-1.030 LAB 5794-3(LOINC) Hgb Ur Ql Strip Negative Negative LAB 5803-2(LOINC) pH Ur Strip 8.0 5.0-8.0 LAB 5804-0(LOINC) Prot Ur Strip-mCnc Trace Abnormal Negative LAB 5818-0(LOINC) Urobilinogen Ur Strip 0.2 EU/dL 0.2-1.0 EU/dL LAB 5802-4(LOINC) Nitrite Ur Ql Strip Negative Negative LAB 5799-2(LOINC) Leukocyte esterase Ur Ql Strip Negative Negative LAB 5821-4(LOINC) WBC #/area UrnS HPF 0-5 /HPF 0-5 /HPF LAB 93774-9(LOINC) RBC #/area UrnS HPF 0-3 /HPF 0-3 /HPF LAB 5769-5([facility]) Bacteria #/area UrnS HPF None Seen None Seen /HPF Performed By: #### 32474-5 # ### [facility] CLIA [id number] [address] [place], [place] [id number] [place] [address] ED NOTE Observed: 01/08/2025 6:53 PM Status: COMPLETED Source: [facility] HNO ID: [id number] Author: MARILYNN CLEMENT, RN Service: ? Author Type: Registered Nurse Type: ED Notes Filed: 01/08/2025 18:53 Note Text: Bed: ED-13 Expected date: Expected time: Means of arrival: Comments: CLEAN CT ABD/PEL W IVCON Observed: 01/08/2025 4:31 PM Status: F Source: [facility] * * *Final Report* * * DATE OF EXAM: Jan 08 2025 4:31PM [facility] [place] 0530 - CT ABD/PEL W IVCON / PROCEDURE REASON: Abdominal pain, acute (Ped 0-18y) * * * * Physician Interpretation * * * * EXAMINATION: CT ABDOMEN AND PELVIS WITH IV CONTRAST CLINICAL HISTORY: Abdominal pain TECHNIQUE: CT of the abdomen and pelvis was performed using standard technique, scanning from just above the dome of the diaphragm to the symphysis pubis. MQ: CTAP_3 Contrast: IV: 100 ml of Omnipaque 350 CT Radiation dose: Integrated Dose-length product (DLP) for this visit = 131 mGy*cm. CT Dose Reduction Employed: Automated exposure control(AEC) and iterative recon COMPARISON: CT abdomen pelvis on 08/15/2024 RESULT: Liver: No mass. Biliary: No bile duct dilation. There appears be pneumobilia. A similar gallbladder stone visualized measuring 8 mm. Spleen: No mass. No splenomegaly. Pancreas: Stable pancreatic duct stent. No mass lesion seen. No peripancreatic fluid collection. Adrenals: No mass. Kidneys: No kidney mass, abnormal enhancement or hydroureteronephrosis. GI tract: Stable appearance of the duodenum and antrum of the stomach. The appendix is identified and normal in appearance. No diverticulitis or bowel obstruction. Lymph nodes: No abdominal or pelvic lymphadenopathy. Mesentery/Peritoneum: No ascites or mass or free abdominal air. Retroperitoneum: No mass. Vasculature: The celiac artery, SMA, TERESA, portal veins and hepatic veins are patent. Pelvis: No mass, ascites or fluid collection. Bones/Soft Tissues: Stable abdominal soft tissue. There are degenerative changes in the spine with multilevel disc space narrowing. Lower thorax: No pleural effusions. Lung bases are clear of consolidations. Localizer images: No additional findings. IMPRESSION: Pneumobilia. Gallbladder stone. Stable pancreatic duct stent. Director Of Knowledge Management: YUN Transcribe Date/Time: Jan 08 2025 4:42P Dictated by : ANGELA SARKAR MD This examination was interpreted and the report reviewed and electronically signed by: ANGELA SARKAR MD on Jan 08 2025 4:57PM EST [id number] ALLIED HEALTH Observed: 01/08/2025 4:22 PM Status: COMPLETED Source: [facility] HNO ID: [id number] Author: TARA CLARKE TECHNOLOGIST Service: Radiology Author Type: Technologist Type: Allied Health Filed: 01/08/2025 16:28 Note Text: Radiology Service Progress Note DATE OF SERVICE: January 08, 2025 TIME: 4:22 PM PATIENT IDENTITY VERIFICATION COMPLETED USING TWO (2) STANDARD IDENTIFIERS: Name and Date of confirmed by patient verbally and Name and Date of confirmed by identification band. FALL SCREENING: Has the patient had 2 falls in the last year or 1 fall with injury or currently using an Ambulatory Assistive Device (Walker, Cane, Wheelchair, Crutches, etc.)? Emergency Room Patient: Screened in ED PATIENT GENDER DATA: Assigned female at . status: : No status: NO. PATIENT RELEVANT IMPLANT DATA REVIEWED: Yes PATIENT PRESENTS WITH AN IMPLANTABLE OR ATTACHED INSPECTOR SALVAGE: No ALLERGIES: Reviewed and unchanged CONTRAST ALLERGY: NO. EXAM: CT -CONTRAST INDUCED NEPHROPATHY RISK FACTORS: Patient age > 60 years CREATININE: Creatinine Date Value Ref Range Status 08/10/2024 0.90 0.58 - 0.96 mg/dL Final 05/22/2024 0.81 0.58 - 0.96 mg/dL Final 04/16/2024 1.04 (H) 0.58 - 0.96 mg/dL Final Estimated Glomerular Filtration Rate Date Value Ref Range Status 08/10/2024 72 >=60 mL/min/1.73m? Final Comment: Estimated Glomerular Filtration Rate (eGFR) is calculated using the 2020 CKD-EPI creatinine equation. This equation utilizes serum creatinine, sex, and age as parameters. The creatinine assay has traceable calibration to isotope dilution-mass spectrometry. Refer to KDIGO guidelines for clinical interpretation. In patients with unstable renal function, e.g. those with acute kidney injury, the eGFR may not accurately reflect actual GFR. eGFR- Date Value Ref Range Status 11/30/2018 >60 Final P.O.C.T. RESULTS: POC done: Yes, See Lab Tab January 08, 2025 TREATMENT: N/A PERIPHERAL IV DATA: Ambulatory: A peripheral IV was started in the Left antecubital site with a Angio cath: 20 gauge. RADIOLOGY DEPARTMENT: CT; Exam(s) Completed: Abdomen/Pelvis SIGNATURE: Tara Clarke TECHNOLOGIST PATIENT NAME: Charlie Devlin DATE: January 08, 2025 TIME: 4:22 PM PT PNL PPP Collected: 01/08/2025 4:19 PM Status: F Source: [facility] Order Comment: Specimen Type : BLOOD SPECIMEN Ordering Facility: [facility] Address: [address] [place] [address] TYPE CODE TESTS RESULT OUT OF RANGE REFERENCE UNITS LAB 5902-2(LOINC) Prothrombin time 12.9 9.7-13.0 sec LAB 6301-6(LOINC) INR PPP 1.2 0.9-1.3 Result Comment: Vitamin K An tagonist (VKA) Therapeutic Range: INR 2 to 3 (Target INR of 2.5) Note: For patients treated with VKA drugs, such as warfarin, the [place] [employer] 2012 Guideline recommends a therapeutic INR range of 2 to 3 (target INR of 2.5). This recommendation includes high-risk patients with antiphospholipid syndrome with previous arterial or venous thromboembolism, current-generation mechanical or bioprosthetic aortic heart valve replacement. Note: Patients with mechanical aortic valve replacement and additional risk factors for thromboembolic events (atrial fibrillation, previous thromboembolism, LV dysfunction, hypercoagulable conditions) or an older generation mechanical AVR (i.e., ball in-Cage) or any mechanical MVR should have a INR therapeutic range of 2.5 to 3.5 (target INR of 3). Binh JONES, et al. Chest 2012, 141:7S-47S Ulysses RA, et al. [facility] 2017, 70: 252-289 Performed By: #### 32597-3, 07205-0 #### [facility] CLIA [id number] [address] [place] APTT PPP Collected: 4:19 PM Status: F Source: [facility] Order Comment: Specimen Type : BLOOD SPECIMEN Ordering Facility: [facility] Address: [address] [place] [address] TYPE CODE TESTS RESULT OUT OF RANGE REFERENCE UNITS LAB 84832-1([facility]) aPTT PPP 29.4 23.0-32.4 sec Performed By: #### 96832-6, 01826-2 #### [facility] CLIA [id number] [address] [place] CBC W AUTO DIFF BLD Collected: 01/08/2025 4:[address] atus: F Source: [facility] Order Comment: Specimen Type : BLOOD SPECIMEN Ordering Facility: [facility] Address: [address] [place] [address] TYPE CODE TESTS RESULT OUT OF RANGE REFERENCE UNITS LAB 6690-2(LOINC) WBC # Bld Auto 5.49 3.70-11.00 k/uL LAB 789-8(LOINC) RBC # Bld Auto 3.88 Low 3.90-5.20 m/ uL LAB 718-7(LOINC) Hgb Bld-mCnc 12.3 11.5-15.5 g/dL LAB 4544-3(LOINC) Hct VFr Bld Auto 36.8 36.0-46.0 % LAB 787-2([facility]) MCV RBC Auto 94.8 80.0-100.0 fL LAB 785-6([facility]) MCH RBC Qn Auto 31.7 26.0-34.0 p g LAB 786-4([facility]) MCHC RBC Auto-mCnc 33.4 30.5-36.0 g/dL LAB 49138-7([facility]) RDW RBC-Rto 13.9 11.5-15.0 % LAB 777-3([facility]) Platelet # Bld Auto 160 150-400 k/uL LAB 43520-0([facility]) PMV Bld Auto 10.2 9.0-12.7 fL LAB 770-8([facility]) Neutrophils/leuk NFr Bld Auto 55.4 % LAB 751-8([facility]) Neutrophils # Bld Auto 3.04 1.45-7.50 k/uL LAB 736-9([facility]) Lymphocytes/leuk NFr Bld Auto 27.1 % LAB 731-0([facility]) Lymphocytes # Bld Auto 1.49 1.00-4.00 k/uL LAB 5905-5([facility]) Monocytes/leuk NFr Bld Auto 8.9 % LAB 742-7([facility]) Monocytes # Bld Auto 0.49 <0.87 k/uL LAB 713-8([facility]) Eosinophil/leuk NFr Bld Auto 6.6 % LAB 711-2([facility]) Eosinophil # Bld Auto 0.36 <0.46 k/uL LAB 706-2([facility]) Basophils/leuk NFr Bld Auto 1.6 % LAB 704-7([facility]) Basophils # Bld Auto 0.09 <0.11 k/uL LAB 73278-6([facility]) Imm Granulocytes/lucio k NFr Bld Auto 0.4 % LAB 37427-9([facility]) Imm Granulocytes # Bld Auto <0.03 <0.10 k/uL LAB 32214-5([facility]) nRBC/100 WBC Bld-Rto 0.0 /100 WBC LAB 771-6([facility]) nRBC # Bld Auto <0.01 <0.01 k/u L LAB 84584-2([facility]) Differential method Bld Auto Performed By: #### 92173-3 # ### [facility] CLIA [id number] [address] [place], [place] [id number] [place] [address] LIPASE SERPL-CCNC Collected: 01/08/2025 4:19 PM Stat us: F Source: [facility] Order Comment: Specimen Type : BLOOD SPECIMEN Ordering Facility: [facility] Address: [address] [place] [address] TYPE CODE TESTS RESULT OUT OF RANGE REFERENCE UNITS LAB 3040-3([facility]) Lipase SerPl-cCnc 32 16-61 U/L Performed By: #### 3040-3, 2 4323-8 #### [facility] CLIA [id number] [address] COMP METAB 2000 PNL SERPL Collected: 4:19 PM Status: F Source: [facility] Order Comment: Specimen Type : BLOOD SPECIMEN Ordering Facility: [facility] Address: [address] [place] [address] TYPE CODE TESTS RESULT OUT OF RANGE REFERENCE UNITS LAB 2885-2(LOINC) Prot SerPl-mCnc 7.4 6.3-8.0 g/dL LAB 1751-7(LOINC) Albumin SerPl-mCnc 4.0 3.9-4.9 g/dL LAB 87989-7(LOINC) Calcium SerPl-mCnc 9.5 8.5-10.2 mg/dL LAB 1975-2(LOINC) Bilirub SerPl-mCnc 0.7 0.2-1.3 mg/dL LAB 6768-6(LOINC) ALP SerPl-cCnc 108 34-123 U/L LAB 1920-8(LOINC) AST SerPl-cCnc 32 13-35 U/L LAB 1742-6(LOINC) ALT SerPl-cCnc 17 7-38 U/L LAB 2345-7(LOINC) Glucose SerPl-mCnc 93 74-99 mg/dL Result Comment: The [place] Diabetes Association (ADA) provides guidance for cutoff values for fasting glucose and random glucose. The ADA defines fasting as no caloric intake for at least 8 hours. Fasting plasma glucose results between 100 to 125 mg/dL indicate increased risk for diabetes (prediabetes). Fasting plasma glucose results greater than or equal to 126 mg/dL meet the criteria for diagnosis of diabetes. In the absence of unequivocal hyperglycemia, results should be confirmed by repeat testing. In a patient with classic symptoms of hyperglycemia or hyperglycemic crisis, random plasma glucose results greater than or equal to 200 mg/dL meet the criteria for diagnosis of diabetes. Reference: Standards of Medical Care in Diabetes 2016, [place] [employer] Association. Diabetes Care. 2016.39(Suppl 1). LAB 3094-0(LOINC) BUN SerPl-mCnc 9 7-21 mg/ dL LAB 2160-0(LOINC) Creat SerPl-mCnc 0.69 0.58-0.96 mg/dL LAB 2951-2(LOINC) Sodium SerPl-sCnc 137 136-144 mmol/L LAB 2823-3(LOINC) Potassium SerPl-sCnc 3.8 3.7-5.1 mmol/L LAB 2075-0(LOINC) Chloride SerPl-sCnc 99 98-107 mmol/L LAB 2028-9(LOINC) CO2 SerPl-sCnc 28 22-30 mmo l/L LAB 42737-5(LOINC) Anion Gap SerPl-sCnc 10 8-15 mmol/L LAB 82800-1(LOINC) Creatinine + eGFR Pnl SerPlBld 98 >=60 mL/min/1. 73m??? Result Comment: Estimated Gl omerular Filtration Rate (eGFR) is calculated using the 2020 CKD-EPI creatinine equation. This equation utilizes serum creatinine, sex, and age as parameters. The creatinine assay has traceable calibration to isotope dilution-mass spectrometry. Refer to KDIGO guidelines for clinical interpretation. In patients with unstable renal function, e.g. those with acute kidney injury, the eGFR may not accurately reflect actual GFR. Performed By: #### 3040-3, 2 4323-8 #### [facility] CLIA [id number] [address] [place] [address] OF [facility] ED TRIAGE NOTE Observed: 01/08/2025 3:46 PM Status: COMPLETED Source: [facility] HNO ID: [id number] Author: SALLY GIL PA-C Service: ? Author Type: Physician Database Development Project Manager Type: ED Triage Notes Filed: 01/08/2025 15:47 Note Text: ED TRIAGE PROVIDER NOTE Patient Name: Charlie Devlin Service Date: 01/08/25 BRIEF HPI: This is a 64 year old female who presents to the ED with: Abdominal pain x 2 weeks, she has had a history of alcoholic cirrhosis, has been taking lactulose, has not drank alcohol for the last year, no fever, not passing gas, decreased bowel movements, no abd surgeries BRIEF EXAM: Awake and Alert Non labored breathing INITIAL WORKUP AND DECISION MAKING: Orders Placed This Encounter CT ABD/PEL W IVCON COMP METABOLIC PANEL (BMP+LFT) LIPASE BLD CBC + DIFF PT/INR Activated Partial Thromboplastin Time Urinalysis w Microscopic, reflex Culture iv contrast (radiology procedure) SIGNATURE: Sally Gil PA-C PROGRESS Observed: 01/08/2025 1:50 PM Status: COMPLETED Source: [facility] HNO ID: [id number] Author: SYLVIA PIZANO MD Service: ? Author Type: Physician Type: Progress Notes Filed: 01/08/2025 14:02 Note Text: URGENT CARE ALCON Subjective Charlie Devlin is a 64 year old female. Patient presents with: Abdominal Pain: bloating, fatigue and dehydration x 2-3 weeks Pt with a hx of alcoholic cirrhosis with a hx of ascites now 2 week hx of abdominal pain getting worse over time pt is also fatigued and feels bloated also decreased appetite no fever or chills no N/V Abdominal Pain Pertinent negatives include fever, nausea and vomiting. Review of Systems Constitutional: Positive for fatigue. Negative for chills and fever. Gastrointestinal: Positive for abdominal distention and abdominal pain. Negative for nausea and vomiting. Objective BP 120/62 Pulse 82 Temp 36.6 ?C (97.9 ?F) Resp 16 Wt 45.2 kg (99 lb 10.4 oz) LMP 12/30/2007 SpO2 96% BMI 17.65 kg/m? Physical Exam Vitals and nursing note reviewed. Constitutional: Appearance: Normal appearance. She is not ill-appearing. Abdominal: General: Bowel sounds are normal. There is distension. Palpations: Abdomen is soft. Tenderness: There is abdominal tenderness. There is no guarding or rebound. Neurological: Mental Status: She is alert and oriented to person, place, and time. Psychiatric: Mood and Affect: Mood normal. Behavior: Behavior normal. {ASSESSMENT/PLAN: 1. Generalized abdominal pain - ICD9: 789.07, ICD10: R10.84 (primary diagnosis) 2. Alcoholic cirrhosis, unspecified whether ascites present (HCC) - ICD9: 571.2, ICD10: K70.30 Given pt history [facility] was called and notified of pt arrival for an evaluation pt agrees to plan Sylvia Pizano MD History and Record Review External record(s) reviewed: prior outpatient record. Systemic symptoms present included: fatigue Differential Diagnoses - SBP is more likely for the following reason(s): suggested by HANDP Management Management of the patient was discussed with:ED Physician or Supervisory/Collaborating Physician Discussion with ED Physician or Supervisory/Collaborating Physician included: DISCUSSED WITH [facility] WILL EVALUATE PT Disposition The patient was discharged. Procedures CNOV Observed: 01/08/2025 1:30 PM Status: COMPLETED Source: [facility] Office Visit ([facility]) CHARLIE DEVLIN ([id number]) 1960 F Date Time Provider Department 01/08/25 1:30 PM SYLVIA PIZANO During your visit today, we recorded the following information about you: Temperature Pulse Respiration Blood pressure 97.9 degrees 82/minute 16/minute 120/62 Weight 45.2 kg Sylvia Pizano MD 01/08/2025 1:50 PM Signed YOU WILL NEED FURTHER EVALUATION IN THE [facility] THEY HAVE BEEN NOTIFIED OF YOUR ARRIVAL IT IS IMPERATIVE THAT YOU BE SEEN THERE TODAY Sylvia Pizano MD 01/08/2025 2:02 PM Signed URGENT CARE [facility]CON Subjective Charlie Devlin is a 64 year old female. Patient presents with: Abdominal Pain: bloating, fatigue and dehydration x 2-3 weeks Pt with a hx of alcoholic cirrhosis with a hx of ascites now 2 week hx of abdominal pain getting worse over time pt is also fatigued and feels bloated also decreased appetite no fever or chills no N/V Abdominal Pain Pertinent negatives include fever, nausea and vomiting. Review of Systems Constitutional: Positive for fatigue. Negative for chills and fever. Gastrointestinal: Positive for abdominal distention and abdominal pain. Negative for nausea and vomiting. Objective BP 120/62 Pulse 82 Temp 36.6 ?C (97.9 ?F) Resp 16 Wt 45.2 kg (99 lb 10.4 oz) LMP 12/30/2007 SpO2 96% BMI 17.65 kg/m? Physical Exam Vitals and nursing note reviewed. Constitutional: Appearance: Normal appearance. She is not ill-appearing. Abdominal: General: Bowel sounds are normal. There is distension. Palpations: Abdomen is soft. Tenderness: There is abdominal tenderness. There is no guarding or rebound. Neurological: Mental Status: She is alert and oriented to person, place, and time. Psychiatric: Mood and Affect: Mood normal. Behavior: Behavior normal. {ASSESSMENT/PLAN: 1. Generalized abdominal pain - ICD9: 789.07, ICD10: R10.84 (primary diagnosis) 2. Alcoholic cirrhosis, unspecified whether ascites present (HCC) - ICD9: 571.2, ICD10: K70.30 Given pt history [facility] was called and notified of pt arrival for an evaluation pt agrees to plan Sylvia Pizano MD History and Record Review External record(s) reviewed: prior outpatient record. Systemic symptoms present included: fatigue Differential Diagnoses - SBP is more likely for the following reason(s): suggested by [facility] Management Management of the patient was discussed with:ED Physician or Supervisory/Collaborating Physician Discussion with ED Physician or Supervisory/Collaborating Physician included: DISCUSSED WITH [facility] WILL EVALUATE PT Disposition The patient was discharged. Procedures Allergies As of Date: 01/08/2025 Noted Allergy Reaction PENICILLINS 12/30/2011 2 - Rash Comments: Patient states has not had since childhood Date Reviewed: 01/08/2025 Reviewed by: Hannah Kaye MA - Fully Assessed Reason for Visit: Abdominal Pain [1] Cmt: bloating, fatigue and dehydration x 2-3 weeks Primary Visit Diagnosis:Generalized abdominal pain [R10.84] Other Visit Diagnosis:Alcoholic cirrhosis, unspecified whether ascites present (HCC) [K70.30] Prescriptions as of 01/08/2025 - traZODone (DESYREL) 50 mg tablet Take 1 tablet by mouth daily at bedtime. - ascorbic acid, vitamin C, (VITAMIN C) 500 mg tablet Take 1 tablet by mouth once daily. - ferrous sulfate 325 mg (65 mg iron) tablet Take 1 tablet by mouth once daily. - furosemide (LASIX) 40 mg tablet Take 1 tablet by mouth every 12 hours. - pantoprazole DR (PROTONIX) 40 mg tablet Take 1 tablet by mouth once daily. - acetaminophen (TYLENOL EXTRA STRENGTH) 500 mg tablet Take 1,000 mg by mouth every 6 hours as needed. - CONSTULOSE 10 gram/15 mL solution Take 10 g by mouth two times a day as needed. - spironolactone (ALDACTONE) 25 mg tablet Take 1 tablet by mouth every 12 hours. 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] 09/19/2023 Liver nodule [K76.89] 09/19/2023 Pancreatic mass [K86.89] 09/19/2023 Iron deficiency anemia due to chronic blood los*05/22/2024 Iron malabsorption [K90.9] 05/22/2024 Other instructions from your clinician: YOU WILL NEED FURTHER EVALUATION IN THE [facility] THEY HAVE BEEN NOTIFIED OF YOUR ARRIVAL IT IS IMPERATIVE THAT YOU BE SEEN THERE TODAY Level of Service: OFFICE/OUTPATIENT ESTABLISHED [facility] 40 MIN [00638] Encounter Status:Closed by SYLVIA PIZANO on 01/08/25 DIVYA Observed: 11/07/2024 12:00 AM Status: COMPLETED Source: [facility] Telephone (FAMPWS) CHARLIE DEVLIN ([id number]) 1960 F Date Time Provider Department 11/07/24 JAYSON KAN During your visit today, we recorded the following information about you: Stephnay Farrell RN 11/07/2024 9:12 AM Signed Patient brother calls and states that patient is doubled over in pain due to hiatal hernia. Patient is having a hard time moving. Advised brother that if patient is in that much pain then she should go to ED to be evaluated. Brother voiced understanding. JUAN Quezada Jeffrey A, MD 11/07/2024 9:31 AM Signed Noted and agree with need to go to ER. Allergies As of Date: 11/07/2024 Noted Allergy Reaction PENICILLINS 12/30/2011 2 - Rash Comments: Patient states has not had since childhood Date Reviewed: 08/24/2024 Reviewed by: Sharon Hastings LPN - Fully Assessed Reason for Visit: Patient Update [1234] Prescriptions as of 11/07/2024 - traZODone (DESYREL) 50 mg tablet Take 1 tablet by mouth daily at bedtime. - ascorbic acid, vitamin C, (VITAMIN C) 500 mg tablet Take 1 tablet by mouth once daily. - ferrous sulfate 325 mg (65 mg iron) tablet Take 1 tablet by mouth once daily. - furosemide (LASIX) 40 mg tablet Take 1 tablet by mouth every 12 hours. - pantoprazole DR (PROTONIX) 40 mg tablet Take 1 tablet by mouth once daily. - acetaminophen (TYLENOL EXTRA STRENGTH) 500 mg tablet Take 1,000 mg by mouth every 6 hours as needed. - CONSTULOSE 10 gram/15 mL solution Take 10 g by mouth two times a day as needed. - spironolactone (ALDACTONE) 25 mg tablet Take 1 tablet by mouth every 12 hours. 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] 09/19/2023 Liver nodule [K76.89] 09/19/2023 Pancreatic mass [K86.89] 09/19/2023 Iron deficiency anemia due to chronic blood los*05/22/2024 Iron malabsorption [K90.9] 05/22/2024 Encounter Status:Closed by JAYSON KAN on 11/07/24 CNPTOUTREACH Observed: 10/16/2024 12:00 AM Status: COMPLETED Source: [facility] Patient Outreach (FAMPWS) CHARLIE DEVLIN ([id number]) 1960 F Date Time Provider Department 10/16/24 [facility] During your visit today, we recorded the following information about you: Allergies As of Date: 10/16/2024 Noted Allergy Reaction PENICILLINS 12/30/2011 2 - Rash Comments: Patient states has not had since childhood Date Reviewed: 08/24/2024 Reviewed by: Sharon Hastings LPN - Fully Assessed Visit Diagnosis:Encounter for screening mammogram for breast cancer [Z12.31] Order(s):[facility] SCREEN[facility] [[id number]] Order #: [id number] FUTURE Prescriptions as of 11/16/2024 - traZODone (DESYREL) 50 mg tablet Take 1 tablet by mouth daily at bedtime. - ascorbic acid, vitamin C, (VITAMIN C) 500 mg tablet Take 1 tablet by mouth once daily. - ferrous sulfate 325 mg (65 mg iron) tablet Take 1 tablet by mouth once daily. - furosemide (LASIX) 40 mg tablet Take 1 tablet by mouth every 12 hours. - pantoprazole DR (PROTONIX) 40 mg tablet Take 1 tablet by mouth once daily. - acetaminophen (TYLENOL EXTRA STRENGTH) 500 mg tablet Take 1,000 mg by mouth every 6 hours as needed. - CONSTULOSE 10 gram/15 mL solution Take 10 g by mouth two times a day as needed. - spironolactone (ALDACTONE) 25 mg tablet Take 1 tablet by mouth every 12 hours. 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] 09/19/2023 Liver nodule [K76.89] 09/19/2023 Pancreatic mass [K86.89] 09/19/2023 Iron deficiency anemia due to chronic blood los*05/22/2024 Iron malabsorption [K90.9] 05/22/2024 Encounter Status:Closed by JINNY MONAE on 11/16/24 DIVYA Observed: 08/28/2024 12:00 AM Status: COMPLETED Source: [facility] CHARLIE DEVLIN ([id number]) 1960 F Date Time Provider Department 08/28/24 [facility] During your visit today, we recorded the following information about you: Elin Teran LPN 08/28/2024 4:01 PM Addendum 1) Pt called to let you know she got a letter in the mail that a CT she had done is not going to be covered. They need to have proof that other tests have been done and that this was warranted. Pt reports she has everything you can think of done here and at [facility]. This will need to be appealed. Please review and advise pt. I called pt back and asked if there was a fax number of phone number that would help us to get more information to do an appeal if this is needed. Also ask who the letter was from. Pt to call back. PH: [phone] .does not have a fax number. Pt received letter from: [facility] This is being routed to [facility] to check into. 2) Requesting a refill on the Lactulose. Helps with her bowels and flushes out her liver. This was prescribed by Dr. Gomez and she is not getting anywhere and she needs this. Please advise pt. JOHAN Wall Barbara, RN 09/04/2024 3:51 PM Signed Email sent to [employer]. LM for pt to return the call to see if she can get more information like a fax number or phone number to call for the appeal process. Smitha Braga, JUAN 09/04/2024 4:24 PM Signed [facility] responded back with an appeal fax #. Carolyn Sewell RN 09/05/2024 9:50 AM Signed Pt returned call and given messages below. Sounds like [employer] was able to get a fax number. Smitha Braga, RN 09/05/2024 10:59 AM Signed Called pt and asked about Lactulose-she states she got refills from Dr. Gomez. Allergies As of Date: 08/28/2024 Noted Allergy Reaction PENICILLINS 12/30/2011 2 - Rash Comments: Patient states has not had since childhood Date Reviewed: 08/24/2024 Reviewed by: Sharon Hastings LPN - Fully Assessed Reason for Visit: CT test done/denied/Refill request [Other] Prescriptions as of 09/05/2024 - traZODone (DESYREL) 50 mg tablet Take 1 tablet by mouth daily at bedtime. - ascorbic acid, vitamin C, (VITAMIN C) 500 mg tablet Take 1 tablet by mouth once daily. - ferrous sulfate 325 mg (65 mg iron) tablet Take 1 tablet by mouth once daily. - furosemide (LASIX) 40 mg tablet Take 1 tablet by mouth every 12 hours. - pantoprazole DR (PROTONIX) 40 mg tablet Take 1 tablet by mouth once daily. - acetaminophen (TYLENOL EXTRA STRENGTH) 500 mg tablet Take 1,000 mg by mouth every 6 hours as needed. - CONSTULOSE 10 gram/15 mL solution Take 10 g by mouth two times a day as needed. - spironolactone (ALDACTONE) 25 mg tablet Take 1 tablet by mouth every 12 hours. 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 Author Type: Nurse Practitioner Type: Progress Notes Filed: 08/24/2024 14:26 Note Text: CC: Patient presents with: Flu Like Symptoms: Fever, body aches, headaches, and sore throat x2 weeks HPI: Charlie Devlin is a 64 year old female who presents to the office with complaint of head congestion, cough, nonproductive, sore throat, and fever for 2 weeks. Symptoms are staying the same. Associated symptoms includes headache and body aches. Denies wheezing, dyspnea, nausea, vomiting , and diarrhea. Treatments tried include nothing so far. with no relief of symptoms. Sick contacts: unknown. History of asthma, frequent episodes of bronchitis, chronic bronchitis, bronchiectasis or COPD: No Smoker: No Seasonal/environmental allergies: No The ROS is otherwise negative. The patient's pmh, medications, allergies, and past visits are reviewed. PHYSICAL EXAM: BP 112/70 Pulse 73 Temp 36.4 ?C (97.6 ?F) Resp 16 Wt 47.2 kg (104 lb 0.9 oz) LMP 12/30/2007 SpO2 97% BMI 18.43 kg/m? General appearance: alert, cooperative, pleasant, in no acute distress Head: Normocephalic Eyes: EOM's intact, conjunctiva pink and moist, no icterus, sclera white, non-injected Ears: Right ear: External ear/canal- Normal, TM - clear with good landmarks. Left ear: External ear/canal- Normal, TM - clear with good landmarks Oropharynx:moist without lesions, No erythema, exudates or tonsillar hypertrophy. Heart: Negative. RRR without obvious murmur, gallop, or rubs. No ectopy. Lungs: clear to auscultation, without rales or wheeze, good air exchange PAST MEDICAL HISTORY Diagnosis Date Alcohol abuse 11/30/2018 Was in [facility] in [place] for detox 10/13/2018 and now doing 180. Cirrhosis (HCC) Diverticulosis Gall stones 10/01/2020 Hiatal hernia History of chicken pox History of skin cancer 11/30/[address] Arceo Iron deficiency anemia due to chronic blood loss 05/22/2024 Iron malabsorption 05/22/2024 Pancytopenia (HCC) PAST SURGICAL HISTORY Procedure Laterality Date NONE ALLERGIES Penicillins MEDICATIONS traZODone (DESYREL) 50 mg tablet Take 1 tablet by mouth daily at bedtime. ascorbic acid, vitamin C, (VITAMIN C) 500 mg tablet Take 1 tablet by mouth once daily. ferrous sulfate 325 mg (65 mg iron) tablet Take 1 tablet by mouth once daily. furosemide (LASIX) 40 mg tablet Take 1 tablet by mouth every [address] (PROTONIX) 40 mg tablet Take 1 tablet by mouth once daily. doxycycline (VIBRA-TABS) 100 mg tablet Take 1 tablet by mouth two times a day for 7 days. acetaminophen (TYLENOL EXTRA STRENGTH) 500 mg tablet Take 1,000 mg by mouth every 6 hours as needed. CONSTULOSE 10 gram/15 mL solution Take 10 g by mouth two times a day as needed. spironolactone (ALDACTONE) 25 mg tablet Take 1 tablet by mouth every 12 hours. FAMILY HISTORY Problem Relation Age of Onset Diabetes Father Type 1 Thyroid Father Hyperlipidemia Father Diabetes Brother Type 1 Hypertension Brother Diabetes Paternal Grandmother Colon Cancer No Family History Prostate Cancer No Family History Breast Cancer No Family History Ovarian cancer No Family History Uterine Cancer No Family History Coronary Artery Disease No Family History Kidney Disease No Family History Seizures No Family History Stroke No Family History Social History Tobacco Use Smoking status: Never Passive exposure: Yes Smokeless tobacco: Never Vaping Use Vaping status: Never Used Substance Use Topics Alcohol use: No Comment: No alcohol since 09/10/23 Drug use: No ASSESSMENT/PLAN: 1. Rhinosinusitis - ICD9: 473.9, ICD10: J32.9 - DOXYCYCLINE HYCLATE 100 MG TABLET Prescription instructions reviewed with patient as applicable. Potential red flag symptoms discussed with the patient. Reviewed appropriate action plan to take if red flag symptoms occur. Patient agreeable to treatment plan. Nadir Salguero APRN.CNP CNOV Observed: 08/24/2024 2:00 PM Status: COMPLETED Source: [facility] CHARLIE DEVLIN ([id number]) 1960 F Date Time Provider Department 08/24/24 2:00 PM NADIR SALGUERO JALEESA During your visit today, we recorded the following information about you: Temperature Pulse Respiration Blood pressure 97.6 degrees 73/minute 16/minute 112/70 Weight 47.2 kg Nadir Salguero APRN.CNP 08/24/2024 2:26 PM Signed CC: Patient presents with: Flu Like Symptoms: Fever, body aches, headaches, and sore throat x2 weeks HPI: Charlie Devlin is a 64 year old female who presents to the office with complaint of head congestion, cough, nonproductive, sore throat, and fever for 2 weeks. Symptoms are staying the same. Associated symptoms includes headache and body aches. Denies wheezing, dyspnea, nausea, vomiting , and diarrhea. Treatments tried include nothing so far. with no relief of symptoms. Sick contacts: unknown. History of asthma, frequent episodes of bronchitis, chronic bronchitis, bronchiectasis or COPD: No Smoker: No Seasonal/environmental allergies: No The ROS is otherwise negative. The patient's pmh, medications, allergies, and past visits are reviewed. PHYSICAL EXAM: BP 112/70 Pulse 73 Temp 36.4 ?C (97.6 ?F) Resp 16 Wt 47.2 kg (104 lb 0.9 oz) LMP 12/30/2007 SpO2 97% BMI 18.43 kg/m? General appearance: alert, cooperative, pleasant, in no acute distress Head: Normocephalic Eyes: EOM's intact, conjunctiva pink and moist, no icterus, sclera white, non-injected Ears: Right ear: External ear/canal- Normal, TM - clear with good landmarks. Left ear: External ear/canal- Normal, TM - clear with good landmarks Oropharynx:moist without lesions, No erythema, exudates or tonsillar hypertrophy. Heart: Negative. RRR without obvious murmur, gallop, or rubs. No ectopy. Lungs: clear to auscultation, without rales or wheeze, good air exchange PAST MEDICAL HISTORY Diagnosis Date Alcohol abuse 11/30/2018 Was in [facility] in [place] for detox 10/13/2018 and now doing 180. Cirrhosis (HCC) Diverticulosis Gall stones 10/01/2020 Hiatal hernia History of chicken pox History of skin cancer 11/30/[address] Arceo Iron deficiency anemia due to chronic blood loss 05/22/2024 Iron malabsorption 05/22/2024 Pancytopenia (HCC) PAST SURGICAL HISTORY Procedure Laterality Date NONE ALLERGIES Penicillins MEDICATIONS traZODone (DESYREL) 50 mg tablet Take 1 tablet by mouth daily at bedtime. ascorbic acid, vitamin C, (VITAMIN C) 500 mg tablet Take 1 tablet by mouth once daily. ferrous sulfate 325 mg (65 mg iron) tablet Take 1 tablet by mouth once daily. furosemide (LASIX) 40 mg tablet Take 1 tablet by mouth every [address] (PROTONIX) 40 mg tablet Take 1 tablet by mouth once daily. doxycycline (VIBRA-TABS) 100 mg tablet Take 1 tablet by mouth two times a day for 7 days. acetaminophen (TYLENOL EXTRA STRENGTH) 500 mg tablet Take 1,000 mg by mouth every 6 hours as needed. CONSTULOSE 10 gram/15 mL solution Take 10 g by mouth two times a day as needed. spironolactone (ALDACTONE) 25 mg tablet Take 1 tablet by mouth every 12 hours. FAMILY HISTORY Problem Relation Age of Onset Diabetes Father Type 1 Thyroid Father Hyperlipidemia Father Diabetes Brother Type 1 Hypertension Brother Diabetes Paternal Grandmother Colon Cancer No Family History Prostate Cancer No Family History Breast Cancer No Family History Ovarian cancer No Family History Uterine Cancer No Family History Coronary Artery Disease No Family History Kidney Disease No Family History Seizures No Family History Stroke No Family History Social History Tobacco Use Smoking status: Never Passive exposure: Yes Smokeless tobacco: Never Vaping Use Vaping status: Never Used Substance Use Topics Alcohol use: No Comment: No alcohol since 09/10/23 Drug use: No ASSESSMENT/PLAN: 1. Rhinosinusitis - ICD9: 473.9, ICD10: J32.9 - DOXYCYCLINE HYCLATE 100 MG TABLET Prescription instructions reviewed with patient as applicable. Potential red flag symptoms discussed with the patient. Reviewed appropriate action plan to take if red flag symptoms occur. Patient agreeable to treatment plan. Nadir Salguero APRN.WASH HOUSE WORKER Allergies As of Date: 08/24/2024 Noted Allergy Reaction PENICILLINS 12/30/2011 2 - Rash Comments: Patient states has not had since childhood Date Reviewed: 08/24/2024 Reviewed by: Sharon Hastings LPN - Fully Assessed Reason for Visit: Flu Like Symptoms [267] Cmt: Fever, body aches, headaches, and sore throat x2 weeks Primary Visit Diagnosis:Rhinosinusitis [J32.9] Order(s):doxycycline (VIBRA-TABS) 100 mg tabletTake 1 tablet by mouth two times a day for 7 days.Disp: 14 tabletRfl: 0 Prescriptions as of 08/24/2024 - doxycycline (VIBRA-TABS) 100 mg tablet Take 1 tablet by mouth two times a day for 7 days. - traZODone (DESYREL) 50 mg tablet Take 1 tablet by mouth daily at bedtime. - ascorbic acid, vitamin C, (VITAMIN C) 500 mg tablet Take 1 tablet by mouth once daily. - ferrous sulfate 325 mg (65 mg iron) tablet Take 1 tablet by mouth once daily. - furosemide (LASIX) 40 mg tablet Take 1 tablet by mouth every 12 hours. - pantoprazole DR (PROTONIX) 40 mg tablet Take 1 tablet by mouth once daily. - acetaminophen (TYLENOL EXTRA STRENGTH) 500 mg tablet Take 1,000 mg by mouth every 6 hours as needed. - CONSTULOSE 10 gram/15 mL solution Take 10 g by mouth two times a day as needed. - spironolactone (ALDACTONE) 25 mg tablet Take 1 tablet by mouth every 12 hours. 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 Encounter Status:Closed by NADIR SALGUERO on 08/24/24 PROGRESS Observed: 08/23/2024 11:12 AM Status: COMPLETED Source: [facility] ID: [id number] Author: ROSEANN LAZARO, BLAISE Service: ? Author Type: MARKETING TRAFFIC COORDINATOR Type: Progress Notes Filed: 08/23/2024 11:16 Note Text: 1. Optic cupping of both eyes (Primary) IOP: 19/17 OCT nerve 04/09/24: Temporal loss on RNFL OS>OD, diffuse GCA loss 24-2 (08/23/24): normal both eyes (-) fam hx Low risk 2. Hyperopia of both eyes 3. Regular astigmatism of both eyes Good vision, fit, and comfort in new contact lenses. Finalized and printed new clrx. Educated pt on proper wear and care of contact lenses and to discontinue lens wear and follow-up with any redness/pain/decreased vision. 4. Punctate keratitis, bilateral Continue artificial tears prn Follow-up in 8 months for complete with cl eval or sooner as needed Roseann Lazaro, OD August 23, 2024 11:[address] ABD/PEL W IVCON Observed: 08/15/2024 5:16 PM Status: F Source: [facility] * * *Final Report* * * DATE OF EXAM: Aug 15 2024 5:16PM [facility] 0530 - CT ABD/PEL W IVCON / PROCEDURE REASON: multiple diagnoses * * * * Physician Interpretation * * * * EXAMINATION: CT ABDOMEN AND PELVIS WITH IV CONTRAST CLINICAL HISTORY: Bleeding esophageal varices and alcoholic cirrhosis. TECHNIQUE: CT of the abdomen and pelvis was performed using standard technique, scanning from just above the dome of the diaphragm to the symphysis pubis. MQ: CTAP_3 Contrast: IV: 100 ml of Omnipaque 300 Oral: 20 ml of Omni 240 10-25ml diluted with water CT Radiation dose: Integrated Dose-length product (DLP) for this visit = 238.02 mGy*cm. CT Dose Reduction Employed: Automated exposure control(AEC) and iterative recon COMPARISON: None. RESULT: Liver: No mass. Nodularity of the liver surface suggesting hepatic cirrhosis. Biliary: No bile duct dilation. Pneumobilia is present. Cholelithiasis and several foci of gas within the gallbladder. No gallbladder wall thickening. Spleen: No mass. No splenomegaly. Pancreas: No pancreatic mass. Pancreatic duct stent is identified. Adrenals: No mass. Kidneys: No mass, calculus or hydronephrosis. GI tract: No dilation or wall thickening. Normal appendix. No evidence of bowel obstruction or perforation. Mild wall thickening of the gastric antrum is nonspecific but may be related to lack of distention. Lymph nodes: Scattered nonpathologic by size criteria retroperitoneal lymph nodes. Mesentery/Peritoneum: Trace perihepatic fluid. Retroperitoneum: No mass. Vasculature: - Abdominal aorta and iliac arteries: Atherosclerotic calcifications without aneurysm. - Celiac and SMA: Atherosclerotic calcifications at the origins. - Portal venous system (SMV, splenic vein, portal vein and branches): Patent with portosystemic venous collaterals. - Hepatic veins: Patent. Pelvis: No mass, ascites or fluid collection. The urinary bladder appears normal. Numerous phlebolithic type calcifications in the pelvis. Bones/Soft Tissues: Prominent degenerative changes at the L5-S1 level. Mild degenerative changes in the visualized spine. Lower thorax: Lung bases are clear. Several esophageal varices are identified. Localizer images: No additional findings. IMPRESSION: 1. Hepatic cirrhosis, portosystemic collaterals including esophageal varices, and trace perihepatic fluid. 2. Pancreatic duct stent identified. Pneumobilia. Cholelithiasis. 3. Nonspecific thickening of the gastric antrum which may be related to lack of distention. Director Of Knowledge Management: YUN Transcribe Date/Time: Aug 15 2024 5:59P Dictated by : DAVID ASHRAF MD This examination was interpreted and the report reviewed and electronically signed by: DAVID ASHRAF MD on Aug 15 2024 6:15PM EST [id number] Observed: 08/15/2024 5:00 PM Status: COMPLETED [id number] Author: TAMMY CHOUDHURY RT(R) Service: Radiology Author Type: Director Of Marketing [employer] Performance Ads Type: Progress Notes Filed: 08/15/2024 17:19 Note Text: Radiology Service Progress Note DATE OF SERVICE: August 15, 2024 TIME: 5:17 PM PATIENT IDENTITY VERIFICATION COMPLETED USING TWO (2) STANDARD IDENTIFIERS: Name and Date of confirmed by patient verbally. FALL SCREENING: Has the patient had 2 falls in the last year or 1 fall with injury or currently using an Ambulatory Assistive Device (Walker, Cane, Wheelchair, Crutches, etc.)? No PATIENT GENDER DATA: Assigned female at . status: : No status: NO. PATIENT RELEVANT IMPLANT DATA REVIEWED: Yes PATIENT PRESENTS WITH AN IMPLANTABLE OR ATTACHED INSPECTOR SALVAGE: No ALLERGIES: Reviewed and unchanged CONTRAST ALLERGY: NO. EXAM: CT -CONTRAST INDUCED NEPHROPATHY RISK FACTORS: Patient age > 60 years CREATININE: Creatinine Date Value Ref Range Status 08/10/2024 0.90 0.58 - 0.96 mg/dL Final 05/22/2024 0.81 0.58 - 0.96 mg/dL Final 04/16/2024 1.04 (H) 0.58 - 0.96 mg/dL Final Estimated Glomerular Filtration Rate Date Value Ref Range Status 08/10/2024 72 >=60 mL/min/1.73m? Final Comment: Estimated Glomerular Filtration Rate (eGFR) is calculated using the 2020 CKD-EPI creatinine equation. This equation utilizes serum creatinine, sex, and age as parameters. The creatinine assay has traceable calibration to isotope dilution-mass spectrometry. Refer to KDIGO guidelines for clinical interpretation. In patients with unstable renal function, e.g. those with acute kidney injury, the eGFR may not accurately reflect actual GFR. eGFR- Date Value Ref Range Status 11/30/2018 >60 Final P.O.C.T. RESULTS: POC done: Yes, See Lab Tab August 15, 2024 TREATMENT: N/A PERIPHERAL IV DATA: Ambulatory: A peripheral IV was started in the Left antecubital site with a Angio cath: 22 gauge. RADIOLOGY DEPARTMENT: CT; Exam(s) Completed: Abdomen/Pelvis SIGNATURE: Tammy Choudhury, RT(R) PATIENT NAME: Charlie Devlin DATE: August 15, 2024 TIME: 5:17 PM DEPRECATED HGB A1C BLD Collected: 08/10 2:43 PM Status: F Source: [facility] Order Comment: Specimen Type : BLOOD SPECIMEN Ordering Facility: [facility] Address: [address] [place] [address] TYPE CODE TESTS RESULT OUT OF RANGE REFERENCE UNITS LAB 4548-4([facility]) HbA1c MFr Bld 4.7 4.3-5.6 % Result Comment: [place] [employer]oreen betes Association guidelines indicate that patients with HgbA1c in the range 5.7-6.4% are at increased risk for development of diabetes, and intervention by lifestyle modification may be beneficial. HgbA1c greater or equal to 6.5% is considered diagnostic of diabetes. LAB 29468-5(INC) Est. average glucose Bld gHb Est-mCnc 88 mg/dL Result Comment: eAG: (Estima sonia average glucose) is a calculated value from HgbA1c and is artist's representative of the average blood glucose level in the last 2-3 month period. Performed By: #### 32096-1 # ### [facility] CLIA [id number] [address] [place] [address] [place] [address] [place] CBC W AUTO DIFF BLD Collected: 08/10/2024 2:[address] atus: F Source: [facility] Order Comment: Specimen Type : BLOOD SPECIMEN Ordering Facility: [facility] Address: [address] [place] [address] TYPE CODE TESTS RESULT OUT OF RANGE REFERENCE UNITS LAB 6690-2([facility]) WBC # Bld Auto 5.03 3.70-11.00 k/uL LAB 789-8([facility]) RBC # Bld Auto 3.21 Low 3.90-5.20 m/ uL LAB 718-7([facility]) Hgb Bld-mCnc 10.2 Low 11.5-15.5 g/dL LAB 4544-3([facility]) Hct VFr Bld Auto 30.2 Low 36.0-46.0 % LAB 787-2([facility]) MCV RBC Auto 94.1 80.0-100.0 fL LAB 785-6([facility]) MCH RBC Qn Auto 31.8 26.0-34.0 p g LAB 786-4([facility]) MCHC RBC Auto-mCnc 33.8 30.5-36.0 g/dL LAB 22773-8([facility]) RDW RBC-Rto 17.1 High 11.5-15.0 % LAB 777-3([facility]) Platelet # Bld Auto 198 150-400 k/uL LAB 96352-5([facility]) PMV Bld Auto 9.8 9.0-12.7 fL LAB 770-8([facility]) Neutrophils/leuk NFr Bld Auto 53.1 % LAB 751-8([facility]) Neutrophils # Bld Auto 2.67 1.45-7.50 k/uL LAB 736-9([facility]) Lymphocytes/leuk NFr Bld Auto 30.4 % LAB 731-0([facility]) Lymphocytes # Bld Auto 1.53 1.00-4.00 k/uL LAB 5905-5([facility]) Monocytes/leuk NFr Bld Auto 9.7 % LAB 742-7([facility]) Monocytes # Bld Auto 0.49 <0.87 k/uL LAB 713-8([facility]) Eosinophil/leuk NFr Bld Auto 4.8 % LAB 711-2([facility]) Eosinophil # Bld Auto 0.24 <0.46 k/uL LAB 706-2([facility]) Basophils/leuk NFr Bld Auto 1.6 % LAB 704-7([facility]) Basophils # Bld Auto 0.08 <0.11 k/uL LAB 88955-7(LOINC) Imm Granulocytes/lucio k NFr Bld Auto 0.4 % LAB 13038-1([facility]) Imm Granulocytes # Bld Auto <0.03 <0.10 k/uL LAB 85013-8([facility]) nRBC/100 WBC Bld-Rto 0.0 /100 WBC LAB 771-6([facility]) nRBC # Bld Auto <0.01 <0.01 k/u L LAB 35241-1([facility]) Differential method Bld Auto Performed By: #### 69676-3 # ### [facility] CLIA [id number] [address] [place], [place] [address] [address] [place] COMP METAB 2000 PNL SERPL Collected: 2:43 PM Status: F Source: [facility] Order Comment: Specimen Type : BLOOD SPECIMEN Ordering Facility: [facility] Address: [address] [place] [address] TYPE CODE TESTS RESULT OUT OF RANGE REFERENCE UNITS LAB 2885-2([facility]) Prot SerPl-mCnc 7.0 6.3-8.0 g/dL LAB 1751-7(INC) Albumin SerPl-mCnc 4.0 3.9-4.9 g/dL LAB 36142-5([facility]) Calcium SerPl-mCnc 9.7 8.5-10.2 mg/dL LAB 1975-2([facility]) Bilirub SerPl-mCnc 0.6 0.2-1.3 mg/dL LAB 6768-6([facility]) ALP SerPl-cCnc 126 High 34-123 U/L LAB 1920-8(INC) AST SerPl-cCnc 35 13-35 U/L LAB 1742-6(LOINC) ALT SerPl-cCnc 16 7-38 U/L LAB 2345-7([facility]) Glucose SerPl-mCnc 95 74-99 mg/dL Result Comment: The [place] Diabetes Association (ADA) provides guidance for cutoff values for fasting glucose and random glucose. The ADA defines fasting as no caloric intake for at least 8 hours. Fasting plasma glucose results between 100 to 125 mg/dL indicate increased risk for diabetes (prediabetes). Fasting plasma glucose results greater than or equal to 126 mg/dL meet the criteria for diagnosis of diabetes. In the absence of unequivocal hyperglycemia, results should be confirmed by repeat testing. In a patient with classic symptoms of hyperglycemia or hyperglycemic crisis, random plasma glucose results greater than or equal to 200 mg/dL meet the criteria for diagnosis of diabetes. Reference: Standards of Medical Care in Diabetes 2016, [place] Diabetes Association. Diabetes Care. 2016.39(Suppl 1). LAB 3094-0(LOINC) BUN SerPl-mCnc 10 7-21 mg/ dL LAB 2160-0(LOINC) Creat SerPl-mCnc 0.90 0.58-0.96 mg/dL LAB 2951-2(LOINC) Sodium SerPl-sCnc 140 136-144 mmol/L LAB 2823-3(LOINC) Potassium SerPl-sCnc 3.5 Low 3.7-5.1 mmol/L LAB 2075-0(LOINC) Chloride SerPl-sCnc 98 98-107 mmol/L LAB 2028-9(LOINC) CO2 SerPl-sCnc 28 22-30 mmo l/L LAB 50938-2(LOINC) Anion Gap SerPl-sCnc 14 8-15 mmol/L LAB 24806-6(LOINC) Creatinine + eGFR Pnl SerPlBld 72 >=60 mL/min/1 .73m??? Result Comment: Estimated Gl omerular Filtration Rate (eGFR) is calculated using the 2020 CKD-EPI creatinine equation. This equation utilizes serum creatinine, sex, and age as parameters. The creatinine assay has traceable calibration to isotope dilution-mass spectrometry. Refer to KDIGO guidelines for clinical interpretation. In patients with unstable renal function, e.g. those with acute kidney injury, the eGFR may not accurately reflect actual GFR. Performed By: #### LIPNF, 21 32-9, 70023-4, 93585-9 #### [facility] CLIA [id number] [address] [place] [address] [place] LIPID PANEL, NONFASTING Collected: 08/10/2024 2:43 PM Status: F Source: [facility] Order Comment: Specimen Type : BLOOD SPECIMEN Ordering Facility: [facility] Address: [address] [place] [address] TYPE CODE TESTS RESULT OUT OF RANGE REFERENCE UNITS LAB CHOLNF TOTAL CHOLESTEROL NF 166 <200 mg/dL Result Comment: <200 mg/dL, Desirable 200-239 mg/dL, Borderline high >239 mg/dL, High LAB TRIGNF TRIGLYCERIDES, NF 103 <150 mg/dL Result Comment: <150 mg/dL, Normal 150-199 mg/dL, Borderline high 200-499 mg/dL, High >499 mg/dL, Very high LAB HDLNF HDL CHOLESTEROL, NF 40 >39 mg/dL Result Comment: 40-59 mg/dL, Acceptable >59 mg/dL, High: Negative risk factor for coronary heart disease <40 mg/dL, Low: Positive risk factor for coronary heart disease LAB LDLNF LDL CHOLESTEROL, NF 105 High <100 mg/dL Result Comment: <100 mg/dL, Optimal 100-129 mg/dL, Near optimal/above optimal 130-159 mg/dL, Borderline high 160-189 mg/dL, High >189 mg/dL, Very high Secondary prevention optimal LDL Cholesterol levels are recommended to be < 70 mg/dL LAB NOHDLN NON HDL CHOL, NF 126 <130 mg/dL Result Comment: <130 mg/dL, Optimal 130-159 mg/dL, Near optimal/above optimal 160-189 mg/dL, Borderline high 190-219 mg/dL, High >219 mg/dL, Very high Secondary prevention optimal non HDL Cholesterol levels are recommended to be <100 mg/dL LAB VLDLNF VLDL CHOLESTEROL, NF 21 <30 mg/dL LAB TCHDLN T CHOL/HDL RATIO NF 4.15 <5.10 mg/dL LAB LDLHDN LDL/HDL RATIO, NF 2.63 High <2.54 mg/dL Result Comment: Reference: 1. National Cholesterol Education Program ATP III Guideline At-A-Glance Quick Desk Reference: National Heart, Lung, and Blood [place]. National Institutes of Health. 2001: NIH Publication No. 01-3305. 2. An International Atherosclerosis Society position paper: global recommendations for the management of dyslipidemia: executive summary, Atherosclerosis. 2014: 232(2):410-413. Performed By: #### LIPNF, 21 32-9, 02865-0, 81083-3 #### [facility] CLIA [id number] [address] [place] [address] OF [facility] Collected: 08/10/2024 2:43 PM S tatus: F Source: [facility] Order Comment: Specimen Type : BLOOD SPECIMEN Ordering Facility: [facility] Address: [address] [place] [address] TYPE CODE TESTS RESULT OUT OF RANGE REFERENCE UNITS LAB 54887-9(LOINC) Magnesium SerPl-mCnc 1.9 1.7-2.3 mg/dL Performed By: #### LIPNF, 21 32-9, 98464-4, 46539-7 #### [facility] CLIA [id number] [address] [place] [address] [place] VIT B12 SERPL-MCNC Collected: 08/10/2024 2:43 PM Sta tus: F Source: [facility] Order Comment: Specimen Type : BLOOD SPECIMEN Ordering Facility: [facility] Address: [address] [place] [address] TYPE CODE TESTS RESULT OUT OF RANGE REFERENCE UNITS LAB 2132-9(LOINC) Vit B12 SerPl-mCnc 072 273-1506 pg/mL Performed By: #### LIPNF, 21 32-9, 61996-5, 06840-4 #### [facility] CLIA [id number] [address] [place] [address] [place] PROGRESS Observed: 08/10/2024 2:05 PM Status: COMPLETED Source: [facility] HNO ID: [id number] Author: VAUGHN PÉREZ APRN.WASH HOUSE WORKER Service: ? Author Type: Nurse Practitioner Type: Progress Notes Filed: 08/10/2024 14:30 Note Text: Chief Complaint Patient presents with: Physical HPI Charlie Devlin is a 64 year old female who presents here today for Above Complaints.. Patient presents today for annual physical. Patient states she has been having difficulty sleeping. She has tried melatonin, Z-quil and Benadryl to help with sleep which has not provided her any significant sleep. Patient states she gets 3 hours of sleep at night. She is unable to take naps during the day. Patient states it is difficult to both fall asleep and remain asleep. Patient states she feels that her mood is different she has been feeling down. Pt states she is also having left upper quadrant pain. She feels like something is sliding up whenever she bends over. She is also having dull right upper quadrant pain. Pt states she has been having left lower extremity edema that has been worsening over the last 3 to 4 months. She noticed an indent in her leg after wearing jeans. Pt states she also noticed a slight weight gain of 3 to 4 pounds over thepast couple of months. She does have SOB with exertion especially when climbing the steps, but denies chest pain and palpitations. Pt denies fever, chills, nausea and vomiting. Past medical history, appointments, medications, allergies reviewed. Previous Medical History PAST MEDICAL HISTORY Diagnosis Date Alcohol abuse 11/30/2018 Was in [facility] in [place] for detox 10/13/2018 and now doing 180. Cirrhosis (HCC) Diverticulosis Gall stones 10/01/2020 Hiatal hernia History of chicken pox History of skin cancer 11/30/[address] Arceo Iron deficiency anemia due to chronic blood loss 05/22/2024 Iron malabsorption 05/22/2024 Pancytopenia (HCC) Previous Surgical History PAST SURGICAL HISTORY Procedure Laterality Date NONE Family History FAMILY HISTORY Problem Relation Age of Onset Diabetes Father Type 1 Thyroid Father Hyperlipidemia Father Diabetes Brother Type 1 Hypertension Brother Diabetes Paternal Grandmother Colon Cancer No Family History Prostate Cancer No Family History Breast Cancer No Family History Ovarian cancer No Family History Uterine Cancer No Family History Coronary Artery Disease No Family History Kidney Disease No Family History Seizures No Family History Stroke No Family History Patient Allergies ALLERGIES Allergen Reactions Penicillins Rash Patient states has not had since childhood Current Medications Current Outpatient Medications on File Prior to Visit Medication Sig ascorbic acid, vitamin C, (VITAMIN C) 500 mg tablet Take 1 tablet by mouth once daily. ferrous sulfate 325 mg (65 mg iron) tablet Take 1 tablet by mouth once daily. furosemide (LASIX) 40 mg tablet Take 1 tablet by mouth every [address] (PROTONIX) 40 mg tablet Take 1 tablet by mouth once daily. acetaminophen (TYLENOL EXTRA STRENGTH) 500 mg tablet Take 1,000 mg by mouth every 6 hours as needed. CONSTULOSE 10 gram/15 mL solution Take 10 g by mouth two times a day as needed. spironolactone (ALDACTONE) 25 mg tablet Take 1 tablet by mouth every 12 hours. No current facility-administered medications on file prior to visit. Social History Social History Tobacco Use Smoking status: Never Passive exposure: Yes Smokeless tobacco: Never Vaping Use Vaping status: Never Used Substance Use Topics Alcohol use: No Comment: No alcohol since 09/10/23 Drug use: No Review of Symptoms REVIEW OF SYSTEMS GENERAL: No weight loss, malaise or fevers RESPIRATORY: Negative for cough, hemoptysis, wheezing, COPD, dyspnea or shortness of breath CARDIOVASCULAR: Negative for chest pain, leg swelling, hypertension, CHF or palpitations : No history of dysuria, frequency or incontinence EXAM: BP 117/63 Pulse 71 Resp 14 Wt 48.1 kg (106 lb) LMP 12/30/2007 BMI 18.78 kg/m? General Appearance: Well appearing, alert, in no acute distress, well-hydrated, well nourished.. Neck: Supple, no adenopathy; thyroid symmetric, normal size, no bruits. Lungs: Lungs clear to auscultation. No wheezing, rhonchi, rales.. Heart: RRR without murmur, gallop, or rubs. No ectopy. Abdomen: Positive findings: tenderness moderate RUQ and LUQ. Extremities: No deformities, edema, skin discoloration, clubbing or cyanosis. Good capillary refill. . Peripheral Pulses: Normal. Health Maintenance List Depression Screening Never done Anxiety Screening Never done Hepatitis C Screening Never done HIV Screening Never done Mammogram Screening Never done Colorectal Cancer Screening due on 01/10/2020 Lipid Screening due on 12/01/2023 Influenza Vaccine(1) due on 12/31/2024 Covid-19 Vaccine(2 - 2023- season) due on 08/10/2025 Pneumococcal Vaccine: 50+(1 of 2 - PCV) due on 08/10/2025 Cervical Cancer Screening due on 08/12/2025 DTaP,Tdap,Td Vaccine(3 - Td or Tdap) due on 12/02/2026 Diabetes Screening due on 05/22/2027 RSV Vaccine(1 - 1-dose 75+ series) due on 2037 Shingrix Vaccine Completed Data reviewed ASSESSMENT/PLAN: 1. Iron deficiency anemia, unspecified iron deficiency anemia type - ICD9: 280.9, ICD10: D50.9 (primary diagnosis) -Follows with Dr. Mae. 2. Screening for depression - ICD9: V79.0, ICD10: Z13.31 - DEPRESSION SCREENING 3. Encounter for screening examination for other mental health and behavioral disorders - ICD9: V79.8, ICD10: Z13.39 - ANXIETY SCREENING 4. 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 Medication management - ICD9: V58.69, ICD10: Z79.899 - COMPREHENSIVE METABOLIC PANEL - MAGNESIUM - VITAMIN B12 6. Encounter for screening for diabetes mellitus - ICD9: V77.1, ICD10: Z13.1 - HEMOGLOBIN A1C 7. Encounter for lipid screening for cardiovascular disease - ICD9: V77.91, V81.2, ICD10: Z13.220, Z13.6 - LIPID PANEL, NONFASTING 8. Insomnia, unspecified type - ICD9: 780.52, ICD10: G47.00 - TRAZODONE 50 MG TABLET 9. 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 - ICD9: 571.2, ICD10: K70.2 - CT ABD/PEL W IVCON - IV CONTRAST (RADIOLOGY PROCEDURE) - NOT ON MAR - ENTERIC CONTRAST (RADIOLOGY PROCEDURE) - NOT ON MAR Vaughn Pérez APRN.CNP CNOV Observed: 08/10/2024 1:40 PM Status: COMPLETED Source: [facility] CHARLIE DEVLIN ([id number]) 1960 F Date Time Provider Department 08/10/24 1:40 PM VAUGHN PÉREZ During your visit today, we recorded the following information about you: Pulse Respiration Blood pressure Weight 71/minute 14/minute 117/63 48.1 kg Vaughn Pérez APRN.WASH HOUSE WORKER 08/10/2024 2:30 PM Signed Chief Complaint Patient presents with: Physical HPI Charlie Devlin is a 64 year old female who presents here today for Above Complaints.. Patient presents today for annual physical. Patient states she has been having difficulty sleeping. She has tried melatonin, Z-quil and Benadryl to help with sleep which has not provided her any significant sleep. Patient states she gets 3 hours of sleep at night. She is unable to take naps during the day. Patient states it is difficult to both fall asleep and remain asleep. Patient states she feels that her mood is different she has been feeling down. Pt states she is also having left upper quadrant pain. She feels like something is sliding up whenever she bends over. She is also having dull right upper quadrant pain. Pt states she has been having left lower extremity edema that has been worsening over the last 3 to 4 months. She noticed an indent in her leg after wearing jeans. Pt states she also noticed a slight weight gain of 3 to 4 pounds over the past couple of months. She does have SOB with exertion especially when climbing the steps, but denies chest pain and palpitations. Pt denies fever, chills, nausea and vomiting. Past medical history, appointments, medications, allergies reviewed. Previous Medical History PAST MEDICAL HISTORY Diagnosis Date Alcohol abuse 11/30/2018 Was in [facility] in [place] for detox 10/13/2018 and now doing 180. Cirrhosis (HCC) Diverticulosis Gall stones 10/01/2020 Hiatal hernia History of chicken pox History of skin cancer 11/30/[address] Arceo Iron deficiency anemia due to chronic blood loss 05/22/2024 Iron malabsorption 05/22/2024 Pancytopenia (HCC) Previous Surgical History PAST SURGICAL HISTORY Procedure Laterality Date NONE Family History FAMILY HISTORY Problem Relation Age of Onset Diabetes Father Type 1 Thyroid Father Hyperlipidemia Father Diabetes Brother Type 1 Hypertension Brother Diabetes Paternal Grandmother Colon Cancer No Family History Prostate Cancer No Family History Breast Cancer No Family History Ovarian cancer No Family History Uterine Cancer No Family History Coronary Artery Disease No Family History Kidney Disease No Family History Seizures No Family History Stroke No Family History Patient Allergies ALLERGIES Allergen Reactions Penicillins Rash Patient states has not had since childhood Current Medications Current Outpatient Medications on File Prior to Visit Medication Sig ascorbic acid, vitamin C, (VITAMIN C) 500 mg tablet Take 1 tablet by mouth once daily. ferrous sulfate 325 mg (65 mg iron) tablet Take 1 tablet by mouth once daily. furosemide (LASIX) 40 mg tablet Take 1 tablet by mouth every [address] (PROTONIX) 40 mg tablet Take 1 tablet by mouth once daily. acetaminophen (TYLENOL EXTRA STRENGTH) 500 mg tablet Take 1,000 mg by mouth every 6 hours as needed. CONSTULOSE 10 gram/15 mL solution Take 10 g by mouth two times a day as needed. spironolactone (ALDACTONE) 25 mg tablet Take 1 tablet by mouth every 12 hours. No current facility-administered medications on file prior to visit. Social History Social History Tobacco Use Smoking status: Never Passive exposure: Yes Smokeless tobacco: Never Vaping Use Vaping status: Never Used Substance Use Topics Alcohol use: No Comment: No alcohol since 09/10/23 Drug use: No Review of Symptoms REVIEW OF SYSTEMS GENERAL: No weight loss, malaise or fevers RESPIRATORY: Negative for cough, hemoptysis, wheezing, COPD, dyspnea or shortness of breath CARDIOVASCULAR: Negative for chest pain, leg swelling, hypertension, CHF or palpitations : No history of dysuria, frequency or incontinence EXAM: BP 117/63 Pulse 71 Resp 14 Wt 48.1 kg (106 lb) LMP 12/30/2007 BMI 18.78 kg/m? General Appearance: Well appearing, alert, in no acute distress, well-hydrated, well nourished.. Neck: Supple, no adenopathy; thyroid symmetric, normal size, no bruits. Lungs: Lungs clear to auscultation. No wheezing, rhonchi, rales.. Heart: RRR without murmur, gallop, or rubs. No ectopy. Abdomen: Positive findings: tenderness moderate RUQ and LUQ. Extremities: No deformities, edema, skin discoloration, clubbing or cyanosis. Good capillary refill. . Peripheral Pulses: Normal. Health Maintenance List Depression Screening Never done Anxiety Screening Never done Hepatitis C Screening Never done HIV Screening Never done Mammogram Screening Never done Colorectal Cancer Screening due on 01/10/2020 Lipid Screening due on 12/01/2023 Influenza Vaccine(1) due on 12/31/2024 Covid-19 Vaccine(2 - season) due on 08/10/2025 Pneumococcal Vaccine: 50+(1 of 2 - PCV) due on 08/10/2025 Cervical Cancer Screening due on 08/12/2025 DTaP,Tdap,Td Vaccine(3 - Td or Tdap) due on 12/02/2026 Diabetes Screening due on 05/22/2027 RSV Vaccine(1 - 1-dose 75+ series) due on 2037 Shingrix Vaccine Completed Data reviewed ASSESSMENT/PLAN: 1. Iron deficiency anemia, unspecified iron deficiency anemia type - ICD9: 280.9, ICD10: D50.9 (primary diagnosis) -Follows with Dr. Mae. 2. Screening for depression - ICD9: V79.0, ICD10: Z13.31 - DEPRESSION SCREENING 3. Encounter for screening examination for other mental health and behavioral disorders - ICD9: V79.8, ICD10: Z13.39 - ANXIETY SCREENING 4. 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 Medication management - ICD9: V58.69, ICD10: Z79.899 - COMPREHENSIVE METABOLIC PANEL - MAGNESIUM - VITAMIN B12 6. Encounter for screening for diabetes mellitus - ICD9: V77.1, ICD10: Z13.1 - HEMOGLOBIN A1C 7. Encounter for lipid screening for cardiovascular disease - ICD9: V77.91, V81.2, ICD10: Z13.220, Z13.6 - LIPID PANEL, NONFASTING 8. Insomnia, unspecified type - ICD9: 780.52, ICD10: G47.00 - TRAZODONE 50 MG TABLET 9. 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 - ICD9: 571.2, ICD10: K70.2 - CT ABD/PEL W IVCON - IV CONTRAST (RADIOLOGY PROCEDURE) - NOT ON MAR - ENTERIC CONTRAST (RADIOLOGY PROCEDURE) - NOT ON MAR Vaughn Pérez APRN.[employer] Allergies As of Date: 08/10/2024 Noted Allergy Reaction PENICILLINS 12/30/2011 2 - Rash Comments: Patient states has not had since childhood Date Reviewed: 08/10/2024 Reviewed by: Yoan San MA - Fully Assessed Reason for Visit: Physical [83] Primary Visit Diagnosis:Iron deficiency anemia, unspecified iron deficiency anemia type [D50.9] Other Visit Diagnoses:Screening for depression [Z13.31] Encounter for screening examination for other mental health and behavioral disorders [Z13.39] 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) [K70.30, I85.11] Medication management [Z79.899] Encounter for screening for diabetes mellitus [Z13.1] Encounter for lipid screening for cardiovascular disease [Z13.220, Z13.6] Screening for colon cancer [Z12.11] Insomnia, unspecified type [G47.00] 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 [K70.2] Order(s):COMPREHENSIVE METABOLIC PANEL [SQCMP] Order #: [id number] FUTURE MAGNESIUM [SQMG1] Order #: [id number] FUTURE VITAMIN B12 [SQB12] Order #: [id number] FUTURE HEMOGLOBIN A1C [QLEIW7M] Order #: [id number] FUTURE LIPID PANEL, NONFASTING [SQLIPNF] Order #: [id number] FUTURE DEPRESSION SCREENING [] Order #: [id number]: 1 ANXIETY SCREENING [] Order #: [id number]: 1 COMPLETE BLOOD COUNT AND DIFFERENTIAL [SQCBCDIF] Order #: [id number] FUTURE traZODone (DESYREL) 50 mg tabletTake 1 tablet by mouth daily at bedtime.Disp: 30 tabletRfl: 1 CT ABD/PEL W IVCON [[id number]] Order #: [id number] FUTURE iv contrast (will be provided with radiology test)CT ABD/PEL -Inject, intravenously, once for 1 dose.No IV access, insert saline lock prior to the beginning of sedation, infusion, injection of imaging exam. Discontinue saline lock post exam. If Pt. has a central line or IVAD, may access for administration according to line specific nursing protocol. Once exam is complete flush line and de-access according to line specific nursing protocol in the CT contrast administration guidelines link.Disp: 1 EachRfl: 0 enteric contrast (will be provided with radiology test)For CT ABD/PEL W IVCON Routine order Administer, As Directed One Time Only, via Oral, Rectal, both Oral and Rectal, Enteric Tube, Stoma or Indwelling Catheter, Enteric Contrast as designated per enteric contrast guidelinesDisp: 1 EachRfl: 0 Prescriptions as of 08/10/2024 - traZODone (DESYREL) 50 mg tablet Take 1 tablet by mouth daily at bedtime. - iv contrast (will be provided with radiology test) CT ABD/PEL -Inject, intravenously, once for 1 dose.No IV access, insert saline lock prior to the beginning of sedation, infusion, injection of imaging exam. Discontinue saline lock post exam. If Pt. has a central line or IVAD, may access for administration according to line specific nursing protocol. Once exam is complete flush line and de-access according to line specific nursing protocol in the CT contrast administration guidelines link. - enteric contrast (will be provided with radiology test) For CT ABD/PEL W IVCON Routine order Administer, As Directed One Time Only, via Oral, Rectal, both Oral and Rectal, Enteric Tube, Stoma or Indwelling Catheter, Enteric Contrast as designated per enteric contrast guidelines - ascorbic acid, vitamin C, (VITAMIN C) 500 mg tablet Take 1 tablet by mouth once daily. - ferrous sulfate 325 mg (65 mg iron) tablet Take 1 tablet by mouth once daily. - furosemide (LASIX) 40 mg tablet Take 1 tablet by mouth every 12 hours. - pantoprazole DR (PROTONIX) 40 mg tablet Take 1 tablet by mouth once daily. - acetaminophen (TYLENOL EXTRA STRENGTH) 500 mg tablet Take 1,000 mg by mouth every 6 hours as needed. - CONSTULOSE 10 gram/15 mL solution Take 10 g by mouth two times a day as needed. - spironolactone (ALDACTONE) 25 mg tablet Take 1 tablet by mouth every 12 hours. Problem List As Of Date 08/10/2024 Noted Resolved Alcohol abuse [F10.10] 11/30/2018 History of skin cancer [Z85.828] 11/30/2018 Well adult exam [Z00.00] 11/30/2018 Encounter for screening for diabetes mellitus [*11/30/2018 Screening for colon cancer [Z12.11] 11/30/2018 Gall stones [K80.20] 10/01/2020 Steatosis (HCC) [E88.89] 09/19/2023 Liver nodule [K76.89] 09/19/2023 Pancreatic mass [K86.89] 09/19/2023 Iron deficiency anemia due to chronic blood los*05/22/2024 Iron malabsorption [K90.9] 05/22/2024 Prescriptions ordered this encounter Disp Refills Start End TRAZODONE 50 MG TABLET 30 t* 1 08/10/2024 Route: ORAL Sig: Take 1 tablet by mouth daily at bedtime. Cosign accepted by VAUGHN PÉREZ[[id number]] on 08/10/2024 2:30 PM IV CONTRAST (RADIOLOGY PROCEDURE) - * 1 Ea* 0 08/10/2024 08/11/2024 Class: In Office Sig: CT ABD/PEL -Inject, intravenously, once for 1 dose.No IV access, insert saline lock prior to the beginning of sedation, infusion, injection of imaging exam. Discontinue saline lock post exam. If Pt. has a central line or IVAD, may access for administration according to line specific nursing protocol. Once exam is complete flush line and de-access according to line specific nursing protocol in the CT contrast administration guidelines link. ENTERIC CONTRAST (RADIOLOGY PROCEDUR* 1 Ea* 0 08/10/2024 08/11/2024 Class: In Office Sig: For CT ABD/PEL W IVCON Routine order Administer, As Directed One Time Only, via Oral, Rectal, both Oral and Rectal, Enteric Tube, Stoma or Indwelling Catheter, Enteric Contrast as designated per enteric contrast guidelines Encounter Status:Closed by VAUGHN PÉREZ on 08/10/24 CNPN Observed: 05/24/2024 12:00 AM Status: COMPLETED Source: [facility] Telephone (HEMRICHARD) CHARLIE DEVLIN ([id number]) 1960 F Date Time Provider Department 05/24/24 JOSE MAE During your visit today, we recorded the following information about you: Hannah Pope 05/24/2024 3:44 PM Signed Patient requesting 05/22 lab results Jose Mae DO 05/24/2024 4:57 PM Signed Her iron is doing pretty well with the pills. Her ferritin in the hospital was 13 and it is now up to 61 which is good. So she appears to be absorbing iron pretty well. MCV is on the high side so please check labs filed under this encounter. She had a normal folate level when she was in the hospital recently. Looks like she may have mild hypothyroidism since her last TSH was a little high so that needs rechecked as well. That can contribute to anemia like this. DO Ronaldo Yeh Melanie, LPN 05/25/2024 8:12 AM Signed Left message for patient to contact office. JOHAN Raza Pamela S, LPN 05/25/2024 8:30 AM Signed spoke with pt. Informed of results. Voiced understanding PSS please put on lab schedule 05/30@ 1 pm Pt. Questioned she had been taking iron daily then went to everyother day after OV 05/22 as instructed , Dr. Mae do you want pt. To take iron daily or everyother day as directed? Pt. is scheduled for parental iron starting next week her ins. Is probably not going to pay do these all need cancelled? JOHAN Veras Paul A, DO 05/25/2024 8:33 AM Signed Correct, we can cancel parenteral iron. I suppose if the iron pill doesn't bother her stomach (which as I recall it wasn't), she can resume taking it every day. DO Candido Yeh Pamela S, LPN 05/25/2024 8:39 AM Signed Message left on voicmeil she can take iron daily if it is not bothering her stomach and iron infusions are being canceled. If further questions she can contact office. JOHAN Veras Pss, Hannah 05/25/2024 9:28 AM Signed Lab scheduled. Iron Infusions canceled. Allergies As of Date: 05/24/2024 Noted Allergy Reaction PENICILLINS 12/30/2011 2 - Rash Comments: Patient states has not had since childhood Date Reviewed: 05/22/2024 Reviewed by: Mago Kwan Ma, MA - Fully Assessed Reason for Visit: Results [95] Primary Visit Diagnosis:Macrocytic anemia [D53.9] Order(s):VITAMIN B12 [SQB12] Order #: [id number] FUTURE METHYLMALONIC ACID [SQMMA] Order #: [id number] FUTURE THYROID STIMULATING HORMONE [SQTSH] Order #: [id number] FUTURE T4 FREE/FREE THYROXINE [SQFT4] Order #: [id number] FUTURE Prescriptions as of 05/25/2024 - pantoprazole DR (PROTONIX) 40 mg tablet Take 1 tablet by mouth once daily. - acetaminophen (TYLENOL EXTRA STRENGTH) 500 mg tablet Take 1,000 mg by mouth every 6 hours as needed. - ferrous sulfate 325 mg (65 mg iron) tablet Take 1 tablet by mouth once daily. - ascorbic acid, vitamin C, (VITAMIN C) 500 mg tablet Take 1 tablet by mouth once daily. - CONSTULOSE 10 gram/15 mL solution Take 10 g by mouth two times a day as needed. - furosemide (LASIX) 40 mg tablet Take 1 tablet by mouth every 12 hours. - spironolactone (ALDACTONE) 25 mg tablet Take 1 tablet by mouth every 12 hours. Problem List As Of Date 05/24/2024 Noted Resolved Alcohol abuse [F10.10] 11/30/2018 History of skin cancer [Z85.828] 11/30/2018 Well adult exam [Z00.00] 11/30/2018 Encounter for screening for diabetes mellitus [*11/30/2018 Screening for colon cancer [Z12.11] 11/30/2018 Gall stones [K80.20] 10/01/2020 Steatosis (HCC) [E88.89] 09/19/2023 Liver nodule [K76.89] 09/19/2023 Pancreatic mass [K86.89] 09/19/2023 Iron deficiency anemia due to chronic blood los*05/22/2024 Iron malabsorption [K90.9] 05/22/2024 Encounter Status:Closed by LISBET LEGGETT on 05/25/24 COMP METAB 2000 PNL SERPL Collected: 4:03 PM Status: F Source: [facility] Order Comment: Specimen Type : BLOOD SPECIMEN Ordering Facility: [facility] Address: [address] [place] [address] TYPE CODE TESTS RESULT OUT OF RANGE REFERENCE UNITS LAB 2885-2(LOINC) Prot SerPl-mCnc 6.3 6.3-8.0 g/dL LAB 1751-7(LOINC) Albumin SerPl-mCnc 3.4 Low 3.9-4.9 g/dL LAB 51652-6(LOINC) Calcium SerPl-mCnc 9.1 8.5-10.2 mg/dL LAB 1975-2(LOINC) Bilirub SerPl-mCnc 0.5 0.2-1.3 mg/dL LAB 6768-6(LOINC) ALP SerPl-cCnc 142 High 34-123 U/L LAB 1920-8(LOINC) AST SerPl-cCnc 30 13-35 U/L LAB 1742-6(LOINC) ALT SerPl-cCnc 14 7-38 U/L LAB 2345-7(LOINC) Glucose SerPl-mCnc 96 74-99 mg/dL Result Comment: The [place] [employer] (ADA) provides guidance for cutoff values for fasting glucose and random glucose. The ADA defines fasting as no caloric intake for at least 8 hours. Fasting plasma glucose results between 100 to 125 mg/dL indicate increased risk for diabetes (prediabetes). Fasting plasma glucose results greater than or equal to 126 mg/dL meet the criteria for diagnosis of diabetes. In the absence of unequivocal hyperglycemia, results should be confirmed by repeat testing. In a patient with classic symptoms of hyperglycemia or hyperglycemic crisis, random plasma glucose results greater than or equal to 200 mg/dL meet the criteria for diagnosis of diabetes. Reference: Standards of Medical Care in Diabetes 2016, [place] [employer]. Diabetes Care. 2016.39(Suppl 1). LAB 3094-0(LOINC) BUN SerPl-mCnc 7 7-21 mg/ dL LAB 2160-0(LOINC) Creat SerPl-mCnc 0.81 0.58-0.96 mg/dL LAB 2951-2(LOINC) Sodium SerPl-sCnc 140 136-144 mmol/L LAB 2823-3(LOINC) Potassium SerPl-sCnc 3.1 Low 3.7-5.1 mmol/L LAB 2075-0(LOINC) Chloride SerPl-sCnc 99 98-107 mmol/L LAB 2028-9(LOINC) CO2 SerPl-sCnc 27 22-30 mmo l/L LAB 74425-2(LOINC) Anion Gap SerPl-sCnc 14 8-15 mmol/L LAB 06729-6(LOINC) Creatinine + eGFR Pnl SerPlBld 82 >=60 mL/min/1 .73m??? Result Comment: Estimated Gl omerular Filtration Rate (eGFR) is calculated using the 2020 CKD-EPI creatinine equation. This equation utilizes serum creatinine, sex, and age as parameters. The creatinine assay has traceable calibration to isotope dilution-mass spectrometry. Refer to KDIGO guidelines for clinical interpretation. In patients with unstable renal function, e.g. those with acute kidney injury, the eGFR may not accurately reflect actual GFR. Performed By: #### 23099-0 # ### [facility] CLIA [id number] [address] [place] [address] [place] IRON+TIBC PNL SERPL Collected: 05/22/2024 4:[address] atus: F Source: [facility] Order Comment: Specimen Type : BLOOD SPECIMEN Ordering Facility: [facility] Address: [address] [place] [address] TYPE CODE TESTS RESULT OUT OF RANGE REFERENCE UNITS LAB 2498-4(LOINC) Iron SerPl-mCnc 106 41-186 ug/dL LAB 2500-7(LOINC) TIBC SerPl-mCnc 314 232-386 ug/dL LAB 58351-3(LOINC) Iron/TIBC SerPl-sRto 33.8 15.0-57.0 % Performed By: #### 2276-4, 5 8 #### [facility] CLIA [id number] [address] [place] [address] [place] FERRITIN SERPL-MCNC Collected: 05/22/20 4:03 PM Status: F Source: [facility] Order Comment: Specimen Type : BLOOD SPECIMEN Ordering Facility: [facility] Address: [address] [place] [address] TYPE CODE TESTS RESULT OUT OF RANGE REFERENCE UNITS LAB 2276-4(LOINC) Ferritin SerPl-mCnc 66.7 14.7-205.1 ng/mL Performed By: #### 2276-4, 5 8 #### [facility] CLIA [id number] [address] [facility] [place] [address] [place] CBC W AUTO DIFF BLD Collected: 05/22/2024 4:[address] atus: F Source: [facility] Order Comment: Specimen Type : BLOOD SPECIMEN Ordering Facility: [facility] Address: [address] [place] [address] TYPE CODE TESTS RESULT OUT OF RANGE REFERENCE UNITS LAB 6690-2([facility]) WBC # Bld Auto 4.62 3.70-11.00 k/uL LAB 789-8([facility]) RBC # Bld Auto 2.89 Low 3.90-5.20 m/ uL LAB 718-7([facility]) Hgb Bld-mCnc 9.2 Low 11.5-15.5 g/dL LAB 4544-3([facility]) Hct VFr Bld Auto 28.7 Low 36.0-46.0 % LAB 787-2(INC) MCV RBC Auto 99.3 80.0-100.0 fL LAB 785-6(INC) MCH RBC Qn Auto 31.8 26.0-34.0 p g LAB 786-4(INC) MCHC RBC Auto-mCnc 32.1 30.5-36.0 g/dL LAB 41163-5([facility]) RDW RBC-Rto 16.7 High 11.5-15.0 % LAB 777-3(INC) Platelet # Bld Auto 178 150-400 k/uL LAB 02019-4(INC) PMV Bld Auto 9.7 9.0-12.7 fL LAB 770-8(INC) Neutrophils/leuk NFr Bld Auto 51.5 % LAB 751-8(LOINC) Neutrophils # Bld Auto 2.38 1.45-7.50 k/uL LAB 736-9(LOINC) Lymphocytes/leuk NFr Bld Auto 29.7 % LAB 731-0(LOINC) Lymphocytes # Bld Auto 1.37 1.00-4.00 k/uL LAB 5905-5(LOINC) Monocytes/leuk NFr Bld Auto 13.0 % LAB 742-7(LOINC) Monocytes # Bld Auto 0.60 <0.87 k/uL LAB 713-8(LOINC) Eosinophil/leuk NFr Bld Auto 4.3 % LAB 711-2(LOINC) Eosinophil # Bld Auto 0.20 <0.46 k/uL LAB 706-2(LOINC) Basophils/leuk NFr Bld Auto 1.1 % LAB 704-7(LOINC) Basophils # Bld Auto 0.05 <0.11 k/uL LAB 62383-1(LOINC) Imm Granulocytes/lucio k NFr Bld Auto 0.4 % LAB 32493-8(LOINC) Imm Granulocytes # Bld Auto <0.03 <0.10 k/uL LAB 51122-1(LOINC) nRBC/100 WBC Bld-Rto 0.0 /100 WBC LAB 771-6(LOINC) nRBC # Bld Auto <0.01 <0.01 k/u L LAB 87502-1(LOINC) Differential method Bld Auto Performed By: #### 04200-3 # ### [facility] CLIA [id number] [address] [place] [address] CNOVSP Observed: 05/22/2024 3:00 PM Status: COMPLETED Source: [facility] Visit (SP) Office (HEMAWS) CHARLIE DEVLIN ([id number]) 1960 F Date Time Provider Department 05/22/24 3:00 PM JOSE MAE During your visit today, we recorded the following information about you: Temperature Pulse Blood pressure Weight 99.7 degrees 97/minute 128/73 46.9 kg Height 1.6 m Jose Mae DO 05/22/2024 7:13 PM Signed Patient referred by Dr. Gomez for HANH. HPI: The patient is a 62-year-old female with a past medical history as outlined below. The patient was admitted to [facility] via ED on 04/30/2024 with complaint of melena. She had a prior history of gastric ulcers and gastric varices. She had been taking iron and thought initially melena was secondary to that but she became progressively more fatigued and noticed weakness. On presentation hemoglobin was 5.9 g/dL. She was transfused 2 units of packed red blood cells. She had a near syncopal episode in the ED. She was started on IV pantoprazole. She underwent an EGD that demonstrated small esophageal varices which were nonbleeding and large duodenal varices which were also nonbleeding. Colonoscopy--prep was poor--stool was noted the entire colon--showed rectal varices and diverticulosis in the rectosigmoid colon, sigmoid colon and descending colon at the splenic flexure. She was discharged home after hemoglobin increased to 8.7 g/dL. She was advised to continue pantoprazole 40 mg twice daily and follow-up outpatient with her PCP and gastroenterology. At the time of discharge hemoglobin is 8.7 g/dL. MCH was 32.0 pg and the MCV was 94.9 fL. Total white count was normal at 5400. Differential was unremarkable. Platelet count was 172,000. Chemistries revealed mildly increased total bilirubin of 1.1 mg/dL. The remainder the hepatocellular enzymes and alkaline phosphatase were normal. Ferritin was 13 ng/mL. Folate was normal. Iron saturation was 9.1%. TIBC was 464 mcg/dL. Initially was a little nauseated from oral iron, but now okay. Taking daily. Not constipated. On lactulose. Admitted to [facility] 09/19/2023 for hematemesis. Diagnosed with cirrhosis. Referred to [facility] for TIPS. Had two paracenteses. CT A/P 09/18 and subsequent MRI 09/20/2023--suspicion for HCC. Was told biopsies negative. No symptomatic ascites since then. Stopped drinking alcohol altogether just prior to that admission. Very fatigued. Constant itch. Chronic low back pain. PAST MEDICAL HISTORY Diagnosis Date Alcohol abuse 11/30/2018 Was in [facility] in [place] for detox 10/13/2018 and now doing 180. Gall stones 10/01/2020 History of chicken pox History of skin cancer 11/30/[address] Arceo Pancytopenia (HCC) PAST SURGICAL HISTORY Procedure Laterality Date NONE ferrous sulfate 325 mg (65 mg iron) tablet Take 1 tablet by mouth once daily. ascorbic acid, vitamin C, (VITAMIN C) 500 mg tablet Take 1 tablet by mouth once daily. CONSTULOSE 10 gram/15 mL solution furosemide (LASIX) 40 mg tablet Take 1 tablet by mouth every 12 hours. spironolactone (ALDACTONE) 25 mg tablet Take 1 tablet by mouth every 12 hours. ibuprofen (MOTRIN ORAL) Take by mouth. ALLERGIES Allergen Reactions Penicillins Rash Patient states has not had since childhood Social History Tobacco Use Smoking status: Never Passive exposure: Yes Smokeless tobacco: Never Vaping Use Vaping status: Never Used Substance Use Topics Alcohol use: No Drug use: No FAMILY HISTORY Problem Relation Age of Onset Diabetes Father Type 1 Thyroid Father Hyperlipidemia Father Diabetes Paternal Grandmother Diabetes Brother Type 1 Colon Cancer No Family History Prostate Cancer No Family History Breast Cancer No Family History Ovarian cancer No Family History Uterine Cancer No Family History Coronary Artery Disease No Family History Hypertension No Family History Kidney Disease No Family History Seizures No Family History Stroke No Family History REVIEW OF SYSTEMS: Constitutional: No episodes of fever and night sweats. Normal appetite. Neuro: No CASTILLO, vertigo, dizziness and imbalance. No symptoms of neuropathy. HEENT: No recent change in voice, vision or hearing. Resp: No cough, wheeze and hemoptysis. No shortness of breath at rest. No IVORY. CVS: No exertional chest pain, PND, orthopnea and LE edema. GI: See above. : No dysuria or gross hematuria. Endo: No hot flashes. No polyuria and polydipsia. No heat and cold intolerance. Musculoskeletal: No bone, back, joint and muscular pain. Derm: See above. Heme: No unusual bleeding and unexplained bruising. Psych: Normal mood. PHYSICAL EXAM: Vitals: Blood pressure 128/73, pulse 97, temperature 37.6 ?C (99.7 ?F), temperature source Temporal, height 160 cm (5' 3), weight 46.9 kg (103 lb 8 oz), last menstrual period 12/30/2007, SpO2 99%. Well-appearing and in no acute distress. EYES: Sclerae are anicteric bilaterally. LYMPHATIC: There is no palpable adenopathy. RESPIRATORY: Inspiratory breath sounds are of normal intensity in all berg. CARDIOVASCULAR: Rhythm is regular. ABDOMEN: The abdomen is nondistended. Small diastasis recti upper abdomen. Firm, tender area within. Extremities: No swelling or edema. SKIN: No jaundice. Genetic testing: NGS/biomarkers/laundry route driver mutation analyses: STAGING: Cancer Staging No matching staging information was found for the patient. ASSESSMENT/PLAN: (D50.0) Iron deficiency anemia due to chronic blood loss (primary encounter diagnosis) (K90.9) Iron malabsorption Assessment: -64 yo recently admitted to [facility] for melena. -Low iron with mild anemia. -Cirrhosis with esophageal varices. -On oral iron and tolerating well. -On PPI high dose. Plan: -Check CBC/CMP/Iron . -Parenteral iron if indicated. -Advised take OTC iron with vit C every other day. I spent a total of 40 minutes on the date of the service which included preparing to see the patient, [id number] patient care, completing clinical documentation, obtaining and/or reviewing separately obtained history, performing a medically appropriate examination, counseling and educating the patient/family/caregiver, ordering medications, tests, or procedures, communicating with other HCPs (not separately reported), and communicating results to the patient/family/caregiver. Jose Mae DO Referring Provider: LAURA GOMEZ [[id number]] Allergies As of Date: 05/22/2024 Noted Allergy Reaction PENICILLINS 12/30/2011 2 - Rash Comments: Patient states has not had since childhood Date Reviewed: 05/22/2024 Reviewed by: Mago Kwan Ma, MANUEL - Fully Assessed Reason for Visit: New Patient Evaluation [154] Primary Visit Diagnosis:Iron deficiency anemia due to chronic blood loss [D50.0] Other Visit Diagnosis:Iron malabsorption [K90.9] Order(s):COMPLETE BLOOD COUNT AND DIFFERENTIAL [SQCBCDIF] Order #: [id number] FUTURE IRON AND TIBC [SQIRON] Order #: [id number] FUTURE FERRITIN [SQFERR] Order #: [id number] FUTURE COMPREHENSIVE METABOLIC PANEL [SQCMP] Order #: [id number] FUTURE Follow-up and Disposition History for Encounter Date Provider Department Center 05/22/2024 [id number] MAE ToskRICHARD Harimata Prescriptions as of 05/22/2024 - pantoprazole DR (PROTONIX) 40 mg tablet Take 1 tablet by mouth once daily. - acetaminophen (TYLENOL EXTRA STRENGTH) 500 mg tablet Take 1,000 mg by mouth every 6 hours as needed. - ferrous sulfate 325 mg (65 mg iron) tablet Take 1 tablet by mouth once daily. - ascorbic acid, vitamin C, (VITAMIN C) 500 mg tablet Take 1 tablet by mouth once daily. - CONSTULOSE 10 gram/15 mL solution Take 10 g by mouth two times a day as needed. - furosemide (LASIX) 40 mg tablet Take 1 tablet by mouth every 12 hours. - spironolactone (ALDACTONE) 25 mg tablet Take 1 tablet by mouth every 12 hours. Medication notes this encounter SPIRONOLACTONE 25 MG TABLET >> Mago Kwan Ma, MA 05/22/2024 2:47 PM >> MAGO KWAN 19, 2024 2:47 PM Taking as needed Problem List As Of Date 05/22/2024 Noted Resolved Alcohol abuse [F10.10] 11/30/2018 History of skin cancer [Z85.828] 11/30/2018 Well adult exam [Z00.00] 11/30/2018 Encounter for screening for diabetes mellitus [*11/30/2018 Screening for colon cancer [Z12.11] 11/30/2018 Gall stones [K80.20] 10/01/2020 Steatosis (HCC) [E88.89] 09/19/2023 Liver nodule [K76.89] 09/19/2023 Pancreatic mass [K86.89] 09/19/2023 Iron deficiency anemia due to chronic blood los*05/22/2024 Iron malabsorption [K90.9] 05/22/2024 Encounter Status:Closed by JOSE MAE on 05/22/24 PROGRESS Observed: 05/22/2024 2:42 PM Status: COMPLETED Source: [facility] ID: [id number] Author: JOSE MAE DO Service: ? Author Type: Physician Type: Progress Notes Filed: 05/22/2024 19:13 Note Text: Patient referred by Dr. Gomez for HANH. HPI: The patient is a 62-year-old female with a past medical history as outlined below. The patient was admitted to [facility] via ED on 04/30/2024 with complaint of melena. She had a prior history of gastric ulcers and gastric varices. She had been taking iron and thought initially melena was secondary to that but she became progressively more fatigued and noticed weakness. On presentation hemoglobin was 5.9 g/dL. She was transfused 2 units of packed red blood cells. She had a near syncopal episode in the ED. She was started on IV pantoprazole. She underwent an EGD that demonstrated small esophageal varices which were nonbleeding and large duodenal varices which were also nonbleeding. Colonoscopy--prep was poor--stool was noted the entire colon--showed rectal varices and diverticulosis in the rectosigmoid colon, sigmoid colon and descending colon at the splenic flexure. She was discharged home after hemoglobin increased to 8.7 g/dL. She was advised to continue pantoprazole 40 mg twice daily and follow-up outpatient with her PCP and gastroenterology. At the time of discharge hemoglobin is 8.7 g/dL. MCH was 32.0 pg and the MCV was 94.9 fL. Total white count was normal at 5400. Differential was unremarkable. Platelet count was 172,000. Chemistries revealed mildly increased total bilirubin of 1.1 mg/dL. The remainder the hepatocellular enzymes and alkaline phosphatase were normal. Ferritin was 13 ng/mL. Folate was normal. Iron saturation was 9.1%. TIBC was 464 mcg/dL. Initially was a little nauseated from oral iron, but now okay. Taking daily. Not constipated. On lactulose. Admitted to [facility] 09/19/2023 for hematemesis. Diagnosed with cirrhosis. Referred to [facility] for TIPS. Had two paracenteses. CT A/P 09/18 and subsequent MRI 09/20/2023--suspicion for HCC. Was told biopsies negative. No symptomatic ascites since then. Stopped drinking alcohol altogether just prior to that admission. Very fatigued. Constant itch. Chronic low back pain. PAST MEDICAL HISTORY Diagnosis Date Alcohol abuse 11/30/2018 Was in [facility] in [place] for detox 10/13/2018 and now doing 180. Gall stones 10/01/2020 History of chicken pox History of skin cancer 11/30/[address] Arceo Pancytopenia (HCC) PAST SURGICAL HISTORY Procedure Laterality Date NONE ferrous sulfate 325 mg (65 mg iron) tablet Take 1 tablet by mouth once daily. ascorbic acid, vitamin C, (VITAMIN C) 500 mg tablet Take 1 tablet by mouth once daily. CONSTULOSE 10 gram/15 mL solution furosemide (LASIX) 40 mg tablet Take 1 tablet by mouth every 12 hours. spironolactone (ALDACTONE) 25 mg tablet Take 1 tablet by mouth every 12 hours. ibuprofen (MOTRIN ORAL) Take by mouth. ALLERGIES Allergen Reactions Penicillins Rash Patient states has not had since childhood Social History Tobacco Use Smoking status: Never Passive exposure: Yes Smokeless tobacco: Never Vaping Use Vaping status: Never Used Substance Use Topics Alcohol use: No Drug use: No FAMILY HISTORY Problem Relation Age of Onset Diabetes Father Type 1 Thyroid Father Hyperlipidemia Father Diabetes Paternal Grandmother Diabetes Brother Type 1 Colon Cancer No Family History Prostate Cancer No Family History Breast Cancer No Family History Ovarian cancer No Family History Uterine Cancer No Family History Coronary Artery Disease No Family History Hypertension No Family History Kidney Disease No Family History Seizures No Family History Stroke No Family History REVIEW OF SYSTEMS: Constitutional: No episodes of fever and night sweats. Normal appetite. Neuro: No CASTILLO, vertigo, dizziness and imbalance. No symptoms of neuropathy. HEENT: No recent change in voice, vision or hearing. Resp: No cough, wheeze and hemoptysis. No shortness of breath at rest. No IVORY. CVS: No exertional chest pain, PND, orthopnea and LE edema. GI: See above. : No dysuria or gross hematuria. Endo: No hot flashes. No polyuria and polydipsia. No heat and cold intolerance. Musculoskeletal: No bone, back, joint and muscular pain. Derm: See above. Heme: No unusual bleeding and unexplained bruising. Psych: Normal mood. PHYSICAL EXAM: Vitals: Blood pressure 128/73, pulse 97, temperature 37.6 ?C (99.7 ?F), temperature source Temporal, height 160 cm (5' 3), weight 46.9 kg (103 lb 8 oz), last menstrual period 12/30/2007, SpO2 99%. Well-appearing and in no acute distress. EYES: Sclerae are anicteric bilaterally. LYMPHATIC: There is no palpable adenopathy. RESPIRATORY: Inspiratory breath sounds are of normal intensity in all berg. CARDIOVASCULAR: Rhythm is regular. ABDOMEN: The abdomen is nondistended. Small diastasis recti upper abdomen. Firm, tender area within. Extremities: No swelling or edema. SKIN: No jaundice. Genetic testing: NGS/biomarkers/laundry route driver mutation analyses: STAGING: Cancer Staging No matching staging information was found for the patient. ASSESSMENT/PLAN: (D50.0) Iron deficiency anemia due to chronic blood loss (primary encounter diagnosis) (K90.9) Iron malabsorption Assessment: -64 yo recently admitted to [facility] for melena. -Low iron with mild anemia. -Cirrhosis with esophageal varices. -On oral iron and tolerating well. -On PPI high dose. Plan: -Check CBC/CMP/Iron . -Parenteral iron if indicated. -Advised take OTC iron with vit C every other day. I spent a total of 40 minutes on the date of the service which included preparing to see the patient, [id number] patient care, completing clinical documentation, obtaining and/or reviewing separately obtained history, performing a medically appropriate examination, counseling and educating the patient/family/caregiver, ordering medications, tests, or procedures, communicating with other HCPs (not separately reported), and communicating results to the patient/family/caregiver. DO DIVYA Yeh Observed: 05/11/2024 12:00 AM Status: COMPLETED Source: [facility] Telephone (HEMAWS) CHARLIE DEVLIN ([id number]) 1960 F Date Time Provider Department 05/11/24 JOSE MAE During your visit today, we recorded the following information about you: Margaret Yanes 05/11/2024 11:26 AM Signed Lvm for patient to call back. When patient returns the call please schedule with first available. 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 SANCHEZ FRIEND* Hannah Corral 05/11/2024 12:02 PM Signed Scheduled with patient Allergies As of Date: 05/11/2024 Noted Allergy Reaction PENICILLINS 12/30/2011 2 - Rash Comments: Patient states has not had since childhood Date Reviewed: 05/07/2024 Reviewed by: Yoan San MA - Fully Assessed Reason for Visit: Appointment [186] Prescriptions as of 05/11/2024 - ferrous sulfate 325 mg (65 mg iron) tablet Take 1 tablet by mouth once daily. - ascorbic acid, vitamin C, (VITAMIN C) 500 mg tablet Take 1 tablet by mouth once daily. - CONSTULOSE 10 gram/15 mL solution - furosemide (LASIX) 40 mg tablet Take 1 tablet by mouth every 12 hours. - spironolactone (ALDACTONE) 25 mg tablet Take 1 tablet by mouth every 12 hours. - ibuprofen (MOTRIN ORAL) Take by mouth. Problem List As Of Date 05/11/2024 Noted Resolved Alcohol abuse [F10.10] 11/30/2018 History of skin cancer [Z85.828] 11/30/2018 Well adult exam [Z00.00] 11/30/2018 Encounter for screening for diabetes mellitus [*11/30/2018 Screening for colon cancer [Z12.11] 11/30/2018 Gall stones [K80.20] 10/01/2020 Steatosis (HCC) [E88.89] 09/19/2023 Liver nodule [K76.89] 09/19/2023 Pancreatic mass [K86.89] 09/19/2023 Encounter Status:Closed by JONATHAN FRANK on 05/11/24 PROGRESS Observed: 05/07/2024 11:20 AM Status: COMPLETED Source: [facility] HNO ID: [id number] Author: VAUGHN PÉREZ APRN.WASH HOUSE WORKER Service: ? Author Type: Nurse Practitioner Type: Progress Notes Filed: 05/07/2024 12:06 Note Text: Chief Complaint Patient presents with: Hospital F/U HPI Charlie Devlin is a 64 year old female who presents here today for Above Complaints.. Patient presents for hospital follow up for GI bleed. Patient has stage 4 liver fibrosis and follows with Dr. Gomez. Patient reports she had upper and lower endoscopy which showed esophageal and rectal varices. Past medical history, appointments, medications, allergies reviewed. Previous Medical History PAST MEDICAL HISTORY Diagnosis Date Alcohol abuse 11/30/2018 Was in [facility] in [place] for detox 10/13/2018 and now doing 180. Gall stones 10/01/2020 History of chicken pox History of skin cancer 11/30/[address] Arceo Pancytopenia (HCC) Previous Surgical History PAST SURGICAL HISTORY Procedure Laterality Date NONE Family History FAMILY HISTORY Problem Relation Age of Onset Diabetes Father Type 1 Thyroid Father Hyperlipidemia Father Diabetes Paternal Grandmother Diabetes Brother Type 1 Colon Cancer No Family History Prostate Cancer No Family History Breast Cancer No Family History Ovarian cancer No Family History Uterine Cancer No Family History Coronary Artery Disease No Family History Hypertension No Family History Kidney Disease No Family History Seizures No Family History Stroke No Family History Patient Allergies ALLERGIES Allergen Reactions Penicillins Rash Patient states has not had since childhood Current Medications Current Outpatient Medications on File Prior to Visit Medication Sig ferrous sulfate 325 mg (65 mg iron) tablet Take 1 tablet by mouth once daily. ascorbic acid, vitamin C, (VITAMIN C) 500 mg tablet Take 1 tablet by mouth once daily. CONSTULOSE 10 gram/15 mL solution furosemide (LASIX) 40 mg tablet Take 1 tablet by mouth every 12 hours. spironolactone (ALDACTONE) 25 mg tablet Take 1 tablet by mouth every 12 hours. ibuprofen (MOTRIN ORAL) Take by mouth. No current facility-administered medications on file prior to visit. Social History Social History Tobacco Use Smoking status: Never Passive exposure: Yes Smokeless tobacco: Never Vaping Use Vaping status: Never Used Substance Use Topics Alcohol use: No Drug use: No Review of Symptoms REVIEW OF SYSTEMS SEE HPI EXAM: BP 127/64 Pulse 92 Resp 14 Wt 45.8 kg (101 lb) LMP 12/30/2007 BMI 17.34 kg/m? General Appearance: Well appearing, alert, in no acute distress, well-hydrated, well nourished. Abdomen: Positive findings: distended, hepatomegaly, liver edge palpable below costal margin. Health Maintenance List Pneumococcal Vaccine(1 of 2 - PCV) Never done Depression Screening Never done Anxiety Screening Never done Hepatitis C Screening Never done HIV Screening Never done Mammogram Screening Never done Colorectal Cancer Screening due on 01/10/2020 Lipid Screening due on 12/01/2023 Influenza Vaccine(1) due on 03/04/2024 Covid-19 Vaccine(2 - 2023- season) due on 03/04/2024 Cervical Cancer Screening due on 08/12/2025 DTaP,Tdap,Td Vaccine(3 - Td or Tdap) due on 12/02/2026 Diabetes Screening due on 04/16/2027 RSV Vaccine(1 - 1-dose 75+ series) due on 2037 Shingrix Vaccine Completed ASSESSMENT/PLAN: 1. 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) - ICD9: 571.2, 456.20, ICD10: K70.30, I85.11 (primary diagnosis) -Continue follow up with Dr. Gomez 2. Rectal varices - ICD9: 455.6, ICD10: K64.9 -Continue follow up with Dr. Gomez 3. 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 - ICD9: 571.2, ICD10: K70.2 -Continue follow up with Dr. Gomez Encouraged patient to get FMLA papers from employer. Vaughn Pérez APRN.CNP CNOV Observed: 05/07/2024 11:20 AM Status: COMPLETED Source: [facility]IN ([id number]) 1960 F Date Time Provider Department 05/07/24 11:20 AM VAUGHN PÉREZ During your visit today, we recorded the following information about you: Pulse Respiration Blood pressure Weight 92/minute 14/minute 127/64 45.8 kg Vaughn Pérez APRN.CNP 05/07/2024 12:06 PM Signed Chief Complaint Patient presents with: Hospital F/U HPI Charlie Devlin is a 64 year old female who presents here today for Above Complaints.. Patient presents for hospital follow up for GI bleed. Patient has stage 4 liver fibrosis and follows with Dr. Gomez. Patient reports she had upper and lower endoscopy which showed esophageal and rectal varices. Past medical history, appointments, medications, allergies reviewed. Previous Medical History PAST MEDICAL HISTORY Diagnosis Date Alcohol abuse 11/30/2018 Was in [facility] in [place] for detox 10/13/2018 and now doing 180. Gall stones 10/01/2020 History of chicken pox History of skin cancer 11/30/[address] Arceo Pancytopenia (HCC) Previous Surgical History PAST SURGICAL HISTORY Procedure Laterality Date NONE Family History FAMILY HISTORY Problem Relation Age of Onset Diabetes Father Type 1 Thyroid Father Hyperlipidemia Father Diabetes Paternal Grandmother Diabetes Brother Type 1 Colon Cancer No Family History Prostate Cancer No Family History Breast Cancer No Family History Ovarian cancer No Family History Uterine Cancer No Family History Coronary Artery Disease No Family History Hypertension No Family History Kidney Disease No Family History Seizures No Family History Stroke No Family History Patient Allergies ALLERGIES Allergen Reactions Penicillins Rash Patient states has not had since childhood Current Medications Current Outpatient Medications on File Prior to Visit Medication Sig ferrous sulfate 325 mg (65 mg iron) tablet Take 1 tablet by mouth once daily. ascorbic acid, vitamin C, (VITAMIN C) 500 mg tablet Take 1 tablet by mouth once daily. CONSTULOSE 10 gram/15 mL solution furosemide (LASIX) 40 mg tablet Take 1 tablet by mouth every 12 hours. spironolactone (ALDACTONE) 25 mg tablet Take 1 tablet by mouth every 12 hours. ibuprofen (MOTRIN ORAL) Take by mouth. No current facility-administered medications on file prior to visit. Social History Social History Tobacco Use Smoking status: Never Passive exposure: Yes Smokeless tobacco: Never Vaping Use Vaping status: Never Used Substance Use Topics Alcohol use: No Drug use: No Review of Symptoms REVIEW OF SYSTEMS SEE HPI EXAM: BP 127/64 Pulse 92 Resp 14 Wt 45.8 kg (101 lb) LMP 12/30/2007 BMI 17.34 kg/m? General Appearance: Well appearing, alert, in no acute distress, well-hydrated, well nourished. Abdomen: Positive findings: distended, hepatomegaly, liver edge palpable below costal margin. Health Maintenance List Pneumococcal Vaccine(1 of 2 - PCV) Never done Depression Screening Never done Anxiety Screening Never done Hepatitis C Screening Never done HIV Screening Never done Mammogram Screening Never done Colorectal Cancer Screening due on 01/10/2020 Lipid Screening due on 12/01/2023 Influenza Vaccine(1) due on 03/04/2024 Covid-19 Vaccine(2 - 2023- season) due on 03/04/2024 Cervical Cancer Screening due on 08/12/2025 DTaP,Tdap,Td Vaccine(3 - Td or Tdap) due on 12/02/2026 Diabetes Screening due on 04/16/2027 RSV Vaccine(1 - 1-dose 75+ series) due on 2037 Shingrix Vaccine Completed ASSESSMENT/PLAN: 1. 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) - ICD9: 571.2, 456.20, ICD10: K70.30, I85.11 (primary diagnosis) -Continue follow up with Dr. Gomez 2. Rectal varices - ICD9: 455.6, ICD10: K64.9 -Continue follow up with Dr. Gomez 3. 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 - ICD9: 571.2, ICD10: K70.2 -Continue follow up with Dr. Gomez Encouraged patient to get FMLA papers from employer. Vaughn Pérez APRN.WASH HOUSE WORKER Allergies As of Date: 05/07/2024 Noted Allergy Reaction PENICILLINS 12/30/2011 2 - Rash Comments: Patient states has not had since childhood Date Reviewed: 05/07/2024 Reviewed by: Yoan San MA - Fully Assessed Reason for Visit: Hospital F/U [57] Primary Visit Diagnosis: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) [K70.30, I85.11] Other Visit Diagnoses:Rectal varices [K64.9] 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 [K70.2] Prescriptions as of 05/07/2024 - ferrous sulfate 325 mg (65 mg iron) tablet Take 1 tablet by mouth once daily. - ascorbic acid, vitamin C, (VITAMIN C) 500 mg tablet Take 1 tablet by mouth once daily. - CONSTULOSE 10 gram/15 mL solution - furosemide (LASIX) 40 mg tablet Take 1 tablet by mouth every 12 hours. - spironolactone (ALDACTONE) 25 mg tablet Take 1 tablet by mouth every 12 hours. - ibuprofen (MOTRIN ORAL) Take by mouth. Problem List As Of Date 05/07/2024 Noted Resolved Alcohol abuse [F10.10] 11/30/2018 History of skin cancer [Z85.828] 11/30/2018 Well adult exam [Z00.00] 11/30/2018 Encounter for screening for diabetes mellitus [*11/30/2018 Screening for colon cancer [Z12.11] 11/30/2018 Gall stones [K80.20] 10/01/2020 Steatosis (HCC) [E88.89] 09/19/2023 Liver nodule [K76.89] 09/19/2023 Pancreatic mass [K86.89] 09/19/2023 Disposition: Return if symptoms worsen or fail to improve. Follow-up and Disposition History for Encounter Date Provider Department Center 05/07/2024 [id number] PÉREZ [facility] Encounter Status:Closed by VAUGHN PÉREZ on 05/07/24 CNPN Observed: 04/17/2024 12:00 AM Status: COMPLETED Source: [facility] Telephone (CODYWS) CHARLIE DEVLIN ([id number]) 1960 F Date Time Provider Department 04/17/24 VAUGHN PÉREZ During your visit today, we recorded the following information about you: Vaughn Pérez APRN.[facility] 04/17/2024 9:33 AM Signed Please let patient know her potassium is normal. Yoan San MA 04/17/2024 10:47 AM Signed Left message for patient to return call to office MANUEL Ann Krystle, RN 04/17/2024 11:36 AM Signed Patient returns call and reviewed results. Patient wanting to verify that Alkaline Phosphatase is ok as well. Currently 148. Notified patient that it is trending down from 155 on 04/06/2024. Patient aware that we will only call back if provider has concerns. Racquel Morin RN Allergies As of Date: 04/17/2024 Noted Allergy Reaction PENICILLINS 12/30/2011 2 - Rash Comments: Patient states has not had since childhood Date Reviewed: 04/09/2024 Reviewed by: Roseann Lazaro OD - Fully Assessed Reason for Visit: Results [95] Prescriptions as of 04/17/2024 - ferrous sulfate 325 mg (65 mg iron) tablet Take 1 tablet by mouth once daily. - ascorbic acid, vitamin C, (VITAMIN C) 500 mg tablet Take 1 tablet by mouth once daily. - CONSTULOSE 10 gram/15 mL solution - furosemide (LASIX) 40 mg tablet Take 1 tablet by mouth every 12 hours. - spironolactone (ALDACTONE) 25 mg tablet Take 1 tablet by mouth every 12 hours. - ibuprofen (MOTRIN ORAL) Take by mouth. Problem List As Of Date 04/17/2024 Noted Resolved Alcohol abuse [F10.10] 11/30/2018 History of skin cancer [Z85.828] 11/30/2018 Well adult exam [Z00.00] 11/30/2018 Encounter for screening for diabetes mellitus [*11/30/2018 Screening for colon cancer [Z12.11] 11/30/2018 Gall stones [K80.20] 10/01/2020 Steatosis (HCC) [E88.89] 09/19/2023 Liver nodule [K76.89] 09/19/2023 Pancreatic mass [K86.89] 09/19/2023 Encounter Status:Closed by YOAN SAN CMA on 04/17/24 COMP METAB 2000 PNL SERPL Collected: 2:45 PM Status: F Source: [facility] Order Comment: Specimen Type : BLOOD SPECIMEN Ordering Facility: [facility] Address: [address] [place] [address] TYPE CODE TESTS RESULT OUT OF RANGE REFERENCE UNITS LAB 2885-2(LOINC) Prot SerPl-mCnc 7.5 6.3-8.0 g/dL LAB 1751-7(LOINC) Albumin SerPl-mCnc 4.1 3.9-4.9 g/dL LAB 54073-4(LOINC) Calcium SerPl-mCnc 9.6 8.5-10.2 mg/dL LAB 1975-2(LOINC) Bilirub SerPl-mCnc 0.8 0.2-1.3 mg/dL LAB 6768-6(LOINC) ALP SerPl-cCnc 148 High 34-123 U/L LAB 1920-8(LOINC) AST SerPl-cCnc 30 13-35 U/L LAB 1742-6(LOINC) ALT SerPl-cCnc 16 7-38 U/L LAB 2345-7(LOINC) Glucose SerPl-mCnc 88 74-99 mg/dL Result Comment: The [place] [employer] Association (ADA) provides guidance for cutoff values for fasting glucose and random glucose. The ADA defines fasting as no caloric intake for at least 8 hours. Fasting plasma glucose results between 100 to 125 mg/dL indicate increased risk for diabetes (prediabetes). Fasting plasma glucose results greater than or equal to 126 mg/dL meet the criteria for diagnosis of diabetes. In the absence of unequivocal hyperglycemia, results should be confirmed by repeat testing. In a patient with classic symptoms of hyperglycemia or hyperglycemic crisis, random plasma glucose results greater than or equal to 200 mg/dL meet the criteria for diagnosis of diabetes. Reference: Standards of Medical Care in Diabetes 2016, [place] [employer] Association. Diabetes Care. 2016.39(Suppl 1). LAB 3094-0(LOINC) BUN SerPl-mCnc 14 7-21 mg/ dL LAB 2160-0(LOINC) Creat SerPl-mCnc 1.04 High 0.58-0.96 mg/dL LAB 2951-2(LOINC) Sodium SerPl-sCnc 135 Low 136-144 mmol/L LAB 2823-3(LOINC) Potassium SerPl-sCnc 3.7 3.7-5.1 mmol/L LAB 2075-0(LOINC) Chloride SerPl-sCnc 96 Low 98-107 mmol/L LAB 2028-9(LOINC) CO2 SerPl-sCnc 27 22-30 mmo l/L LAB 80787-5(LOINC) Anion Gap SerPl-sCnc 12 8-15 mmol/L LAB 73901-0(LOINC) Creatinine + eGFR Pnl SerPlBld 61 >=60 mL/min/1 .73m??? Result Comment: Estimated Gl omerular Filtration Rate (eGFR) is calculated using the 2020 CKD-EPI creatinine equation. This equation utilizes serum creatinine, sex, and age as parameters. The creatinine assay has traceable calibration to isotope dilution-mass spectrometry. Refer to KDIGO guidelines for clinical interpretation. In patients with unstable renal function, e.g. those with acute kidney injury, the eGFR may not accurately reflect actual GFR. Performed By: #### [id number] # ### [facility] CLIA [id number] [address] [place] [address] [place] OF [place] Observed: 04/13/2024 12:00 AM Status: COMPLETED Source: [facility] Telephone (OPHWOO) CHARLIE DEVLIN ([id number]) 1960 F Date Time Provider Department 04/13/24 VINCENT ARROYO OPHWOO During your visit today, we recorded the following information about you: Vincent Llamas OA 04/13/2024 3:36 PM Signed LVM for patient to call the office back and get scheduled for a [address] Lazaro to dispense her trial contact lenses. Please advise JUAN Worthy Bailey, OA 07/12/2024 10:33 AM Signed Can someone place call this patient and reschedule her appointement that she no showed on 05/01/24? She needs to follow up for HVF 24-2 testing and a contact lens dispensing and this needs to be schedule for [address] Lazaro. Thank you JUAN Miguel Cheyenne Lee 07/13/2024 10:13 AM Signed LVM for patient to schedule, 1st attempt. Shamika Owens July 13, 2024 10:13 AM Hanh Loya 07/18/2024 11:05 AM Signed LVM for patient to return call, needs to schedule 30 follow up with Tejas / Neeraj And reschedule est well with pcp for med refills Allergies As of Date: 04/13/2024 Noted Allergy Reaction PENICILLINS 12/30/2011 2 - Rash Comments: Patient states has not had since childhood Date Reviewed: 04/09/2024 Reviewed by: Roseann Lazaro OD - Fully Assessed Prescriptions as of 07/18/2024 - ascorbic acid, vitamin C, (VITAMIN C) 500 mg tablet Take 1 tablet by mouth once daily. - ferrous sulfate 325 mg (65 mg iron) tablet Take 1 tablet by mouth once daily. - furosemide (LASIX) 40 mg tablet Take 1 tablet by mouth every 12 hours. - pantoprazole DR (PROTONIX) 40 mg tablet Take 1 tablet by mouth once daily. - acetaminophen (TYLENOL EXTRA STRENGTH) 500 mg tablet Take 1,000 mg by mouth every 6 hours as needed. - CONSTULOSE 10 gram/15 mL solution Take 10 g by mouth two times a day as needed. - spironolactone (ALDACTONE) 25 mg tablet Take 1 tablet by mouth every 12 hours. Problem List As Of Date 04/13/2024 Noted Resolved Alcohol abuse [F10.10] 11/30/2018 History of skin cancer [Z85.828] 11/30/2018 Well adult exam [Z00.00] 11/30/2018 Encounter for screening for diabetes mellitus [*11/30/2018 Screening for colon cancer [Z12.11] 11/30/2018 Gall stones [K80.20] 10/01/2020 Steatosis (HCC) [E88.89] 09/19/2023 Liver nodule [K76.89] 09/19/2023 Pancreatic mass [K86.89] 09/19/2023 Encounter Status:Closed by VINCENT ARROYO on 04/13/24 PROGRESS Observed: 04/09/2024 10:24 AM Status: COMPLETED Source: [facility] HNO ID: [id number] Author: ROSEANN LAZARO, BLAISE Service: ? Author Type: MARKETING TRAFFIC COORDINATOR Type: Progress Notes Filed: 04/09/2024 10:26 Note Text: 1. Punctate keratitis, bilateral No scar left eye Recommend OTC lubrication 3-4x daily (use PF with contact lenses) 2. Optic cupping of both eyes IOP: 18/15 OCT nerve 04/09/24: Temporal loss on RNFL OS>OD, diffuse GCA loss (-) fam hx Plan for 24-2 at cl follow-up 3. Hyperopia of both eyes 4. Regular astigmatism of both eyes 5. Presbyopia Ordering cl trials- will call for in office dispense Finalized spec rx Follow-up when trials arrive and for 24-2 Roseann Lazaro, OD April 09, 2024 10:24 AM CNPN Observed: 04/09/2024 12:00 AM Status: COMPLETED Source: [facility] CHARLIE DEVLIN ([id number]) 1960 F Date Time Provider Department 04/09/24 VAUGHN PÉREZ During your visit today, we recorded the following information about you: Vaughn Pérez APRN.WASH HOUSE WORKER 04/09/2024 9:36 AM Signed Please let patient know her labs show slightly low potassium and elevated alkaline phosphatase. I would like her to repeat labs in one week. Zina Barrow MA 04/09/2024 11:13 AM Signed Call to pt and notified her of results below. Pt reports that she's had low potassium for quite some time and Dr. Gomez is aware of this. She's not been on Potassium for 2-3 months. When she takes medication she gets a rash or breaks out like in pimples on lower back, buttock and legs. They scar her. When off medication this resolves. She just wanted to make you aware of this. MANUEL Marie Danielle, APRN.WASH HOUSE WORKER 04/09/2024 12:18 PM Signed Noted. Allergies As of Date: 04/09/2024 Noted Allergy Reaction PENICILLINS 12/30/2011 2 - Rash Comments: Patient states has not had since childhood Date Reviewed: 04/09/2024 Reviewed by: Roseann Lazaro OD - Fully Assessed Reason for Visit: Results [95] Primary Visit Diagnosis:Hypokalemia [E87.6] Other Visit Diagnosis:Elevated LFTs [R79.89] Order(s):COMPREHENSIVE METABOLIC PANEL [SQCMP] Order #: [id number] FUTURE Prescriptions as of 04/09/2024 - ferrous sulfate 325 mg (65 mg iron) tablet Take 1 tablet by mouth once daily. - ascorbic acid, vitamin C, (VITAMIN C) 500 mg tablet Take 1 tablet by mouth once daily. - CONSTULOSE 10 gram/15 mL solution - furosemide (LASIX) 40 mg tablet Take 1 tablet by mouth every 12 hours. - spironolactone (ALDACTONE) 25 mg tablet Take 1 tablet by mouth every 12 hours. - ibuprofen (MOTRIN ORAL) Take by mouth. Facility-Administered Medications as of 04/09/2024 - tropicamide 1 % 1 Drop (MYDRIACYL) - PHENYLephrine 2.5 % 1 Drop (AK-DILATE, DAVIS-SYNEPHRINE) Problem List As Of Date 04/09/2024 Noted Resolved Alcohol abuse [F10.10] 11/30/2018 History of skin cancer [Z85.828] 11/30/2018 Well adult exam [Z00.00] 11/30/2018 Encounter for screening for diabetes mellitus [*11/30/2018 Screening for colon cancer [Z12.11] 11/30/2018 Gall stones [K80.20] 10/01/2020 Steatosis (HCC) [E88.89] 09/19/2023 Liver nodule [K76.89] 09/19/2023 Pancreatic mass [K86.89] 09/19/2023 Encounter Status:Closed by VAUGHN PÉREZ on 04/09/24 COMP METAB 2000 PNL SERPL Collected: 11:45 AM Status: F Source: [facility] Order Comment: Specimen Type : BLOOD SPECIMEN Ordering Facility: [facility] Address: [address] [place] [address] TYPE CODE TESTS RESULT OUT OF RANGE REFERENCE UNITS LAB 2885-2(LOINC) Prot SerPl-mCnc 8.2 High 6.3-8.0 g/dL LAB 1751-7(LOINC) Albumin SerPl-mCnc 4.2 3.9-4.9 g/dL LAB 74413-3(LOINC) Calcium SerPl-mCnc 9.9 8.5-10.2 mg/dL LAB 1975-2(LOINC) Bilirub SerPl-mCnc 0.7 0.2-1.3 mg/dL LAB 6768-6(LOINC) ALP SerPl-cCnc 155 High 34-123 U/L LAB 1920-8(LOINC) AST SerPl-cCnc 34 13-35 U/L LAB 1742-6(LOINC) ALT SerPl-cCnc 17 7-38 U/L LAB 2345-7(LOINC) Glucose SerPl-mCnc 101 High 74-99 mg/dL Result Comment: The [place] Diabetes Association (ADA) provides guidance for cutoff values for fasting glucose and random glucose. The ADA defines fasting as no caloric intake for at least 8 hours. Fasting plasma glucose results between 100 to 125 mg/dL indicate increased risk for diabetes (prediabetes). Fasting plasma glucose results greater than or equal to 126 mg/dL meet the criteria for diagnosis of diabetes. In the absence of unequivocal hyperglycemia, results should be confirmed by repeat testing. In a patient with classic symptoms of hyperglycemia or hyperglycemic crisis, random plasma glucose results greater than or equal to 200 mg/dL meet the criteria for diagnosis of diabetes. Reference: Standards of Medical Care in Diabetes 2016, [place] [employer] Association. Diabetes Care. 2016.39(Suppl 1). LAB 3094-0(LOINC) BUN SerPl-mCnc 16 7-21 mg/ dL LAB 2160-0(LOINC) Creat SerPl-mCnc 1.06 High 0.58-0.96 mg/dL LAB 2951-2(LOINC) Sodium SerPl-sCnc 136 136-144 mmol/L LAB 2823-3(LOINC) Potassium SerPl-sCnc 3.4 Low 3.7-5.1 mmol/L LAB 2075-0(LOINC) Chloride SerPl-sCnc 97 Low 98-107 mmol/L LAB 2028-9(LOINC) CO2 SerPl-sCnc 22 22-30 mmo l/L LAB 07007-3(LOINC) Anion Gap SerPl-sCnc 17 High 8-15 mmol/L LAB 55633-1(LOINC) Creatinine + eGFR Pnl SerPlBld 60 >=60 mL/min/1 .73m??? Result Comment: Estimated Gl omerular Filtration Rate (eGFR) is calculated using the 2020 CKD-EPI creatinine equation. This equation utilizes serum creatinine, sex, and age as parameters. The creatinine assay has traceable calibration to isotope dilution-mass spectrometry. Refer to KDIGO guidelines for clinical interpretation. In patients with unstable renal function, e.g. those with acute kidney injury, the eGFR may not accurately reflect actual GFR. Performed By: #### 22015-8 # ### [facility] CLIA [id number] [address] [place] [address] [place] CBC W AUTO DIFF BLD Collected: 04/06/2024 11:45 AM S tatus: F Source: [facility] Order Comment: Specimen Type : BLOOD SPECIMEN Ordering Facility: [facility] Address: [place] [address] TYPE CODE TESTS RESULT OUT OF RANGE REFERENCE UNITS LAB 6690-2([facility]) WBC # Bld Auto 5.31 3.70-11.00 k/uL LAB 789-8([facility]) RBC # Bld Auto 3.38 Low 3.90-5.20 m/ uL LAB 718-7([facility]) Hgb Bld-mCnc 10.5 Low 11.5-15.5 g/dL LAB 4544-3([facility]) Hct VFr Bld Auto 32.5 Low 36.0-46.0 % LAB 787-2([facility]) MCV RBC Auto 96.2 80.0-100.0 fL LAB 785-6([facility]) MCH RBC Qn Auto 31.1 26.0-34.0 p g LAB 786-4([facility]) MCHC RBC Auto-mCnc 32.3 30.5-36.0 g/dL LAB 83635-6([facility]) RDW RBC-Rto 17.8 High 11.5-15.0 % LAB 777-3([facility]) Platelet # Bld Auto 229 150-400 k/uL LAB 06210-4([facility]) PMV Bld Auto 10.2 9.0-12.7 fL LAB 770-8([facility]) Neutrophils/leuk NFr Bld Auto 49.5 % LAB 751-8([facility]) Neutrophils # Bld Auto 2.63 1.45-7.50 k/uL LAB 736-9([facility]) Lymphocytes/leuk NFr Bld Auto 32.8 % LAB 731-0([facility]) Lymphocytes # Bld Auto 1.74 1.00-4.00 k/uL LAB 5905-5([facility]) Monocytes/leuk NFr Bld Auto 12.1 % LAB 742-7([facility]) Monocytes # Bld Auto 0.64 <0.87 k/uL LAB 713-8([facility]) Eosinophil/leuk NFr Bld Auto 4.1 % LAB 711-2([facility]) Eosinophil # Bld Auto 0.22 <0.46 k/uL [facility] 706[facility] Basophils/leuk NFr Bld Auto 1.3 % LAB 704-7([facility]) Basophils # Bld Auto 0.07 <0.11 k/uL LAB 27566[facility] Imm Granulocytes/lucio k NFr Bld Auto 0.2 % LAB 12019-6([facility]) Imm Granulocytes # Bld Auto <0.03 <0.10 k/uL LAB 66920-6([facility]) nRBC/100 WBC Bld-Rto 0.0 /100 WBC LAB 771-6([facility]) nRBC # Bld Auto <0.01 <0.01 k/u L LAB 44747-7([facility]) Differential method Bld Auto Performed By: #### 26081-4 # ### [facility] CLIA [id number] [address] [place] [address] [place] ALLERGIES DATE TYPE / CODE NAME / CODE REACTION SEVERITY SOURCE 12/30/2011 Drug Class/[id number]([facility] ED [facility]) PENICILLINS RASH [facility] ENCOUNTERS ADMIT/DISCHARGE ACCOUNT NUMBER ADMITTING ENCOUNTER CLASS LOC ATION SOURCE 02/27/2025/ 5 [id number] [facility] [id number] [facility]/ 5 [id number] [facility]/08/2025/ 5 [id number] [facility]: EDBed: [address] [place] [address] 01/08/2025/ 5 [id number] Ambulatory [facility] HospitalBuild ing:BEVERLEY [facility] 08/24/2024/ 5 [id number] Ambulatory [facility] HospitalBuild ing:ISABELLA [facility] 08/23/2024/ 5 [id number] Ambulatory [facility] HospitalBuild ing:WOEY [facility] 08/15/2024 [id number] [facility] 08/15/2024 [id number] [facility] 08/10/2024/ 5 [id number] Ambulatory [facility] HospitalBuild ing:WOLB [facility] 08/10/2024/ 5 [id number] Ambulatory [facility] HospitalBuild ing:WOFM [facility] 05/22/2024/ 4 [id number] Ambulatory [facility] HospitalBuild ing:WOL2 [facility] 05/22/2024/ 4 [id number] Ambulatory [facility] HospitalBuild ing:WOHE [facility] 05/07/2024/ 4 [id number] Ambulatory [facility] HospitalBuild ing:WOFM [facility] 04/16/2024/ 4 [id number] Ambulatory [facility] HospitalBuild ing:WOLB [facility] 04/09/2024/ 4 [id number] Ambulatory [facility] HospitalBuild ing:WORENAE [facility] 04/06/2024/ 4 [id number] Ambulatory [facility] HospitalBuild ing:WOLB [facility] PAYERS ENCOUNTER GUARANTOR PAYER SUBSCRIBER SOURCE 02/27/2025 Primary Insurance:[employer] TechnologiesVER[facility]ENTERPolunity[facility] Number: [id number] Date:7006-36-22Kfrp Name:Adams QUINN: [id number] [place] [address] [facility] 02/11/2025 Primary Insurance:[employer] [facility] AlchemyAPIVERDE [facility] CENTERPolunity[facility] Number: [id number] Date:9803-52-12Vitu Name:Adams MONTELONGOMadonna: [id number] [place] [address] [facility] 01/29/2025 Primary Insurance:[employer] TransER[facility]ALTH [facility] Number: [id number] Date:0856-89-60Uweu Name:Adams QUINN: [id number] [place] [address] [facility] 01/08/2025 Primary Insurance:[facility] Number: [id number] Date:9813-24-20Ldbh Name:Adams QUINN: [id number] [place], [place] [address] [place] [address] 01/08/2025 Primary Insurance:[facility] Number: [id number] Date:1781-93-19Pqud Name:Adams QUINN: [id number] [place], [place] [address] [place] [address] 08/24/2024 Primary Insurance:[facility] Number: [id number] Date:0371-10-86Wnrf Name:Adams MONTELONGOB: [id number] [place], [place] [address] [place] [address] 08/23/2024 Primary Insurance:[facility] Number: [id number] Date:3310-81-32Wwmi Name:dAams MONTELONGOB: [id number] [place], [place] [address] [place] [address] 08/15/2024 Primary Insurance:[facility] Number: [id number] Date:8314-09-55Nuqc Name:Adams QUINN: [id number] [place], [place] [address] [place] [address] 08/15/2024 Primary Insurance:[facility] Number: [id number] Date:1682-63-30Ehbq Name:Adams MONTELONGOB: [id number] [place], [place] [address] [place] [address] 08/10/2024 Primary Insurance:[facility] Number: [id number] Date:7227-10-23Nnzr Name:Adams QUINN: [id number] [place], [place] [address] [place] [address] 08/10/2024 Primary Insurance:[facility] Number: [id number] Date:5350-53-47Zyjr Name:Adams QUINN: [id number] [place], [place] [address] [place] [address] 05/22/2024 Primary Insurance:[facility] Number: [id number] Date:0030-70-50Cvxm Name:Adams QUINN: [id number] [place], [place] [address] [place] [address] 05/22/2024 Primary Insurance:[facility] Number: [id number] Date:4724-51-72Zdfd Name:Adams QUINN: [id number] [place], [place] [address] [place] [address] 05/07/2024 Primary Insurance:[facility] Number: [id number] Date:4256-64-48Ziot Name:Adams QUINN: [id number] [place], [place] [address] [place] [address] 04/16/2024 Primary Insurance:[facility] Number: [id number] Date:9738-42-30Tohp Name:Adams MONTELONGOB: [id number] [place], [place] [address] [place] [address] 04/09/2024 Primary Insurance:[facility] Number: [id number] Date:4332-09-83Aigs Name:Adams DEVLINESTEBAN: [id number] [place] [address] [facility] 04/06/2024 Primary Insurance[facility]ITAL[facility] Number: [id number] Date:9019-38-31Gyts Name:Adams DEVLINESTEBAN: [id number] [place] [address] [facility]
--- NOTE | 2025-03-29 15:26 | PAT.ANE_ITS ---
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 When Was Last Pacemaker Check QUESTION #4 FULL TEXT: You/Your Family Experience fever (hyperthermia) with Anesthesia Last Oral Intake Last Oral intake: Last Oral Intake NPO since Meds taken in AM with sips of water? Meds patient instructed to take am of surgery PONV PONV - acoustical logging engineer: PONV - acoustical logging engineer Female Yes 03/29/25 11:17 HX of Motion Sickness No 03/29/25 11:17 HX of N/V After Surgery No 03/29/25 11:17 Non-Smoker Yes 03/29/25 11:17 Duration of Surgery greater No 03/29/25 11:17 than 60 minutes Number of Risk Factors 2 03/29/25 11:17 PONV Score Moderate Risk 03/29/25 11:17 Height & Weight Height & Weight: Anesthesia: Height & Weight Height 5 ft 4 in 05/03/24 09:00 Respiratory Assessment Respiratory Assessment - acoustical logging engineer: Respiratory Tract Infection Hx - acoustical logging engineer Hx Respiratory Tract Infection No 03/29/25 11:17 STOP Sleep Apnea STOP Sleep Apnea - acoustical logging engineer: STOP Sleep Apnea - acoustical logging engineer Hx Hypertension No 03/29/25 11:17 Hx Sleep Apnea No 03/29/25 11:17 CPAP No 03/29/25 11:17 BIPAP No 03/29/25 11:17 Do you snore loudly (louder No 03/29/25 11:17 than talking or can be heard Do you often feel tired/ Yes 03/29/25 11:17 fatigued/ sleepy during daytime? Has anyone observed you stop No 03/29/25 11:17 breathing during sleep? STOP Results Negative 03/29/25 11:17 QUESTION #5 FULL TEXT : Do you snore loudly (louder than talking or can be heard through closed doors)? 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 Specify any problems Hx of Preganancy in last 3 No 03/29/25 11:17 Months Nurse Filling Out Transfusion DSCHRIBER 03/29/25 11:17 & Questions: Date: 03/29/25 03/29/25 11:17 Time: 11:19 03/29/25 11:17 Patient unable to answer at this time (ie. confused, unrespo /Reproduction History /Reproductive History - acoustical logging engineer: /Reproductive Hx- acoustical logging engineer Hx Now Gestational Age (in weeks): EDC: Hx Hx Para Hx Section SAB No 03/29/25 11:17 PFS Medical History (Updated 03/29/25 @ 11:32 by Antionette Connors) Wears glasses Post-menopausal Depression Anxiety Cirrhosis Easy bruising Excessive bleeding Restless legs Back pain History of hiatal hernia History of ulceration Shortness of breath on exertion Non-smoker Leg cramps History of pain when walking History of edema History of irregular heartbeat History of biliary stent insertion Pancreatic mass Alcohol abuse Epigastric pain Gall stones Elevated LFTs Rectal bleeding Diarrhea Fatigue Anemia Hemorrhoids Home Medications ?Medication ?Instructions ?Recorded ?Last Taken ?Type acetaminophen 325 mg tablet 650 mg (2 x 325 mg) PO Q4H PRN PRN 09/22/23 Unknown Rx Fever, pain 1-04/12 #1 TAB furosemide 40 mg tablet 40 mg PO BID diuretic #60 ta bs 09/29/23 Unknown Rx ascorbate calcium (vitamin C) 500 500 mg PO DAILY kami min 03/01/24 Unknown History mg tablet ferrous sulfate 325 mg (65 mg 325 mg PO DAILY suppleme nt 03/01/24 Unknown History iron) tablet spironolactone 25 mg tablet 25 mg PO BID PRN edema Unknown History azithromycin 500 mg tablet 500 mg PO QDAY 14 days #14 tabs 03/21/25 Unknown Rx polyethylene glycol 3350 17 4 g PO QDAY 03/21/25 Unkno wn History gram/dose oral powder (Miralax) trazodone 50 mg tablet 50 mg PO QHS PRN sleep 03/21 Unknown History Allergy/AdvReac Type Severity Reaction Status Date / Time Penicillins Allergy Rash Verified 03/29/25 11:15 Family History Brother Diabetes Father Diabetes Hypertension High cholesterol Thyroid disorder Surgical History (Updated 03/29/25 @ 11:32 by Antionette Connors) History of abdominal paracentesis Hx of colonoscopy Social History (Updated 02/01/25 @ 19:46 by GREY Ahn) Smoking Status: Never smoker alcohol intake: former substance use type: does not use caffeine: Yes what type of physical activity do you participate in: walking seatbelt use: always do you feel safe at home: Yes 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 Sinus tachycardia Recommendation Anesthesia Recommendation Anesthesia recommendation: OPTIMIZED for anesthesia
[2025-04-01] VITALS (8 sets, daily range): BP systolic 82–101; BP diastolic 54–71; PULSE 62–71; RESP 12–16; TEMP 36.4–36.6; O2SAT 98–100; BMI 17.0
--- NOTE | 2025-04-01 06:39 | HP.PCM_ITS ---
HPI - General General Date of Admission: 04/01/25 Date of Service: 04/01/25 Chief Complaint: stent removal HPI Narrative CHARLIE DEVLIN, is a ?65-year-old woman with a history of alcoholic cirrhosis and chronic alcoholic pancreatitis. She presents for a routine follow-up, which includes discussion of her upcoming pancreatic stent removal. She reports a new complaint of persistent bloating over the past several weeks. The bloating has been constant, though it fluctuates in severity, and is sometimes accompanied by a feeling of fullness after eating only small amounts of food. She denies any new abdominal pain, fever, nausea, vomiting, diarrhea, or constipation. She has not noticed any change in the color of her stools [facility] Hosp 09/19/23- 09/22/23 - Acute on chronic GI bleeding secondary to rectal varices, Alcoholic Cirrhosis, Possible pancreatic mass. OV 6.10.24 pt reports that she is doing much better since her last visit. pt states that she is almost 3 months sober; continues care with [facility]. Pt reports 7-8 watery bm per day; denies blood in the stool. Pt denies swelling, jaundice, trouble sleeping, dizziness, and confusion. Pt reports itchy skin on the backs of her legs that resemble ingrown hairs. Pt continues with Lactulose BID and pantoprazole daily. OV 8. pt reports that GI mckeon she is feeling well; pt does endorse trouble sleeping, increased swelling, joint/muscle pain, and itchy skin. Pt reports that she is only taking about a TBS of lactulose daily or she gets diarrhea. pt reports 1-2 regular bm per day. OV 9. pt reports she is here to get scheduled to have her stent removed. States that if she eats anything she becomes extremely bloated and has pure liquid stool. Is currently taking daily miralax. MELD: 6.10.24 12 8.28.24 15 9.15.25 14 [facility] Medical History Wears glasses Post-menopausal Depression Anxiety Cirrhosis Easy bruising Excessive bleeding Restless legs Back pain History of hiatal hernia History of ulceration Shortness of breath on exertion Non-smoker Leg cramps History of pain when walking History of edema History of irregular heartbeat History of biliary stent insertion Pancreatic mass Alcohol abuse Epigastric pain Gall stones Elevated LFTs Rectal bleeding Diarrhea Fatigue Anemia Hemorrhoids Home Medications ?Medication ?Instructions ?Recorded ?Last Taken ?Type acetaminophen 325 mg tablet 650 mg (2 x 325 mg) PO Q4H PRN PRN 09/22/23 Unknown Rx Fever, pain 1-04/12 #1 TAB furosemide 40 mg tablet 40 mg PO BID diuretic #60 ta bs 09/29/23 Unknown Rx ascorbate calcium (vitamin C) 500 500 mg PO DAILY kami min 03/01/24 Unknown History mg tablet ferrous sulfate 325 mg (65 mg 325 mg PO DAILY suppleme nt 03/01/24 Unknown History iron) tablet spironolactone 25 mg tablet 25 mg PO BID PRN edema Unknown History azithromycin 500 mg tablet 500 mg PO QDAY 14 days #14 tabs 03/21/25 Unknown Rx polyethylene glycol 3350 17 4 g PO QDAY 03/21/25 Unkno wn History gram/dose oral powder (Miralax) trazodone 50 mg tablet 50 mg PO QHS PRN sleep 03/21 Unknown History Allergy/AdvReac Type Severity Reaction Status Date / Time Penicillins Allergy Rash Verified 03/29/25 11:15 Family History Brother Diabetes Father Diabetes Hypertension High cholesterol Thyroid disorder Surgical History History of abdominal paracentesis Hx of colonoscopy Social History Smoking Status: Never smoker alcohol intake: former substance use type: does not use caffeine: Yes what type of physical activity do you participate in: walking seatbelt use: always do you feel safe at home: Yes 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 Constitutional Constitutional: Denies fatigue, fever(s), poor appetite, weight gain or weight loss Gastrointestinal Gastrointestinal: Denies belching, bloating, change in bowel habits, change in stool character, chewing difficulty, coffee ground emesis, constipation, cramping, diarrhea, dyspepsia, dysphagia, early satiety, excessive flatus, fecal incontinence, heartburn, hematemesis, hematochezia, hemorrhoids, loose stools, melena, nausea, odynophagia, rectal bleeding, tenesmus, vomiting or weight changes Physical Exam Const alert, oriented x3, no apparent distress and healthy appearing General Appearance: cooperative GI normal to inspection, nondistended, normoactive bowel sounds, soft to palpation, non-tender and non-distended Percussion: normal to percussion Rectal Exam: deferred Assessment & Plan Assessment/Plan (1) Cirrhosis: QUALIFIERS: Hepatic cirrhosis type: alcoholic cirrhosis Ascites presence: without ascites Qualified Code(s): K70.30 - Alcoholic cirrhosis of liver without ascites (2) Acute alcoholic pancreatitis: (3) Chronic pancreatitis: PLAN: Assessment and Plan Assessment and Plan (1) Constipation: Status: Acute Qualifiers: Constipation type: unspecified constipation type Qualified Code(s): K59.00 - Constipation, unspecified (2) Cirrhosis: Status: Chronic Qualifiers: Hepatic cirrhosis type: alcoholic cirrhosis Ascites presence: without ascites Qualified Code(s): K70.30 - Alcoholic cirrhosis of liver without ascites (3) Abdominal wall hernia: Status: Acute (4) Thrombocytopenia: Status: Acute Plan: Assessment * Primary Problem:?Bloating in a 65 yo woman with alcoholic cirrhosis and chronic pancreatitis with a pancreatic stent. * Differential Diagnosis for Bloating: * Exocrine Pancreatic Insufficiency (EPI):?The chronic pancreatitis likely impairs the pancreas's ability to produce digestive enzymes. Undigested food, particularly fats, can ferment in the colon, producing gas and causing bloating, gas, and greasy stools. * Pancreatic Stent Issues:?Although post-ERCP bloating is usually temporary, chronic stent-related issues like blockage, migration, or a developing infection could cause persistent symptoms. * Gastrointestinal Dysfunction due to Cirrhosis:?Cirrhosis can cause delayed gastric emptying and impaired gastric accommodation, leading to symptoms like bloating and early satiety even without ascites. Small intestinal bacterial overgrowth (SIBO) is also associated with cirrhosis and can cause bloating. * Early Ascites or Subclinical Fluid Retention:?While the patient is currently without ascites, mild fluid accumulation may not be clinically obvious but can still cause bloating. This is a common complication of worsening cirrhosis. * Pseudoaneurysm or Pseudocyst:?A chronic pancreatitis complication is the formation of pseudocysts, which are fluid collections on the pancreas that can cause bloating and discomfort if they enlarge. Plan * Diagnostics: * Imaging:?Order an abdominal CT scan or ultrasound to evaluate the position and patency of the pancreatic stent, assess for any pancreatic pseudocysts or other complications, and to rule out occult ascites. * Labs:?A CMP, LFTs, Lipase, and Amylase are appropriate to obtain at this visit. * Therapeutics: * Continue current medications. * Pancreatic Enzyme Replacement Therapy (PERT):?Given the history of chronic pancreatitis and bloating, a trial of PERT should be considered to improve digestion, particularly of fats, which can help reduce gas and bloating. * Pancreatic stent removal Medications: New azithromycin 500 mg PO QDAY 14 tabs 0RF 14 days metoclopramide HCl administer 30 minutes before meals 5 mg PO QAC 21 tabs 0RF 7 days
--- NOTE | 2025-04-01 07:15 | FLU_PTH ---
PATIENT: CHARLIE DEVLIN LOC: EN U#:[id number] AGE/SX: 65/F ROOM: RE04/01/[address]: Dr. Nikolay Polk DO : 1960 BED: DIS: 04/01/2025 SPEC #: [id number] RECD: 04/01/25 08:41 STATUS: WALE REQ #: [id number] LEO: 04/01/25 07:[address]: Nikolay Polk DEPT: CYTOLOGY RECD BY: Matias Allen ENTERED: 04/01/25 09:34 SP TYPE: Fluid OTHR DR: Mary Martinez, BANK APPRAISER-C Tissues: A - Pancreatic duct, NOS Procedures: Special Stain Group II Surgery Specimen Level IV Cytospin Fluid HEADER OPERATION: ERCP, stent removal, balloon sweep PRE-OP DIAGNOSIS: Stent removal TISSUE SUBMITTED: A- Pancreatic stent for cytology DIAGNOSIS CYTOLOGY A. Pancreatic stent, ERCP (cytospin, cellblock): * No malignant cells identified. * Foreign debris and bile pigment observed. CYTOLOGY STUDY Slides are reviewed. CYTOLOGY GROSS A. Received is 10cm greenish-black stent with 0.3 ml of thick white material labeled with the patient's name and and designated per the requisition as Pancreatic stent. Submitted for cytology and cell block preparation. Mr 04/01/2025 CPT: 30706,58582
--- NOTE | 2025-04-01 07:28 | PCM.PRE.AN2 ---
ASA Classification* ASA Classification ASA Classification: 3 Assessment & Plan Anesthesia* Anesthesia Assessment Anesthesia Assessment: Discussed sedation and/or anesthesia options, risks, benefits, and alternatives with patient/parents/legal guardian/POA. Questions invited. The patient/parents/legal guardian/POA seems to understand and agrees to proceed with anesthesia plan. Reviewed the physical assessment, medical history, allergy history and patient home medications list prior to surgery/procedure/anesthetic and documented any changes. Performed airway and anesthesia risk assessments. Anesthesia Type Anesthesia Type: MAC History Source History Obtained from:: Patient and Chart Anesthesia Focused Assessment* Temperature: 97.7 F Pulse Rate: 71 Blood Pressure: 101/71 Respiratory Rate: 12 Pulse Ox: 98 Airway Assessment Mouth opens: >3 cm Mallampati Score: II Labs Anesthesia Preop lab: CBC WBC, (4.4-11.0) 5.4 K/mm3 05/03/24, 06:19 RBC, (4.2-5.4) 2.72 M/mm3 L 05/03/24, 06:19 Hgb, (12.0-15.0) 8.7 g/dL L 05/03/24, 06:19 Hct, (37-47) 25.8 % L 05/03/24, 06:19 Plt Count, (150-450) 172 K/mm3 05/03/24, 06:19 CHEMISTRY Potassium, (3.5-5.1) 3.0 mmol/L L 05/03/24, 06:19 Sodium, (136-145) 139 mmol/L 05/03/24, 06:19 Magnesium, (1.6-2.6) 1.9 mg/dL 05/03/24, 06:19 Phosphorus, (2.5-4.9) 4.0 mg/dL 05/03/24, 06:19 BUN, (7-18) 12 mg/dL 05/03/24, 06:19 Creatinine, (0.55-1.02) 0.87 mg/dL 05/03/24, 06:19 Glucose, (74-106) 95 mg/dL 05/03/24, 06:19 TSH, (0.358-3.74) 4.14 uIU/mL H 10/31/13, 20:05 COAG PT, (11.7-14.9) 15.6 SECONDS H 05/01/24, 03:05 Urine Test Negative Negative 09/19/23, 14:50 Pre-Assessment Diagnosis/Proposed Procedure Planned Operative Procedure(s): ERCP WITH REMOVAL OF STENT Anesthesia History 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 When Was Last Pacemaker Check QUESTION #4 FULL TEXT: You/Your Family Experience fever (hyperthermia) with Anesthesia Last Oral Intake Last Oral intake: Last Oral Intake NPO since 12:35 04/01/25 07:02 Meds taken in AM with sips of water? 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 Female Yes 03/29/25 11:17 HX of Motion Sickness No 03/29/25 11:17 HX of N/V After Surgery No 03/29/25 11:17 Non-Smoker Yes 03/29/25 11:17 Duration of Surgery greater No 03/29/25 11:17 than 60 minutes Number of Risk Factors 2 03/29/25 11:17 PONV Score Moderate Risk 03/29/25 11:17 Height & Weight Height & Weight: Anesthesia: Height & Weight Height 5 ft 4 in 04/01/25 07:02 Weight: 45 kg 04/01/25 07:02 Body Mass Index (BMI) 17.0 04/01/25 07:02 Respiratory Assessment Respiratory Assessment - cracker and cookie machine operator: Respiratory Tract Infection Hx - 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 Has anyone observed you stop No 03/29/25 11:17 breathing during sleep? STOP Results Negative 03/29/25 11:17 QUESTION #5 FULL TEXT : Do you snore loudly (louder than talking or can be heard through closed doors)? 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 Specify any problems Hx of Preganancy in last 3 No 03/29/25 11:17 Months Nurse Filling Out Transfusion DSCHRIBER 03/29/25 11:17 & Questions: Date: 03/29/25 03/29/25 11:17 Time: 11:19 03/29/25 11:17 Patient unable to answer at this time (ie. 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: /Reproductive Hx- cracker and cookie machine operator Hx Now Gestational Age (in weeks): EDC: Hx Hx Para Hx Section SAB No 03/29/25 11:17 Active Medications Active Medications: Current Medications Generic Name Dose Route Start Last Admin Trade Name Freq PRN Reason Stop Dose Admin Lactated Ringer's 1,000 mls @ 15 mls/hr 04/01/25 06:30 IV .Q48H ABIOLA PFSH Medical History Wears glasses Post-menopausal Depression Anxiety Cirrhosis Easy bruising Excessive bleeding Restless legs Back pain History of hiatal hernia History of ulceration Shortness of breath on exertion Non-smoker Leg cramps History of pain when walking History of edema History of irregular heartbeat History of biliary stent insertion Pancreatic mass Alcohol abuse Epigastric pain Gall stones Elevated LFTs Rectal bleeding Diarrhea Fatigue Anemia Hemorrhoids Home Medications ?Medication ?Instructions ?Recorded ?Last Taken ?Type acetaminophen 325 mg tablet 650 mg (2 x 325 mg) PO Q4H PRN PRN 09/22/23 Unknown Rx Fever, pain 1-04/12 #1 TAB furosemide 40 mg tablet 40 mg PO BID diuretic #60 tabs 09/29/23 03/31/25 Rx ascorbate calcium (vitamin C) 500 500 mg PO DAILY vitamin 03/01/24 03/31/25 History mg tablet ferrous sulfate 325 mg (65 mg 325 mg PO DAILY supplement 03/01/24 03/31/25 History iron) tablet spironolactone 25 mg tablet 25 mg PO BID PRN edema 04/30/24 Unknown History azithromycin 500 mg tablet 500 mg PO QDAY 14 days #14 tabs 03/21/25 03/30/25 Rx polyethylene glycol 3350 17 4 g PO QDAY 03/21/25 Unknown History gram/dose oral powder (Miralax) trazodone 50 mg tablet 50 mg PO QHS PRN sleep 03/21/25 03/30/25 History Allergy/AdvReac Type Severity Reaction Status Date / Time azithromycin Allergy Intermediate rash Verified 04/01/25 07:01 Penicillins Allergy Rash Verified 04/01/25 07:01 Family History Brother Diabetes Father Diabetes Hypertension High cholesterol Thyroid disorder Surgical History History of abdominal paracentesis Hx of colonoscopy Social History Smoking Status: Never smoker alcohol intake: former substance use type: does not use caffeine: Yes what type of physical activity do you participate in: walking seatbelt use: always do you feel safe at home: Yes 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 Physical Exam Const alert and oriented x3 HEENT dentition normal Resp normal respiratory effort Auscultation: clear to auscultation bilaterally Cardio regular rate and regular rhythm Back/Spine normal ROM Neuro oriented x3 and moves all extremities
--- NOTE | 2025-04-01 07:45 | RAD_ITS ---
PROCEDURE: ERCP BILIARY/PANCREAS; O.R. FLUORO FOR C-ARM 04/01/2025 REASON FOR EXAM: ERCP. Removal of pancreatic stent. TECHNIQUE: Procedure Code: RADERCP; RADORFL_C_ARM Modality: DX Procedure: ERCP BILIARY/PANCREAS; O.R. FLUORO FOR C-ARM. Dose: 10.56 mGy. RAD/ERCP Biliary/Pancreas IMPRESSION: Fluoroscopy was used for ERCP and pancreatic stent removal. 9 fluoroscopic trish ges were also obtained. Reading Location: [id number]
--- NOTE | 2025-04-01 07:45 | RAD_ITS ---
PROCEDURE: ERCP BILIARY/PANCREAS; O.R. FLUORO FOR C-ARM 04/01/2025 REASON FOR EXAM: ERCP. Removal of pancreatic stent. TECHNIQUE: Procedure Code: RADERCP; RADORFL_C_ARM Modality: DX Procedure: ERCP BILIARY/PANCREAS; O.R. FLUORO FOR C-ARM. Dose: 10.56 mGy. RAD/O.R. Fluoro for C-Arm IMPRESSION: Fluoroscopy was used for ERCP and pancreatic stent removal. 9 fluoroscopic trish ges were also obtained. Reading Location: [id number]
--- NOTE | 2025-04-01 08:13 | OP.PROVAT_ITS ---
04/01/2025 Mj Bernstein Re : ERCP procedure for Adele Cheng Dear Michelle This procedure was performed on Tuesday, April 01, 2025. My impressions and recommendations are as follows: Impressions : - The major papilla was adjacent to a diverticulum. - A stone and sludge were seen in the major papilla. - The entire main bile duct and entire biliary tree were dilated, with a stone causing an obstruction. - Choledocholithiasis was found. Complete removal was accomplished by biliary sphincterotomy and balloon extraction. - Pancreatic stones were found. Complete removal was accomplished. - A pancreatic sphincterotomy was performed. - The ventral pancreatic duct was swept. - One temporary stent was placed into the ventral pancreatic duct. - A biliary sphincterotomy was performed. - The biliary tree was swept. Recommendations : My findings are described in the full procedure note, which is enclosed. If I can be of further assistance, please feel free to contact me at . Sincerely, Nikolay Polk DO 04/01/2025 8:13:02 AM This report has been signed electronically.
--- NOTE | 2025-04-01 08:13 | OP.ERCP_ITS ---
Patient Name: Adele Cheng Procedure Date: 04/01/2025 6:42 AM Date of : 1960 Age: 65 Procedure: ERCP Indications: Bile duct stone(s), Suspected chronic recurrent pancreatitis, Pancreatic stent removal Providers: Nikolay Polk DO Referring MD: Mj Bernstein Medicines: Monitored Anesthesia Care Patient Profile: This is a 65 year old female. Refer to note in patient chart for documentation of history and physical. Patient has symptoms of acute abdominal cramping and chronic epigastric abdominal pain. Her most recent ERCP for biliary evaluation, ERCP for pancreatic evaluation, ERCP for stent and ERCP for stone removal. She is status post laparoscopic cholecystectomy. Complications: No immediate complications. Procedure: Pre-Anesthesia Assessment: - Prior to the procedure, a History and Physical was performed, and patient medications and allergies were reviewed. The patient is competent. The risks and benefits of the procedure and the sedation options and risks were discussed with the patient. All questions were answered and informed consent was obtained. Patient identification and proposed procedure were verified by the physician in the pre-procedure area. Mental Status Examination: alert and oriented. Airway Examination: normal oropharyngeal airway and neck mobility. Respiratory Examination: clear to auscultation. CV Examination: normal. Prophylactic Antibiotics: The patient does not require prophylactic antibiotics. Prior Anticoagulants: The patient has taken no anticoagulant or antiplatelet agents. ASA Grade Assessment: II - A patient with mild systemic disease. After reviewing the risks and benefits, the patient was deemed in satisfactory condition to undergo the procedure. The anesthesia plan was to use monitored anesthesia care (MAC). Immediately prior to administration of medications, the patient was re-assessed for adequacy to receive sedatives. The heart rate, respiratory rate, oxygen saturations, blood pressure, adequacy of pulmonary ventilation, and response to care were monitored throughout the procedure. The physical status of the patient was re-assessed after the procedure. After obtaining informed consent, the scope was passed under direct vision. Throughout the procedure, the patient's blood pressure, pulse, and oxygen saturations were monitored continuously. The Duodenoscope was introduced through the mouth, and advanced to the duodenum and used to inject contrast into the bile duct and ventral pancreatic duct. The ERCP was accomplished without difficulty. The patient tolerated the procedure well. Scope In: 7:48:19 AM Scope Out: 8:02:32 AM Total Procedure Duration Time 0 hours 14 minutes 13 seconds Findings: The perinatal nurse film was normal. The esophagus was successfully intubated under direct vision. The scope was advanced to a normal major papilla in the descending duodenum without detailed examination of the pharynx, larynx and associated structures, and upper GI tract. The upper GI tract was grossly normal. The ventral pancreatic duct was deeply cannulated with the short-nosed traction sphincterotome. Contrast was injected. I personally interpreted the pancreatic duct images. There was appropriate flow of contrast through the ducts. Image quality was suboptimal. Contrast extended to the pancreatic duct. Opacification of the entire pancreatic ductal system was successful. The maximum diameter of the ducts was 3 mm. The entire opacified area was normal. A long 0.025 inch Jagwire was passed into the ventral pancreatic duct. A 5 mm ventral pancreatic sphincterotomy was made with a traction (standard) sphincterotome using ERBE electrocautery. There was no post-sphincterotomy bleeding. To find object(s) the ventral pancreatic duct was swept with a 6 mm balloon starting at the pancreatic duct in the body of the pancreas. All stones were removed. One 5 Fr by 7 cm temporary stent was placed 5 cm into the ventral pancreatic duct. Clear fluid flowed through the stent. The stent was in good position. The major papilla was adjacent to a diverticulum. The major papilla contained a stone. Sludge was emerging from the major papilla. The minor papilla was not found. The bile duct was deeply cannulated with the short-nosed traction sphincterotome. Contrast was injected. Opacification of the entire biliary tree was successful. The maximum diameter of the ducts was 10 mm. The main bile duct contained multiple stones, the largest of which was 6 mm in diameter. The main bile duct and entire biliary tree were diffusely dilated, with a stone causing an obstruction. The largest diameter was 9 mm. Placement of a long 0.025 inch Jagwire into the biliary tree was attempted. This passed successfully. A 5 mm biliary sphincterotomy was made with a traction (standard) sphincterotome using ERBE electrocautery. There was no post-sphincterotomy bleeding. To discover objects, the biliary tree was swept with a 12 mm balloon starting at the upper third of the main bile duct, middle third of the main bile duct, lower third of the main duct, bifurcation, left intrahepatic duct(s) and left main hepatic duct. All stones were removed. Impression: - The major papilla was adjacent to a diverticulum. - A stone and sludge were seen in the major papilla. - The entire main bile duct and entire biliary tree were dilated, with a stone causing an obstruction. - Choledocholithiasis was found. Complete removal was accomplished by biliary sphincterotomy and balloon extraction. - Pancreatic stones were found. Complete removal was accomplished. - A pancreatic sphincterotomy was performed. - The ventral pancreatic duct was swept. - One temporary stent was placed into the ventral pancreatic duct. - A biliary sphincterotomy was performed. - The biliary tree was swept. Procedure Code(s): --- Professional --- 43894, Endoscopic retrograde cholangiopancreatography (ERCP); with placement of endoscopic stent into biliary or pancreatic duct, including pre- and post-dilation and guide wire passage, when performed, including sphincterotomy, when performed, each stent 70629, 51, Endoscopic retrograde cholangiopancreatography (ERCP); with removal of calculi/debris from biliary/pancreatic duct(s) 77660, 59, Endoscopic retrograde cholangiopancreatography (ERCP); with sphincterotomy/papillotomy 12377, 26, Endoscopic catheterization of the pancreatic ductal system, radiological supervision and interpretation CPT copyright 2021 [employer]. All rights reserved. The codes documented in this report are preliminary and upon earth mover review may be revised to meet current compliance requirements. Nikolay Polk DO 04/01/2025 8:13:02 AM This report has been signed electronically. Number of Addenda: 0 Note Initiated On: 04/01/2025 6:42 AM
--- NOTE | 2025-04-01 08:21 | PCM.POST.ANE ---
Anesthesia: Postop Eval I Current Vital Signs Temperature: 97.6 F Pulse Rate: 62 Blood Pressure: 96/70 Respiratory Rate: 16 Pulse Ox: 100 Oxygen Delivery Method: Room Air Assessment Airway patent: Yes Spontaneous unlabored respirations: Yes Mental status: Asleep nausea: No Vomiting: No Anesthesia Complication: No Fluid Hydration Crystalloid volume administer (ml): 500 Total IV fluid infused: 500 Progress Note Anesthesia document: Postop Eval 1 completed: Yes
--- NOTE | 2025-04-01 09:14 | PCM.POSTANE2 ---
Anesthesia Postop Eval I Sum Postop Eval Completion status Anesthesia document: Postop Eval 1 completed: Yes Anesthesia Postop Eval I Summary Anesthesia Postop Eval I Summary: Anesthesia Postop Eval I: Assessment Summary Airway patent Yes 04/01/25 08:23 [email or web address] Spontaneous unlabored Yes 04/01/25 08:23 [email or web address] respirations Mental status Asleep 04/01/25 08:23 [email or web address] nausea No 04/01/25 08:23 [email or web address] Vomiting No 04/01/25 08:23 [email or web address] Anesthesia Postop Eval I: Fluid Summary Crystalloid volume administer 500 04/01/25 08:23 [email or web address] (ml) Colloids volume administered ( ml) Blood Product volume administered (ml) Total IV fluid infused 500 04/01/25 08:23 [email or web address] Anesthesia Postop Eval I: Summary Notes Anesthesia Complication No 04/01/25 08:23 [email or web address] Anesthesia Complication Comment: Post-operative progress note Anesthesia: Postop Eval II Evaluation Mental status: Awake and Calm Pain Level: 0 nausea: No Vomiting: No Complications Anesthesia Complication: No
== END 2025-04-01 09:08 | disposition home or self-care (01) ==
LOC: EN 06:05 → AC 06:07
PROVIDERS: PCP Nurse Practitioner Family; Referring Provider Nurse Practitioner Family; Visit Provider Internal Medicine Gastroenterology
PROC: (CPT 43260; principal; 2025-04-01 06:55)
DX: K85.20 Alcohol induced acute pancreatitis without necrosis or infection (principal); K70.30 Alcoholic cirrhosis of liver without ascites; K86.1 Other chronic pancreatitis; K80.51 Calculus of bile duct without cholangitis or cholecystitis with obstruction; Z87.891 Personal history of nicotine dependence; K59.00 Constipation, unspecified; K43.9 Ventral hernia without obstruction or gangrene; D69.6 Thrombocytopenia, unspecified; K86.89 Other specified diseases of pancreas
CPT/HCPCS: 43274; 43264; 74330; 76000; 88108; 88305; 88313; 93005; C1769; J2405